=== PATIENT | female | born 1940 | race Caucasian/White ===

== ENCOUNTER → 2016-03-24 | Outpatient (CLI) | payer MEDICARE, OTHER ==
[~2016-03-24] MED LIST: CLOB-49 EX; CYCL0.8T PO; ESTR1TAB PO; FLUT1LOT EX; INSUHUMDS SC; INSULANT SC; LOSA50TA20 PO; MAGN400T5 PO; PRIM250T5 PO; PROP20EL PO; REST0.05 OP; SIMV40TA2 PO
--- NOTE | 2016-03-24 15:42 | REPMRS ---
Patient History The patient states she had a clinical breast exam in Patient has history of other cancer at age 71. No known family history of cancer. Took hormonal contraceptives for 4 years. Digital Woman Screen Mammo: March 24, 2016 - Exam #: [id number] Bilateral CC and MLO view(s) were taken. Technologist: Maude Marr, Technologist Prior study comparison: February 20, 2015, digital woman screen mammo performed at [facility]. February 08, 2014, bilateral bilat screen digital mammo, performed at [facility] ([facility]). February 06, 2013, bilateral bilat screen digital mammo, performed at [facility] ([facility]). FINDINGS: There are scattered fibroglandular densities. There has been no change in the appearance of the mammogram from the prior studies. There is a mild amount of scattered fibroglandular density which is fairly symmetric. There is no interval development of dominant mass, architectural distortion, or clustered microcalcification suggestive of malignancy. ASSESSMENT: BI-RADS/ACR category 1 mammogram. Negative. Recommendation Routine screening mammogram in 1 year (for women over age 40). This mammogram was interpreted with the aid of an FDA-approved computer-aided dectection system. Electronically Signed By: Ab Chapman MD 03/24/16 [id number]
== END ==
LOC: M WHC 14:03
PROVIDERS: ATTEND Nurse Practitioner Women's Health
DX: Z12.31 Encounter for screening mammogram for malignant neoplasm of breast (principal)
CPT/HCPCS: G0202; G0463

== ENCOUNTER → 2016-05-21 | Outpatient (REF) | payer MEDICARE, OTHER ==
[2016-05-21 13:41] LABS: ALBUMIN 3.5 GM/DL (3.2-5.2); ALBUMIN/GLOBULIN RATIO 1.09 (1.00-1.93); ALKALINE PHOSPHATASE 81 U/L (45-117); ALT/SGPT 68 U/L (12-78); ANION GAP 9 MEQ/L (8-16); AST/SGOT 39 U/L (15-37); BILIRUBIN,TOTAL 0.5 MG/DL (0.2-1.0); BLOOD UREA NITROGEN 22 MG/DL (7-18); CARBON DIOXIDE LEVEL 28 MEQ/L (21-32); CHLORIDE LEVEL 106 MEQ/L (98-107); CHOLESTEROL LEVEL 145 MG/DL (<200); CREATININE FOR GFR 0.87 MG/DL (0.55-1.02); GLOMERULAR FILTRATION RATE > 60.0 (>39); GLUCOSE, FASTING 132 MG/DL (83-110); POTASSIUM SERUM 4.5 MEQ/L (3.5-5.1); SODIUM LEVEL 143 MEQ/L (136-145); TOTAL PROTEIN 6.7 GM/DL (6.4-8.2); TRIGLYCERIDES LEVEL 201 MG/DL (<150)
== END ==
LOC: M SFHCPLAZ 11:12
PROVIDERS: ATTEND Nurse Practitioner Adult Health
DX: R74.8 Abnormal levels of other serum enzymes (principal); I10 Essential (primary) hypertension; E11.9 Type 2 diabetes mellitus without complications; E78.00 Pure hypercholesterolemia, unspecified

== ENCOUNTER → 2016-08-11 | Outpatient (CLI) | payer MEDICARE, OTHER ==
--- NOTE | 2016-08-11 15:01 | REP ---
PA and lateral chest: Comparison is 02/07/2016. The lung [place] are clear. The cardiac size is normal The hernán, mediastinum, and bony thorax are unremarkable. Impression: Negative PA and lateral chest. There is no interval change. Signed by Rodrigo Marcelo MD 08/11/2016 02:52 P
[2016-08-11 15:40] LABS: CALCIUM LEVEL 8.8 MG/DL (8.8-10.2); CREATININE FOR GFR 1.13 MG/DL (0.55-1.02); GLOMERULAR FILTRATION RATE 49.7 (>39)
[2016-08-11 15:54] LABS: POTASSIUM SERUM 5.5 MEQ/L (3.5-5.1)
--- NOTE | 2016-08-11 16:28 | ECGEPIP ---
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
== END ==
LOC: M LAB 13:51
PROVIDERS: ATTEND Ophthalmology
DX: Z01.818 Encounter for other preprocedural examination (principal); H25.11 Age-related nuclear cataract, right eye

== ENCOUNTER → 2016-08-27 | Day surgery (SDC) | payer MEDICARE, OTHER ==
[~2016-08-27] VITALS: Ht 149.9 cm; Wt 72.2 kg
[~2016-08-27] MED LIST changes: +ACETYLCHOLINE OPHTH SOLN 1% 2ML (MIOCHOL-E) As Ordered ONE; +AMLO2.5T PO; +BALANCED SALT IRRIGATION SOL 500ML GLASS BOTTLE (FOR OR EYE COMPOUND) As Ordered ONE; +BALANCED SALT IRRIGATION SOLUTION 500ML BAG (FOR OR EYE MACHINE) As Ordered ONE; +CEFUROXIME 1MG/0.1ML INTRACAMERAL INJ As Ordered ONE; +D5W/0.2% SODIUM CHLORIDE 250 ML IV ONE; +DUOVISC (0.50ML VISCOAT/0.55ML PROVISC) OPHTH KIT As Ordered ONE; +ESTR1CRE PV; +FLON1SPR; +INSULADS SC; +LIDOCAINE 0.75%/EPINEPHRINE 0.025% IN BSS 1ML SYR INTRACAMERAL (OR ONLY) As Ordered ONE; +LIDOCAINE 4% INJ 5 ML AMP As Ordered ONE; +LR 1,000 ML IV SCH; +MAGN64TASA PO; +MIDAZOLAM INJ 2 MG/2 ML VIAL (J2250) As Ordered ONE; +ONDANSETRON 4MG/2ML VIAL (J2405) IV PRN; +PEPC1TAB2 PO; +PEPC1TAB4 PO; +PHENYLEPHRINE 2.5% OPHTH SOL 2ML OD ONE; +POTA10TA16 PO; +POVIDONE-IODINE 5% OPHTH PREP SOL 30ML As Ordered ONE; +PRIM50TA6 PO; +PROA1AER INH; +PROP1TAB29 PO; +PROPARACAINE 0.5% OPHTH SOL 15ML OD ONE; +REST0.05 OU; +TROPICAMIDE 1% OPHTH SOLN 2ML OD ONE; +fentaNYL 100 MCG/2 ML INJECTION (J3010) As Ordered ONE; +fentaNYL 100 MCG/2 ML INJECTION (J3010) IV PRN
[2016-08-27 11:25] VITALS: BP 135/63
--- NOTE | 2016-08-28 09:15 | RO ---
DATE OF PROCEDURE: 08/27/2016 PREOPERATIVE DIAGNOSIS: Visually significant nuclear sclerotic cataract left eye. POSTOPERATIVE DIAGNOSIS: Visually significant nuclear sclerotic cataract left eye. PROCEDURE: Cataract extraction with use of phacoemulsification, and placement of intraocular lens, AU00T0, 22.0 diopter left eye. SURGEON: Guru Chow DO [address] PRODUCTION MANAGER: ANESTHESIA: Local with monitored anesthesia care (MAC). COMPLICATIONS: None. POSTOPERATIVE CONDITION: Stable. INDICATION FOR SURGERY: Blurred vision left eye affecting patient's activities of daily living. DESCRIPTION OF PROCEDURE: The patient was seen in the preoperative area and properly identified. The correct operative eye was identified and marked. Attention was turned to that eye. The patient received topical antibiotics in the preoperative area. The patient then received topical dilating drops consisting of Tropicamide and Phenylephrine. The patient was then transferred to the operating room. The correct side was re-identified. The patient received topical anesthetics and antibiotics on the surface of the eye. The eye was prepped and draped in a sterile fashion. The upper and lower eyelids were isolated with Tegaderm tape, and the lids were held open with an adjustable speculum. Using a sideport blade, a paracentesis incision was made. Intraocular preservative-free lidocaine was then injected into the anterior chamber. Viscoelastic was then injected into the anterior chamber through the paracentesis. Using a 2.6 mm sharp-tipped keratome, the anterior chamber was entered via a temporal clear corneal incision. A continuous curvilinear capsulorrhexis was created with the aid of a 26g cystotome and utrata forceps. Hydrodissection was performed with balanced salt solution (BSS) on a blunt cannula until the nucleus was freely mobile. The crystalline lens was phacoemulsified and aspirated. Additional cohesive viscoelastic was placed into the capsular bag to deepen it. AU00T0, 22.0 Diopter was placed into the capsular bag and confirmed by visualizing the continuous curvilinear capsulorrhexis. Additional irrigation and aspiration was used to remove cortical material and remaining viscoelastic. The clear corneal incision was hydrated with BSS on a blunt cannula. The lens was well positioned. The incisions were then tested for leaks and found to be negative. The eye was then palpated for appropriate pressure and adjusted accordingly with BSS. The eyelid speculum was carefully removed. A shield was then secured over the eye. The patient tolerated the procedure well and was discharged to the recovery unit in a stable condition. LEANDRO
== END | disposition home or self-care (01) ==
LOC: M SDC 07:07
PROVIDERS: ATTEND Ophthalmology
DX: H25.12 Age-related nuclear cataract, left eye (principal); I12.9 Hypertensive chronic kidney disease with stage 1 through stage 4 chronic kidney disease, or unspecified chronic kidney disease; N18.3 Chronic kidney disease, stage 3 (moderate); E11.9 Type 2 diabetes mellitus without complications; M15.0 Primary generalized (osteo)arthritis; K21.9 Gastro-esophageal reflux disease without esophagitis; E78.00 Pure hypercholesterolemia, unspecified; E83.42 Hypomagnesemia; M85.80 Other specified disorders of bone density and structure, unspecified site; N39.0 Urinary tract infection, site not specified; R31.9 Hematuria, unspecified; R74.8 Abnormal levels of other serum enzymes; Q45.3 Other congenital malformations of pancreas and pancreatic duct; K57.30 Diverticulosis of large intestine without perforation or abscess without bleeding; I71.4 Abdominal aortic aneurysm, without rupture; L90.0 Lichen sclerosus et atrophicus; Z88.1 Allergy status to other antibiotic agents; Z88.8 Allergy status to other drugs, medicaments and biological substances; Z85.828 Personal history of other malignant neoplasm of skin; Z90.710 Acquired absence of both cervix and uterus
CPT/HCPCS: 66984; J2250; J3010; V2632

== ENCOUNTER → 2016-09-11 | Outpatient (CLI) | payer MEDICARE, OTHER ==
[~2016-09-11] MED LIST changes: -ACETYLCHOLINE OPHTH SOLN 1% 2ML (MIOCHOL-E) As Ordered ONE; -BALANCED SALT IRRIGATION SOL 500ML GLASS BOTTLE (FOR OR EYE COMPOUND) As Ordered ONE; -BALANCED SALT IRRIGATION SOLUTION 500ML BAG (FOR OR EYE MACHINE) As Ordered ONE; -CEFUROXIME 1MG/0.1ML INTRACAMERAL INJ As Ordered ONE; -D5W/0.2% SODIUM CHLORIDE 250 ML IV ONE; -DUOVISC (0.50ML VISCOAT/0.55ML PROVISC) OPHTH KIT As Ordered ONE; -LIDOCAINE 0.75%/EPINEPHRINE 0.025% IN BSS 1ML SYR INTRACAMERAL (OR ONLY) As Ordered ONE; -LIDOCAINE 4% INJ 5 ML AMP As Ordered ONE; -LR 1,000 ML IV SCH; -MIDAZOLAM INJ 2 MG/2 ML VIAL (J2250) As Ordered ONE; -ONDANSETRON 4MG/2ML VIAL (J2405) IV PRN; -PHENYLEPHRINE 2.5% OPHTH SOL 2ML OD ONE; -POVIDONE-IODINE 5% OPHTH PREP SOL 30ML As Ordered ONE; -PRIM250T5 PO; +PRIM250T8 PO; -PROA1AER INH; +PROAAER10 INH; -PROPARACAINE 0.5% OPHTH SOL 15ML OD ONE; -TROPICAMIDE 1% OPHTH SOLN 2ML OD ONE; -fentaNYL 100 MCG/2 ML INJECTION (J3010) As Ordered ONE; -fentaNYL 100 MCG/2 ML INJECTION (J3010) IV PRN
[2016-09-11 14:06] LABS: CALCIUM LEVEL 9.3 MG/DL (8.8-10.2); CREATININE FOR GFR 1.05 MG/DL (0.55-1.02); GLOMERULAR FILTRATION RATE 54.1 (>39); POTASSIUM SERUM 4.2 MEQ/L (3.5-5.1)
== END ==
LOC: M WUC 11:50
PROVIDERS: ATTEND Internal Medicine
DX: Q45.3 Other congenital malformations of pancreas and pancreatic duct (principal)

== ENCOUNTER → 2016-09-14 | Outpatient (CLI) | payer MEDICARE, OTHER ==
--- NOTE | 2016-09-17 13:38 | REP ---
MRI ABDOMEN WITHOUT CONTRAST: Multiple sequences obtained in the axial and coronal planes. No IV contrast was administered. Correlation made with CT abdomen and pelvis with IV contrast performed at [facility] 08/14/2016. Pancreatic duct is normal in caliber. The pancreatic tail demonstrates no abnormality. In the pancreatic head, there is an oval cystic structure, which is slow in signal on T1 and high in signal on T2. This measures 10 x 6 mm. No other definite pancreatic lesion is seen. Visualized portions of the liver, spleen, adrenals, are unremarkable. There are multiple bilateral renal cysts. No adenopathy or free fluid is seen in the visualized abdomen. The patient has had a prior cholecystectomy. The common bile duct has a maximum diameter of 10 mm and tapers gradually as it courses distally to the ampulla of Vater. IMPRESSION: Oval cystic structure pancreatic head. This is nonspecific. Recommend further evaluation of the pancreas with post gadolinium imaging. At the very least, a 1-year followup MRI should be performed to ensure stability of the cyst in the head of the pancreas. Signed by Rodrigo Mcintosh MD 09/17/2016 03:58 P
== END ==
LOC: M RAD 07:44
PROVIDERS: ATTEND Internal Medicine
DX: Q45.3 Other congenital malformations of pancreas and pancreatic duct (principal)

== ENCOUNTER → 2016-09-22 | Outpatient (CLI) | payer MEDICARE, OTHER ==
--- NOTE | 2016-09-22 16:52 | REP ---
MRI abdomen without and with IV contrast: History: Pancreatic abnormality. Attention liver and pancreas. Comparison CT study [facility] 08/14/2016. Comparison MRI study of the abdomen from [facility] 09/14/2016. Technique: Axial and coronal imaging planes are acquired with T2 true FISP and T1-weighted 2-D gradient echo sequences before and after contrast. Contrast enhancement dose is 7 mL of intravenous ProHance, half-dose protocol. MRI findings: A small oval shaped cyst noted previously in the head of the pancreas shows no discernible gadolinium enhancement. No other abnormal enhancement pattern is seen in the pancreas. No abnormal liver lesion is appreciated. No splenic abnormality is observed. There are several small cortical renal cysts bilaterally. No upper abdominal adenopathy is seen. Normal caliber aorta is observed. Impression: Small 1 cm cyst in the pancreatic head. This shows no visible gadolinium enhancement. Consider repeat MRI study and 1 year. Transgastric endoscopic ultrasound may also be used to characterize this small pancreatic head cyst. Signed by Deshawn Chapman MD 09/22/2016 06:44 P
== END ==
LOC: M RAD 13:28
PROVIDERS: ATTEND Internal Medicine
DX: Q45.3 Other congenital malformations of pancreas and pancreatic duct (principal)
CPT/HCPCS: 74182; A9576

== ENCOUNTER → 2017-03-26 | Outpatient (CLI) | payer MEDICARE, OTHER | LOC: M RAD 09:59 | DX: Z12.31 Encounter for screening mammogram for malignant neoplasm of breast (principal); Z92.0 Personal history of contraception; Z85.9 Personal history of malignant neoplasm, unspecified | CPT/HCPCS: 77067 ==

== ENCOUNTER → 2017-08-31 | Outpatient (REF) | payer MEDICARE, OTHER ==
[2017-09-01 13:26] LABS: ALBUMIN % 57.1 % (55.8-66.1); ALPHA-1-GLOBULIN % 4.4 % (2.9-4.9); ALPHA-1-GLOBULINS 0.31 GM/DL (0.17-0.41); ALPHA-2-GLOBULINS 0.98 GM/DL (0.42-0.99); BETA-1-GLOBULINS 0.46 GM/DL (0.28-0.60); BETA-1-GLOBULINS % 6.6 % (4.7-7.2); BETA-2-GLOBULINS 0.38 GM/DL (0.19-0.55); BETA-2-GLOBULINS % 5.4 % (3.2-6.5); GAMMA GLOBULIN % 12.5 % (11.1-18.8); GAMMA GLOBULINS 0.88 GM/DL (0.65-1.58)
[2017-09-02 13:00] LABS: UPEP INTERPRETATION NO M-SPIKE NOTED; URINE VOLUME RANDOM ML
[2017-09-04 00:08] LABS: FREE KAPPA LIGHT CHAINS URINE 9.48 mg/L (1.35-24.19); FREE LAMBDA LIGHT CHAINS URINE 0.46 mg/L (0.24-6.66); KAPPA/LAMBDA RATIO URINE 20.61 (2.04-10.37)
== END ==
LOC: M LAB REF 12:59
DX: E83.52 Hypercalcemia (principal)
CPT/HCPCS: 84165

== ENCOUNTER → 2017-09-23 | Outpatient (CLI) | payer MEDICARE, OTHER ==
[2017-09-23 15:16] LABS: ANION GAP 5 MEQ/L (8-16); BLOOD UREA NITROGEN 26 MG/DL (7-18); CALCIUM LEVEL 8.6 MG/DL (8.8-10.2); CARBON DIOXIDE LEVEL 32 MEQ/L (21-32); CHLORIDE LEVEL 108 MEQ/L (98-107); CREATININE FOR GFR 1.24 MG/DL (0.55-1.30); GLOMERULAR FILTRATION RATE 44.5 (>39); GLUCOSE, FASTING 72 MG/DL (70-100); POTASSIUM SERUM 4.2 MEQ/L (3.5-5.1); SODIUM LEVEL 145 MEQ/L (136-145)
== END ==
LOC: M LAB 14:23
DX: Q45.3 Other congenital malformations of pancreas and pancreatic duct (principal)
CPT/HCPCS: 80048

== ENCOUNTER → 2017-09-28 | Outpatient (CLI) | payer MEDICARE, OTHER ==
[~2017-09-28] MED LIST changes: -AMLO2.5T PO; -CLOB-49 EX; -CYCL0.8T PO; -ESTR1CRE PV; -ESTR1TAB PO; -FLON1SPR; -FLUT1LOT EX; -INSUHUMDS SC; -INSULADS SC; -INSULANT SC; -LOSA50TA20 PO; -MAGN400T5 PO; -MAGN64TASA PO; -PEPC1TAB2 PO; -PEPC1TAB4 PO; -POTA10TA16 PO; -PRIM250T8 PO; -PRIM50TA6 PO; -PROAAER10 INH; +PROHANCE 279.3MG/ML 15ML VIAL (A9576) As Ordered; -PROP1TAB29 PO; -PROP20EL PO; -REST0.05 OP; -REST0.05 OU; -SIMV40TA2 PO
== END ==
LOC: M RAD 12:57
DX: K86.2 Cyst of pancreas (principal); N28.1 Cyst of kidney, acquired; D73.5 Infarction of spleen
CPT/HCPCS: A9576

== ENCOUNTER → 2018-01-10 | Outpatient (CLI) | payer MEDICARE, OTHER | LOC: M RAD 07:54 | DX: I74.8 Embolism and thrombosis of other arteries (principal) | CPT/HCPCS: 76705 ==

== ENCOUNTER → 2018-01-20 | Outpatient (CLI) | payer MEDICARE, OTHER | LOC: M RAD 09:50 | DX: M54.41 Lumbago with sciatica, right side (principal) | CPT/HCPCS: 72148 ==

== ENCOUNTER 2018-03-11 19:54 | Inpatient (IN) | payer MEDICARE, OTHER ==
[~2018-03-11] VITALS: Ht 147.3 cm; Wt 76.9 kg
[~2018-03-11 19:54] MED LIST changes: +AMLO2.5T3 PO; +BACT800T5 PO; +CLOB-49 EX; +CYCL0.8T PO; +ESTR1CRE PV; +ESTR1TAB PO; +FLON1SPR; +FLUT1LOT EX; +INSUHUMDS SC; +INSULADS SC; +INSULANT SC; +LOSA50TA88 PO; +MAGN400T5 PO; +MAGN64TASA PO; +PEPC1TAB2 PO; +PEPC1TAB5 PO; +POTA10TA16 PO; +PRIM250T8 PO; +PRIM50TA6 PO; +PROAAER10 INH; -PROHANCE 279.3MG/ML 15ML VIAL (A9576) As Ordered; +PROP20EL PO; +PROP20TA72 PO; +PYRI1TAB5 PO; +REST0.05 OP; +REST0.05 OU; +SIMV40TA2 PO; +XARE20TA PO
[2018-03-11 20:24] LABS: VENOUS BASE EXCESS 0.6 (-2.0-2.0); VENOUS HCO3 26.1 MEQ/L (23.0-27.0); VENOUS O2 SATURATION 79.1 % (60.0-80.0); VENOUS PARTIAL PRESSURE CO2 44.7 mmHg (38.0-50.0); VENOUS PARTIAL PRESSURE O2 43.8 mmHg (30.0-50.0); VENOUS PH 7.384 UNITS (7.330-7.430); VENOUS STANDARD HCO3 24.6 MEQ/L; VENOUS TOTAL CO2 27.5 MEQ/L (24.0-28.0)
[2018-03-11 20:27] LABS: BASO % 0.3 % (0.0-1.0); EOS # 0.2 10^3/uL (0.0-0.50); EOS % 2.9 % (0.0-3.0); HEMATOCRIT 42.3 % (36.0-47.0); HEMOGLOBIN 13.9 g/dl (12.0-15.5); LYMPH # 0.3 10^3/uL (1.5-4.5); LYMPH % 3.7 % (24.0-44.0); MEAN CORPUSCULAR HEMOGLOBIN 30.8 pg (27.0-33.0); MEAN CORPUSCULAR HGB CONC 32.9 g/dl (32.0-36.5); MEAN CORPUSCULAR VOLUME 93.6 fl (80.0-96.0); MONO # 0.5 10^3/uL (0.0-0.8); MONO % 7.7 % (0.0-5.0); NEUTROPHILS # 5.8 10^3/uL (1.8-7.7); NEUTROPHILS % 85.1 % (36.0-66.0); PLATELET COUNT, AUTOMATED 127 10^3/uL (150-450); RED BLOOD COUNT 4.52 10^6/uL (4.00-5.40); WHITE BLOOD COUNT 6.8 10^3/uL (4.0-10.0)
[2018-03-11 20:38] LABS: OSMOLALITY SERUM 299 MOSM/KG (280-301)
[2018-03-11 20:57] LABS: ALBUMIN 3.1 GM/DL (3.2-5.2); ALT/SGPT 67 U/L (12-78); BILIRUBIN,DIRECT 0.3 MG/DL (0.0-0.2); BILIRUBIN,TOTAL 0.6 MG/DL (0.2-1.0); BLOOD UREA NITROGEN 27 MG/DL (7-18); CALCIUM LEVEL 8.3 MG/DL (8.8-10.2); CARBON DIOXIDE LEVEL 26 MEQ/L (21-32); CHLORIDE LEVEL 106 MEQ/L (98-107); CK-MB VALUE MASS < 1.0 NG/ML (<3.6); CPK CREATINE PHOSPHOKINASE 28 U/L (26-192); CREATININE FOR GFR 1.41 MG/DL (0.55-1.30); ETHYL ALCOHOL (ETHANOL) < 0.003 % (0.000-0.010); GLOMERULAR FILTRATION RATE 38.3 (>39); GLUCOSE, FASTING 165 MG/DL (70-100); MB/CK RELATIVE INDEX 3.57 (< OR =4); POTASSIUM SERUM 3.9 MEQ/L (3.5-5.1); SODIUM LEVEL 143 MEQ/L (136-145); THYROID STIMULATING HORMONE 0.774 uIU/ML (0.358-3.740); TOTAL PROTEIN 6.1 GM/DL (6.4-8.2); TROPONIN I < 0.02 NG/ML (< 0.10)
--- NOTE | 2018-03-11 21:07 | REPVR ---
EXAM: CT Head Without Contrast EXAM DATE/TIME: 03/11/2018 8:26 PM CLINICAL HISTORY: 78 years old, female; Signs and symptoms; Altered mental status/memory loss; Confusion or disorientation TECHNIQUE: Axial computed tomography images of the head/brain without contrast. All CT scans at this facility use at least one of these dose optimization techniques: automated exposure control; mA and/or kV adjustment per patient size (includes targeted exams where dose is matched to clinical indication); or iterative reconstruction. COMPARISON: No relevant prior studies available. FINDINGS: Brain: There is age related volume loss. There is white matter lucency indicating chronic microvascular disease. There is no acute infarct. There is no hemorrhage or extra-axial collection. There is no mass. Ventricles: Normal. No ventriculomegaly. Bones/joints: Normal. No acute fracture. Sinuses: Normal as visualized. No acute sinusitis. Mastoid air cells: Normal as visualized. No mastoid effusion. Soft tissues: Normal. Vasculature: There are carotid artery calcifications. IMPRESSION: There is chronic microvascular disease. No acute lesion or injury. Electronically signed by: Dwight Camacho On 03/11/2018 21:07:17 PM
--- NOTE | 2018-03-11 21:51 | REP ---
Chest one-view HISTORY: Altered mental status Comparison: 08/22 The lungs are clear. The heart is normal in size. The pulmonary vasculature is normal in appearance. Impression: No acute disease. Electronically Signed by Alex Hermosillo MD 03/11/2018 09:42 P
[2018-03-11] MEDS ORDERED: NS 1,000 ML IV ONE (22:15)
[2018-03-12] MEDS ORDERED: PATIENT COMMENTS (00:04)
[2018-03-12] MEDS ORDERED: LOSA100T50 PO (00:04)
[2018-03-12] MEDS ORDERED: BISACODYL 5 MG TAB PO PRN (00:30)
[2018-03-12] MEDS ORDERED: ACETAMINOPHEN TAB 650MG DOSE (2X325MG) PO PRN (00:30)
[2018-03-12] MEDS ORDERED: DEXTROSE 50% 50 ML SYRINGE IV PRN ×2 (00:45→17:15)
[2018-03-12] MEDS ORDERED: GLUCAGON FOR INJ 1 MG VIAL (J1610) SC PRN (00:45)
[2018-03-12] MEDS ORDERED: GLUCOSE 4 GM CHEW TABLET PO PRN (00:45)
[2018-03-12 00:52] LABS: AMPHETAMINES LEVEL URINE NEGATIVE (NEGATIVE); BARBITURATES URINE NEGATIVE (NEGATIVE); BENZODIAZEPINES URINE NEGATIVE (NEGATIVE); CANNABINOIDS URINE NEGATIVE (NEGATIVE); COCAINE METABOLITE URINE NEGATIVE (NEGATIVE); METHADONE URINE NEGATIVE (NEGATIVE); OPIATES URINE NEGATIVE (NEGATIVE); PHENCYCLIDINE URINE NEGATIVE (NEGATIVE)
[2018-03-12] MEDS: D5W/0.9% SODIUM CHLORIDE 1,000 ML IV SCH (01:45)
[2018-03-12] MEDS ORDERED: LOSARTAN 50 MG TAB PO STA (06:30)
[2018-03-12 06:51] LABS: BASO % 0.4 % (0.0-1.0); EOS # 0.1 10^3/uL (0.0-0.50); HEMATOCRIT 40.2 % (36.0-47.0); HEMOGLOBIN 13.2 g/dl (12.0-15.5); LYMPH # 0.5 10^3/uL (1.5-4.5); LYMPH % 9.2 % (24.0-44.0); MEAN CORPUSCULAR HEMOGLOBIN 30.7 pg (27.0-33.0); MEAN CORPUSCULAR HGB CONC 32.8 g/dl (32.0-36.5); MEAN CORPUSCULAR VOLUME 93.5 fl (80.0-96.0); MONO # 0.5 10^3/uL (0.0-0.8); MONO % 10.4 % (0.0-5.0); NEUTROPHILS # 3.9 10^3/uL (1.8-7.7); NEUTROPHILS % 77.6 % (36.0-66.0); PLATELET COUNT, AUTOMATED 128 10^3/uL (150-450)
[2018-03-12 07:22] LABS: CREATININE FOR GFR 1.17 MG/DL (0.55-1.30); FREE THYROXINE INDEX 4.3 % (1.3-4.8); GLOMERULAR FILTRATION RATE 47.5 (>39); POTASSIUM SERUM 3.8 MEQ/L (3.5-5.1); THYROID STIMULATING HORMONE 1.13 uIU/ML (0.358-3.740); THYROXINE (T4) 10.9 UG/DL (4.5-12.0)
--- NOTE | 2018-03-12 08:04 | ECGEPIP ---
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
--- NOTE | 2018-03-12 08:24 | HPEPDOC ---
[facility] Medical History & Physical History and Physical CHIEF COMPLAINT: HISTORY OF PRESENT ILLNESS: This is a 78 yo female with pmhx of DM2 on lantus 42 units qhs, sliding scale and cycloset 4mg daily who was brought to the ED for presyncopal episode at home. Patient said she felt like she was going to pass out but her held her and checked her f/s which was 30. She stated that has been having frequent hypoglycemic episodes at home with near syncope as well. She also stated that sometime when her blood sugar is low causes "freezes up" and cannot move. She said she has been eating well, and has no complaint of infection, nausea., vomiting, or diarrhea. She c/o of feeling very dry as well. ROS - all 14 point review of system is negative except for whats listed in HPI Physical exam Gen: NAD, healthy appearing , dry mucosa HEENT: normocephalic , atraumatic, no discharge from ears or nose, no oropharyngeal erythema or exudate, neck is supple, no lymphadenopathy, trachea midline CVS: RRR, normal S1n S2, no murmurs, rubs, or gallops, no edema, no jvd Resp: LCTAB, no rhochi, wheezes or crackles Abd : soft nontender, normal bowel sounds, no rebound tenderness or guarding MSK: generalized weakness , no swelling, neuro: pill rolling tremor in right hand, no focal deficit psych: good mood and affect , good judgment Vitals stable - except for elevated BP ekg - NSR at 65bpm, first degree heart block , T wave inversions in v3and v4 , RBBB Labs - relatively wnl except for mild thrombocytopenia at 128 and mild wojciech - cr 1.41 - resolved on repeat bmp cxr - no active disease ct brain - There is chronic microvascular disease. No acute lesion or injury. Assessment hypoglycemia feeling dry// signs of hypovolemia HTn mild wojciech Plan hypoglycemic protocol hold all DM2 meds - likely needs lower dosing f/s has been >100 here f/s q1h f/u hba1c f/u orthostatic vitals NS at 50cc/hr resume home meds for htn f/u echo and carotid doppler dvt ppx full code , from home Vital Signs Vital Signs Date Time Temp Pulse Resp B/P (MAP) Pulse Ox O2 Delivery O2 Flow Rate FiO2 03/12/18 07:45 176/75 (108) 03/12/18 07:36 66 95 Room Air 03/12/18 07:00 16 03/12/18 04:38 98.2 Laboratory Data Labs 24H Laboratory Tests 2 03/11/18 20:02: Bedside Glucose (Misc Panel) 163H 03/11/18 20:14: Immature Granulocyte % (Auto) 0.3, White Blood Count 6.8, Red Blood Count 4.52, Hemoglobin 13.9, Hematocrit 42.3, Mean Corpuscular Volume 93.6, Mean Corpuscular Hemoglobin 30.8, Mean Corpuscular Hemoglobin Concent 32.9, Red Cell Distribution Width 13.0, Platelet Count 127L, Neutrophils (%) (Auto) 85.1H, Lymphocytes (%) (Auto) 3.7L, Monocytes (%) (Auto) 7.7H, Eosinophils (%) (Auto) 2.9, Basophils (%) (Auto) 0.3, Neutrophils # (Auto) 5.8, Lymphocytes # (Auto) 0.3L, Monocytes # (Auto) 0.5, Eosinophils # (Auto) 0.2, Basophils # (Auto) 0.0, Nucleated Red Blood Cells % (auto) 0.0, Blood Gas Bicarbonate Standard 24.6, Venous Blood pH 7.384, Venous Blood Partial Pressure CO2 44.7, Venous Blood Partial Pressure O2 43.8, Venous Blood Total Carbon Dioxide 27.5, Venous Blood HCO3 26.1, Venous Blood Oxygen Saturation 79.1, Venous Blood Base Excess 0.6, Anion Gap 11, Glomerular Filtration Rate 38.3L, Osmolality 299, Lactic Acid Level 1.2, Calcium Level 8.3L, Aspartate Amino Transf (AST/SGOT) 60H, Alanine Aminotransferase (ALT/SGPT) 67, Alkaline Phosphatase 102, Total Bilirubin 0.6, Direct Bilirubin 0.3H, Ammonia 27, Total Creatine Kinase 28, Creatine Kinase MB < 1.0, Creatine Kinase MB Relative Index 3.57, Troponin I < 0.02, Total Protein 6.1L, Albumin 3.1L, Albumin/Globulin Ratio 1.03, Thyroid Stimulating Hormone (TSH) 0.774, Ethyl Alcohol Level < 0.003 03/11/18 21:49: Bedside Glucose (Misc Panel) 180H 03/11/18 23:57: Urine Color YELLOW, Urine Appearance HAZY, Urine pH 5.0, Urine Specific Robinson 1.018, Urine Protein 1+H, Urine Glucose (UA) NEGATIVE, Urine Ketones NEGATIVE, Urine Blood 3+H, Urine Nitrite NEGATIVE, Urine Bilirubin NEGATIVE, Urine Urobilinogen 0.2, Urine Leukocyte Esterase 1+H, Urine WBC (Auto) 12H, Urine RBC (Auto) 2, Urine Hyaline Casts (Auto) 0, Urine Bacteria (Auto) NEGATIVE, Urine Squamous Epithelial Cells 5, Urine Sperm (Auto) , Urine Amphetamines Screen NEGATIVE, Urine Benzodiazepines Screen NEGATIVE, Urine Opiates Screen NEGATIVE, Urine Methadone Screen NEGATIVE, Urine Barbiturates Screen NEGATIVE, Urine Phencyclidine Screen NEGATIVE, Urine Cocaine Metabolite Screen NEGATIVE, Urine Cannabinoids Screen NEGATIVE 03/12/18 01:37: Bedside Glucose (Misc Panel) 143H 03/12/18 02:34: Bedside Glucose (Misc Panel) 193H 03/12/18 04:35: Bedside Glucose (Misc Panel) 214H 03/12/18 05:55: Bedside Glucose (Misc Panel) 194H 03/12/18 06:24: Immature Granulocyte % (Auto) 0.4, White Blood Count 5.0, Red Blood Count 4.30, Hemoglobin 13.2, Hematocrit 40.2, Mean Corpuscular Volume 93.5, Mean Corpuscular Hemoglobin 30.7, Mean Corpuscular Hemoglobin Concent 32.8, Red Cell Distribution Width 13.0, Platelet Count 128L, Neutrophils (%) (Auto) 77.6H, Lymphocytes (%) (Auto) 9.2L, Monocytes (%) (Auto) 10.4H, Eosinophils (%) (Auto) 2.0, Basophils (%) (Auto) 0.4, Neutrophils # (Auto) 3.9, Lymphocytes # (Auto) 0.5L, Monocytes # (Auto) 0.5, Eosinophils # (Auto) 0.1, Basophils # (Auto) 0.0, Nucleated Red Blood Cells % (auto) 0.0, Anion Gap 10, Glomerular Filtration Rate 47.5, Blood Urea Nitrogen 22H, Creatinine 1.17, Sodium Level 144, Potassium Level 3.8, Chloride Level 110H, Carbon Dioxide Level 24, Calcium Level 8.0L, Thyroid Stimulating Hormone (TSH) 1.130, Free Thyroxine Index 4.3, Thyroxine (T4) 10.9, Triiodothyronine (T3) Uptake 39 CBC/BMP Laboratory Tests 03/11/18 20:14 Red Blood Count 4.52, Mean Corpuscular Volume 93.6, Mean Corpuscular Hemoglobin 30.8, Mean Corpuscular Hemoglobin Concent 32.9, Red Cell Distribution Width 13.0, Neutrophils (%) (Auto) 85.1 H, Lymphocytes (%) (Auto) 3.7 L, Monocytes (%) (Auto) 7.7 H, Eosinophils (%) (Auto) 2.9, Basophils (%) (Auto) 0.3, Neutrophils # (Auto) 5.8, Lymphocytes # (Auto) 0.3 L, Monocytes # (Auto) 0.5, Eosinophils # (Auto) 0.2, Basophils # (Auto) 0.0 03/12/18 06:24 Red Blood Count 4.30, Mean Corpuscular Volume 93.5, Mean Corpuscular Hemoglobin 30.7, Mean Corpuscular Hemoglobin Concent 32.8, Red Cell Distribution Width 13.0, Neutrophils (%) (Auto) 77.6 H, Lymphocytes (%) (Auto) 9.2 L, Monocytes (%) (Auto) 10.4 H, Eosinophils (%) (Auto) 2.0, Basophils (%) (Auto) 0.4, Neutrophils # (Auto) 3.9, Lymphocytes # (Auto) 0.5 L, Monocytes # (Auto) 0.5, Eosinophils # (Auto) 0.1, Basophils # (Auto) 0.0, Calcium Level 8.0 L Microbiology Microbiology 03/11/18 Urine Culture, Received Pending Home Medications Scheduled Bromocriptine Mesylate (Cycloset) 0.8 Mg Tab, 3.2 MG PO DAILY Famotidine (Pepcid) 20 Mg Tab, 20 MG PO BID Fluticasone Propionate (Flonase Allergy Relief) 50 Mcg/Act Spr, 50 MCG NA DAILY Insulin Glargine (Lantus) 100 Unit/Ml Inj, 42 UNIT SC QHS Insulin Human Lispro (Humalog) 1 Units/0.01 Ml Inj, 1 UNITS SC AC SLIDING SCALE Losartan Potassium (Losartan Potassium) 100 Mg Tab, 100 MG PO DAILY Magnesium Chloride (Mag64) 64 Mg Tabcr, 128 MG PO BID Potassium Chloride (Potassium Chloride ER) 10 Meq Tab, 10 MEQ PO DAILY Primidone (Primidone) 50 Mg Tab, 100 MG PO QHS Propranolol HCl (Propranolol HCl) 20 Mg Tab, 20 MG PO BID Rivaroxaban (Xarelto) 20 Mg Tab, 20 MG PO DAILY Simvastatin - High Dose (Simvastatin) 40 Mg Tab, 40 MG PO QHS Miscellaneous Medications [Patient Comments] PATIENT ONLY SURE OF TAKING XARELTO TODAY AND LANTUS LAST EVENING (03/10/2018). SPOUSE TAKES CARE OF MEDICATIONS Allergies Coded Allergies: Metoclopramide (Unverified Allergy, Intermediate, TREMORS, 08/19/17) Amoxicillin (Unverified Allergy, Mild, RASH, 08/19/17) Cephalexin (Unverified Allergy, Mild, RASH, 08/19/17) Clavulanic Acid (Unverified Allergy, Mild, RASH, 08/19/17) Erythromycin (Unverified Allergy, Mild, RASH, 08/19/17) Gatifloxacin (Unverified Allergy, Mild, 08/19/17) Latex (Verified Allergy, Mild, RASH, 08/19/17) Tramadol (Unverified Allergy, Mild, RASH; confusion, 08/19/17) Exenatide (Verified Allergy, Unknown, abdominal pain, 08/19/17) Glyburide (Verified Allergy, Unknown, too low blood sugars, 08/19/17) Phenol (Verified Allergy, Unknown, abdominal pain, 08/19/17) Rofecoxib (Verified Allergy, Unknown, tongue throat swelled, 08/19/17) MAGGIE LOVE MD Mar 12, 2018 08:24
[2018-03-12] MEDS ORDERED: ENOXAPARIN 40 MG/0.4 ML SYRINGE (J1650) SC SCH (09:00)
[2018-03-12] MEDS ORDERED: FAMOTIDINE 20 MG TAB PO SCH (09:00)
[2018-03-12] MEDS: LOSARTAN 50 MG TAB PO SCH ×2 (09:03→09:08)
[2018-03-12] MEDS: FAMOTIDINE 20 MG TAB PO SCH (09:03)
[2018-03-12] MEDS: POTASSIUM CHLORIDE 10 MEQ SR TABLET PO SCH (09:03)
[2018-03-12 09:20] LABS: CHOLESTEROL RISK RATIO 2.722 (<5)
[2018-03-12 09:42] LABS: HEMOGLOBIN A1c 7.7 %
[2018-03-12] MEDS: MAGNESIUM CHLORIDE 64 MG TABCR (SLO MAG) PO SCH ×2 (11:05→21:40)
[2018-03-12 16:00] VITALS: BP 178/86
[2018-03-12] MEDS ORDERED: amLODIPine 5 MG TAB PO ONE (18:00)
[2018-03-12] MEDS: HumaLOG INSULIN (NovoLOG) PER UNIT SC SCH ×2 (18:05→21:00)
[2018-03-12] MEDS: RIVAROXABAN 20 MG TAB (XARELTO) PO SCH (18:06)
[2018-03-12] MEDS ORDERED: LEVEMIR (INSULIN DETEMIR) 1 UNITS/0.01ML SC SCH (21:00)
[2018-03-12] MEDS: PRIMIDONE 50 MG TAB PO SCH (21:39)
[2018-03-12] MEDS: SIMVASTATIN 40 MG TAB PO SCH (21:40)
[2018-03-12 22:00] VITALS: BP 172/78
[2018-03-13 02:00] VITALS: BP 160/68
[2018-03-13] MEDS: D5W/0.9% SODIUM CHLORIDE 1,000 ML IV SCH ×2 (02:33→12:39)
[2018-03-13 06:00] VITALS: BP 162/64
[2018-03-13] MEDS: HumaLOG INSULIN (NovoLOG) PER UNIT SC SCH ×4 (08:25→21:00)
[2018-03-13] MEDS: FAMOTIDINE 20 MG TAB PO SCH (08:25)
[2018-03-13] MEDS: POTASSIUM CHLORIDE 10 MEQ SR TABLET PO SCH (08:25)
[2018-03-13] MEDS: MAGNESIUM CHLORIDE 64 MG TABCR (SLO MAG) PO SCH ×2 (08:25→21:17)
[2018-03-13 10:00] VITALS: BP 172/83
[2018-03-13] MEDS: LOSARTAN 50 MG TAB PO SCH (10:50)
[2018-03-13 14:00] VITALS: BP 177/79
--- NOTE | 2018-03-13 14:13 | ECHO ---
DATE OF SERVICE: 03/12/2018 REFERRING PROVIDER: Dr. Denice García REASON FOR THE ECHOCARDIOGRAM: Syncope. 2D MEASUREMENTS: IVS: 1.2 cm LV: 4.3 cm LVPW: 1.3 cm LA: 3.4 cm Aorta: 3.4 cm DOPPLER MEASUREMENTS: Peak velocity across the aortic valve: 1.0 m/s Peak velocity across the LVOT: 0.83 m/s Mitral E: 0.82 Mitral A: 1.3, with a ratio of 0.6 2D COMMENTS: 1. Normal left ventricular size with mildly increased left ventricular wall thickness. Left ventricular systolic function is normal with an estimated left ventricular ejection fraction (LVEF) of 60-65%. 2. Normal left atrium. Normal right atrium and right ventricle. 3. The atrial septum appeared to be normal without evidence of defect or shunt. 4. Normal aortic root. 5. No pericardial effusion seen. 6. Minimally calcified aortic valve with normal leaflet excursion. Mildly calcified mitral annulus with normal anterior mitral valve leaflet motion. Normal tricuspid valve and pulmonic valve. The proximal pulmonary artery branches also appeared to be normal. 6. The inferior vena cava was not well visualized. DOPPLER: It detects trace aortic regurgitation, trace mitral regurgitation. Abnormal relaxation pattern was noted across the mitral valve leaflets as well as the mitral valve annulus, consistent with delayed relaxation. IMPRESSION: 1. Normal global left ventricular systolic function. There are features of left ventricular diastolic dysfunction manifested by abnormal relaxation. There was underlying concentric left ventricular hypertrophy. 2. Aortic valve sclerosis with trace aortic regurgitation but no aortic stenosis. 3. Mitral annulus calcification with trace mitral regurgitation.
[2018-03-13] MEDS ORDERED: amLODIPine 10 MG TAB PO ONE (14:30)
[2018-03-13] MEDS: RIVAROXABAN 20 MG TAB (XARELTO) PO SCH (17:37)
[2018-03-13 18:00] VITALS: BP 142/80
--- NOTE | 2018-03-13 18:20 | IPN ---
DATE: 03/13/2018 SUBJECTIVE: Patient is seen and examined in the room with her and daughter. Patient denies any acute complaints. According to patient, patient stopped taking gabapentin since 02/01/2018, and that is about the time that she started having poor oral intake. No report of hypoglycemia noted since admission. OBJECTIVE: VITAL SIGNS: Temperature 98.6, pulse 82, respiratory rate 17, blood pressure 172/83, pulse oximetry 97% in room air. GENERAL: No sign of acute distress, alert and oriented times three. HEENT: Normocephalic, atraumatic. Extraocular motors grossly intact. CARDIOVASCULAR: Positive S1, S2, regular rate. LUNGS: Clear to auscultation bilaterally. ABDOMEN: Soft, nontender, nondistended, bowel sounds present. EXTREMITIES: No edema. LABORATORY DATA: WBC 5, hemoglobin 13.2, hematocrit 40.2, platelet count 128, sodium 144, potassium 3.8, chloride 110, carbon dioxide 24, BUN 22, creatinine 1.17, GFR 47.5, fasting glucose 185, A1c 7.7, calcium 8, triglycerides 120, total cholesterol 98, LDL 38, TSH 1.13, free T4 index is 4.3. Urine culture final result showed no growth. 1. Near syncope episode suspected due to hypoglycemic episode. According to patient, prior to arrival to the emergency room, patient had a fasting glucose of 30. According to the history, patient has been having poor oral intake suspected due to adverse effect from the gabapentin. Patient also noted to have recent sliding scale adjustment. Continue to measure patient's glucose level. Patient on consistent carbohydrate diet. No events noted in cardiac telemetry. Patient had echocardiogram performed. Report reviewed. 2. Diabetes. Patient presented with severe hypoglycemic episode. Patient's regimen is being adjusted, medication reviewed and adjusted. 3. Hypertension. At baseline, patient is taking losartan. We added amlodipine. 4. Acute kidney disease, suspected due to dehydration from poor oral intake. Renal function improving. 5. Deep venous thrombosis (DVT) prophylaxis. On Xarelto.
[2018-03-13] MEDS: PRIMIDONE 50 MG TAB PO SCH (21:16)
[2018-03-13] MEDS: SIMVASTATIN 40 MG TAB PO SCH (21:16)
[2018-03-13 22:00] VITALS: BP 176/82
[2018-03-13] MEDS ORDERED: hydroCHLOROthiazide 12.5 MG CAPSULE PO ONE (23:00)
[2018-03-14 02:00] VITALS: BP 162/74
[2018-03-14 06:00] VITALS: BP 154/76
[2018-03-14 06:31] LABS: BASO # 0.1 10^3/uL (0.0-0.2); BASO % 0.9 % (0.0-1.0); EOS # 0.4 10^3/uL (0.0-0.50); EOS % 6.7 % (0.0-3.0); HEMATOCRIT 39.4 % (36.0-47.0); HEMOGLOBIN 13.3 g/dl (12.0-15.5); LYMPH # 1.2 10^3/uL (1.5-4.5); LYMPH % 22.1 % (24.0-44.0); MEAN CORPUSCULAR HEMOGLOBIN 30.8 pg (27.0-33.0); MEAN CORPUSCULAR HGB CONC 33.8 g/dl (32.0-36.5); MEAN CORPUSCULAR VOLUME 91.2 fl (80.0-96.0); MONO # 0.5 10^3/uL (0.0-0.8); MONO % 9.6 % (0.0-5.0); NEUTROPHILS # 3.3 10^3/uL (1.8-7.7); NEUTROPHILS % 60.5 % (36.0-66.0); PLATELET COUNT, AUTOMATED 166 10^3/uL (150-450); RED BLOOD COUNT 4.32 10^6/uL (4.00-5.40); WHITE BLOOD COUNT 5.5 10^3/uL (4.0-10.0)
[2018-03-14 06:51] LABS: BLOOD UREA NITROGEN 17 MG/DL (7-18); CALCIUM LEVEL 8.4 MG/DL (8.8-10.2); CARBON DIOXIDE LEVEL 21 MEQ/L (21-32); CHLORIDE LEVEL 106 MEQ/L (98-107); CREATININE FOR GFR 0.88 MG/DL (0.55-1.30); GLOMERULAR FILTRATION RATE > 60.0 (>39); GLUCOSE, FASTING 198 MG/DL (70-100); POTASSIUM SERUM 4.1 MEQ/L (3.5-5.1); SODIUM LEVEL 135 MEQ/L (136-145)
[2018-03-14] MEDS: HumaLOG INSULIN (NovoLOG) PER UNIT SC SCH ×2 (07:54→13:00)
[2018-03-14 07:55] VITALS: BP 154/76
[2018-03-14] MEDS: FAMOTIDINE 20 MG TAB PO SCH (07:55)
[2018-03-14] MEDS: LOSARTAN 50 MG TAB PO SCH (07:55)
[2018-03-14] MEDS: POTASSIUM CHLORIDE 10 MEQ SR TABLET PO SCH (07:55)
[2018-03-14] MEDS: MAGNESIUM CHLORIDE 64 MG TABCR (SLO MAG) PO SCH (07:56)
--- NOTE | 2018-03-14 07:56 | REP ---
Duplex carotid sonography: History: Syncope. Findings: Antegrade flow was observed in both vertebral arteries. Right carotid: The right common carotid artery is unremarkable. There is minimal mixed plaquing in the bulb and proximal ICA on the right side. Color flow and spectral Doppler interrogation are unremarkable on the right. Velocity chart right carotid: PSV EDV Right CCA 160.0 cm/s Right ICA 61.0 16.0 Right ECA 51.0 Right ICA/CCA ratio .57. Impression: 0-15% category narrowing the right ICA by Doppler velocity criteria. Left carotid: The left common carotid artery is unremarkable on two-dimensional scanning. There is minimal mixed plaquing in the proximal ICA on the left. Color flow and spectral Doppler interrogation are unremarkable on the left. Velocity chart left carotid: PSV EDV Left CCA 72.0 cm/s Left ICA 49.0 10.0 Left ECA 54.0 Left ICA/CCA ratio normal 0.67. Impression: 0-15% narrowing in the left ICA by Doppler velocity criteria. Electronically Signed by Deshawn Chapman MD 03/14/2018 10:53 A
[2018-03-14] MEDS ORDERED: MIRALAX *UNIT DOSE* 17GM PACKET PO SCH (09:00)
[2018-03-14 10:00] VITALS: BP 137/83
[2018-03-14] MEDS ORDERED: INSULADS SC (11:50)
--- NOTE | 2018-03-14 21:24 | DSES ---
DATE OF ADMISSION: 03/12/2018 DATE OF DISCHARGE: 03/14/2018 DISCHARGE DIAGNOSIS: 1. Near syncope episode secondary to severe hypoglycemia. 2. Diabetes. 3. Hypertension. 4. Acute kidney injury. 5. Diastolic dysfunction. HOSPITALIZATION COURSE: Patient is 78-year-old female who presented to [facility] on 03/12/2018 after a near syncope episode. Patient was found to have a glucose around 30. Patient was sent to [facility] for further evaluation. Patient's admitted under hospitalist service. Home medication was reviewed. According to the history gabapentin may have caused patient to have poor oral intake which has been discontinued since admission. Since admission no recurrence of the hypoglycemic episode and the near syncope workup came back negative. On 03/14/2018, patient was determined stable for discharge with insulin adjustment. Patient was admitted a fall. She should followup with her primary care provider in one week. Patient should also followup with her director of nurses registry Dr. Marcia Ware in one week. VITAL SIGNS ON DAY OF DISCHARGE: Temperature 98, pulse 81, respirations 15, blood pressure 137/83, pulse ox 98% on room air. LABORATORY DATA: WBC 5.2, hemoglobin 13.3, hematocrit 39.4, platelet count is 166, sodium 135, potassium 4.1, chloride 106, carbon dioxide 21, BUN 17, creatinine 0.8, GFR greater than 60, fasting glucose 198, A1c 7.7, calcium 8.4. Urine toxicology from 03/11/2018 is negative. Urine culture from 03/11/2018 showed no growth. IMAGING STUDIES: CT of the head without contrast on 03/11/2018 demonstrated chronic microvascular disease. No acute additional injury. Chest x-ray on 03/11/2018 demonstrated no acute disease. 0-15 narrowing of the left ICA. Echocardiogram demonstrated a normal systolic function. Feature of left ventricular diastolic dysfunction. DISCHARGE MEDICATION: Pepcid 20 mg by mouth twice a day, Flonase 15 mcg nasal daily, Humalog sliding scale every morning, Losartan 100 mg by mouth daily, magnesium [id number] mg by mouth twice a day, potassium chloride 10 mEq by mouth daily, Primidone 100 mg by mouth at bedtime, Xarelto 20 mg by mouth daily, simvastatin 40 mg at bedtime, Lantus 30 units subcu at bedtime (patient was taking 42 units subcu at bedtime. This is discontinued), gabapentin. DISCHARGE INSTRUCTIONS: Discontinue line, discharge home. Activity as tolerated. Consistent carbohydrate diet. Patient should followup with her primary care provider in one week. Patient should followup with her director of nurses registry in one week. DISCHARGE CONDITION: Fair. DISCHARGE TIME: Greater than 20 minutes.
== END 2018-03-14 14:27 | disposition home or self-care (01) | DRG 639 ==
LOC: M ED 19:54 → M ED INP 03-12 00:34 → M MSPAV 03-12 16:15
PROVIDERS: ADMIT Internal Medicine; ATTEND Internal Medicine
DX: E11.649 Type 2 diabetes mellitus with hypoglycemia without coma (principal); I10 Essential (primary) hypertension; N17.9 Acute kidney failure, unspecified; Z79.4 Long term (current) use of insulin; Z79.899 Other long term (current) drug therapy; Z79.01 Long term (current) use of anticoagulants; Z88.0 Allergy status to penicillin; Z88.1 Allergy status to other antibiotic agents; Z88.5 Allergy status to narcotic agent; Z88.8 Allergy status to other drugs, medicaments and biological substances; Z91.040 Latex allergy status

== ENCOUNTER → 2018-03-28 | Outpatient (CLI) | payer MEDICARE, OTHER ==
[~2018-03-28] MED LIST changes: +LOSA100T50 PO; +PATIENT COMMENTS
--- NOTE | 2018-03-28 09:53 | REPMRS ---
Patient History The patient states she has not had a clinical breast exam in over a year. No known family history of cancer. Took hormonal contraceptives for 4 years. Digital Mammo Screening Bilat: March 28, 2018 - Exam #: [id number] Bilateral CC and MLO view(s) were taken. Technologist: Leidy Francis, Technologist Prior study comparison: March 26, 2017, bilateral digital mammo screening bilat performed at [facility]. March 24, 2016, digital woman screen mammo, performed at [facility]. February 20, 2015, digital woman screen mammo, performed at [facility]. FINDINGS: There are scattered fibroglandular densities. There has been no change in the appearance of the mammogram from the prior studies. There is a mild amount of scattered fibroglandular density which is fairly symmetric. There is no interval development of dominant mass, architectural distortion, or clustered microcalcification suggestive of malignancy. 3-D tomosynthesis shows no additional findings. Assessment: BI-RADS/ACR category 1 mammogram. Negative Mammogram. Recommendation Routine screening mammogram of both breasts in 1 year (for women over age 40). This patient's Lifetime Breast Cancer RIsk is estimated at 1.9 %. This mammogram was interpreted with the aid of an FDA-approved computer-aided dectection system. Electronically Signed By: Ab Chapman MD 03/28/18 [id number]
== END ==
LOC: M RAD 09:16
PROVIDERS: ATTEND Nurse Practitioner Adult Health
DX: Z12.31 Encounter for screening mammogram for malignant neoplasm of breast (principal)

== ENCOUNTER → 2018-04-27 | Outpatient (CLI) | payer MEDICARE, OTHER ==
[2018-04-27 14:40] LABS: ALBUMIN 3.5 GM/DL (3.2-5.2); BILIRUBIN,TOTAL 0.7 MG/DL (0.2-1.0); CHOLESTEROL RISK RATIO 2.804 (<5); CREATININE FOR GFR 1.05 MG/DL (0.55-1.30); GLOMERULAR FILTRATION RATE 53.8 (>39); POTASSIUM SERUM 4.4 MEQ/L (3.5-5.1); THYROID STIMULATING HORMONE 1.18 uIU/ML (0.358-3.740); TOTAL PROTEIN 6.7 GM/DL (6.4-8.2)
[2018-04-27 15:01] LABS: HEMOGLOBIN A1c 7.8 %
[2018-04-27 15:04] LABS: MAU/CREAT RATIO 115.6 MCG/MG (0.0-30.0)
== END ==
LOC: M SMT 08:51
PROVIDERS: ATTEND Nurse Practitioner Adult Health
DX: I12.9 Hypertensive chronic kidney disease with stage 1 through stage 4 chronic kidney disease, or unspecified chronic kidney disease (principal); E11.9 Type 2 diabetes mellitus without complications; E78.2 Mixed hyperlipidemia; R74.8 Abnormal levels of other serum enzymes; Z79.4 Long term (current) use of insulin

== ENCOUNTER → 2018-04-29 | Outpatient (CLI) | payer MEDICARE, OTHER ==
[2018-04-29 18:29] LABS: GLOMERULAR FILTRATION RATE 56.9 (>39)
== END ==
LOC: M SMT 14:52
PROVIDERS: ATTEND Physician Assistant
DX: M16.11 Unilateral primary osteoarthritis, right hip (principal)

== ENCOUNTER → 2018-07-11 | Outpatient (CLI) | payer MEDICARE, OTHER ==
[~2018-07-11] MED LIST changes: -PEPC1TAB2 PO; +PEPC40TA12 PO
--- NOTE | 2018-07-11 09:35 | REP ---
LEFT UPPER QUADRANT ULTRASOUND: Real-time sonographic evaluation of the left upper quadrant was performed. Spleen is normal in size measuring 10 cm in length. Wedge shaped infarct is again seen in the spleen, as on prior studies. Left kidney is normal in size and echotexture, measuring 10.2 x 5.7 x 4.6 cm. There is no hydronephrosis. There are multiple left renal cysts. The largest is in the mid aspect medially measuring 2.7 x 2.4 x 1.9 cm. No free fluid is seen. 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 Left renal cyst. Electronically Signed by Rodrigo Mcintosh MD 07/11/2018 05:26 P
== END ==
LOC: M RAD 07:20
PROVIDERS: ATTEND Surgery Vascular Surgery
DX: D73.5 Infarction of spleen (principal); N28.1 Cyst of kidney, acquired

== ENCOUNTER → 2018-07-27 | Outpatient (CLI) | payer MEDICARE, OTHER ==
--- NOTE | 2018-07-28 07:47 | REP ---
DUPLEX DOPPLER ULTRASOUND SPLENIC ARTERY WITH LEFT UPPER QUADRANT ULTRASOUND: Real-time ultrasound and duplex Doppler interrogation of the splenic artery is performed. Splenic artery is visualized proximally, but the mid aspect is not visualized due to overlying bowel gas. The splenic artery is visualized at the splenic hilum. Celiac artery peak systolic velocity is 104 cm/s. Proximally the peak systolic velocity in the splenic artery is 124 cm/s and distally in the region of the splenic hilum 85 cm/s. There is no evidence of hemodynamically significant stenosis of the visualized portions of the splenic artery. Spleen is mildly prominent in size measuring 10.8 x 6.4 x 10.8 cm with a splenic index of 746. Once again there is a wedge shaped deformity consistent with prior splenic infarct. There are small calcified granulomas. Left kidney is normal in size measuring 10.8 x 4.8 x 4.3 cm. There are multiple left renal cysts present. Largest is in the mid aspect 2.4 x 2.2 x 2.4 cm. No free fluid is seen. IMPRESSION: The proximal and distal portions of the splenic artery demonstrate no significant stenosis. Mid aspect is not seen due to overlying bowel gas. Mildly prominent size of the spleen. There is again evidence of prior splenic infarct. Left renal cysts. Electronically Signed by Rodrigo Mcintosh MD 07/28/2018 12:40 P
== END ==
LOC: M RAD 08:49
PROVIDERS: ATTEND Physician Assistant
DX: D73.5 Infarction of spleen (principal); N28.1 Cyst of kidney, acquired

== ENCOUNTER 2018-12-21 09:36 | Inpatient (IN) | payer MEDICARE, OTHER ==
[~2018-12-21] VITALS: Ht 147.3 cm; Wt 73.0 kg
[2018-12-21] MEDS ORDERED: RANI150T14 PO (10:00)
[2018-12-21] MEDS ORDERED: TORS20TA2 PO (10:00)
[2018-12-21] MEDS ORDERED: NITR4TASL PO (10:00)
[2018-12-21] MEDS ORDERED: TIZA2TA PO (10:00)
[2018-12-21] MEDS ORDERED: LYRI75CA PO (10:00)
[2018-12-21 10:29] LABS: BASO % 0.3 % (0.0-1.0); EOS # 0.1 10^3/uL (0.0-0.5); EOS % 0.6 % (0.0-3.0); HEMATOCRIT 43.5 % (36.0-47.0); HEMOGLOBIN 14.1 g/dl (12.0-15.5); LYMPH % 10.2 % (24.0-44.0); MEAN CORPUSCULAR HGB CONC 32.4 g/dl (32.0-36.5); MEAN CORPUSCULAR VOLUME 92.6 fl (80.0-96.0); MONO # 0.9 10^3/uL (0.0-0.8); MONO % 9.2 % (0.0-5.0); NEUTROPHILS # 7.4 10^3/uL (1.5-8.5); NEUTROPHILS % 79.2 % (36.0-66.0); PLATELET COUNT, AUTOMATED 188 10^3/uL (150-450); WHITE BLOOD COUNT 9.3 10^3/uL (4.0-10.0)
--- NOTE | 2018-12-21 10:34 | REP ---
CT brain: 12/21/2018. Indication: Acute mental status. Comparison: 03/11/2018. Findings: There is no acute intracranial hemorrhage, acute cortical infarction, mass effect or hydrocephalous. Diffuse volume loss is present. Chronic-appearing basal ganglia lacunar infarctions and patchy areas of white matter hypoattenuation most consistent with chronic small vessel disease are present. Impression: There is no evidence of acute intracranial process. Tube. Volume loss and sequelae of chronic microangiopathic ischemic disease. Chronic appearing basal ganglia lacunar infarctions. Electronically Signed by Henry Savage DO 12/21/2018 10:26 A
--- NOTE | 2018-12-21 10:38 | REP ---
Portable chest x-ray: Single view. History: Altered mental status. Comparison study: March 11, 2018. Findings: Monitoring electrodes are seen. The lungs are well inflated and clear. Pleural angles are sharp. Cardiomediastinal silhouette is unremarkable. Aortic tortuosity and vascular calcification are noted. No significant bony abnormality. There are clips in right upper quadrant of the abdomen. Impression: No acute disease. Electronically Signed by Deshawn Chapman MD 12/21/2018 10:29 A
[2018-12-21 10:46] LABS: INR 1.58; PARTIAL THROMBOPLASTIN TIME 34.9 SECONDS (25.0-38.4); PROTHROMBIN TIME 18.6 SECONDS (11.8-14.0)
[2018-12-21 11:03] LABS: CALCIUM LEVEL 9.3 MG/DL (8.8-10.2); CK-MB VALUE MASS 6.6 NG/ML (<3.6); CREATININE FOR GFR 1.14 MG/DL (0.55-1.30); GLOMERULAR FILTRATION RATE 48.9 (>39); MAGNESIUM LEVEL 1.6 MG/DL (1.8-2.4); MB/CK RELATIVE INDEX 2.3 (< OR =4); THYROID STIMULATING HORMONE 0.601 uIU/ML (0.358-3.740); TROPONIN I 0.45 NG/ML (< 0.10)
[2018-12-21] MEDS: NS 1,000 ML IV SCH ×2 (12:40→20:55)
[2018-12-21 13:18] LABS: MB/CK RELATIVE INDEX 2.15 (< OR =4); TROPONIN I 0.59 NG/ML (< 0.10)
--- NOTE | 2018-12-21 15:12 | ECGEPIP ---
[facility] - ED Test Date: 2018-12-21 Pat Name: MARIKA LINN Department: Room: - Gender: Female Silver Brazer: : 1940 Requested By: Pilo Varela Order Number: [id number] Reading MD: So Lynch Measurements Intervals [place] Rate: 79 P: 48 MD: 238 QRS: -63 QRSD: 144 T: 54 QT: 408 QTc: 470 Interpretive Statements SINUS RHYTHM WITH FIRST DEGREE AV BLOCK RIGHT VENTRICULAR CONDUCTION DELAY LAD INCREASED RATE 03/11/18 Electronically Signed on 12-21-2018 15:12:25 EDT by So Lynch
[2018-12-21 15:24] LABS: CK-MB VALUE MASS 5.3 NG/ML (<3.6); MB/CK RELATIVE INDEX 2.3 (< OR =4); TROPONIN I 0.51 NG/ML (< 0.10)
[2018-12-21] MEDS ORDERED: DEXTROSE 50% 50 ML SYRINGE IV PRN (17:00)
[2018-12-21] MEDS ORDERED: GLUCOSE 4 GM CHEW TABLET PO PRN (17:00)
[2018-12-21] MEDS ORDERED: GLUCAGON FOR INJ 1 MG VIAL (J1610) SC PRN (17:00)
[2018-12-21] MEDS ORDERED: ADVA115A INH (17:20)
[2018-12-21] MEDS ORDERED: REST0.05 OU (17:20)
[2018-12-21] MEDS ORDERED: INSULANT SC (17:20)
[2018-12-21] MEDS ORDERED: ASPI81TA85 PO (17:23)
[2018-12-21 17:36] LABS: HEMOGLOBIN A1c 7.6 %
--- NOTE | 2018-12-21 18:05 | HPE ---
DATE OF ADMISSION: 12/21/2018 PRIMARY CARE PROVIDER: Alayna Meléndez NP ATTENDING PHYSICIAN: Hospitalist group. NEUROLOGIST: Dr. Bonilla WELDER TOOL AND DIE: Dr. Phoenix CLINICAL AUDITOR: Dr. Marcia Ware ENERGY PROFESSIONAL: Dr. Zurita CHIEF COMPLAINT: Elevated troponin, question of syncope. HISTORY: Silvia Ramirez is a 78-year-old who was admitted to the hospitalist group from the emergency room for mildly elevated troponin. She has a history of coronary artery disease, which will be summarized below, recent PCI earlier this year. She came to the emergency room because she was on the floor all night. She says that she has trouble walking and she found herself on the floor. She says that she stayed there all night and this morning her called the ambulance prior to his going to work and his was brought to the emergency room for evaluation (she has family members present, they lack significant details of her medical history, all of which was obtained from evaluation of Ms. Meléndez's extensive office records. 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 PAST MEDICAL HISTORY: 1. Hypertensive heart disease. 2. Stage III chronic kidney disease. 3. Type 2 diabetes. 4. Hyperlipidemia. 5. Osteopenia. 6. Abdominal aortic aneurysm. 7. Coronary artery disease, status post catheterization with bare metal stent to mid left circumflex stenosis, received bare metal stent due to chronic Xarelto therapy at [facility] 08/2018. 8. 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 9. History of fatty liver with elevated liver function tests. 10. History of pancreatic cysts with a stable 13 mm pancreatic head cyst on MRI scan 09/2017, no change from 09/2016. 11. History of adenomatous colon polyps. 12. History of gastroesophageal reflux disease (GERD) with Schatzki's ring, status post dilatation. Biopsy is negative for Erickson's esophagus. The patient has established drug induced parkinsonism. She is followed by neurology, most recently just 1 month ago. Parkinson's was induced by Reglan therapy. She also has some essential tremor, but most of her tremor is parkinsonism with primarily right arm and leg tremor. I have reviewed her most recent neurology note, which was from 11/02/2018. Of note, family members present are unaware of the patient's diagnosis of parkinsonism. HOME MEDICATIONS: - Xarelto 20 mg daily - simvastatin 40 mg daily - Lantus insulin 30 units before bedtime - sliding scale insulin per Dr. Ware, ski patrol director - losartan 100 mg daily - propranolol 20 mg twice a day - Flonase one spray in each nostril daily - Zantac 150 mg twice a day - aspirin 81 mg daily - Plavix 75 mg daily - Nitrostat as needed - magnesium oxide 400 mg twice a day - Zofran as needed - Lyrica 50 mg twice a day - albuterol two puffs every 4 hours - Senokot as needed - nystatin as needed to skin folds - Advair 150/21 one inhalation daily ALLERGIES: AMOXICILLIN, AZITHROMYCIN, BYETTA, GLYBURIDE, REGLAN, NONSTEROIDAL ANTIINFLAMMATORY DRUGS, TRAMADOL, SINEMET caused hallucinations. REQUIP caused foot pain. CIPRO caused a rash. DOXYCYCLINE, unknown reaction. SYVGMELBRGU-NYNAWPNOZB-[id number] (HEIDI) INHIBITORS, unknown reaction. ERYTHROMYCIN, unknown reaction. METFORMIN, unknown reaction. SOCIAL HISTORY: . Nonsmoker. No alcohol. FAMILY HISTORY: Father of lung cancer at age 81. Mother had abdominal cancer at age 43. SURGICAL HISTORY: 1. Tonsillectomy in 1941. 2. Hysterectomy in 1970. 3. Cholecystectomy in 2002. 4. Right hand trigger finger repair in 2007. 5. Right wrist tendon release in 2004. 6. Appendectomy in 2009. 7. Right knee arthroscopy in 2010. 8. Colonoscopy in June 2013. 9. Left ulnar nerve transposition in 11/2013. 10. Right ulnar nerve transposition in 11/2014. 11. Upper endoscopy with dilatation of Schatzki's ring in 11/2015. 12. Bilateral cataract extractions in 02/2016 and 08/2016. REVIEW OF SYSTEMS: No chest pain, palpitations, fever, chills, headache, focal neurologic deficits. PHYSICAL EXAMINATION: VITAL SIGNS: Per flow sheet. She is alert and conversant. No distress. Pupils are equal and reactive to light. Tympanic membranes and oropharynx benign. Oral hygiene is poor. Neck is supple. Thyroid nonpalpable. Lungs with decreased breath sounds but clear. Heart has regular rate and rhythm. No murmur. Abdomen is soft, nontender. No masses. Extremities: No clubbing or cyanosis. She has prominent resting tremor, pill rolling tremor bilaterally. Right arm and leg are more affected with tremor than the left side. She has a masked facial expression with parkinsonian appearance. Decreased pulses in her feet. LABORATORIES: Chest x-ray showed no active disease. CT of the brain shows small vessel disease. Electrocardiogram (EKG) shows bifascicular block. Troponin was 0.045 on admission, 0.59 two hours later and 0.51 subsequently. Sodium 142, potassium 4.0, BUN 20, creatinine 1.1, GFR 48. Urinalysis shows 2+ leukocytes, 1+ bacteria. IMPRESSION: 1. Elevated troponin. The patient will be admitted to a progressive care unit (PCU) bed. Serial troponins have been ordered. Morning EKG has been ordered. 2. Parkinsonism. She is severely affected by this. She cannot walk and this led to her spending the night on the floor. Family members state that she tries to walk and she cannot get her legs to move and she just "stays there." As noted above, they are unaware of the diagnosis of Parkinson's, which has already been established. I spoke to Dr. Prescott, who will see the patient in consultation, would also suggest consideration of acute rehabilitation unit evaluation. 3. Diabetes. Sliding scale of insulin, fingerstick blood sugars. I will put her on a reduced dose of her Lantus insulin while she is on an enforced consistent carbohydrate diet to avoid hypoglycemia. It should be noted, she was hospitalized in March 2018 for hypoglycemia. Her last hemoglobin A1/c is from 8 months ago and it was 7.8, I will order another one. 4. History of splenic infarct. She is on Xarelto for this. At one point, she was referred to vascular surgery for further evaluation but those notes apparently did not get returned to the referring provider. 5. Coronary artery disease, status post bare metal stent to the left to the circumflex artery 08/2018. She is on 6 months of dual antiplatelet therapy. Continue her aspirin and Plavix. 6. Hypertensive heart disease. Continue her antihypertensive regimen. 7. Hyperlipidemia. Continue her simvastatin 40 mg daily. 8. Chronic kidney disease stage III. Dose medicines based on renal function and avoid nephrotoxic agents. She is followed by nephrology on a regular basis.
[2018-12-21 18:20] VITALS: BP 172/70
[2018-12-21] MEDS: HumaLOG INSULIN (NovoLOG) PER UNIT SC SCH ×2 (18:53→19:58)
[2018-12-21] MEDS: LOSARTAN 50 MG TAB PO SCH (18:58)
[2018-12-21] MEDS: POTASSIUM CHLORIDE 10 MEQ SR TABLET PO SCH (18:59)
[2018-12-21] MEDS: RIVAROXABAN 20 MG TAB (XARELTO) PO SCH (19:53)
[2018-12-21 20:00] VITALS: BP 182/88
[2018-12-21] MEDS: LEVEMIR (INSULIN DETEMIR) 1 UNITS/0.01ML SC SCH (20:52)
[2018-12-21] MEDS: PROPRANOLOL 20 MG TAB PO SCH (20:52)
[2018-12-21] MEDS ORDERED: SIMVASTATIN 40 MG TAB PO SCH (21:00)
[2018-12-21 23:26] LABS: CK-MB VALUE MASS 3.4 NG/ML (<3.6); MB/CK RELATIVE INDEX 1.79 (< OR =4); TROPONIN I 0.28 NG/ML (< 0.10)
[2018-12-22] VITALS: BP 126/72
[2018-12-22 04:00] VITALS: BP 118/62
[2018-12-22 05:59] LABS: HEMATOCRIT 41.3 % (36.0-47.0); HEMOGLOBIN 13.3 g/dl (12.0-15.5); MEAN CORPUSCULAR HEMOGLOBIN 29.4 pg (27.0-33.0); MEAN CORPUSCULAR HGB CONC 32.2 g/dl (32.0-36.5); MEAN CORPUSCULAR VOLUME 91.2 fl (80.0-96.0); PLATELET COUNT, AUTOMATED 178 10^3/uL (150-450); RED BLOOD COUNT 4.53 10^6/uL (4.00-5.40); WHITE BLOOD COUNT 7.1 10^3/uL (4.0-10.0)
[2018-12-22 06:42] LABS: CALCIUM LEVEL 8.3 MG/DL (8.8-10.2); CK-MB VALUE MASS 3.9 NG/ML (<3.6); CREATININE FOR GFR 0.97 MG/DL (0.55-1.30); MAGNESIUM LEVEL 1.4 MG/DL (1.8-2.4); MB/CK RELATIVE INDEX 2.57 (< OR =4); POTASSIUM SERUM 3.9 MEQ/L (3.5-5.1); TROPONIN I 0.77 NG/ML (< 0.10)
[2018-12-22] MEDS: NS 1,000 ML IV SCH (07:14)
[2018-12-22 07:54] VITALS: BP 128/78
[2018-12-22] MEDS: MAG SULF 1GM/100ML (MAG RUN) 2 GM in IV 1 EA IV SCH ×2 (08:15→09:19)
[2018-12-22] MEDS: HumaLOG INSULIN (NovoLOG) PER UNIT SC SCH ×4 (08:58→19:58)
[2018-12-22] MEDS: TORSEMIDE 20 MG TAB PO SCH (08:59)
[2018-12-22] MEDS: LOSARTAN 50 MG TAB PO SCH (08:59)
[2018-12-22] MEDS: POTASSIUM CHLORIDE 10 MEQ SR TABLET PO SCH (08:59)
[2018-12-22] MEDS ORDERED: FLUBLOK(EGG FREE)(QUAD)INFLUENZA VACC 0.5ML SYRINGE (90682)18YRS&OLDER IM ONE (09:00)
[2018-12-22] MEDS: PROPRANOLOL 20 MG TAB PO SCH ×2 (09:00→20:14)
--- NOTE | 2018-12-22 09:26 | ECGEPIP ---
[facility] Test Date: 2018-12-22 Pat Name: MARIKA LINN Department: Room: [place] [address] Gender: Female Target Aircraft Controller: CARLOS : 1940 Requested By: Joey Mcclain Order Number: [id number] Reading MD: Molly Rodriguez Measurements Intervals [place] Rate: 64 P: IA: 0 QRS: -48 QRSD: 145 T: 37 QT: 410 QTc: 426 Interpretive Statements NSR 1ST DEGREE BLOCK LEFT AXIS DEVIATION RIGHT BUNDLE BRANCH BLOCK LEFT VENTRICULAR HYPERTROPHY NEW LATERAL ST-T CHANGE C/W 12/21/18 Q V1 WOULD NOT EXPECT WITH RBBB Electronically Signed on 12-22-2018 9:26:07 EDT by Molly Rodriguez
[2018-12-22] MEDS: MAGNESIUM CHLORIDE 64 MG TABCR (SLO MAG) PO SCH (09:53)
[2018-12-22 11:32] VITALS: BP 161/70
[2018-12-22 15:16] LABS: MB/CK RELATIVE INDEX 2.68 (< OR =4); TROPONIN I 0.85 NG/ML (< 0.10)
[2018-12-22 15:24] VITALS: BP 133/60
--- NOTE | 2018-12-22 15:28 | ECGEPIP ---
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
[2018-12-22] MEDS: RIVAROXABAN 20 MG TAB (XARELTO) PO SCH (18:43)
[2018-12-22] MEDS: SINEMET 25-100 MG TAB PO SCH (18:43)
--- NOTE | 2018-12-22 19:02 | IPNPDOC ---
Text Note Date of Service The patient was seen on 12/22/18. NOTE SUBJECTIVE: Ms. Ramirez does not have any remarkable complaints. She does not have chest pain or shortness of breath. Her greatest concern is her mobility. She's had worsening ability to ambulate and was found down at home. The patient has underlying drug-induced Parkinson's that appears to be worsening. OBJECTIVE: Physical exam: General: She is not in any acute distress. However, she is fairly rigid with pill-rolling movements. HENT: Neck is only moderately supple to passive motion, she appears to have stiff facies, oral mucosa is otherwise moist, sclera shows mild injection Cardiovascular: Regular rate and rhythm, no appreciable murmur. Respiratory: Clear to auscultation. Abdomen: Moderate central obesity, relative to her overall body habitus, otherwise soft, nontender, nondistended. Extremities: No peripheral edema, pedal pulses are palpable, the patient has so me abrasions to her knees from where she was trying to crawl on the floor Neuro: Patient is fully conversant but she is very stiff with pill-rolling ASSESSMENT/PLAN: 1. Parkinsonism. The patient developed Parkinson's this year secondary to Reglan. She has a great deal of difficulty with mobility. She was found down at home. The patient will be seen by the neurology service. We have contacted physical and occupational therapy services for initial evaluations; the patient would be well served to be placed in acute rehabilitation. 2. Elevated troponin. The patient does have a history of coronary artery disease with recent bare metal stent placement. The patient is on chronic anticoagulation with Xarelto due to splenic infarct. Troponin was elevated to 0.77 and on recheck is 0.85. We will contact her cardiology service to discuss whether she needs further intervention. She is asymptomatic; she does not have chest pain or shortness of breath. EKG does show flipped T waves in the lateral leads, but this may not be specific. 3. Dze-rkgitgp-uocniqnbp diabetes mellitus. Patient continues with her usual glucose control regimen inclusive of basal bolus insulin in the form of detemir. 4. Hypomagnesemia. Patient is receiving IV infusion of magnesium sulfate to replenish. VS,Fishbone, I+O VS, Fishbone, I+O Laboratory Tests 12/22/18 05:50 Vital Signs Date Time Temp Pulse Resp B/P (MAP) Pulse Ox O2 Delivery O2 Flow Rate FiO2 12/22/18 15:24 98.1 63 18 133/60 (84) 92 Room Air I&O- Last 24 Hours up to 6 AM 12/22/18 06:00 Intake Total 1700 ml Output Total 1000 ml Balance 700 ml TENA ALFONSO MD Dec 22, 2018 19:02
[2018-12-22 20:00] VITALS: BP 152/88
[2018-12-22] MEDS: ATORVASTATIN 20 MG TAB PO SCH (20:14)
[2018-12-22] MEDS: LEVEMIR (INSULIN DETEMIR) 1 UNITS/0.01ML SC SCH (20:14)
[2018-12-22] MEDS: PREGABALIN 75 MG CAP(LYRICA) PO SCH (20:14)
[2018-12-23] VITALS (7 sets, daily range): BP systolic 113–146; BP diastolic 56–72
[2018-12-23 05:43] LABS: HEMATOCRIT 43.8 % (36.0-47.0); HEMOGLOBIN 13.8 g/dl (12.0-15.5); MEAN CORPUSCULAR HEMOGLOBIN 28.9 pg (27.0-33.0); MEAN CORPUSCULAR HGB CONC 31.5 g/dl (32.0-36.5); MEAN CORPUSCULAR VOLUME 91.6 fl (80.0-96.0); PLATELET COUNT, AUTOMATED 188 10^3/uL (150-450); RED BLOOD COUNT 4.78 10^6/uL (4.00-5.40); WHITE BLOOD COUNT 8.8 10^3/uL (4.0-10.0)
[2018-12-23 06:06] LABS: CALCIUM LEVEL 8.4 MG/DL (8.8-10.2); CREATININE FOR GFR 1.18 MG/DL (0.55-1.30); MAGNESIUM LEVEL 1.6 MG/DL (1.8-2.4); POTASSIUM SERUM 3.7 MEQ/L (3.5-5.1); TROPONIN I 0.62 NG/ML (< 0.10)
[2018-12-23] MEDS: NYSTATIN 100,000 UNITS/GM TOPICAL PWD 15 GM TOP PRN (06:37)
--- NOTE | 2018-12-23 07:55 | CR ---
DATE OF CONSULTATION: 12/22/2018 REFERRING PHYSICIAN: Dr. Joey Mcclain REASON FOR CONSULTATION: Difficulty walking. HISTORY OF PRESENT ILLNESS: Silvia Ramirez is a 78-year-old woman who was admitted at [facility] after she had trouble walking and found herself on the floor. She stated that she stayed all night on the floor and in the morning her found her and called and brought her to the emergency department. 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 She states that she had been focused on her 's health, who had prostate cancer, and did not take any medications for parkinsonism even though Meredith Pretty in our office had tried to convince her to start the medication. She states that her 's health issues are better now and wants to start taking medications. She complaints of mild neck pain today. She denies any headaches, back pain, seizures, dysphagia, dysarthria, diplopia, urinary incontinence or loss of consciousness. She states that she has tremor of her right hand. Her walking is shuffling. Her handwriting has changed. In the daytime, nurses had a concern that the patient had visual hallucination as she described a dog to them. When I asked the patient, the patient states that she was trying to tell them that she saw a picture of her dog on her phone, which she showed to me to confirm. PAST MEDICAL HISTORY: Hypertensive heart disease. Chronic kidney disease, stage III. Type 2 diabetes. Dyslipidemia. Osteopenia. Abdominal aortic aneurysm. Coronary artery disease. History of splenic infarct in 2018 and the patient has been on Xarelto. Fatty liver disease. Pancreatic cyst. Acid reflux. Colonic polyps. HOME MEDICATIONS: - Xarelto 20 mg by mouth daily - simvastatin 40 mg by mouth daily - insulin Lantus 30 units subcu daily - losartan 100 mg by mouth daily - propranolol 20 mg by mouth twice a day - Zantac 150 mg by mouth twice a day - aspirin 81 mg by mouth daily - Plavix 75 mg by mouth daily - Lyrica 50 mg by mouth twice a day - Advair 150/21 micrograms inhalation once a day - Senokot S as needed - albuterol two puffs inhalation every 4 hours as needed ALLERGIES: 1. PENICILLIN. 2. ZITHROMAX. 3. BYETTA. 4. GLYBURIDE. 5. REGLAN. 6. NSAIDS. 7. TRAMADOL. 8. CIPROFLOXACIN. 9. ERYTHROMYCIN. 10. METFORMIN. 11. SINEMET which causes hallucinations. 12. REQUIP caused foot pain. SOCIAL HISTORY: The patient is and lives with her . FAMILY HISTORY: Father had lung cancer. REVIEW OF SYSTEMS: All systems were reviewed and found to be noncontributory except as mentioned in history of present illness. PHYSICAL EXAMINATION: Temperature 98.1, pulse 63, respiratory 18, blood pressure . HEART: Regular rate and rhythm. LUNGS: Clear to auscultation. ABDOMEN: Soft, nontender, nondistended. NEURO: The patient is awake, alert, oriented to day, date, month, year, name of president, city, state, country and hospital. Extraocular muscles are intact. No facial weakness. Tongue and uvula are midline. Recent and distant memory intact. Speech is normal. No nystagmus. Visual [place] are full to confrontation. 5/5 strength in all of her extremities. Deep tendon flexes are 1+ throughout. She has bilateral cogwheel rigidity. Gait is shuffling. Plantars are downgoing. No rash, signs of meningeal irritation. No dysmetria. She has a resting tremor of her right hand and left leg. ASSESSMENT: 1. Parkinsonism which may have been unmasked by Reglan in past, but likely is currently idiopathic. 2. Lewy body dementia and multiple system atrophy are a possibility if she develops hallucinations with low-dose Sinemet. The patient states that she did not take medications for parkinsonism in past, although Sinemet and Requip are listed under her allergies as causing hallucinations and foot pain, respectively. If she does develop hallucinations with low-dose Sinemet, Lewy body dementia and multiple system atrophy would be much more likely than Parkinson's disease, which usually responds very well to Sinemet. PLAN: 1. Trial of Sinemet 25/100 mg, one tablet by mouth three times a day. 2. Physical and occupational therapy. May use walker. 3. Follow with our office in 2 weeks after hospital discharge. DIAGNOSTIC STUDIES: CT scan of head showed mild volume loss, small-vessel ischemic disease of brain and old bilateral basal ganglia lacunar strokes. Her troponin was 0.45 at the time of admission and has increased to 0.85. This is being followed by internal medicine.
[2018-12-23] MEDS: ASPIRIN 81 MG ENTERIC TAB PO SCH (08:27)
[2018-12-23] MEDS: MAGNESIUM CHLORIDE 64 MG TABCR (SLO MAG) PO SCH (08:27)
[2018-12-23] MEDS: POTASSIUM CHLORIDE 10 MEQ SR TABLET PO SCH (08:28)
[2018-12-23] MEDS: PREGABALIN 75 MG CAP(LYRICA) PO SCH ×2 (08:28→21:13)
[2018-12-23] MEDS: PROPRANOLOL 20 MG TAB PO SCH ×2 (08:28→21:13)
[2018-12-23] MEDS: TORSEMIDE 20 MG TAB PO SCH (08:29)
[2018-12-23] MEDS: SINEMET 25-100 MG TAB PO SCH ×3 (08:29→17:30)
[2018-12-23] MEDS: LOSARTAN 50 MG TAB PO SCH (08:29)
[2018-12-23] MEDS: HumaLOG INSULIN (NovoLOG) PER UNIT SC SCH ×4 (08:29→21:00)
[2018-12-23] MEDS ORDERED: SLF 3 ML SYR IV PRN (13:00)
[2018-12-23] MEDS: SLF 3 ML SYR IV SCH ×2 (14:01→21:14)
[2018-12-23] MEDS: RIVAROXABAN 20 MG TAB (XARELTO) PO SCH (17:30)
--- NOTE | 2018-12-23 18:37 | IPNPDOC ---
Text Note Date of Service The patient was seen on 12/23/18. NOTE SUBJECTIVE: Ms. Ramirez is sitting up in a chair at bedside. She required considerable assistance to get there. The patient has underlying drug-induced Parkinson's for which she's been initiated on treatment therapy. She is hoping to become ambulatory. OBJECTIVE: Physical exam: HENT: Neck is only moderately supple to passive motion, she appears to have stiff facies, oral mucosa is otherwise moist, sclera shows mild injection Cardiovascular: Regular rate and rhythm, no appreciable murmur. Respiratory: Clear to auscultation. Abdomen: Moderate central obesity, relative to her overall body habitus, otherwise soft, nontender, nondistended. Extremities: No peripheral edema, pedal pulses are palpable, the patient has some abrasions to her knees from where she was trying to crawl on the floor Neuro: Patient is fully conversant but she is very stiff with pill-rolling tremo r ASSESSMENT/PLAN: 1. Parkinsonism. The patient developed Parkinson's this year secondary to Reglan. She has a great deal of difficulty with mobility. She was found down at home. The patient has been seen by the neurology service and started on Parkinson's medications carbidopa levodopa. We appreciate the input and assistance from the neurology service. We had contacted physical and occupational therapy services for initial evaluations; placement for ongoing therapies in a subacute facility is recommended. 2. Elevated troponin. The patient does have a history of coronary artery disease with recent bare metal stent placement. The patient is on chronic anticoagulation with Xarelto due to splenic infarct. Troponin was elevated to 0.77 and on recheck is 0.0.62. She is asymptomatic; she does not have chest pain or shortness of breath. EKG does show flipped T waves in the lateral leads, but this may not be specific. Cardiology service has been updated. 3. Hwr-kovogmf-wfjmnvdga diabetes mellitus. Patient continues with her usual glucose control regimen inclusive of basal bolus insulin in the form of detemir. 4. Hypomagnesemia. Patient has been receiving IV infusion of magnesium sulfate to replenish; serum magnesium is now 1.6. VS,Fishbone, I+O VS, Fishbone, I+O Laboratory Tests 12/23/18 05:18 Vital Signs Date Time Temp Pulse Resp B/P (MAP) Pulse Ox O2 Delivery O2 Flow Rate FiO2 12/23/18 16:00 98.8 69 16 144/67 (92) 98 Room Air I&O- Last 24 Hours up to 6 AM 12/23/18 05:59 Intake Total 1340 ml Output Total 2700 ml Balance -1360 ml TENA ALFONSO MD Dec 23, 2018 18:37
[2018-12-23] MEDS: LEVEMIR (INSULIN DETEMIR) 1 UNITS/0.01ML SC SCH (21:12)
[2018-12-23] MEDS: ATORVASTATIN 20 MG TAB PO SCH (21:13)
[2018-12-24 04:00] VITALS: BP 152/69
[2018-12-24 05:03] LABS: HEMOGLOBIN 13.5 g/dl (12.0-15.5); MEAN CORPUSCULAR HEMOGLOBIN 29.7 pg (27.0-33.0); MEAN CORPUSCULAR HGB CONC 32.1 g/dl (32.0-36.5); MEAN CORPUSCULAR VOLUME 92.5 fl (80.0-96.0); PLATELET COUNT, AUTOMATED 184 10^3/uL (150-450); RED BLOOD COUNT 4.54 10^6/uL (4.00-5.40)
[2018-12-24 05:39] LABS: CALCIUM LEVEL 8.2 MG/DL (8.8-10.2); CREATININE FOR GFR 1.44 MG/DL (0.55-1.30); GLOMERULAR FILTRATION RATE 37.4 (>39); MAGNESIUM LEVEL 1.7 MG/DL (1.8-2.4); POTASSIUM SERUM 3.6 MEQ/L (3.5-5.1); TROPONIN I 0.52 NG/ML (< 0.10)
[2018-12-24] MEDS: SLF 3 ML SYR IV SCH ×3 (05:55→21:17)
[2018-12-24 08:00] VITALS: BP 146/68
[2018-12-24] MEDS: POTASSIUM CHLORIDE 10 MEQ SR TABLET PO SCH (09:50)
[2018-12-24] MEDS: PROPRANOLOL 20 MG TAB PO SCH ×2 (09:50→21:16)
[2018-12-24] MEDS: MAGNESIUM CHLORIDE 64 MG TABCR (SLO MAG) PO SCH (09:50)
[2018-12-24] MEDS: HumaLOG INSULIN (NovoLOG) PER UNIT SC SCH ×4 (09:50→21:00)
[2018-12-24] MEDS: PREGABALIN 75 MG CAP(LYRICA) PO SCH ×2 (09:50→21:17)
[2018-12-24] MEDS: SINEMET 25-100 MG TAB PO SCH ×3 (09:51→16:16)
[2018-12-24] MEDS: LOSARTAN 50 MG TAB PO SCH (09:51)
[2018-12-24] MEDS: TORSEMIDE 20 MG TAB PO SCH (09:51)
[2018-12-24] MEDS: ASPIRIN 81 MG ENTERIC TAB PO SCH (09:51)
[2018-12-24 12:00] VITALS: BP 125/59
--- NOTE | 2018-12-24 12:19 | IPN ---
DATE: 12/24/2018 I am seeing Mrs. Ramirez in followup. She was seen yesterday by Dr. Quintanilla. His consultation has not been dictated yet or transcribed yet. But briefly, she is an elderly woman with history of coronary artery disease (CAD) and peripheral vascular disease (PVD) who came to the hospital after she was found on floor by her son. It looks like she had been there all night because she just was unable to get up. She does not recall how it came to her being on the floor. She does not think that she had a syncopal event, but the description is rather vague. She denies any chest pain or shortness of breath. Paradoxically, her dominant complaint is inability to walk. She had some trouble with ambulation for quite some time, but apparently in the last few weeks there has been a sudden deterioration. Vital Signs: Blood pressure 146/68. Heart rate has been in the 60s. She is afebrile. Saturation 95% on room air. Weight is 73.5 kg. She is alert and oriented and for the most part is appropriate, even though the story that she provides seems to have significant gaps in it. Her jugular venous pulse (JVP) is not high. I do not appreciate a bruit. Lungs are clear. Good air movement. Heart exam reveals somewhat muffled heart sounds corresponding to her obesity. I do not appreciate any obvious gallop or murmur. Abdomen is soft, without tenderness. Extremities are free of edema. Peripheral pulses are palpable. She can move both legs and I could not appreciate any asymmetry, but indeed the strength is weak. Laboratory-[facility], as of this morning, a basic metabolic panel reveals a potassium of 3.6, BUN 37, creatinine 1.4, glucose 173, and magnesium 1.7. Troponin I is 0.52. Since admission, the troponin has been consistently elevated for 3 days with some minimal fluctuation. Several ECGs all reveal sinus rhythm with right bundle branch block and probably left anterior fascicular block. There is some minimal evolution with nonspecific T-wave abnormalities. ASSESSMENT/PLAN: Mrs. Ramirez is a 78-year-old female who has a history of percutaneous coronary intervention (PCI) to left circumflex artery about 5 months ago with bare metal stent. She has been chronically anticoagulated due to history of splenic infarct and also is on dual antiplatelet therapy. Somewhat surprisingly to me we have not started one of her antiplatelet agents yet, but in this setting when she has troponin elevation I would probably continue current management. She developed acute renal failure and consequently we should reduce the dose of Xarelto to just 15 mg daily until the renal function recovers. I have to say that I am somewhat perplexed by the whole presentation and I am unable to provide any obvious explaining diagnosis that would account for her weakness as well as her abnormality of cardiac enzymes. I do not foresee that we will be doing any aggressive cardiac interventions unless there is some evolution in her status. But I am going to an order an echocardiogram to see whether there is some new wall motion abnormality. Otherwise, the medications can be left as they are.
[2018-12-24 16:00] VITALS: BP 147/64
[2018-12-24] MEDS ORDERED: NITROGLYCERIN 0.4 MG SUBL TABLET SL PRN (16:15)
--- NOTE | 2018-12-24 16:25 | IPNPDOC ---
Text Note Date of Service The patient was seen on 12/24/18. NOTE SUBJECTIVE: Ms. Ramirez continues medically stable. She does not have any chest pain or shortness of breath. The patient was found down at home. With elevated troponins there was concern for acute cardiac event. Crit is probable appears her severe immobility due to drug-induced Parkinson's disease. OBJECTIVE: Please see vital signs below Physical exam: HENT: Neck is only moderately supple to passive motion, she has stiff facies, oral mucosa is otherwise moist, sclera shows mild injection Cardiovascular: Regular rate and rhythm, no appreciable murmur. Respiratory: Clear to auscultation. Abdomen: Moderate central obesity, relative to her overall body habitus, otherwise soft, nontender, nondistended. Extremities: No peripheral edema, pedal pulses are palpable, the patient has some abrasions to her knees from where she was trying to crawl on the floor Neuro: Patient is fully conversant but she is very stiff with pill-rolling tremor, she requires assistance with all transitions and movement ASSESSMENT/PLAN: 1. Parkinsonism. The patient developed Parkinson's this year secondary to Reglan. She has a great deal of difficulty with mobility. She was found down at home. The patient has been seen by the neurology service and started on Parkinson's medications carbidopa levodopa. We appreciate the input and assistance from the neurology service. We had contacted physical and occupational therapy services for initial evaluations; placement for ongoing therapies in a subacute facility is recommended. 2. Elevated troponin. The patient does have a history of coronary artery disease with recent bare metal stent placement. The patient is on chronic anticoagulation with Xarelto due to splenic infarct. Troponin was elevated to 0.77 and on recheck is 0.0.62. She is asymptomatic; she does not have chest pain or shortness of breath. EKG does show flipped T waves in the lateral leads, but this may not be specific. Cardiology service has been updated. Aspirin has been returning to her regimen. Her antilipid agent has been changed from Zocor to Lipitor. Echocardiogram is pending for further evaluation; it is unlikely she will undergo invasive intervention. Troponin continues to show downward trend. It is now 0.52. 3. Ybm-nodmahr-izjqpkcdw diabetes mellitus. Patient continues with her usual glucose control regimen inclusive of basal bolus insulin in the form of detemir. We're adjusting the dosage back to her home judgment. 4. Hypomagnesemia. Patient has been receiving IV infusion of magnesium sulfate to replenish; serum magnesium is now 1.7. We have also restored her home regimen. VS,Fishbone, I+O VS, Fishbone, I+O Laboratory Tests 12/24/18 04:57 Vital Signs Date Time Temp Pulse Resp B/P (MAP) Pulse Ox O2 Delivery O2 Flow Rate FiO2 12/24/18 12:00 97.9 77 18 125/59 (81) 97 Room Air I&O- Last 24 Hours up to 6 AM 12/24/18 06:00 Intake Total 800 ml Output Total 250 ml Balance 550 ml TENA ALFONSO MD Dec 24, 2018 16:25
[2018-12-24] MEDS: RIVAROXABAN 15 MG TAB (XARELTO) PO SCH (17:22)
[2018-12-24 20:00] VITALS: BP 164/88
[2018-12-24] MEDS: ADVAIR HFA 115/21MCG INHALER INH SCH (20:44)
[2018-12-24] MEDS ORDERED: LEVEMIR (INSULIN DETEMIR) 1 UNITS/0.01ML SC SCH (21:00)
[2018-12-24] MEDS: FAMOTIDINE 20 MG TAB PO SCH (21:17)
[2018-12-24] MEDS: ATORVASTATIN 20 MG TAB PO SCH (21:17)
[2018-12-24 23:59] VITALS: BP 166/74
[2018-12-25 04:00] VITALS: BP 148/70
[2018-12-25 05:21] LABS: HEMATOCRIT 39.9 % (36.0-47.0); HEMOGLOBIN 12.8 g/dl (12.0-15.5); MEAN CORPUSCULAR HEMOGLOBIN 29.2 pg (27.0-33.0); MEAN CORPUSCULAR HGB CONC 32.1 g/dl (32.0-36.5); MEAN CORPUSCULAR VOLUME 90.9 fl (80.0-96.0); PLATELET COUNT, AUTOMATED 181 10^3/uL (150-450); RED BLOOD COUNT 4.39 10^6/uL (4.00-5.40); WHITE BLOOD COUNT 7.5 10^3/uL (4.0-10.0)
[2018-12-25 05:42] LABS: CALCIUM LEVEL 8.1 MG/DL (8.8-10.2); CREATININE FOR GFR 1.26 MG/DL (0.55-1.30); GLOMERULAR FILTRATION RATE 43.6 (>39); MAGNESIUM LEVEL 1.6 MG/DL (1.8-2.4); POTASSIUM SERUM 3.5 MEQ/L (3.5-5.1)
[2018-12-25] MEDS: SLF 3 ML SYR IV SCH ×3 (05:48→22:00)
[2018-12-25] MEDS: ADVAIR HFA 115/21MCG INHALER INH SCH ×2 (07:40→20:07)
[2018-12-25 08:00] VITALS: BP 138/75
[2018-12-25] MEDS: FLUTICASONE PROP 0.05% NASAL SPRAY 16 GM (FLONASE) SCH (08:21)
[2018-12-25] MEDS: MAGNESIUM CHLORIDE 64 MG TABCR (SLO MAG) PO SCH (08:21)
[2018-12-25] MEDS: HumaLOG INSULIN (NovoLOG) PER UNIT SC SCH ×4 (08:21→21:00)
[2018-12-25] MEDS: SINEMET 25-100 MG TAB PO SCH ×3 (08:22→15:55)
[2018-12-25] MEDS: PREGABALIN 75 MG CAP(LYRICA) PO SCH ×2 (08:22→20:39)
[2018-12-25] MEDS: ASPIRIN 81 MG ENTERIC TAB PO SCH (08:23)
[2018-12-25] MEDS: LOSARTAN 50 MG TAB PO SCH (08:23)
[2018-12-25] MEDS: TORSEMIDE 20 MG TAB PO SCH (08:23)
[2018-12-25] MEDS: PROPRANOLOL 20 MG TAB PO SCH ×2 (08:24→20:39)
[2018-12-25] MEDS: POTASSIUM CHLORIDE 10 MEQ SR TABLET PO SCH (08:24)
[2018-12-25 12:00] VITALS: BP 142/66
--- NOTE | 2018-12-25 12:17 | IPNPDOC ---
Text Note Date of Service The patient was seen on 12/25/18. NOTE SUBJECTIVE: Ms. Ramirez is feeling encouraged. She's been able to march in place with the assistance of physical therapy. Patient was admitted after being found down for an extended period at home. Patient has underlying drug-induced Parkinson's, it had not been treated until now. OBJECTIVE: Physical exam: HENT: Neck is only moderately supple to passive motion, she has stiff facies, oral mucosa is otherwise moist, sclera shows mild injection Cardiovascular: Regular rate and rhythm, no appreciable murmur. Respiratory: Clear to auscultation. Abdomen: Moderate central obesity, relative to her overall body habitus, otherwise soft, nontender, nondistended. Extremities: No peripheral edema, pedal pulses are palpable, the patient has some abrasions to her knees from where she was trying to crawl on the floor Neuro: Patient is fully conversant but she is very stiff with pill-rolling tremor, she requires assistance with all transitions and movement ASSESSMENT/PLAN: 1. Parkinsonism. The patient developed Parkinson's this year secondary to Reglan. She has a great deal of difficulty with mobility. She was found down at home. The patient has been seen by the neurology service and started on Parkinson's medications carbidopa/levodopa. The patient appears to be responding. We appreciate the input and assistance from the neurology service. We had contacted physical and occupational therapy services for initial evaluations; placement for ongoing therapies in a subacute facility is recommended. 2. Elevated troponin. The patient does have a history of coronary artery disease with recent bare metal stent placement. The patient is on chronic anticoagulation with Xarelto due to splenic infarct. Troponin was elevated to 0.77 and on recheck is 0.0.62. She is asymptomatic; she does not have chest pain or shortness of breath. EKG does show flipped T waves in the lateral leads, but this may not be specific. Cardiology service has been updated. Aspirin has been returned to her regimen. Her antilipid agent has been changed from Zocor to Lipitor. Echocardiogram is pending for further evaluation; it is unlikely she will undergo invasive intervention. Troponin continues to show downward trend. It is now 0.52. 3. Zoo-mvxbcyf-twxgvetzo diabetes mellitus. Patient continues with her usual glucose control regimen inclusive of basal bolus insulin in the form of detemir. We're adjusting the dosage back to her home regimen of 30 units subcutaneous daily at bedtime. 4. Hypomagnesemia. Patient has been receiving IV infusion of magnesium sulfate to replenish; serum magnesium is now 1.7. We have also restored her home dosage of magnesium chloride. VS,Chazbone, I+O VS, Fishbone, I+O Laboratory Tests 12/25/18 04:51 Vital Signs Date Time Temp Pulse Resp B/P (MAP) Pulse Ox O2 Delivery O2 Flow Rate FiO2 12/25/18 08:24 65 138/75 12/25/18 08:00 98.8 16 97 Room Air I&O- Last 24 Hours up to 6 AM 12/25/18 06:00 Intake Total 1320 ml Output Total 1200 ml Balance 120 ml TENA ALFONSO MD Dec 25, 2018 12:16
[2018-12-25 16:00] VITALS: BP 136/74
[2018-12-25] MEDS: RIVAROXABAN 15 MG TAB (XARELTO) PO SCH (17:50)
[2018-12-25 20:00] VITALS: BP 139/69
[2018-12-25] MEDS: FAMOTIDINE 20 MG TAB PO SCH (20:38)
[2018-12-25] MEDS: ATORVASTATIN 20 MG TAB PO SCH (20:39)
[2018-12-25] MEDS ORDERED: LEVEMIR (INSULIN DETEMIR) 1 UNITS/0.01ML SC SCH (21:00)
[2018-12-25 23:59] VITALS: BP 125/62
[2018-12-26 04:00] VITALS: BP 139/63
[2018-12-26] MEDS: SLF 3 ML SYR IV SCH ×2 (04:57→16:44)
[2018-12-26 05:31] LABS: HEMATOCRIT 44.5 % (36.0-47.0); HEMOGLOBIN 14.3 g/dl (12.0-15.5); MEAN CORPUSCULAR HEMOGLOBIN 29.3 pg (27.0-33.0); MEAN CORPUSCULAR HGB CONC 32.1 g/dl (32.0-36.5); MEAN CORPUSCULAR VOLUME 91.2 fl (80.0-96.0); PLATELET COUNT, AUTOMATED 204 10^3/uL (150-450); RED BLOOD COUNT 4.88 10^6/uL (4.00-5.40); WHITE BLOOD COUNT 7.3 10^3/uL (4.0-10.0)
[2018-12-26 05:55] LABS: CALCIUM LEVEL 9.1 MG/DL (8.8-10.2); CREATININE FOR GFR 1.3 MG/DL (0.55-1.30); GLOMERULAR FILTRATION RATE 42.1 (>39); POTASSIUM SERUM 3.9 MEQ/L (3.5-5.1)
[2018-12-26 08:03] VITALS: BP 138/68
[2018-12-26] MEDS: FLUTICASONE PROP 0.05% NASAL SPRAY 16 GM (FLONASE) SCH (08:25)
[2018-12-26] MEDS: PROPRANOLOL 20 MG TAB PO SCH (08:25)
[2018-12-26] MEDS: HumaLOG INSULIN (NovoLOG) PER UNIT SC SCH ×3 (08:25→17:13)
[2018-12-26] MEDS: SINEMET 25-100 MG TAB PO SCH ×3 (08:25→16:44)
[2018-12-26] MEDS: POTASSIUM CHLORIDE 10 MEQ SR TABLET PO SCH (08:25)
[2018-12-26] MEDS: PREGABALIN 75 MG CAP(LYRICA) PO SCH (08:25)
[2018-12-26 08:26] VITALS: BP 138/68
[2018-12-26] MEDS: TORSEMIDE 20 MG TAB PO SCH (08:26)
[2018-12-26] MEDS: MAGNESIUM CHLORIDE 64 MG TABCR (SLO MAG) PO SCH (08:26)
[2018-12-26] MEDS: LOSARTAN 50 MG TAB PO SCH (08:26)
[2018-12-26] MEDS: ASPIRIN 81 MG ENTERIC TAB PO SCH (08:26)
[2018-12-26] MEDS: NYSTATIN 100,000 UNITS/GM TOPICAL PWD 15 GM TOP PRN (08:27)
[2018-12-26] MEDS: ADVAIR HFA 115/21MCG INHALER INH SCH (08:54)
--- NOTE | 2018-12-26 11:36 | IPNPDOC ---
Text Note Date of Service The patient was seen on 12/26/18. NOTE Subjective: Patient was seen and examined at the bedside. Currently, she reports that she has had no events overnight. She denies chest pain, shortness of breath or palpitations. Denies nausea, vomiting, abdominal pain or diarrhea. Patient continues to work with physical therapy and has been progressing. Objective: Vitals (See below) General: Lying in bed, no acute distress, comfortable, Awake / Alert HEENT: NC, AT CVS: RRR, +S1S2 Lungs: Fair air entry b/l, -w/r/r Abdomen: Soft, ND, NT Extremities: - Edema, - Calf tenderness Assessment and plan: Parkinsonism - possibly 2/2 drug induced etiology - 2/2 Reglan; possibly 2/2 idiopathic etiology - s/p Reglan - CT Head 12/21: There is no evidence of acute intracranial process. Volume loss and sequelae of chronic microangiopathic ischemic disease. Chronic appearing basal ganglia lacunar infarctions. 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 - Neurology on consultation Elevated troponin - Patient has no complaints of chest pain, palpitations or SOB - c/w Xarelto, ASA 81, Atorvastatin, Losartan and Propranolol - Echocardiogram pending - Cardiology on consultation Hx of splenic infarction - c/w full anticoagulation with Xarelto COPD - No evidence of exacerbation - c/w inhaled therapy as ordered HTN - BP appears well controlled - c/w Losartan and Propranolol IDDM2 - c/w Levemir and ISS DLP - c/w ASA and Atorvastatin Neuropathy - c/w Pregabalin s/p Hyomagnesemia GERD - c/w Famotidine DVT prophylaxis - c/w full anticoagulation with Xarelto Disposition: - VS,Fishbone, I+O VS, Fishbone, I+O Laboratory Tests 12/26/18 05:15 Vital Signs Date Time Temp Pulse Resp B/P (MAP) Pulse Ox O2 Delivery O2 Flow Rate FiO2 12/26/18 08:26 138/68 12/26/18 08:25 64 12/26/18 08:03 97.3 18 97 Room Air I&O- Last 24 Hours up to 6 AM 12/26/18 05:59 Intake Total 1060 ml Output Total 1350 ml Balance -290 ml SELMA HUFF MD Dec 26, 2018 11:36
[2018-12-26 15:42] VITALS: BP 100/59
[2018-12-26 15:53] LABS: MAGNESIUM LEVEL 1.8 MG/DL (1.8-2.4)
[2018-12-26] MEDS ORDERED: ATOR1TAB21 PO (16:00)
[2018-12-26] MEDS ORDERED: CARB25TA9 PO (16:00)
--- NOTE | 2018-12-26 16:35 | DS.PDOC ---
Discharge Summary General Date of Admission Dec 21, 2018 at 16:31 Date of Discharge 12/26/2018 Discharge Summary PROCEDURES PERFORMED DURING STAY: [None]. 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 Patient was admitted to the hospitalist service for further evaluation and treatment. She was found to have parkinsonian symptoms secondary to Reglan. Neurology was called in consultation. HOSPITAL COURSE: Parkinsonism - possibly 2/2 drug induced etiology - 2/2 Reglan; possibly 2/2 i diopathic etiology - s/p Reglan - CT Head 12/21: There is no evidence of acute intracranial process. Volume loss and sequelae of chronic microangiopathic ischemic disease. Chronic appearing basal ganglia lacunar infarctions. 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 - Neurology on consultation Elevated troponin - Patient has no complaints of chest pain, palpitations or SOB - c/w Xarelto, ASA 81, Atorvastatin, Losartan and Propranolol - Echocardiogram pending - Cardiology on consultation Hx of splenic infarction - c/w full anticoagulation with Xarelto COPD - No evidence of exacerbation - c/w inhaled therapy as ordered HTN - BP appears well controlled - c/w Losartan and Propranolol IDDM2 - c/w Levemir and ISS DLP - c/w ASA and Atorvastatin Neuropathy - c/w Pregabalin s/p Hyomagnesemia GERD - c/w Famotidine DVT prophylaxis - c/w full anticoagulation with Xarelto DISCHARGE MEDICATIONS: Please see below. ALLERGIES: Please see below. PHYSICAL EXAMINATION ON DISCHARGE: Vitals (See below) General: Lying in bed, no acute distress, comfortable, AAOx3 HEENT: NC, AT CVS: RRR, +S1S2 Lungs: Fair air entry b/l, -w/r/r Abdomen: Soft, ND, NT Extremities: - Edema, - Calf tenderness LABORATORY DATA: Please see below. ACTIVITY: [As tolerated]. DISCHARGE PLAN: Follow up with Dr. Javed in ARU upon transfer DISPOSITION: ARU DISCHARGE CONDITION: [Stable]. TIME SPENT ON DISCHARGE: 35 minutes Vital Signs/I&Os Vital Signs Date Time Temp Pulse Resp B/P (MAP) Pulse Ox O2 Delivery O2 Flow Rate FiO2 12/26/18 15:42 98.9 85 18 100/59 (73) 97 Room Air I&O- Last 24 Hours up to 6 AM 12/26/18 06:00 Intake Total 1060 ml Output Total 1350 ml Balance -290 ml Laboratory Data Labs 24H Laboratory Tests 2 12/25/18 16:44: Bedside Glucose (Misc Panel) 202H 12/25/18 20:15: Bedside Glucose (Misc Panel) 162H 12/26/18 05:15: Nucleated Red Blood Cells % (auto) 0.0, Anion Gap 4L, Glomerular Filtration Rate 42.1, Calcium Level 9.1, Magnesium Level 1.8 12/26/18 11:53: Bedside Glucose (Misc Panel) 225H CBC/BMP Laboratory Tests 12/26/18 05:15 FSBS Laboratory Tests Test 12/25/18 16:44 12/25/18 20:15 12/26/18 11:53 Range/Units Bedside Glucose (Misc Panel) 202 162 225 83-110 MG/DL Microbiology Microbiology 12/21/18 Blood Culture - Final, Complete NO GROWTH AFTER 5 DAYS 12/21/18 Urine Culture - Final, Complete Corynebacterium Species 12/21/18 Blood Culture - Final, Complete NO GROWTH AFTER 5 DAYS Discharge Medications Scheduled Aspirin (Aspir 81) 81 Mg Tablet., 81 MG PO DAILY, (Reported) Atorvastatin Calcium (Atorvastatin Calcium) 20 Mg Tablet, 40 MG PO QHS Carbidopa/Levodopa (Carbidopa-Levodopa 25-100 Tab) 1 Each Tablet, 2 TAB PO TID@0800,1200,1600 Cyclosporine (Restasis) 0.05% Droperette, 1 DROP OU QHS, (Reported) Fluticasone Propion/Salmeterol (Advair Hfa 115-21 Mcg Inhaler) 12 Gm Hfa.aer.ad, 2 PUFF INH BID, (Reported) Fluticasone Propionate (Flonase Allergy Relief) 50 Mcg/Act Spr, 50 MCG NA DAILY, (Reported) Insulin Glargine (Lantus) 100 Unit/1 Ml Vial, 30 UNITS SC QHS, (Reported) Insulin Human Lispro (Humalog) 1 Units/0.01 Ml Inj, 1 UNITS SC AC, (Reported) SLIDING SCALE Losartan Potassium (Losartan Potassium) 100 Mg Tab, 100 MG PO DAILY, (Reported) Magnesium Chloride (Mag64) 64 Mg Tabcr, 128 MG PO BID, (Reported) Nitroglycerin (Nitrostat) 0.4 Mg Tab.subl, 0.4 MG PO NITRO, (Reported) Potassium Chloride (Potassium Chloride) 10 Meq Tab, 10 MEQ PO DAILY, (Reported) Pregabalin (Lyrica) 75 Mg Capsule, 75 MG PO BID, (Reported) Propranolol HCl (Propranolol HCl) 20 Mg Tab, 20 MG PO BID, (Reported) Ranitidine HCl (Ranitidine HCl) 150 Mg Tablet, 1 TAB PO QHS, (Reported) Rivaroxaban (Xarelto) 20 Mg Tab, 20 MG PO DAILY, (Reported) Torsemide (Torsemide) 20 Mg Tablet, 10 MG PO Q2D, (Reported) Scheduled PRN Tizanidine HCl (Tizanidine HCl) 2 Mg Tablet, 4 MG PO Q8H PRN for MUSCLE SPASMS, (Reported) Allergies Coded Allergies: rofecoxib (Verified Allergy, Severe, Tongue Swelling , 12/21/18) glyburide (Verified Allergy, Mild, Too low blood sugar, 12/21/18) metoclopramide (Verified Allergy, Mild, Tremors , 12/21/18) amoxicillin (Verified Adverse Reaction, Mild, Rash, 12/21/18) azithromycin (Verified Adverse Reaction, Mild, Rash, 12/21/18) clavulanic acid (Verified Adverse Reaction, Mild, Rash, 12/21/18) exenatide (Verified Adverse Reaction, Mild, Abdominal pain , 12/21/18) tramadol (Verified Adverse Reaction, Mild, Rash , 12/21/18) SELMA HUFF MD Dec 26, 2018 16:35
[2018-12-26] MEDS: RIVAROXABAN 15 MG TAB (XARELTO) PO SCH (17:13)
--- NOTE | 2018-12-26 19:10 | ECHO ---
DATE OF PROCEDURE: 12/26/2018 REFERRING PHYSICIAN: Dr. Bassem Lopez INDICATION: Abnormal ECG Height 147 cm, weight 74 kg. DIMENSIONS: IVS: 1.3 LV: 4.3 LVPW: 1.2 LA: 3.4 Aorta: 3.0 IVC: 0.9 Mitral E wave velocity: 49 A wave: 114 FINDINGS: The study is of fair technical quality. The patient is in sinus rhythm with wide QRS complex. Left ventricle is normal size and has hyperdynamic contractility, estimated left ventricular ejection fraction (LVEF) around 70%. Mild left ventricular hypertrophy (LVH) is noted. Right ventricle was poorly seen but grossly appears normal. Left atrium is at least mildly enlarged. Right atrium was poorly visualized. Aortic valve appears normal. It has three cusps and preserved mobility. There are mild degenerative abnormalities of mitral valve with prominent mitral annular calcifications at the base of posterior mitral leaflet, mobility is preserved. Tricuspid valve appears normal. Pulmonic valve also appears normal. No pericardial effusion is present. Inferior vena cava is of normal size and appropriately collapses with inspiration indicative of normal central venous pressure. Aortic root is normal. Aortic arch and visualized segment of abdominal aorta were really poorly seen. Doppler interrogation reveals no aortic stenosis or insufficiency. There is trace mitral insufficiency. Tricuspid valve is functionally competent. Same applies for pulmonic valve. Evaluation of diastolic function was limited. Mitral E and A wave velocity were well documented but tissue Doppler imaging of mitral annulus was not performed, but most likely the patient has grade 1 diastolic dysfunction. CONCLUSIONS: 1. Study is of fair technical quality. 2. Normal left ventricular (LV) size with mild LVH and hyperdynamic LV systolic function. Grade 1 diastolic dysfunction. 3. No hemodynamically significant valvular disease. 4. Normal central venous pressure. 5. Unable to estimate pulmonary artery pressure but no signs to suggest pulmonary hypertension. COMMENT: Subacute bacterial endocarditis (SBE) prophylaxis is not recommended. Study is overall most consistent with hypertensive heart disease.
[2018-12-28 14:07] LABS: VITAMIN B1 LEVEL WHOLE BLOOD 130.6 nmol/L (66.5-200.0)
== END 2018-12-26 18:34 | DRG 57 ==
LOC: M ED 09:36 → M ED INP 16:31 → M PCU 18:17
PROVIDERS: ADMIT Family Medicine; ATTEND Internal Medicine
DX: G21.19 Other drug induced secondary parkinsonism (principal); K86.2 Cyst of pancreas; G31.83 Neurocognitive disorder with Lewy bodies; R55 Syncope and collapse; I13.10 Hypertensive heart and chronic kidney disease without heart failure, with stage 1 through stage 4 chronic kidney disease, or unspecified chronic kidney disease; N18.3 Chronic kidney disease, stage 3 (moderate); E11.22 Type 2 diabetes mellitus with diabetic chronic kidney disease; E78.5 Hyperlipidemia, unspecified; M85.80 Other specified disorders of bone density and structure, unspecified site; I25.10 Atherosclerotic heart disease of native coronary artery without angina pectoris; E83.42 Hypomagnesemia; I71.4 Abdominal aortic aneurysm, without rupture; K76.0 Fatty (change of) liver, not elsewhere classified; K21.9 Gastro-esophageal reflux disease without esophagitis; K22.2 Esophageal obstruction; Z79.4 Long term (current) use of insulin; Z79.01 Long term (current) use of anticoagulants; Z79.82 Long term (current) use of aspirin; Z79.899 Other long term (current) drug therapy; Z88.0 Allergy status to penicillin; Z88.1 Allergy status to other antibiotic agents; Z88.5 Allergy status to narcotic agent; Z88.8 Allergy status to other drugs, medicaments and biological substances; Z90.49 Acquired absence of other specified parts of digestive tract; Z98.41 Cataract extraction status, right eye; Z98.42 Cataract extraction status, left eye; Z95.5 Presence of coronary angioplasty implant and graft; Z79.02 Long term (current) use of antithrombotics/antiplatelets; R26.2 Difficulty in walking, not elsewhere classified; F02.80 Dementia in other diseases classified elsewhere, unspecified severity, without behavioral disturbance, psychotic disturbance, mood disturbance, and anxiety; E11.40 Type 2 diabetes mellitus with diabetic neuropathy, unspecified; E11.51 Type 2 diabetes mellitus with diabetic peripheral angiopathy without gangrene

== ENCOUNTER 2018-12-26 15:04 | Inpatient (IN) | payer MEDICARE, OTHER ==
[~2018-12-26] VITALS: Ht 147.3 cm; Wt 71.8 kg
[~2018-12-26 15:04] MED LIST changes: +ADVA115A INH; +ASPI81TA85 PO; +LYRI75CA PO; +NITR4TASL PO; +RANI150T14 PO; +TIZA2TA PO; +TORS20TA2 PO
[2018-12-26] MEDS ORDERED: ATOR1TAB21 PO (16:00)
[2018-12-26] MEDS ORDERED: CARB25TA9 PO (16:00)
[2018-12-26 18:41] VITALS: BP 125/69
[2018-12-26 19:37] VITALS: BP 105/56
[2018-12-26] MEDS: ADVAIR HFA 230/21MCG INHALER INH SCH (20:00)
[2018-12-26] MEDS ORDERED: DEXTROSE 50% 50 ML SYRINGE IV PRN (20:15)
[2018-12-26] MEDS ORDERED: GLUCOSE 4 GM CHEW TABLET PO PRN (20:15)
[2018-12-26] MEDS ORDERED: NITROGLYCERIN 0.4 MG SUBL TABLET SL PRN (20:15)
[2018-12-26] MEDS ORDERED: GLUCAGON FOR INJ 1 MG VIAL (J1610) SC PRN (20:15)
[2018-12-26] MEDS: PROPRANOLOL 20 MG TAB PO SCH (21:00)
[2018-12-26] MEDS: SENNA 8.6 MG TAB (SENOKOT) PO SCH (21:31)
[2018-12-26] MEDS: SINEMET 25-100 MG TAB PO SCH (21:31)
[2018-12-26] MEDS: ATORVASTATIN 20 MG TAB PO SCH (21:31)
[2018-12-26] MEDS: DOCUSATE SODIUM 100 MG CAP PO SCH (21:31)
[2018-12-26] MEDS: FAMOTIDINE 20 MG TAB PO SCH (21:32)
[2018-12-26] MEDS: traZODone 25MG PER 1/2 TABLET PO SCH (21:33)
[2018-12-26] MEDS: PREGABALIN 75 MG CAP(LYRICA) PO SCH (21:33)
[2018-12-26] MEDS: FLUTICASONE PROP 0.05% NASAL SPRAY 16 GM (FLONASE) NARES SCH (21:33)
[2018-12-26] MEDS: NYSTATIN 100,000 UNITS/GM TOPICAL PWD 15 GM TOP SCH (21:34)
[2018-12-26] MEDS: HumaLOG INSULIN (NovoLOG) PER UNIT SC SCH (21:35)
[2018-12-26] MEDS: LEVEMIR (INSULIN DETEMIR) 1 UNITS/0.01ML SC SCH (21:35)
[2018-12-27 05:40] VITALS: BP 127/66
[2018-12-27 06:47] LABS: BASO % 0.7 % (0.0-1.0); EOS # 0.2 10^3/uL (0.0-0.5); EOS % 3.1 % (0.0-3.0); HEMATOCRIT 40.9 % (36.0-47.0); HEMOGLOBIN 13.2 g/dl (12.0-15.5); LYMPH % 16.9 % (24.0-44.0); MEAN CORPUSCULAR HEMOGLOBIN 29.4 pg (27.0-33.0); MEAN CORPUSCULAR HGB CONC 32.3 g/dl (32.0-36.5); MEAN CORPUSCULAR VOLUME 91.1 fl (80.0-96.0); MONO # 0.8 10^3/uL (0.0-0.8); MONO % 12.9 % (0.0-5.0); NEUTROPHILS % 65.9 % (36.0-66.0); PLATELET COUNT, AUTOMATED 214 10^3/uL (150-450); RED BLOOD COUNT 4.49 10^6/uL (4.00-5.40)
[2018-12-27 07:14] LABS: ALBUMIN 2.5 GM/DL (3.2-5.2); BILIRUBIN,TOTAL 0.5 MG/DL (0.2-1.0); CREATININE FOR GFR 1.38 MG/DL (0.55-1.30); GLOMERULAR FILTRATION RATE 39.3 (>39); POTASSIUM SERUM 3.9 MEQ/L (3.5-5.1); TOTAL PROTEIN 6.4 GM/DL (6.4-8.2)
[2018-12-27] MEDS: ADVAIR HFA 230/21MCG INHALER INH SCH ×2 (08:07→20:29)
[2018-12-27] MEDS: PREGABALIN 75 MG CAP(LYRICA) PO SCH ×2 (08:17→20:55)
[2018-12-27] MEDS: ASPIRIN 81 MG CHEW TABLET PO SCH (08:17)
[2018-12-27] MEDS: POTASSIUM CHLORIDE 10 MEQ SR TABLET PO SCH (08:17)
[2018-12-27] MEDS: DOCUSATE SODIUM 100 MG CAP PO SCH ×2 (08:17→20:55)
[2018-12-27] MEDS: SINEMET 25-100 MG TAB PO SCH ×3 (08:17→20:55)
[2018-12-27] MEDS: TORSEMIDE 20 MG TAB PO SCH (08:18)
[2018-12-27] MEDS: PROPRANOLOL 20 MG TAB PO SCH ×2 (08:18→20:56)
[2018-12-27] MEDS: HumaLOG INSULIN (NovoLOG) PER UNIT SC SCH ×4 (08:18→20:04)
[2018-12-27] MEDS: FLUTICASONE PROP 0.05% NASAL SPRAY 16 GM (FLONASE) NARES SCH ×2 (08:19→21:02)
[2018-12-27] MEDS: MAGNESIUM CHLORIDE 64 MG TABCR (SLO MAG) PO SCH (08:19)
[2018-12-27] MEDS: NYSTATIN 100,000 UNITS/GM TOPICAL PWD 15 GM TOP SCH ×2 (08:20→21:03)
[2018-12-27] MEDS ORDERED: LOSARTAN 50 MG TAB PO SCH (09:00)
[2018-12-27] MEDS: ACETAMINOPHEN TAB 650MG DOSE (2X325MG) PO PRN (11:47)
[2018-12-27 14:00] VITALS: BP 103/74
--- NOTE | 2018-12-27 16:19 | HPEPDOC ---
General Date of Admission Dec 26, 2018 at 18:30 Date of Service: Dec 27, 2018 Attending Physician: GÉNESIS PAT DO Chief Complaint The patient is a 78-year-old female admitted with a reason for visit of Parkinsons. Source: Patient, RN/MD Exam Limitations: Physical impairment Timing/Duration: Changing over time Severity: Mild Associated Symptoms: Malaise, Mechanical fall History of Present Illness Consultation Medical as Patient referred by Acute Rehabilitation Unit: Physical Examination 78 yearold elderly female is seen today in her room for her physical examination by Medicine Hospitalist Nurse Practitioner for medical clearance who has bilateral lower extremity weakness due to Parkinson's disease and oriented 2, admitted for rehabilitation. She has significant medical history of acute hypoglycemia, urinary tract infection found on admission, near syncope event, Bifascicular block with 1st degree hearth block, Essential hypertension, Diabetes Mellitus type 1 and II, Gout, Degenerative disc disease, Osteoarthritis, Irregular heart beat, Cataracts, GERD, Skin cancer with removal, Pneumonia, COPD with Asthma and Bronchitis, hemorrhoids, hiatal hernia, Abdominal Aortic Aneurysm and Parkinson's Disease. Home Medications Scheduled Aspirin (Aspir 81) 81 Mg Tablet.dr, 81 MG PO DAILY, (Reported) Atorvastatin Calcium (Atorvastatin Calcium) 20 Mg Tablet, 40 MG PO QHS Carbidopa/Levodopa (Carbidopa-Levodopa 25-100 Tab) 1 Each Tablet, 2 TAB PO TID@0800,1200,1600 Cyclosporine (Restasis) 0.05% Droperette, 1 DROP OU QHS, (Reported) Fluticasone Propion/Salmeterol (Advair Hfa 115-21 Mcg Inhaler) 12 Gm Hfa.aer.ad, 2 PUFF INH BID, (Reported) Fluticasone Propionate (Flonase Allergy Relief) 50 Mcg/Act Spr, 50 MCG NA DAILY, (Reported) Insulin Glargine (Lantus) 100 Unit/1 Ml Vial, 30 UNITS SC QHS, (Reported) Insulin Human Lispro (Humalog) 1 Units/0.01 Ml Inj, 1 UNITS SC AC, (Reported) SLIDING SCALE Losartan Potassium (Losartan Potassium) 100 Mg Tab, 100 MG PO DAILY, (Reported) Magnesium Chloride (Mag64) 64 Mg Tabcr, 128 MG PO BID, (Reported) Nitroglycerin (Nitrostat) 0.4 Mg Tab.subl, 0.4 MG PO NITRO, (Reported) Potassium Chloride (Potassium Chloride) 10 Meq Tab, 10 MEQ PO DAILY, (Reported) Pregabalin (Lyrica) 75 Mg Capsule, 75 MG PO BID, (Reported) Propranolol HCl (Propranolol HCl) 20 Mg Tab, 20 MG PO BID, (Reported) Ranitidine HCl (Ranitidine HCl) 150 Mg Tablet, 1 TAB PO QHS, (Reported) Rivaroxaban (Xarelto) 20 Mg Tab, 20 MG PO DAILY, (Reported) Torsemide (Torsemide) 20 Mg Tablet, 10 MG PO Q2D, (Reported) Scheduled PRN Tizanidine HCl (Tizanidine HCl) 2 Mg Tablet, 4 MG PO Q8H PRN for MUSCLE SPASMS, (Reported) Allergies Coded Allergies: rofecoxib (Verified Allergy, Severe, Tongue Swelling , 12/21/18) glyburide (Verified Allergy, Mild, Too low blood sugar, 12/21/18) metoclopramide (Verified Allergy, Mild, Tremors , 12/21/18) amoxicillin (Verified Adverse Reaction, Mild, Rash, 12/21/18) azithromycin (Verified Adverse Reaction, Mild, Rash, 12/21/18) clavulanic acid (Verified Adverse Reaction, Mild, Rash, 12/21/18) exenatide (Verified Adverse Reaction, Mild, Abdominal pain , 12/21/18) tramadol (Verified Adverse Reaction, Mild, Rash , 12/21/18) Past Medical History Medical History See HPI Surgical History Cataract surgery, tonsillectomy, hernia repair, gallbladder, hysterectomy, right knee replacement, bilateral wrist and hand fracture, skin cancer growth with removal Family History Significant Family History: No pertinent family hx (reviewed, not pertinent) Social History * Smoker: non-smoker Alcohol: Denies Drugs: prescription drugs Recent Travel/Sick Contacts: Denies: Recent travel, Recent sick contacts Psychosocial History: [place] and [place] A-FIB/CHADSVASC A-FIB History Current/History of A-Fib/PAF?: No Review of Systems Constitutional: Reports: Malaise, Fatigue Eyes: Reports: Pain ENT: Reports: Head Aches Pulmonary: Reports: Cough, Pleuritic Chest Pain Cardiovascular: Reports: Palpitations Gastrointestinal: Reports: Constipation Genitourinary: Reports: Incontinence Hematologic: Reports: Bruising, Bleeding Excessively Endocrine: Reports: Polydipsia, Polyphagia, Polyuria, Heat Intolerance, Cold Intolerance Musculoskeletal: Reports: Back Pain, Hand Pain, Joint Pain, Spasms Neurological: Reports: Weakness, Incoordination, Change in speech, Confusion Psych: Reports: Memory Issues Physical Examination General Exam: Positive: Alert, Cooperative Eye Exam: Positive: PERRLA, Conjunctiva & lids normal ENT Exam: Positive: Atraumatic, Mucous membr. moist/pink, Pharynx Normal, Nares Patent Neck Exam: Positive: Supple, +2 carotid pulse wo bruit Chest Exam: Positive: Clear to auscultation, Normal air movement Heart Exam: Positive: Irregular Rhythm, Normal S1, Normal S2 Abdomen Exam: Positive: Normal bowel sounds, Tenderness (LLQ and Hypogastric region to palpation) Extremity Exam: Positive: Edema (+2 bilateral lower legs), Swelling (pitting lower legs/ankles) Skin Exam: Positive: Other skin issue (bruising bilateral arms) Neuro Exam: Positive: Cranial Nerves 3-12 NL, Other (weakness bilateral lower legs, needs assistance x 1 with transferring to ) Psych Exam: Positive: Mood NL, Other (awake & oriented x 2) Other physical findings incontinent Vital Signs Vital Signs Date Time Temp Pulse Resp B/P (MAP) Pulse Ox O2 Delivery O2 Flow Rate FiO2 12/27/18 14:00 97.1 63 20 103/74 (84) 100 Room Air Laboratory Data Labs 24H Laboratory Tests 2 12/27/18 05:49: Bedside Glucose (Misc Panel) 163H 12/27/18 06:23: Immature Granulocyte % (Auto) 0.5, Neutrophils (%) (Auto) 65.9, Lymphocytes (%) (Auto) 16.9L, Monocytes (%) (Auto) 12.9H, Eosinophils (%) (Auto) 3.1H, Basophils (%) (Auto) 0.7, Neutrophils # (Auto) 4.0, Lymphocytes # (Auto) 1.0L, Monocytes # (Auto) 0.8, Eosinophils # (Auto) 0.2, Basophils # (Auto) 0.0, Nucleated Red Blood Cells % (auto) 0.0, Anion Gap 8, Glomerular Filtration Rate 39.3, Calcium Level 9.0, Total Bilirubin 0.5, Aspartate Amino Transf (AST/SGOT) 19, Alanine Aminotransferase (ALT/SGPT) 7L, Alkaline Phosphatase 83, Total Protein 6.4, Albumin 2.5L, Albumin/Globulin Ratio 0.64L 12/27/18 10:40: Bedside Glucose (Misc Panel) 207H 12/27/18 11:38: Bedside Glucose (Misc Panel) 205H CBC/BMP Laboratory Tests 12/27/18 06:23 Problems (1) Parkinson disease Status: Chronic Discussed With: Patient Problem Specific Plan: Monitor Clinically Problem Text: 78 yearold elderly female is seen today in her room for her physical examination by Medicine Hospitalist Nurse Practitioner for medical clearance who has bilateral lower extremity weakness due to Parkinson's disease and oriented 2, admitted for rehabilitation. Plan 1 Minimum to Two-person assist with transfers as patient is weak in her lower legs Elevated Troponin-Acute need to recheck trops to see if trending down. Rule out ACS, check CK, if elevated, will check lactic acid , magnesium, LDH, phosphorus Repeat EKG as needed, especially if patient becomes symptomatic Acute UTI-Acute UA-Recheck in 48-72 hours post start of antibiotics to see improvement IV fluids at 75 mL per hour slow or if she becomes short of breath Essential Hypertension-Chronic Telemetry monitoring continuous Dash diet/ low sodium check CBC, CMP, Diabetes Mellitus type I& II-Chronic Hemoglobin A1c Continue glucose checks poc AC & HS Sliding scale glucose AC & HS Parkinson Disease-Chronic Continue to follow Acute Rehab Unit Management program Prognosis: Fair DVT prophylaxis: Heparin SQ 5000 3 times a day Discharge: Pending acute rehabilitation unit Plan / VTE VTE Prophylaxis Ordered?: Yes Plan Diet: Continue Current Activity: Continue Current Therapy: PT, OT, Home Safety Eval Diagnostics: Check Labs, Repeat Labs in AM JUANY MCGRATHP Dec 27, 2018 16:19
[2018-12-27] MEDS ORDERED: NS 1,000 ML IV ONE (16:30)
--- NOTE | 2018-12-27 16:54 | HPEPDOC ---
Cryptologist Note DATE OF ADMISSION: 12-26-18 SOURCE OF ADMISSION INFORMATION: [facility] records and patient CHIEF COMPLAINT: Parkinsons HISTORY OF PRESENT ILLNESS: 78F pmh HTN, CKD, DM2, HLD, drug-induced Parkinsons diagnoses 1-2 years ago and untreated, CAD s/p stent on Xarelto, Abdominal aortic Aneurysm, hx of splenic infarct, fatty liver disease , pancreatic acid refl. Colonic polpys who presented to [facility] ED on with difficulty walking with a fall. CTH showed, CT scan of head showed mild volume loss, small-vessel ischemic disease of brain and old bilateral basal ganglia lacunar strokes. She was evaluated by neurology who recommended a trial of Sinemet o determine if her condition was due to Lewy Body dementia which does not respond well to Sinemet vs Parkinsons which does. She was also noted to have elevated troponins, EKG showed ST changes, however p atient denies having chest pain and cardiac enzymes trended down. She had low levels of magnesium which was repleted and ECHO showed grade 1 diastolic CHF. She had significant difficulty walking thought to be due to untreated Parkinsons disease, evaluated by therapy and deemed to be medically appropriate for discharge to ARU on 12-26-18. REVIEW OF SYSTEMS: The following is a completed review of systems and has been reviewed. Review of systems otherwise unremarkable. PAIN: Patient self reports no pain EYES: No recent vision changes EARS, NOSE, & THROAT: No throat pain, or dysphagia, or rhinorrhea CARDIOVASCULAR: Denies chest pain or palpitations PULMONARY: Denies shortness of breath GASTROINTESTINAL: Denies constipation/diarrhea GENITOURINARY: denies dysuria MUSCULOSKELETAL:generalized weakness NEUROLOGICAL:+parkinsons HEMATOLOGICAL: no easy bruising SKIN: +rash PSYCHIATRIC: Unremarkable All other review of systems found to be negative. PAST MEDICAL HISTORY: as per HPI ALLERGIES: Please see below. MEDICATIONS: Please see below. FAMILY HISTORY: Lung cancer SOCIAL HISTORY: no ETOH/smoking/illicit drugs DIET: low sodium PHYSICAL EXAMINATION: VITAL SIGNS: Please see below. GENERAL: Pleasant and cooperative. No acute distress. HEENT: PERRL. Extraocular movements intact. Clear conjunctiva CARDIOVASCULAR: Regular rate and rhythm. No murmurs, rubs, or gallops LUNGS: Clear to auscultation bilaterally. No wheezes. No rhonchi ABDOMEN: Soft, nontender, nondistended. Positive bowel sounds. Normal active bowel sounds NEUROLOGICAL: Alert and oriented times to self and place. Cranial nerves II through XII grossly intact. Sensation grossly intact +bradykinetic movements EXTREMITIES: 5\5 strength bilateral upper extremities. 5\5 strength right lower extremity. 5/5 strength in left lower extremity. SKIN: intact LABORATORY DATA: Please see below. IMAGING:Imaging documentation personally reviewed by record FUNCTIONAL STATUS: Premorbid: Modified independent with all activities of daily life as well as mobility On Admission: Min-Mod assistance for bathing, upper body dressing, bed chair and wheelchair transfers, toilet transfers, ambulation. GOALS: Mod-I household distances with RW, stairs negotiation, functional transfers, bathing, toileting, dressing, medical optimization ASSESSMENT:78 year-old F with past medical history of CAD, drug-induced parkinsons untreated, who presents status post fal PLAN: 1. Rehab: PT- strengthen/stretch/maintain ROM bilat LE and improve gait sequencing OT- strengthen/stretch/maintain ROM bilat UE and advance ADLs with adaptive equipment prn REAL ESTATE OFFICER- eval and treat 2. 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 Cardiac: diastolic CHF and CAD s/p stent- c/u Xarelto and ASA, c/u torsemide and Losartan- medicine consulted to assist in management -c/u propranolol -Nitroglycerin prn 4. Resp: COPD c/u breathing treatments 5. Endo: pmh DM c/u insulin coverage 6. : monitor PVRs 7. DVT ppx: on Xarelto, TEDs 8. GI ppx: pepcid 9. Pain : tylenol prn and Lyrica 10. Dispo: TBD POST ADMISSION PHYSICIAN EVALUATION: Medical and functional status: Description of medical status, medical assessment: As above. Rehabilitation diagnosis and current and prior cold morbid medical conditions as above. Risk of complications and plans to mitigate them as above. Description of functional status current status is as above. Prior status as above. Status compared to preadmission: There are no clinically significant differences between the patient's current status and the information described on the preadmission screening document. Treatment plan anticipated: Treatment plan is as described above. Required disci plines including physical therapy, occupational therapy, others as noted above. Intensity of services: 3 hours a day, 6 days a week. Special considerations: There are no specific special or safety considerations that would likely preclude immediate implementation of an intensive rehabilitation program or subsequently influence the plan of care ATTESTATION: Considering all the information above, it is my best judgment that this patient requires intensive rehabilitation therapy as described above and an inpatient hospital environment due to the complexity of nursing, medical, and rehabilitation needs required by the patient. Furthermore, this patient can reasonably be expected to participate in an benefit from an inpatient rehabilitation stay with an interdisciplinary team approach to the delivery of rehabilitation care under the direction and supervision of rehabilitation physician. PROGNOSIS: Excellent ESTIMATED LENGTH OF STAY:14-18 days. PROJECTED DISCHARGE DESTINATION: Home with family support and any durable medical equipment required to increase functional safety and mobility. TIME SPENT COUNSELING AND COORDINATING INITIAL CARE: Greater than 70 minutes. Vital Signs Vital Sign - Last 24 Hours 12/26/18 12/26/18 12/26/18 12/27/18 18:41 19:37 21:00 05:40 Temp 97.6 99.9 97.4 Pulse 86 87 87 63 Resp 18 18 17 B/P (MAP) 125/69 (87) 105/56 (72) 105/56 127/66 (86) Pulse Ox 98 93 96 O2 Delivery Room Air Room Air Room Air 12/27/18 12/27/18 12/27/18 08:18 08:18 14:00 Temp 97.1 Pulse 63 63 Resp 20 B/P (MAP) 127/66 127/66 103/74 (84) Pulse Ox 100 O2 Delivery Room Air Laboratory Data CBC/BMP Laboratory Tests 12/27/18 06:23 Labs 24H Laboratory Tests 2 12/27/18 05:49: Bedside Glucose (Misc Panel) 163H 12/27/18 06:23: Immature Granulocyte % (Auto) 0.5, Neutrophils (%) (Auto) 65.9, Lymphocytes (%) (Auto) 16.9L, Monocytes (%) (Auto) 12.9H, Eosinophils (%) (Auto) 3.1H, Basophils (%) (Auto) 0.7, Neutrophils # (Auto) 4.0, Lymphocytes # (Auto) 1.0L, Monocytes # (Auto) 0.8, Eosinophils # (Auto) 0.2, Basophils # (Auto) 0.0, Nucleated Red Blood Cells % (auto) 0.0, Anion Gap 8, Glomerular Filtration Rate 39.3, Calcium Level 9.0, Total Bilirubin 0.5, Aspartate Amino Transf (AST/SGOT) 19, Alanine Aminotransferase (ALT/SGPT) 7L, Alkaline Phosphatase 83, Total Protein 6.4, Albumin 2.5L, Albumin/Globulin Ratio 0.64L 12/27/18 10:40: Bedside Glucose (Misc Panel) 207H 12/27/18 11:38: Bedside Glucose (Misc Panel) 205H 12/27/18 16:26: Bedside Glucose (Misc Panel) 147H FSBS Laboratory Tests Test 12/27/18 05:49 12/27/18 10:40 12/27/18 11:38 12/27/18 16:26 Range/Units Bedside Glucose (Misc Panel) 163 207 205 147 83-110 MG/DL Home Medications Scheduled Aspirin (Aspir 81) 81 Mg Tablet.dr, 81 MG PO DAILY, (Reported) Atorvastatin Calcium (Atorvastatin Calcium) 20 Mg Tablet, 40 MG PO QHS Carbidopa/Levodopa (Carbidopa-Levodopa 25-100 Tab) 1 Each Tablet, 2 TAB PO TID@0800,1200,1600 Cyclosporine (Restasis) 0.05% Droperette, 1 DROP OU QHS, (Reported) Fluticasone Propion/Salmeterol (Advair Hfa 115-21 Mcg Inhaler) 12 Gm Hfa.aer.ad, 2 PUFF INH BID, (Reported) Fluticasone Propionate (Flonase Allergy Relief) 50 Mcg/Act Spr, 50 MCG NA DAILY, (Reported) Insulin Glargine (Lantus) 100 Unit/1 Ml Vial, 30 UNITS SC QHS, (Reported) Insulin Human Lispro (Humalog) 1 Units/0.01 Ml Inj, 1 UNITS SC AC, (Reported) SLIDING SCALE Losartan Potassium (Losartan Potassium) 100 Mg Tab, 100 MG PO DAILY, (Reported) Magnesium Chloride (Mag64) 64 Mg Tabcr, 128 MG PO BID, (Reported) Nitroglycerin (Nitrostat) 0.4 Mg Tab.subl, 0.4 MG PO NITRO, (Reported) Potassium Chloride (Potassium Chloride) 10 Meq Tab, 10 MEQ PO DAILY, (Reported) Pregabalin (Lyrica) 75 Mg Capsule, 75 MG PO BID, (Reported) Propranolol HCl (Propranolol HCl) 20 Mg Tab, 20 MG PO BID, (Reported) Ranitidine HCl (Ranitidine HCl) 150 Mg Tablet, 1 TAB PO QHS, (Reported) Rivaroxaban (Xarelto) 20 Mg Tab, 20 MG PO DAILY, (Reported) Torsemide (Torsemide) 20 Mg Tablet, 10 MG PO Q2D, (Reported) Scheduled PRN Tizanidine HCl (Tizanidine HCl) 2 Mg Tablet, 4 MG PO Q8H PRN for MUSCLE SPASMS, (Reported) Allergies Coded Allergies: rofecoxib (Verified Allergy, Severe, Tongue Swelling , 12/21/18) glyburide (Verified Allergy, Mild, Too low blood sugar, 12/21/18) metoclopramide (Verified Allergy, Mild, Tremors , 12/21/18) amoxicillin (Verified Adverse Reaction, Mild, Rash, 12/21/18) azithromycin (Verified Adverse Reaction, Mild, Rash, 12/21/18) clavulanic acid (Verified Adverse Reaction, Mild, Rash, 12/21/18) exenatide (Verified Adverse Reaction, Mild, Abdominal pain , 12/21/18) tramadol (Verified Adverse Reaction, Mild, Rash , 12/21/18) A-FIB/CHADSVASC A-FIB History Current/History of A-Fib/PAF?: No KERON PÉREZ MD Dec 27, 2018 16:53
--- NOTE | 2018-12-27 16:55 | IPNPDOC ---
PM&R Progress Note DATE OF SERVICE: Dec 27, 2018 [employer] Developer Progress Note Subjective: Patient reports she is upset because her is sick and she is worried he has . She was reassured that he was still alive and that she will be able to visit with him tomorrow. REVIEW OF SYSTEMS: The following is a completed review of systems and has been reviewed. Review of systems otherwise unremarkable. PAIN: Patient self reports no pain EYES: No recent vision changes EARS, NOSE, & THROAT: No throat pain, or dysphagia, or rhinorrhea CARDIOVASCULAR: Denies chest pain or palpitations PULMONARY: Denies shortness of breath GASTROINTESTINAL: Denies constipation/diarrhea GENITOURINARY: denies dysuria MUSCULOSKELETAL:generalized weakness NEUROLOGICAL:+parkinsons HEMATOLOGICAL: no easy bruising SKIN: +rash PSYCHIATRIC: Unremarkable All other review of systems found to be negative. PHYSICAL EXAMINATION: VITAL SIGNS: Please see below. GENERAL: Pleasant and cooperative. No acute distress. HEENT: PERRL. Extraocular movements intact. Clear conjunctiva CARDIOVASCULAR: Regular rate and rhythm. No murmurs, rubs, or gallops LUNGS: Clear to auscultation bilaterally. No wheezes. No rhonchi ABDOMEN: Soft, nontender, nondistended. Positive bowel sounds. Normal active bowel sounds NEUROLOGICAL: Alert and oriented times to self and place. Cranial nerves II through XII grossly intact. Sensation grossly intact +bradykinetic movements EXTREMITIES: 5\5 strength bilateral upper extremities. 5\5 strength right lower extremity. 5/5 strength in left lower extremity. SKIN: intact ASSESSMENT:78 year-old F with past medical history of CAD, drug-induced parkinsons untreated, who presents status post fal PLAN: 1. Rehab: PT- strengthen/stretch/maintain ROM bilat LE and improve gait sequencing OT- strengthen/stretch/maintain ROM bilat UE and advance ADLs with adaptive equipment prn RECRUITER- eval and treat 2. 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 Resp: COPD c/u breathing treatments 5. Endo: pmh DM c/u insulin coverage 6. : monitor PVRs 7. 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 DVT ppx: on Xarelto, TEDs 8. GI ppx: pepcid 9. Pain : tylenol prn and Lyrica 10. Dispo: TBD Allergies Coded Allergies: rofecoxib (Verified Allergy, Severe, Tongue Swelling , 12/21/18) glyburide (Verified Allergy, Mild, Too low blood sugar, 12/21/18) metoclopramide (Verified Allergy, Mild, Tremors , 12/21/18) amoxicillin (Verified Adverse Reaction, Mild, Rash, 12/21/18) azithromycin (Verified Adverse Reaction, Mild, Rash, 12/21/18) clavulanic acid (Verified Adverse Reaction, Mild, Rash, 12/21/18) exenatide (Verified Adverse Reaction, Mild, Abdominal pain , 12/21/18) tramadol (Verified Adverse Reaction, Mild, Rash , 12/21/18) Vital Signs Vital Signs Date Time Temp Pulse Resp B/P (MAP) Pulse Ox O2 Delivery O2 Flow Rate FiO2 12/27/18 14:00 97.1 63 20 103/74 (84) 100 Room Air Laboratory Data CBC/BMP Laboratory Tests 12/27/18 06:23 Labs 24H Laboratory Tests 2 12/27/18 05:49: Bedside Glucose (Misc Panel) 163H 12/27/18 06:23: Immature Granulocyte % (Auto) 0.5, Neutrophils (%) (Auto) 65.9, Lymphocytes (%) (Auto) 16.9L, Monocytes (%) (Auto) 12.9H, Eosinophils (%) (Auto) 3.1H, Basophils (%) (Auto) 0.7, Neutrophils # (Auto) 4.0, Lymphocytes # (Auto) 1.0L, Monocytes # (Auto) 0.8, Eosinophils # (Auto) 0.2, Basophils # (Auto) 0.0, Nucleated Red Blood Cells % (auto) 0.0, Anion Gap 8, Glomerular Filtration Rate 39.3, Calcium Level 9.0, Total Bilirubin 0.5, Aspartate Amino Transf (AST/SGOT) 19, Alanine Aminotransferase (ALT/SGPT) 7L, Alkaline Phosphatase 83, Total Protein 6.4, Albumin 2.5L, Albumin/Globulin Ratio 0.64L 12/27/18 10:40: Bedside Glucose (Misc Panel) 207H 12/27/18 11:38: Bedside Glucose (Misc Panel) 205H 12/27/18 16:26: Bedside Glucose (Misc Panel) 147H Current Medications Current Medications Current Medications Medications (Trade) Dose Ordered Sig/Rosalie Route PRN Reason Start Time Stop Time Status Last Admin Dose Admin Acetaminophen (Tylenol Tab) 650 mg Q4HP PRN PO MILD PAIN (PS 1-4) 12/26/18 20:15 12/27/18 11:47 Aspirin (Aspirin Chewable) 81 mg DAILY PO 12/27/18 09:00 12/27/18 08:17 Atorvastatin Calcium (Lipitor) 40 mg QHS PO 12/26/18 21:00 12/26/18 21:31 Carbidopa/Levodopa (Sinemet 25/100) 2 tab TID PO 12/26/18 21:00 12/27/18 08:17 Dextrose (Dextrose 50%) 25 ml ASDIRECTED PRN IV SEE LABEL COMMENTS 12/26/18 20:15 Docusate Sodium (Colace) 100 mg BID PO 12/26/18 21:00 12/27/18 08:17 Famotidine (Pepcid) 10 mg QHS PO 12/26/18 21:00 12/26/18 21:32 Fluticasone Propionate (Flonase 0.05% Nasal [place]) 1 spray BID NARES 12/26/18 21:00 12/27/18 08:19 Glucagon (Glucagon) 1 mg ASDIRECTED PRN SC SEE LABEL COMMENTS 12/26/18 20:15 Glucose (Glucose) 16 GM ASDIRECTED PRN PO SEE LABEL COMMENTS 12/26/18 20:15 Insulin Detemir (Levemir Insulin) 30 units QHS SC 12/26/18 21:00 12/26/18 21:35 Insulin Human Lispro (HumaLOG INSULIN) SEE PROTOCOL TABLE AC SC 12/27/18 07:30 12/27/18 11:48 Insulin Human Lispro (HumaLOG INSULIN) SEE PROTOCOL TABLE QHS SC 12/26/18 21:00 12/26/18 21:35 Losartan Potassium (Cozaar) 100 mg DAILY PO 12/27/18 09:00 12/27/18 09:53 DC 12/27/18 08:18 Magnesium Chloride (Slow-Mag) 64 mg DAILY PO 12/27/18 09:00 12/27/18 08:19 Nitroglycerin (Nitrostat (1/ 150)) 0.4 mg Q5MP PRN SL CHEST PAIN 12/26/18 20:15 Nystatin (Mycostatin Powder, Nystop) APPLY TO GROIN BID TOP 12/26/18 21:00 12/27/18 08:20 Potassium Chloride (Micro-K Extencaps) 10 meq DAILY PO 12/27/18 09:00 12/27/18 08:17 Pregabalin (Lyrica) 75 mg BID PO 12/26/18 21:00 12/27/18 08:17 Propranolol HCl (Inderal) 20 mg BID PO 12/26/18 21:00 12/27/18 08:18 Rivaroxaban (Xarelto) 15 mg DAILY@18 PO 12/27/18 18:00 Salmeterol Xinafoate/ Fluticasone (Advair Hfa 230/ 21) 2 puff RBID INH 12/26/18 20:00 12/27/18 08:07 Senna (Senokot) 1 tab QHS PO 12/26/18 21:00 12/26/18 21:31 Torsemide (Demadex) 20 mg DAILY PO 12/27/18 09:00 12/27/18 08:18 Trazodone HCl (Desyrel) 25 mg QHS PO 12/26/18 21:00 12/26/18 21:33 KERON PÉREZ MD Dec 27, 2018 16:55
[2018-12-27] MEDS: RIVAROXABAN 15 MG TAB (XARELTO) PO SCH (16:56)
[2018-12-27 19:35] VITALS: BP 122/63
[2018-12-27] MEDS: traZODone 25MG PER 1/2 TABLET PO SCH (20:55)
[2018-12-27] MEDS: FAMOTIDINE 20 MG TAB PO SCH (20:55)
[2018-12-27] MEDS: SENNA 8.6 MG TAB (SENOKOT) PO SCH (20:55)
[2018-12-27] MEDS: ATORVASTATIN 20 MG TAB PO SCH (20:55)
[2018-12-27] MEDS: LEVEMIR (INSULIN DETEMIR) 1 UNITS/0.01ML SC SCH (20:56)
[2018-12-28 05:25] VITALS: BP 138/65
[2018-12-28 07:17] LABS: CALCIUM LEVEL 9.2 MG/DL (8.8-10.2); CREATININE FOR GFR 1.53 MG/DL (0.55-1.30); GLOMERULAR FILTRATION RATE 34.9 (>39); POTASSIUM SERUM 4.1 MEQ/L (3.5-5.1)
[2018-12-28] MEDS: ADVAIR HFA 230/21MCG INHALER INH SCH ×2 (08:05→18:05)
[2018-12-28] MEDS: SINEMET 25-100 MG TAB PO SCH ×3 (08:27→20:49)
[2018-12-28] MEDS: POTASSIUM CHLORIDE 10 MEQ SR TABLET PO SCH (08:27)
[2018-12-28] MEDS: PREGABALIN 75 MG CAP(LYRICA) PO SCH ×2 (08:27→20:50)
[2018-12-28] MEDS: DOCUSATE SODIUM 100 MG CAP PO SCH ×2 (08:27→20:49)
[2018-12-28] MEDS: HumaLOG INSULIN (NovoLOG) PER UNIT SC SCH ×4 (08:28→20:51)
[2018-12-28] MEDS: TORSEMIDE 20 MG TAB PO SCH (08:28)
[2018-12-28] MEDS: ASPIRIN 81 MG CHEW TABLET PO SCH (08:28)
[2018-12-28] MEDS: MAGNESIUM CHLORIDE 64 MG TABCR (SLO MAG) PO SCH (08:28)
[2018-12-28] MEDS: FLUTICASONE PROP 0.05% NASAL SPRAY 16 GM (FLONASE) NARES SCH ×2 (08:32→20:51)
[2018-12-28] MEDS: NYSTATIN 100,000 UNITS/GM TOPICAL PWD 15 GM TOP SCH ×2 (08:32→20:52)
[2018-12-28] MEDS: PROPRANOLOL 20 MG TAB PO SCH ×2 (08:32→20:50)
--- NOTE | 2018-12-28 10:14 | IPNPDOC ---
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 She says she feels ok and denies shortness of breath. REVIEW OF SYSTEMS: The following is a completed review of systems and has been reviewed. Review of systems otherwise unremarkable. PAIN: Patient self reports no pain EYES: No recent vision changes EARS, NOSE, & THROAT: No throat pain, or dysphagia, or rhinorrhea CARDIOVASCULAR: Denies chest pain or palpitations PULMONARY: Denies shortness of breath GASTROINTESTINAL: Denies constipation/diarrhea GENITOURINARY: denies dysuria MUSCULOSKELETAL:generalized weakness NEUROLOGICAL:+parkinsons HEMATOLOGICAL: no easy bruising SKIN: +rash PSYCHIATRIC: Unremarkable All other review of systems found to be negative. PHYSICAL EXAMINATION: VITAL SIGNS: Please see below. GENERAL: Pleasant and cooperative. No acute distress. HEENT: PERRL. Extraocular movements intact. Clear conjunctiva CARDIOVASCULAR: Regular rate and rhythm. No murmurs, rubs, or gallops LUNGS: Clear to auscultation bilaterally. No wheezes. No rhonchi ABDOMEN: Soft, nontender, nondistended. Positive bowel sounds. Normal active bowel sounds NEUROLOGICAL: Alert and oriented times to self and place. Cranial nerves II through XII grossly intact. Sensation grossly intact +bradykinetic movements EXTREMITIES: 5\5 strength bilateral upper extremities. 5\5 strength right lower extremity. 5/5 strength in left lower extremity. SKIN: intact ASSESSMENT:78 year-old F with past medical history of CAD, drug-induced parkinsons untreated, who presents status post fal PLAN: 1. 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 Cardiac: diastolic CHF and CAD s/p stent- c/u Xarelto and ASA, holding Losartan for increased in [employer] Director, will monitor BPs medicine consulted to assist in management, IVF ordered -Torsemide on hold until BUN/M[employer] Director improves, monitor for fluid overload -c/u propranolol -Nitroglycerin prn 4. Resp: COPD c/u breathing treatments 5. Endo: pmh DM c/u insulin coverage 6. : monitor PVRs 7. 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 DVT ppx: on Xarelto, TEDs 8. GI ppx: pepcid 9. Pain : tylenol prn and Lyrica 10. Dispo: TBD Allergies Coded Allergies: rofecoxib (Verified Allergy, Severe, Tongue Swelling , 12/21/18) glyburide (Verified Allergy, Mild, Too low blood sugar, 12/21/18) metoclopramide (Verified Allergy, Mild, Tremors , 12/21/18) amoxicillin (Verified Adverse Reaction, Mild, Rash, 12/21/18) azithromycin (Verified Adverse Reaction, Mild, Rash, 12/21/18) clavulanic acid (Verified Adverse Reaction, Mild, Rash, 12/21/18) exenatide (Verified Adverse Reaction, Mild, Abdominal pain , 12/21/18) tramadol (Verified Adverse Reaction, Mild, Rash , 12/21/18) Vital Signs Vital Signs Date Time Temp Pulse Resp B/P (MAP) Pulse Ox O2 Delivery O2 Flow Rate FiO2 12/28/18 08:32 61 130/73 12/28/18 05:25 97.4 17 100 Room Air Laboratory Data CBC/BMP Laboratory Tests 12/28/18 06:36 Labs 24H Laboratory Tests 2 12/27/18 10:40: Bedside Glucose (Misc Panel) 207H 12/27/18 11:38: Bedside Glucose (Misc Panel) 205H 12/27/18 16:26: Bedside Glucose (Misc Panel) 147H 12/27/18 19:34: Bedside Glucose (Misc Panel) 164H 12/28/18 05:27: Bedside Glucose (Misc Panel) 114H 12/28/18 06:36: Anion Gap 7L, Glomerular Filtration Rate 34.9L, Calcium Level 9.2 Current Medications Current Medications Current Medications Medications (Trade) Dose Ordered Sig/Rosalie Route PRN Reason Start Time Stop Time Status Last Admin Dose Admin Acetaminophen (Tylenol Tab) 650 mg Q4HP PRN PO MILD PAIN (PS 1-4) 12/26/18 20:15 12/27/18 11:47 Aspirin (Aspirin Chewable) 81 mg DAILY PO 12/27/18 09:00 12/28/18 08:28 Atorvastatin Calcium (Lipitor) 40 mg QHS PO 12/26/18 21:00 12/27/18 20:55 Carbidopa/Levodopa (Sinemet 25/100) 2 tab TID PO 12/26/18 21:00 12/28/18 08:27 Dextrose (Dextrose 50%) 25 ml ASDIRECTED PRN IV SEE LABEL COMMENTS 12/26/18 20:15 Docusate Sodium (Colace) 100 mg BID PO 12/26/18 21:00 12/28/18 08:27 Famotidine (Pepcid) 10 mg QHS PO 12/26/18 21:00 12/27/18 20:55 Fluticasone Propionate (Flonase 0.05% Nasal [place]) 1 spray BID NARES 12/26/18 21:00 12/28/18 08:32 Glucagon (Glucagon) 1 mg ASDIRECTED PRN SC SEE LABEL COMMENTS 12/26/18 20:15 Glucose (Glucose) 16 GM ASDIRECTED PRN PO SEE LABEL COMMENTS 12/26/18 20:15 Insulin Detemir (Levemir Insulin) 30 units QHS SC 12/26/18 21:00 12/27/18 20:56 Insulin Human Lispro (HumaLOG INSULIN) SEE PROTOCOL TABLE AC SC 12/27/18 07:30 12/28/18 08:28 Insulin Human Lispro (HumaLOG INSULIN) SEE PROTOCOL TABLE QHS SC 12/26/18 21:00 12/26/18 21:35 Losartan Potassium (Cozaar) 100 mg DAILY PO 12/27/18 09:00 12/27/18 09:53 DC 12/27/18 08:18 Magnesium Chloride (Slow-Mag) 64 mg DAILY PO 12/27/18 09:00 12/28/18 08:28 Nitroglycerin (Nitrostat (1/ 150)) 0.4 mg Q5MP PRN SL CHEST PAIN 12/26/18 20:15 Nystatin (Mycostatin Powder, Nystop) APPLY TO GROIN BID TOP 12/26/18 21:00 12/28/18 08:32 Potassium Chloride (Micro-K Extencaps) 10 meq DAILY PO 12/27/18 09:00 12/28/18 08:27 Pregabalin (Lyrica) 75 mg BID PO 12/26/18 21:00 12/28/18 08:27 Propranolol HCl (Inderal) 20 mg BID PO 12/26/18 21:00 12/28/18 08:32 Rivaroxaban (Xarelto) 15 mg DAILY@18 PO 12/27/18 18:00 12/27/18 16:56 Salmeterol Xinafoate/ Fluticasone (Advair Hfa 230/ 21) 2 puff RBID INH 12/26/18 20:00 12/28/18 08:05 Senna (Senokot) 1 tab QHS PO 12/26/18 21:00 12/27/18 20:55 Torsemide (Demadex) 20 mg DAILY PO 12/27/18 09:00 12/28/18 08:28 Trazodone HCl (Desyrel) 25 mg QHS PO 12/26/18 21:00 12/27/18 20:55 KERON PÉREZ MD Dec 28, 2018 10:14
[2018-12-28 14:00] VITALS: BP 118/61
[2018-12-28] MEDS: RIVAROXABAN 15 MG TAB (XARELTO) PO SCH (17:31)
[2018-12-28 17:56] LABS: ALBUMIN 3.4 GM/DL (3.2-5.2); BILIRUBIN,TOTAL 0.5 MG/DL (0.2-1.0); CALCIUM LEVEL 9.7 MG/DL (8.8-10.2); CREATININE FOR GFR 1.46 MG/DL (0.55-1.30); GLOMERULAR FILTRATION RATE 36.8 (>39); MAGNESIUM LEVEL 1.6 MG/DL (1.8-2.4); PHOSPHORUS LEVEL 4.4 MG/DL (2.5-4.9); POTASSIUM SERUM 4.2 MEQ/L (3.5-5.1); TOTAL PROTEIN 7.3 GM/DL (6.4-8.2)
[2018-12-28 20:05] VITALS: BP 155/69
[2018-12-28] MEDS: ATORVASTATIN 20 MG TAB PO SCH (20:48)
[2018-12-28] MEDS: SENNA 8.6 MG TAB (SENOKOT) PO SCH (20:49)
[2018-12-28] MEDS: FAMOTIDINE 20 MG TAB PO SCH (20:49)
[2018-12-28] MEDS: traZODone 25MG PER 1/2 TABLET PO SCH (20:50)
[2018-12-28] MEDS: LEVEMIR (INSULIN DETEMIR) 1 UNITS/0.01ML SC SCH (20:51)
[2018-12-29 06:20] VITALS: BP 104/58
[2018-12-29] MEDS: ADVAIR HFA 230/21MCG INHALER INH SCH ×2 (07:20→17:25)
[2018-12-29 07:22] LABS: BASO # 0.1 10^3/uL (0.0-0.2); BASO % 0.6 % (0.0-1.0); EOS # 0.1 10^3/uL (0.0-0.5); EOS % 1.3 % (0.0-3.0); HEMATOCRIT 46.5 % (36.0-47.0); LYMPH # 0.9 10^3/uL (1.5-5.0); LYMPH % 10.3 % (24.0-44.0); MEAN CORPUSCULAR HEMOGLOBIN 29.1 pg (27.0-33.0); MEAN CORPUSCULAR HGB CONC 32.3 g/dl (32.0-36.5); MEAN CORPUSCULAR VOLUME 90.3 fl (80.0-96.0); MONO # 1.1 10^3/uL (0.0-0.8); MONO % 12.8 % (0.0-5.0); NEUTROPHILS # 6.2 10^3/uL (1.5-8.5); NEUTROPHILS % 74.6 % (36.0-66.0); PLATELET COUNT, AUTOMATED 176 10^3/uL (150-450); RED BLOOD COUNT 5.15 10^6/uL (4.00-5.40); WHITE BLOOD COUNT 8.3 10^3/uL (4.0-10.0)
[2018-12-29 07:58] LABS: CALCIUM LEVEL 9.9 MG/DL (8.8-10.2); CREATININE FOR GFR 1.31 MG/DL (0.55-1.30); GLOMERULAR FILTRATION RATE 41.7 (>39); POTASSIUM SERUM 4.1 MEQ/L (3.5-5.1)
[2018-12-29] MEDS: HumaLOG INSULIN (NovoLOG) PER UNIT SC SCH ×4 (08:59→20:26)
[2018-12-29] MEDS: MAGNESIUM CHLORIDE 64 MG TABCR (SLO MAG) PO SCH (08:59)
[2018-12-29] MEDS: PREGABALIN 75 MG CAP(LYRICA) PO SCH ×2 (08:59→20:25)
[2018-12-29] MEDS: PROPRANOLOL 20 MG TAB PO SCH ×2 (09:00→20:26)
[2018-12-29] MEDS: SINEMET 25-100 MG TAB PO SCH ×3 (09:00→20:26)
[2018-12-29] MEDS: DOCUSATE SODIUM 100 MG CAP PO SCH ×2 (09:00→20:25)
[2018-12-29] MEDS: POTASSIUM CHLORIDE 10 MEQ SR TABLET PO SCH (09:00)
[2018-12-29] MEDS: ASPIRIN 81 MG CHEW TABLET PO SCH (09:00)
[2018-12-29] MEDS: FLUTICASONE PROP 0.05% NASAL SPRAY 16 GM (FLONASE) NARES SCH ×2 (09:00→20:27)
[2018-12-29] MEDS: NYSTATIN 100,000 UNITS/GM TOPICAL PWD 15 GM TOP SCH ×2 (09:01→20:27)
[2018-12-29 14:00] VITALS: BP 114/58
[2018-12-29] MEDS: RIVAROXABAN 15 MG TAB (XARELTO) PO SCH (17:18)
[2018-12-29 20:24] VITALS: BP 152/80
[2018-12-29] MEDS: FAMOTIDINE 20 MG TAB PO SCH (20:25)
[2018-12-29] MEDS: SENNA 8.6 MG TAB (SENOKOT) PO SCH (20:26)
[2018-12-29] MEDS: ATORVASTATIN 20 MG TAB PO SCH (20:26)
[2018-12-29] MEDS: LEVEMIR (INSULIN DETEMIR) 1 UNITS/0.01ML SC SCH (20:27)
[2018-12-29] MEDS: traZODone 25MG PER 1/2 TABLET PO SCH (20:28)
[2018-12-29 23:19] LABS: APPEARANCE, URINE CLEAR (CLEAR); BACTERIA, URINE AUTO NEGATIVE (NEGATIVE); BILIRUBIN, URINE AUTO NEGATIVE (NEGATIVE); BLOOD, URINE BLOOD NEGATIVE (NEGATIVE); COLOR, URINE YELLOW (YELLOW); GLUCOSE, URINE (UA) AUTO 1+ mg/dL (NEGATIVE); KETONE, URINE AUTO TRACE mg/dL (NEGATIVE); LEUKOCYTE ESTERASE, URINE AUTO TRACE (NEGATIVE); NITRITE, URINE AUTO NEGATIVE (NEGATIVE); PROTEIN, URINE AUTO 1+ mg/dL (NEGATIVE); RBC, URINE AUTO 4 /HPF (0-3); SPECIFIC GRAVITY URINE AUTO 1.016 (1.002-1.035); SQUAMOUS EPITHELIAL CELL UR AU 1 /HPF (0-6); UROBILINOGEN, URINE AUTO 0.2 mg/dL (0.0-2.0); WBC, URINE AUTO 8 /HPF (0-3)
[2018-12-30 06:30] VITALS: BP 166/77
[2018-12-30 07:34] LABS: CALCIUM LEVEL 9.4 MG/DL (8.8-10.2); CREATININE FOR GFR 1.27 MG/DL (0.55-1.30); GLOMERULAR FILTRATION RATE 43.2 (>39)
[2018-12-30] MEDS: ADVAIR HFA 230/21MCG INHALER INH SCH ×2 (07:47→20:54)
[2018-12-30] MEDS: PREGABALIN 75 MG CAP(LYRICA) PO SCH ×2 (08:56→21:28)
[2018-12-30] MEDS: HumaLOG INSULIN (NovoLOG) PER UNIT SC SCH ×4 (08:56→20:48)
[2018-12-30] MEDS: MAGNESIUM CHLORIDE 64 MG TABCR (SLO MAG) PO SCH (08:56)
[2018-12-30] MEDS: ASPIRIN 81 MG CHEW TABLET PO SCH (08:56)
[2018-12-30] MEDS: POTASSIUM CHLORIDE 10 MEQ SR TABLET PO SCH (08:57)
[2018-12-30] MEDS: DOCUSATE SODIUM 100 MG CAP PO SCH ×2 (08:57→21:29)
[2018-12-30] MEDS: SINEMET 25-100 MG TAB PO SCH ×2 (08:57→17:43)
[2018-12-30] MEDS: PROPRANOLOL 20 MG TAB PO SCH ×2 (08:57→21:29)
[2018-12-30] MEDS: FLUTICASONE PROP 0.05% NASAL SPRAY 16 GM (FLONASE) NARES SCH ×2 (08:58→21:30)
[2018-12-30] MEDS: NYSTATIN 100,000 UNITS/GM TOPICAL PWD 15 GM TOP SCH ×2 (08:58→21:30)
[2018-12-30 14:00] VITALS: BP 129/61
[2018-12-30] MEDS: RIVAROXABAN 15 MG TAB (XARELTO) PO SCH (17:43)
--- NOTE | 2018-12-30 18:17 | IPNPDOC ---
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 REVIEW OF SYSTEMS: The following is a completed review of systems and has been reviewed. Review of systems otherwise unremarkable. PAIN: Patient self reports no pain EYES: No recent vision changes EARS, NOSE, & THROAT: No throat pain, or dysphagia, or rhinorrhea CARDIOVASCULAR: Denies chest pain or palpitations PULMONARY: Denies shortness of breath GASTROINTESTINAL: Denies constipation/diarrhea GENITOURINARY: denies dysuria MUSCULOSKELETAL:generalized weakness NEUROLOGICAL:+parkinsons HEMATOLOGICAL: no easy bruising SKIN: +rash PSYCHIATRIC: Unremarkable All other review of systems found to be negative. PHYSICAL EXAMINATION: VITAL SIGNS: Please see below. GENERAL: Pleasant and cooperative. No acute distress. HEENT: PERRL. Extraocular movements intact. Clear conjunctiva CARDIOVASCULAR: Regular rate and rhythm. No murmurs, rubs, or gallops LUNGS: Clear to auscultation bilaterally. No wheezes. No rhonchi ABDOMEN: Soft, nontender, nondistended. Positive bowel sounds. Normal active bowel sounds NEUROLOGICAL: Alert and oriented times to self and place. Cranial nerves II through XII grossly intact. Sensation grossly intact +bradykinetic movements EXTREMITIES: 5\5 strength bilateral upper extremities. 5\5 strength right lower extremity. 5/5 strength in left lower extremity. SKIN: intact ASSESSMENT:78 year-old F with past medical history of CAD, drug-induced parkinsons untreated, who presents status post fal PLAN: 1. Rehab: PT- strengthen/stretch/maintain ROM bilat LE and improve gait sequencing OT- strengthen/stretch/maintain ROM bilat UE and advance ADLs with adaptive equipment prn [employer]PL[employer]- eval and treat 2. 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 Resp: COPD c/u breathing treatments 5. Endo: pmh DM c/u insulin coverage 6. : monitor PVRs 7. 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 DVT ppx: on Xarelto, TEDs 8. GI ppx: pepcid 9. Pain : tylenol prn and Lyrica -insomnia- trazodone 10. Dispo: TBD Allergies Coded Allergies: rofecoxib (Verified Allergy, Severe, Tongue Swelling , 12/21/18) glyburide (Verified Allergy, Mild, Too low blood sugar, 12/21/18) metoclopramide (Verified Allergy, Mild, Tremors , 12/21/18) amoxicillin (Verified Adverse Reaction, Mild, Rash, 12/21/18) azithromycin (Verified Adverse Reaction, Mild, Rash, 12/21/18) clavulanic acid (Verified Adverse Reaction, Mild, Rash, 12/21/18) exenatide (Verified Adverse Reaction, Mild, Abdominal pain , 12/21/18) tramadol (Verified Adverse Reaction, Mild, Rash , 12/21/18) Vital Signs Vital Signs Date Time Temp Pulse Resp B/P (MAP) Pulse Ox O2 Delivery O2 Flow Rate FiO2 12/30/18 14:00 97.3 68 17 129/61 (83) 98 Room Air Laboratory Data CBC/BMP Laboratory Tests 12/30/18 06:52 Labs 24H Laboratory Tests 2 12/29/18 19:51: Bedside Glucose (Misc Panel) 243H 12/29/18 23:04: Urine Color YELLOW, Urine Appearance CLEAR, Urine pH 5.0, Urine Specific [place] 1.016, Urine Protein 1+H, Urine Glucose (Auto)(UA) 1+H, Urine Ketones (Auto) TRACEH, Urine Blood NEGATIVE, Urine Nitrite NEGATIVE, Urine Bilirubin NEGATIVE, Urine Urobilinogen 0.2, Urine Leukocyte Esterase (Auto) TRACEH, Urine WBC (Auto) 8H, Urine RBC (Auto) 4H, Urine Hyaline Casts (Auto) 0, Urine Bacteria (Auto) NEGATIVE, Urine Squamous Epithelial Cells 1, Urine Sperm (Auto) 12/30/18 06:45: Bedside Glucose (Misc Panel) 131H 12/30/18 06:52: Anion Gap 4L, Glomerular Filtration Rate 43.2, Calcium Level 9.4 12/30/18 11:48: Bedside Glucose (Misc Panel) 185H 12/30/18 16:42: Bedside Glucose (Misc Panel) 131H Current Medications Current Medications Current Medications Medications (Trade) Dose Ordered Sig/Rosalie Route PRN Reason Start Time Stop Time Status Last Admin Dose Admin Acetaminophen (Tylenol Tab) 650 mg Q4HP PRN PO MILD PAIN (PS 1-4) 12/26/18 20:15 12/27/18 11:47 Aspirin (Aspirin Chewable) 81 mg DAILY PO 12/27/18 09:00 12/30/18 08:56 Atorvastatin Calcium (Lipitor) 40 mg QHS PO 12/26/18 21:00 12/29/18 20:26 Carbidopa/Levodopa (Sinemet 25/100) 2 tab TID PO 12/26/18 21:00 12/30/18 17:43 Dextrose (Dextrose 50%) 25 ml ASDIRECTED PRN IV SEE LABEL COMMENTS 12/26/18 20:15 Docusate Sodium (Colace) 100 mg BID PO 12/26/18 21:00 12/30/18 08:57 Famotidine (Pepcid) 10 mg QHS PO 12/26/18 21:00 12/29/18 20:25 Fluticasone Propionate (Flonase 0.05% Nasal [place]) 1 spray BID NARES 12/26/18 21:00 12/30/18 08:58 Glucagon (Glucagon) 1 mg ASDIRECTED PRN SC SEE LABEL COMMENTS 12/26/18 20:15 Glucose (Glucose) 16 GM ASDIRECTED PRN PO SEE LABEL COMMENTS 12/26/18 20:15 Insulin Detemir (Levemir Insulin) 30 units QHS SC 12/26/18 21:00 12/29/18 20:27 Insulin Human Lispro (HumaLOG INSULIN) SEE PROTOCOL TABLE AC SC 12/27/18 07:30 12/30/18 17:43 Insulin Human Lispro (HumaLOG INSULIN) SEE PROTOCOL TABLE QHS SC 12/26/18 21:00 12/26/18 21:35 Losartan Potassium (Cozaar) 100 mg DAILY PO 12/27/18 09:00 12/27/18 09:53 DC 12/27/18 08:18 Magnesium Chloride (Slow-Mag) 64 mg DAILY PO 12/27/18 09:00 12/30/18 08:56 Nitroglycerin (Nitrostat (1/ 150)) 0.4 mg Q5MP PRN SL CHEST PAIN 12/26/18 20:15 Nystatin (Mycostatin Powder, Nystop) APPLY TO GROIN BID TOP 12/26/18 21:00 12/30/18 08:58 Potassium Chloride (Micro-K Extencaps) 10 meq DAILY PO 12/27/18 09:00 12/30/18 08:57 Pregabalin (Lyrica) 75 mg BID PO 12/26/18 21:00 12/30/18 08:56 Propranolol HCl (Inderal) 20 mg BID PO 12/26/18 21:00 12/29/18 20:26 Rivaroxaban (Xarelto) 15 mg DAILY@18 PO 12/27/18 18:00 12/30/18 17:43 Salmeterol Xinafoate/ Fluticasone (Advair Hfa 230/ 21) 2 puff RBID INH 12/26/18 20:00 12/30/18 07:47 Senna (Senokot) 1 tab QHS PO 12/26/18 21:00 12/29/18 20:26 Torsemide (Demadex) 20 mg DAILY PO 12/27/18 09:00 12/28/18 10:12 DC 12/28/18 08:28 Trazodone HCl (Desyrel) 25 mg QHS PO 12/26/18 21:00 12/28/18 20:50 KERON PÉREZ MD Dec 30, 2018 18:17
--- NOTE | 2018-12-30 18:17 | IPNPDOC ---
PM&R Progress Note DATE OF SERVICE: Dec 30, 2018 Program Professional Progress Note Subjective: Patient seen in room stating she is feeling well and has no complaints. REVIEW OF SYSTEMS: The following is a completed review of systems and has been reviewed. Review of systems otherwise unremarkable. PAIN: Patient self reports no pain EYES: No recent vision changes EARS, NOSE, & THROAT: No throat pain, or dysphagia, or rhinorrhea CARDIOVASCULAR: Denies chest pain or palpitations PULMONARY: Denies shortness of breath GASTROINTESTINAL: Denies constipation/diarrhea GENITOURINARY: denies dysuria MUSCULOSKELETAL:generalized weakness NEUROLOGICAL:+parkinsons HEMATOLOGICAL: no easy bruising SKIN: +rash PSYCHIATRIC: Unremarkable All other review of systems found to be negative. PHYSICAL EXAMINATION: VITAL SIGNS: Please see below. GENERAL: Pleasant and cooperative. No acute distress. HEENT: PERRL. Extraocular movements intact. Clear conjunctiva CARDIOVASCULAR: Regular rate and rhythm. No murmurs, rubs, or gallops LUNGS: Clear to auscultation bilaterally. No wheezes. No rhonchi ABDOMEN: Soft, nontender, nondistended. Positive bowel sounds. Normal active bowel sounds NEUROLOGICAL: Alert and oriented times to self and place. Cranial nerves II through XII grossly intact. Sensation grossly intact +bradykinetic movements EXTREMITIES: 5\5 strength bilateral upper extremities. 5\5 strength right lower extremity. 5/5 strength in left lower extremity. SKIN: intact ASSESSMENT:78 year-old F with past medical history of CAD, drug-induced parkinsons untreated, who presents status post fal PLAN: 1. 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 Cardiac: diastolic CHF and CAD s/p stent- c/u Xarelto and ASA, holding Losartan for increased in [employer] Libr[employer] Branch, will monitor BPs medicine consulted to assist in management -Torsemide on hold until BUN/[employer]ibrarian Branch improves, monitor for fluid overload- continues to appear stable today -c/u propranolol -Nitroglycerin prn 4. Resp: COPD c/u breathing treatments 5. Endo: pmh DM c/u insulin coverage 6. : monitor PVRs, UA ordered 12-29-18 for increased frequency 7. Renal: CKD3 improving since holding Cozaar, Torsemide on hold as well 7. DVT ppx: on Xarelto, TEDs 8. GI ppx: pepcid 9. Pain : tylenol prn and Lyrica -insomnia- trazodone 10. Dispo: TBD Allergies Coded Allergies: rofecoxib (Verified Allergy, Severe, Tongue Swelling , 12/21/18) amoxicillin (Verified Allergy, Mild, Rash, 12/30/18) azithromycin (Verified Allergy, Mild, Rash, 12/30/18) clavulanic acid (Verified Allergy, Mild, Rash, 12/30/18) exenatide (Verified Adverse Reaction, Mild, Abdominal pain , 12/21/18) glyburide (Verified Adverse Reaction, Mild, Too low blood sugar, 12/30/18) metoclopramide (Verified Adverse Reaction, Mild, Tremors , 12/30/18) tramadol (Verified Adverse Reaction, Mild, Rash , 12/21/18) Vital Signs Vital Signs Date Time Temp Pulse Resp B/P (MAP) Pulse Ox O2 Delivery O2 Flow Rate FiO2 12/30/18 14:00 97.3 68 17 129/61 (83) 98 Room Air Laboratory Data CBC/BMP Laboratory Tests 12/30/18 06:52 Labs 24H Laboratory Tests 2 12/29/18 19:51: Bedside Glucose (Misc Panel) 243H 12/29/18 23:04: Urine Color YELLOW, Urine Appearance CLEAR, Urine pH 5.0, Urine Specific [place] 1.016, Urine Protein 1+H, Urine Glucose (Auto)(UA) 1+H, Urine Ketones (Auto) TRACEH, Urine Blood NEGATIVE, Urine Nitrite NEGATIVE, Urine Bilirubin NEGATIVE, Urine Urobilinogen 0.2, Urine Leukocyte Esterase (Auto) TRACEH, Urine WBC (Auto) 8H, Urine RBC (Auto) 4H, Urine Hyaline Casts (Auto) 0, Urine Bacteria (Auto) NEGATIVE, Urine Squamous Epithelial Cells 1, Urine Sperm (Auto) 12/30/18 06:45: Bedside Glucose (Misc Panel) 131H 12/30/18 06:52: Anion Gap 4L, Glomerular Filtration Rate 43.2, Calcium Level 9.4 12/30/18 11:48: Bedside Glucose (Misc Panel) 185H 12/30/18 16:42: Bedside Glucose (Misc Panel) 131H Current Medications Current Medications Current Medications Medications (Trade) Dose Ordered Sig/Rosalie Route PRN Reason Start Time Stop Time Status Last Admin Dose Admin Acetaminophen (Tylenol Tab) 650 mg Q4HP PRN PO MILD PAIN (PS 1-4) 12/26/18 20:15 12/27/18 11:47 Aspirin (Aspirin Chewable) 81 mg DAILY PO 12/27/18 09:00 12/30/18 08:56 Atorvastatin Calcium (Lipitor) 40 mg QHS PO 12/26/18 21:00 12/29/18 20:26 Carbidopa/Levodopa (Sinemet 25/100) 2 tab TID PO 12/26/18 21:00 12/30/18 18:15 DC 12/30/18 17:43 Carbidopa/Levodopa (Sinemet 25/100) 2 tab TID@0800,1200,1600 PO 12/31/18 08:00 Dextrose (Dextrose 50%) 25 ml ASDIRECTED PRN IV SEE LABEL COMMENTS 12/26/18 20:15 Docusate Sodium (Colace) 100 mg BID PO 12/26/18 21:00 12/30/18 08:57 Famotidine (Pepcid) 10 mg QHS PO 12/26/18 21:00 12/29/18 20:25 Fluticasone Propionate (Flonase 0.05% Nasal [place]) 1 spray BID NARES 12/26/18 21:00 12/30/18 08:58 Glucagon (Glucagon) 1 mg ASDIRECTED PRN SC SEE LABEL COMMENTS 12/26/18 20:15 Glucose (Glucose) 16 GM ASDIRECTED PRN PO SEE LABEL COMMENTS 12/26/18 20:15 Insulin Detemir (Levemir Insulin) 30 units QHS SC 12/26/18 21:00 12/29/18 20:27 Insulin Human Lispro (HumaLOG INSULIN) SEE PROTOCOL TABLE AC SC 12/27/18 07:30 12/30/18 17:43 Insulin Human Lispro (HumaLOG INSULIN) SEE PROTOCOL TABLE QHS SC 12/26/18 21:00 12/26/18 21:35 Losartan Potassium (Cozaar) 100 mg DAILY PO 12/27/18 09:00 12/27/18 09:53 DC 12/27/18 08:18 Magnesium Chloride (Slow-Mag) 64 mg DAILY PO 12/27/18 09:00 12/30/18 08:56 Nitroglycerin (Nitrostat (1/ 150)) 0.4 mg Q5MP PRN SL CHEST PAIN 12/26/18 20:15 Nystatin (Mycostatin Powder, Nystop) APPLY TO GROIN BID TOP 12/26/18 21:00 12/30/18 08:58 Potassium Chloride (Micro-K Extencaps) 10 meq DAILY PO 12/27/18 09:00 12/30/18 08:57 Pregabalin (Lyrica) 75 mg BID PO 12/26/18 21:00 12/30/18 08:56 Propranolol HCl (Inderal) 20 mg BID PO 12/26/18 21:00 12/29/18 20:26 Rivaroxaban (Xarelto) 15 mg DAILY@18 PO 12/27/18 18:00 12/30/18 17:43 Salmeterol Xinafoate/ Fluticasone (Advair Hfa 230/ 21) 2 puff RBID INH 12/26/18 20:00 12/30/18 07:47 Senna (Senokot) 1 tab QHS PO 12/26/18 21:00 12/29/18 20:26 Torsemide (Demadex) 20 mg DAILY PO 12/27/18 09:00 12/28/18 10:12 DC 12/28/18 08:28 Trazodone HCl (Desyrel) 25 mg QHS PO 12/26/18 21:00 12/30/18 18:13 DC 12/28/18 20:50 Trazodone HCl (Desyrel) 25 mg QHS PRN PO INSOMNIA 12/30/18 21:00 KERON PÉREZ MD Dec 30, 2018 18:17
[2018-12-30 20:00] VITALS: BP 138/80
[2018-12-30] MEDS: CEPHALEXIN 500 MG CAP PO SCH (21:28)
[2018-12-30] MEDS: FAMOTIDINE 20 MG TAB PO SCH ×2 (21:28→21:35)
[2018-12-30] MEDS: ATORVASTATIN 20 MG TAB PO SCH (21:29)
[2018-12-30] MEDS: SENNA 8.6 MG TAB (SENOKOT) PO SCH (21:29)
[2018-12-30] MEDS: LEVEMIR (INSULIN DETEMIR) 1 UNITS/0.01ML SC SCH (21:30)
[2018-12-30] MEDS ORDERED: PILL CUTTER 1 EACH XX PRN (21:45)
[2018-12-31 06:00] VITALS: BP 142/76
[2018-12-31] MEDS: ADVAIR HFA 230/21MCG INHALER INH SCH ×3 (08:00→19:04)
[2018-12-31] MEDS: PROPRANOLOL 20 MG TAB PO SCH ×2 (08:33→20:42)
[2018-12-31] MEDS: SINEMET 25-100 MG TAB PO SCH ×3 (08:34→16:14)
[2018-12-31] MEDS: PREGABALIN 75 MG CAP(LYRICA) PO SCH ×2 (08:34→20:42)
[2018-12-31] MEDS: HumaLOG INSULIN (NovoLOG) PER UNIT SC SCH ×4 (08:34→21:00)
[2018-12-31] MEDS: CEPHALEXIN 500 MG CAP PO SCH ×2 (08:34→20:42)
[2018-12-31] MEDS: POTASSIUM CHLORIDE 10 MEQ SR TABLET PO SCH (08:34)
[2018-12-31] MEDS: MAGNESIUM CHLORIDE 64 MG TABCR (SLO MAG) PO SCH (08:34)
[2018-12-31] MEDS: ASPIRIN 81 MG CHEW TABLET PO SCH (08:34)
[2018-12-31] MEDS: DOCUSATE SODIUM 100 MG CAP PO SCH ×2 (08:34→20:42)
[2018-12-31] MEDS: NYSTATIN 100,000 UNITS/GM TOPICAL PWD 15 GM TOP SCH ×2 (08:35→20:43)
[2018-12-31] MEDS: FLUTICASONE PROP 0.05% NASAL SPRAY 16 GM (FLONASE) NARES SCH ×2 (08:35→20:43)
--- NOTE | 2018-12-31 12:11 | IPNPDOC ---
Text Note Date of Service The patient was seen on 12/31/18. NOTE Subjective: Patient is a 78 year old female with a PMHx of Acute hypoglycemia, urinary tract infection found on admission, near syncope event, Bifascicular block with 1st degree hearth block, Essential hypertension, Diabetes Mellitus, G out, Degenerative disc disease, Osteoarthritis, Irregular heart beat, Cataracts, GERD, Skin cancer with removal, Pneumonia, COPD with Asthma and Bronchitis, hemorrhoids, hiatal hernia, Abdominal Aortic Aneurysm and Parkinson's Disease who was transferred to ARU on 12/26/2018 for continued physical and occupational therapy. Patient was seen and examined at the bedside. Currently patient denies any CP, SOB or palpitations. Denies any problems overnight. Has been progressing with physical therapy. Patient does note some LE edema. Objective: Vitals (See below) General: Lying in bed, no acute distress, comfortable, Awake / Alert HEENT: NC, AT CVS: RRR, +S1S2 Lungs: Fair air entry b/l, no evidence of wheezing / rhonchi / rales Abdomen: Soft, non-distended, no appreciable tenderness Extremities: 1+ pitting edema bilaterally, - Calf tenderness Assessment and plan: Parkinsonism - possibly 2/2 drug induced etiology - 2/2 Reglan; possibly 2/2 idiopathic etiology - s/p Reglan - CT Head 12/21: There is no evidence of acute intracranial process. Volume loss and sequelae of chronic microangiopathic ischemic disease. Chronic appearing basal ganglia lacunar infarctions. 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 - Neurology on consultation s/p Elevated troponin - Patient has no complaints of chest pain, palpitations or SOB - c/w Xarelto, ASA 81, Atorvastatin, Losartan and Propranolol - Echocardiogram pending - Cardiology on consultation Hx of splenic infarction - c/w full anticoagulation with Xarelto COPD - No evidence of exacerbation - c/w inhaled therapy as ordered HTN - BP appears well controlled - c/w Losartan and Propranolol IDDM2 - c/w Levemir and ISS DLP - c/w ASA and Atorvastatin Neuropathy - c/w Pregabalin GERD - c/w Famotidine DVT prophylaxis - c/w full anticoagulation with Xarelto Disposition: - Continue with physical therapy at the direction of ARU VS,Samra, I+O VS, Samra, I+O Vital Signs Date Time Temp Pulse Resp B/P (MAP) Pulse Ox O2 Delivery O2 Flow Rate FiO2 12/31/18 08:33 88 142/76 12/31/18 06:00 96.9 16 96 Room Air I&O- Last 24 Hours up to 6 AM 12/31/18 06:00 Intake Total 740 ml Output Total 0 ml Balance 740 ml SELMA HUFF MD Dec 31, 2018 12:11
[2018-12-31] MEDS: TORSEMIDE 10 MG TABLET PO SCH (12:15)
[2018-12-31 14:00] VITALS: BP 125/65
[2018-12-31] MEDS: RIVAROXABAN 15 MG TAB (XARELTO) PO SCH (17:46)
[2018-12-31] MEDS: SENNA 8.6 MG TAB (SENOKOT) PO SCH (20:42)
[2018-12-31] MEDS: FAMOTIDINE 20 MG TAB PO SCH (20:42)
[2018-12-31] MEDS: ATORVASTATIN 20 MG TAB PO SCH (20:42)
[2018-12-31] MEDS: LEVEMIR (INSULIN DETEMIR) 1 UNITS/0.01ML SC SCH (20:43)
[2018-12-31 22:00] VITALS: BP 154/82
[2019-01-01 06:00] VITALS: BP 157/77
[2019-01-01] MEDS: ADVAIR HFA 230/21MCG INHALER INH SCH ×2 (07:58→20:14)
[2019-01-01] MEDS: HumaLOG INSULIN (NovoLOG) PER UNIT SC SCH ×4 (09:09→21:00)
[2019-01-01] MEDS: PREGABALIN 75 MG CAP(LYRICA) PO SCH ×2 (09:10→21:48)
[2019-01-01] MEDS: DOCUSATE SODIUM 100 MG CAP PO SCH ×2 (09:10→21:48)
[2019-01-01] MEDS: PROPRANOLOL 20 MG TAB PO SCH ×2 (09:10→21:49)
[2019-01-01] MEDS: SINEMET 25-100 MG TAB PO SCH ×3 (09:10→17:26)
[2019-01-01] MEDS: MAGNESIUM CHLORIDE 64 MG TABCR (SLO MAG) PO SCH (09:10)
[2019-01-01] MEDS: ASPIRIN 81 MG CHEW TABLET PO SCH (09:11)
[2019-01-01] MEDS: POTASSIUM CHLORIDE 10 MEQ SR TABLET PO SCH (09:11)
[2019-01-01] MEDS: CEPHALEXIN 500 MG CAP PO SCH ×2 (09:11→21:48)
[2019-01-01] MEDS: FLUTICASONE PROP 0.05% NASAL SPRAY 16 GM (FLONASE) NARES SCH ×2 (09:11→21:50)
[2019-01-01] MEDS: NYSTATIN 100,000 UNITS/GM TOPICAL PWD 15 GM TOP SCH ×2 (09:12→21:50)
[2019-01-01 14:00] VITALS: BP 120/57
[2019-01-01] MEDS: RIVAROXABAN 15 MG TAB (XARELTO) PO SCH (17:26)
[2019-01-01] MEDS: ATORVASTATIN 20 MG TAB PO SCH (21:48)
[2019-01-01] MEDS: SENNA 8.6 MG TAB (SENOKOT) PO SCH (21:48)
[2019-01-01] MEDS: FAMOTIDINE 20 MG TAB PO SCH (21:48)
[2019-01-01] MEDS: LEVEMIR (INSULIN DETEMIR) 1 UNITS/0.01ML SC SCH (21:50)
[2019-01-01 22:00] VITALS: BP 152/81
[2019-01-02 05:44] VITALS: BP 145/82
[2019-01-02 06:51] LABS: BASO % 0.9 % (0.0-1.0); EOS # 0.1 10^3/uL (0.0-0.5); HEMATOCRIT 42.9 % (36.0-47.0); HEMOGLOBIN 13.6 g/dl (12.0-15.5); LYMPH # 0.8 10^3/uL (1.5-5.0); LYMPH % 17.4 % (24.0-44.0); MEAN CORPUSCULAR HEMOGLOBIN 28.8 pg (27.0-33.0); MEAN CORPUSCULAR HGB CONC 31.7 g/dl (32.0-36.5); MEAN CORPUSCULAR VOLUME 90.9 fl (80.0-96.0); MONO # 0.6 10^3/uL (0.0-0.8); MONO % 13.8 % (0.0-5.0); NEUTROPHILS # 2.9 10^3/uL (1.5-8.5); NEUTROPHILS % 65.4 % (36.0-66.0); PLATELET COUNT, AUTOMATED 211 10^3/uL (150-450); RED BLOOD COUNT 4.72 10^6/uL (4.00-5.40); WHITE BLOOD COUNT 4.4 10^3/uL (4.0-10.0)
[2019-01-02 07:17] LABS: CALCIUM LEVEL 9.1 MG/DL (8.8-10.2); CREATININE FOR GFR 1.04 MG/DL (0.55-1.30); GLOMERULAR FILTRATION RATE 54.4 (>39); POTASSIUM SERUM 4.2 MEQ/L (3.5-5.1)
[2019-01-02] MEDS: ADVAIR HFA 230/21MCG INHALER INH SCH ×2 (07:45→19:54)
[2019-01-02] MEDS: MAGNESIUM CHLORIDE 64 MG TABCR (SLO MAG) PO SCH (07:54)
[2019-01-02] MEDS: ASPIRIN 81 MG CHEW TABLET PO SCH (07:54)
[2019-01-02] MEDS: CEPHALEXIN 500 MG CAP PO SCH ×2 (07:55→20:07)
[2019-01-02] MEDS: POTASSIUM CHLORIDE 10 MEQ SR TABLET PO SCH (07:55)
[2019-01-02] MEDS: PREGABALIN 75 MG CAP(LYRICA) PO SCH ×2 (07:55→20:05)
[2019-01-02] MEDS: SINEMET 25-100 MG TAB PO SCH ×3 (07:55→17:12)
[2019-01-02] MEDS: PROPRANOLOL 20 MG TAB PO SCH ×2 (07:55→20:06)
[2019-01-02] MEDS: TORSEMIDE 10 MG TABLET PO SCH (07:55)
[2019-01-02] MEDS: DOCUSATE SODIUM 100 MG CAP PO SCH ×2 (07:55→20:06)
[2019-01-02] MEDS: FLUTICASONE PROP 0.05% NASAL SPRAY 16 GM (FLONASE) NARES SCH ×2 (07:56→20:08)
[2019-01-02] MEDS: NYSTATIN 100,000 UNITS/GM TOPICAL PWD 15 GM TOP SCH ×2 (07:56→20:08)
[2019-01-02] MEDS: HumaLOG INSULIN (NovoLOG) PER UNIT SC SCH ×4 (07:56→21:00)
[2019-01-02] MEDS ORDERED: **UNRESOLVED NON-FORMULARY MED ORDER XX SCH (09:00)
[2019-01-02 14:00] VITALS: BP 135/68
[2019-01-02] MEDS: RIVAROXABAN 15 MG TAB (XARELTO) PO SCH (17:12)
[2019-01-02 20:00] VITALS: BP 124/73
[2019-01-02] MEDS: SENNA 8.6 MG TAB (SENOKOT) PO SCH (20:06)
[2019-01-02] MEDS: FAMOTIDINE 20 MG TAB PO SCH (20:07)
[2019-01-02] MEDS: ATORVASTATIN 20 MG TAB PO SCH (20:07)
[2019-01-02] MEDS: LEVEMIR (INSULIN DETEMIR) 1 UNITS/0.01ML SC SCH (20:08)
[2019-01-03 05:00] VITALS: BP 164/78
[2019-01-03] MEDS: ADVAIR HFA 230/21MCG INHALER INH SCH ×2 (07:41→20:11)
[2019-01-03] MEDS: HumaLOG INSULIN (NovoLOG) PER UNIT SC SCH ×4 (08:09→20:55)
[2019-01-03] MEDS: ASPIRIN 81 MG CHEW TABLET PO SCH (08:09)
[2019-01-03] MEDS: CEPHALEXIN 500 MG CAP PO SCH ×2 (08:09→20:53)
[2019-01-03] MEDS: SINEMET 25-100 MG TAB PO SCH ×3 (08:09→17:10)
[2019-01-03] MEDS: MAGNESIUM CHLORIDE 64 MG TABCR (SLO MAG) PO SCH (08:09)
[2019-01-03] MEDS: POTASSIUM CHLORIDE 10 MEQ SR TABLET PO SCH (08:09)
[2019-01-03] MEDS: DOCUSATE SODIUM 100 MG CAP PO SCH ×2 (08:09→20:54)
[2019-01-03] MEDS: PREGABALIN 75 MG CAP(LYRICA) PO SCH ×2 (08:10→20:53)
[2019-01-03] MEDS: NYSTATIN 100,000 UNITS/GM TOPICAL PWD 15 GM TOP SCH ×2 (08:10→20:55)
[2019-01-03] MEDS: PROPRANOLOL 20 MG TAB PO SCH (08:10)
[2019-01-03] MEDS: FLUTICASONE PROP 0.05% NASAL SPRAY 16 GM (FLONASE) NARES SCH ×2 (08:11→20:55)
[2019-01-03] MEDS: METOPROLOL TART 50 MG TAB PO SCH ×3 (12:38→23:14)
[2019-01-03 14:00] VITALS: BP 124/61
[2019-01-03] MEDS: ACETAMINOPHEN TAB 650MG DOSE (2X325MG) PO PRN ×2 (14:39→20:52)
[2019-01-03] MEDS: RIVAROXABAN 15 MG TAB (XARELTO) PO SCH (17:10)
[2019-01-03] MEDS: ATORVASTATIN 20 MG TAB PO SCH (20:53)
[2019-01-03] MEDS: LEVEMIR (INSULIN DETEMIR) 1 UNITS/0.01ML SC SCH (20:54)
[2019-01-03] MEDS: FAMOTIDINE 20 MG TAB PO SCH (20:54)
[2019-01-03] MEDS: SENNA 8.6 MG TAB (SENOKOT) PO SCH (20:54)
[2019-01-03 22:00] VITALS: BP 128/72
[2019-01-04] MEDS: METOPROLOL TART 50 MG TAB PO SCH ×3 (05:38→21:00)
[2019-01-04] MEDS: ADVAIR HFA 230/21MCG INHALER INH SCH ×2 (07:26→19:30)
[2019-01-04] MEDS: ASPIRIN 81 MG CHEW TABLET PO SCH (08:40)
[2019-01-04] MEDS: SINEMET 25-100 MG TAB PO SCH ×3 (08:40→15:25)
[2019-01-04] MEDS: TORSEMIDE 10 MG TABLET PO SCH (08:40)
[2019-01-04] MEDS: PREGABALIN 75 MG CAP(LYRICA) PO SCH ×2 (08:40→20:57)
[2019-01-04] MEDS: POTASSIUM CHLORIDE 10 MEQ SR TABLET PO SCH (08:40)
[2019-01-04] MEDS: NYSTATIN 100,000 UNITS/GM TOPICAL PWD 15 GM TOP SCH ×2 (08:40→20:58)
[2019-01-04] MEDS: MAGNESIUM CHLORIDE 64 MG TABCR (SLO MAG) PO SCH (08:40)
[2019-01-04] MEDS: DOCUSATE SODIUM 100 MG CAP PO SCH ×2 (08:40→20:58)
[2019-01-04] MEDS: FLUTICASONE PROP 0.05% NASAL SPRAY 16 GM (FLONASE) NARES SCH ×2 (08:40→20:58)
[2019-01-04] MEDS: CEPHALEXIN 500 MG CAP PO SCH (08:40)
[2019-01-04] MEDS: HumaLOG INSULIN (NovoLOG) PER UNIT SC SCH ×4 (08:41→20:58)
--- NOTE | 2019-01-04 10:55 | IPNPDOC ---
PM&R Progress Note DATE OF SERVICE: Jan 02, 2019 Environmental Monitoring Specialist Progress Note Subjective: Patient seen in room stating she had the opportunity to see her over the weekend who is in hospice. She reports she does not feel increased urinary frequency today since having started antibiotics. REVIEW OF SYSTEMS: The following is a completed review of systems and has been reviewed. Review of systems otherwise unremarkable. PAIN: Patient self reports no pain EYES: No recent vision changes EARS, NOSE, & THROAT: No throat pain, or dysphagia, or rhinorrhea CARDIOVASCULAR: Denies chest pain or palpitations PULMONARY: Denies shortness of breath GASTROINTESTINAL: Denies constipation/diarrhea GENITOURINARY: denies dysuria MUSCULOSKELETAL:generalized weakness NEUROLOGICAL:+parkinsons HEMATOLOGICAL: no easy bruising SKIN: +rash PSYCHIATRIC: Unremarkable All other review of systems found to be negative. PHYSICAL EXAMINATION: VITAL SIGNS: Please see below. GENERAL: Pleasant and cooperative. No acute distress. HEENT: PERRL. Extraocular movements intact. Clear conjunctiva CARDIOVASCULAR: Regular rate and rhythm. No murmurs, rubs, or gallops LUNGS: Clear to auscultation bilaterally. No wheezes. No rhonchi ABDOMEN: Soft, nontender, nondistended. Positive bowel sounds. Normal active bowel sounds NEUROLOGICAL: Alert and oriented times to self and place. Cranial nerves II through XII grossly intact. Sensation grossly intact +bradykinetic movements EXTREMITIES: 5\5 strength bilateral upper extremities. 5\5 strength right lower extremity. 5/5 strength in left lower extremity. SKIN: intact ASSESSMENT:78 year-old F with past medical history of CAD, drug-induced parkinsons untreated, who presents status post fal PLAN: 1. Rehab: PT- strengthen/stretch/maintain ROM bilat LE and improve gait sequencing OT- strengthen/stretch/maintain ROM bilat UE and advance ADLs with adaptive equipment prn DIRECTOR SOFTWARE- eval and treat 2. 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 Cardiac: diastolic CHF and CAD s/p stent- c/u Xarelto and ASA, holding Losartan for increased in [employer], will monitor BPs medicine consulted to assist in management -BUN/[employer] better- restarted on Torsemide, medicine recs appreciated -c/u propranolol -Nitroglycerin prn 4. Resp: COPD c/u breathing treatments 5. Endo: pmh DM c/u insulin coverage 6. : monitor PVRs, patient started on Kefflex, patient no longer reporting increased frequency and Ucx negative 7. Renal: CKD3 improving since holding Cozaar, Torsemide restarted 7. DVT ppx: on Xarelto, TEDs 8. GI ppx: pepcid 9. Pain : tylenol prn and Lyrica -insomnia- trazodone 10. Dispo: TBD Allergies Coded Allergies: rofecoxib (Verified Allergy, Severe, Tongue Swelling , 12/21/18) amoxicillin (Verified Allergy, Mild, Rash, 12/30/18) azithromycin (Verified Allergy, Mild, Rash, 12/30/18) clavulanic acid (Verified Allergy, Mild, Rash, 12/30/18) exenatide (Verified Adverse Reaction, Mild, Abdominal pain , 12/21/18) glyburide (Verified Adverse Reaction, Mild, Too low blood sugar, 12/30/18) metoclopramide (Verified Adverse Reaction, Mild, Tremors , 12/30/18) tramadol (Verified Adverse Reaction, Mild, Rash , 12/21/18) Vital Signs Vital Signs Date Time Temp Pulse Resp B/P (MAP) Pulse Ox O2 Delivery O2 Flow Rate FiO2 01/04/19 05:38 65 135/63 01/03/19 22:00 98.2 16 94 Room Air Laboratory Data Labs 24H Laboratory Tests 2 01/03/19 12:02: Bedside Glucose (Misc Panel) 133H 01/03/19 16:35: Bedside Glucose (Misc Panel) 150H 01/03/19 19:45: Bedside Glucose (Misc Panel) 177H 01/04/19 05:54: Bedside Glucose (Misc Panel) 153H Current Medications Current Medications Current Medications Medications (Trade) Dose Ordered Sig/Rosalie Route PRN Reason Start Time Stop Time Status Last Admin Dose Admin Acetaminophen (Tylenol Tab) 650 mg Q4HP PRN PO MILD PAIN (PS 1-4) 12/26/18 20:15 01/04/19 10:06 DC 01/03/19 20:52 Acetaminophen (Tylenol Tab) 1,000 mg TID PO 01/04/19 10:15 UNV Amantadine HCl (Symmetrel) 50 mg ASDIRECTED PO 01/04/19 10:15 UNV Aspirin (Aspirin Chewable) 81 mg DAILY PO 12/27/18 09:00 01/04/19 08:40 Atorvastatin Calcium (Lipitor) 40 mg QHS PO 12/26/18 21:00 01/03/19 20:53 Carbidopa/Levodopa (Sinemet 25/100) 2 tab TID PO 12/26/18 21:00 12/30/18 18:15 DC 12/30/18 17:43 Carbidopa/Levodopa (Sinemet 25/100) 2 tab TID@0800,1200,1600 PO 12/31/18 08:00 01/04/19 08:40 Cephalexin Monohydrate (Keflex) 500 mg BID PO 12/30/18 21:00 01/04/19 08:40 Dextrose (Dextrose 50%) 25 ml ASDIRECTED PRN IV SEE LABEL COMMENTS 12/26/18 20:15 Docusate Sodium (Colace) 100 mg BID PO 12/26/18 21:00 01/04/19 08:40 Famotidine (Pepcid) 10 mg QHS PO 12/26/18 21:00 01/03/19 20:54 Fluticasone Propionate (Flonase 0.05% Nasal [place]) 1 spray BID NARES 12/26/18 21:00 01/04/19 08:40 Glucagon (Glucagon) 1 mg ASDIRECTED PRN SC SEE LABEL COMMENTS 12/26/18 20:15 Glucose (Glucose) 16 GM ASDIRECTED PRN PO SEE LABEL COMMENTS 12/26/18 20:15 Insulin Detemir (Levemir Insulin) 30 units QHS SC 12/26/18 21:00 01/03/19 20:54 Insulin Human Lispro (HumaLOG INSULIN) SEE PROTOCOL TABLE AC SC 12/27/18 07:30 01/04/19 08:41 Insulin Human Lispro (HumaLOG INSULIN) SEE PROTOCOL TABLE QHS SC 12/26/18 21:00 12/26/18 21:35 Lidocaine (Lidoderm Patch) 1 patch DAILY TD 01/04/19 09:00 Losartan Potassium (Cozaar) 100 mg DAILY PO 12/27/18 09:00 12/27/18 09:53 DC 12/27/18 08:18 Magnesium Chloride (Slow-Mag) 64 mg DAILY PO 12/27/18 09:00 01/04/19 08:40 Metoprolol Tartrate (Lopressor) 50 mg Q6H PO 01/03/19 12:00 01/04/19 05:38 Miscellaneous (Unresolved Clarification Entry) SEE LABEL COMMENTS DAILY XX 01/02/19 09:00 01/02/19 15:55 DC Miscellaneous (Unresolved Non-Formulary Med Order) SEE LABEL COMMENTS DAILY XX 01/02/19 09:00 Cancel Nitroglycerin (Nitrostat (1/ 150)) 0.4 mg Q5MP PRN SL CHEST PAIN 12/26/18 20:15 01/01/19 14:01 Non-Formulary Medication ( See Comment Field Below ) REMOVE LIDODERM PATCH DAILY@21 XX 01/04/19 21:00 Nystatin (Mycostatin Powder, Nystop) APPLY TO GROIN BID TOP 12/26/18 21:00 01/04/19 08:40 Potassium Chloride (Micro-K Extencaps) 10 meq DAILY PO 12/27/18 09:00 01/04/19 08:40 Pregabalin (Lyrica) 75 mg BID PO 12/26/18 21:00 01/04/19 08:40 Propranolol HCl (Inderal) 20 mg BID PO 12/26/18 21:00 01/03/19 10:44 DC 01/03/19 08:10 Rivaroxaban (Xarelto) 15 mg DAILY@18 PO 12/27/18 18:00 01/03/19 17:10 Salmeterol Xinafoate/ Fluticasone (Advair Hfa 230/ 21) 2 puff RBID INH 12/26/18 20:00 01/04/19 07:26 Senna (Senokot) 1 tab QHS PO 12/26/18 21:00 01/03/19 20:54 Torsemide (Demadex) 10 mg Q2D PO 12/31/18 09:00 01/04/19 08:40 Torsemide (Demadex) 20 mg DAILY PO 12/27/18 09:00 12/28/18 10:12 DC 12/28/18 08:28 Trazodone HCl (Desyrel) 25 mg QHS PO 12/26/18 21:00 12/30/18 18:13 DC 12/28/18 20:50 Trazodone HCl (Desyrel) 25 mg QHS PRN PO INSOMNIA 12/30/18 21:00 KERON PÉREZ MD Jan 04, 2019 10:55
--- NOTE | 2019-01-04 10:57 | IPNPDOC ---
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 REVIEW OF SYSTEMS: The following is a completed review of systems and has been reviewed. Review of systems otherwise unremarkable. PAIN: Patient self reports no pain EYES: No recent vision changes EARS, NOSE, & THROAT: No throat pain, or dysphagia, or rhinorrhea CARDIOVASCULAR: Denies chest pain or palpitations PULMONARY: Denies shortness of breath GASTROINTESTINAL: Denies constipation/diarrhea GENITOURINARY: denies dysuria MUSCULOSKELETAL:generalized weakness NEUROLOGICAL:+parkinsons HEMATOLOGICAL: no easy bruising SKIN: +rash PSYCHIATRIC: Unremarkable All other review of systems found to be negative. PHYSICAL EXAMINATION: VITAL SIGNS: Please see below. GENERAL: Pleasant and cooperative. No acute distress. HEENT: PERRL. Extraocular movements intact. Clear conjunctiva CARDIOVASCULAR: Regular rate and rhythm. No murmurs, rubs, or gallops LUNGS: Clear to auscultation bilaterally. No wheezes. No rhonchi ABDOMEN: Soft, nontender, nondistended. Positive bowel sounds. Normal active bowel sounds NEUROLOGICAL: Alert and oriented times to self and place. Cranial nerves II through XII grossly intact. Sensation grossly intact +bradykinetic movements EXTREMITIES: 5\5 strength bilateral upper extremities. 5\5 strength right lower extremity. 5/5 strength in left lower extremity. SKIN: intact ASSESSMENT:78 year-old F with past medical history of CAD, drug-induced parkinsons untreated, who presents status post fal PLAN: 1. 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 Cardiac: diastolic CHF and CAD s/p stent- c/u Xarelto and ASA, holding Losartan for increased in [employer], will monitor BPs medicine consulted to assist in management -BUN/[employer] better- restarted on Torsemide, medicine recs appreciated -will change propranolol to metoprolol -Nitroglycerin prn 4. Resp: COPD c/u breathing treatments 5. Endo: pmh DM c/u insulin coverage 6. : monitor PVRs, patient started on Kefflex, patient no longer reporting increased frequency and Ucx negative 7. Renal: CKD3 improving since holding Cozaar, Torsemide restarted 7. DVT ppx: on Xarelto, TEDs 8. GI ppx: pepcid 9. Pain : tylenol prn and Lyrica -insomnia- trazodone 10. Dispo: 01-10-19 to home Allergies Coded Allergies: rofecoxib (Verified Allergy, Severe, Tongue Swelling , 12/21/18) amoxicillin (Verified Allergy, Mild, Rash, 12/30/18) azithromycin (Verified Allergy, Mild, Rash, 12/30/18) clavulanic acid (Verified Allergy, Mild, Rash, 12/30/18) exenatide (Verified Adverse Reaction, Mild, Abdominal pain , 12/21/18) glyburide (Verified Adverse Reaction, Mild, Too low blood sugar, 12/30/18) metoclopramide (Verified Adverse Reaction, Mild, Tremors , 12/30/18) tramadol (Verified Adverse Reaction, Mild, Rash , 12/21/18) Vital Signs Vital Signs Date Time Temp Pulse Resp B/P (MAP) Pulse Ox O2 Delivery O2 Flow Rate FiO2 01/04/19 05:38 65 135/63 01/03/19 22:00 98.2 16 94 Room Air Laboratory Data Labs 24H Laboratory Tests 2 01/03/19 12:02: Bedside Glucose (Misc Panel) 133H 01/03/19 16:35: Bedside Glucose (Misc Panel) 150H 01/03/19 19:45: Bedside Glucose (Misc Panel) 177H 01/04/19 05:54: Bedside Glucose (Misc Panel) 153H Current Medications Current Medications Current Medications Medications (Trade) Dose Ordered Sig/Rosalie Route PRN Reason Start Time Stop Time Status Last Admin Dose Admin Acetaminophen (Tylenol Tab) 650 mg Q4HP PRN PO MILD PAIN (PS 1-4) 12/26/18 20:15 01/04/19 10:06 DC 01/03/19 20:52 Acetaminophen (Tylenol Tab) 1,000 mg TID PO 01/04/19 10:15 UNV Amantadine HCl (Symmetrel) 50 mg ASDIRECTED PO 01/04/19 10:15 UNV Aspirin (Aspirin Chewable) 81 mg DAILY PO 12/27/18 09:00 01/04/19 08:40 Atorvastatin Calcium (Lipitor) 40 mg QHS PO 12/26/18 21:00 01/03/19 20:53 Carbidopa/Levodopa (Sinemet 25/100) 2 tab TID PO 12/26/18 21:00 12/30/18 18:15 DC 12/30/18 17:43 Carbidopa/Levodopa (Sinemet 25/100) 2 tab TID@0800,1200,1600 PO 12/31/18 08:00 01/04/19 08:40 Cephalexin Monohydrate (Keflex) 500 mg BID PO 12/30/18 21:00 01/04/19 08:40 Dextrose (Dextrose 50%) 25 ml ASDIRECTED PRN IV SEE LABEL COMMENTS 12/26/18 20:15 Docusate Sodium (Colace) 100 mg BID PO 12/26/18 21:00 01/04/19 08:40 Famotidine (Pepcid) 10 mg QHS PO 12/26/18 21:00 01/03/19 20:54 Fluticasone Propionate (Flonase 0.05% Nasal [place]) 1 spray BID NARES 12/26/18 21:00 01/04/19 08:40 Glucagon (Glucagon) 1 mg ASDIRECTED PRN SC SEE LABEL COMMENTS 12/26/18 20:15 Glucose (Glucose) 16 GM ASDIRECTED PRN PO SEE LABEL COMMENTS 12/26/18 20:15 Insulin Detemir (Levemir Insulin) 30 units QHS SC 12/26/18 21:00 01/03/19 20:54 Insulin Human Lispro (HumaLOG INSULIN) SEE PROTOCOL TABLE AC SC 12/27/18 07:30 01/04/19 08:41 Insulin Human Lispro (HumaLOG INSULIN) SEE PROTOCOL TABLE QHS SC 12/26/18 21:00 12/26/18 21:35 Lidocaine (Lidoderm Patch) 1 patch DAILY TD 01/04/19 09:00 Losartan Potassium (Cozaar) 100 mg DAILY PO 12/27/18 09:00 12/27/18 09:53 DC 12/27/18 08:18 Magnesium Chloride (Slow-Mag) 64 mg DAILY PO 12/27/18 09:00 01/04/19 08:40 Metoprolol Tartrate (Lopressor) 50 mg Q6H PO 01/03/19 12:00 01/04/19 05:38 Miscellaneous (Unresolved Clarification Entry) SEE LABEL COMMENTS DAILY XX 01/02/19 09:00 01/02/19 15:55 DC Miscellaneous (Unresolved Non-Formulary Med Order) SEE LABEL COMMENTS DAILY XX 01/02/19 09:00 Cancel Nitroglycerin (Nitrostat (1/ 150)) 0.4 mg Q5MP PRN SL CHEST PAIN 12/26/18 20:15 01/01/19 14:01 Non-Formulary Medication ( See Comment Field Below ) REMOVE LIDODERM PATCH DAILY@21 XX 01/04/19 21:00 Nystatin (Mycostatin Powder, Nystop) APPLY TO GROIN BID TOP 12/26/18 21:00 01/04/19 08:40 Potassium Chloride (Micro-K Extencaps) 10 meq DAILY PO 12/27/18 09:00 01/04/19 08:40 Pregabalin (Lyrica) 75 mg BID PO 12/26/18 21:00 01/04/19 08:40 Propranolol HCl (Inderal) 20 mg BID PO 12/26/18 21:00 01/03/19 10:44 DC 01/03/19 08:10 Rivaroxaban (Xarelto) 15 mg DAILY@18 PO 12/27/18 18:00 01/03/19 17:10 Salmeterol Xinafoate/ Fluticasone (Advair Hfa 230/ 21) 2 puff RBID INH 12/26/18 20:00 01/04/19 07:26 Senna (Senokot) 1 tab QHS PO 12/26/18 21:00 01/03/19 20:54 Torsemide (Demadex) 10 mg Q2D PO 12/31/18 09:00 01/04/19 08:40 Torsemide (Demadex) 20 mg DAILY PO 12/27/18 09:00 12/28/18 10:12 DC 12/28/18 08:28 Trazodone HCl (Desyrel) 25 mg QHS PO 12/26/18 21:00 12/30/18 18:13 DC 12/28/18 20:50 Trazodone HCl (Desyrel) 25 mg QHS PRN PO INSOMNIA 12/30/18 21:00 KERON PÉREZ MD Jan 04, 2019 10:57
[2019-01-04] MEDS ORDERED: ACETAMINOPHEN 500 MG TAB PO ONE (12:00)
[2019-01-04] MEDS: AMANTADINE 100MG TABLET PO SCH (13:02)
[2019-01-04] MEDS: LIDOCAINE 5% (LIDODERM) PATCH TD SCH (13:03)
[2019-01-04 13:49] VITALS: BP 138/61
[2019-01-04] MEDS: RIVAROXABAN 15 MG TAB (XARELTO) PO SCH (17:20)
[2019-01-04 20:00] VITALS: BP 125/63
[2019-01-04] MEDS: SENNA 8.6 MG TAB (SENOKOT) PO SCH (20:57)
[2019-01-04] MEDS: FAMOTIDINE 20 MG TAB PO SCH (20:57)
[2019-01-04] MEDS: ATORVASTATIN 20 MG TAB PO SCH (20:57)
[2019-01-04] MEDS: **NOTE PATIENT COMMENT** MISC XX SCH (20:58)
[2019-01-04] MEDS: ACETAMINOPHEN 500 MG TAB PO SCH (21:01)
[2019-01-04] MEDS: LEVEMIR (INSULIN DETEMIR) 1 UNITS/0.01ML SC SCH (22:48)
[2019-01-05] MEDS: METOPROLOL TART 50 MG TAB PO SCH ×3 (05:52→22:19)
[2019-01-05] MEDS: ACETAMINOPHEN 500 MG TAB PO SCH ×3 (05:52→22:19)
[2019-01-05 06:00] VITALS: BP 144/70
[2019-01-05] MEDS: ADVAIR HFA 230/21MCG INHALER INH SCH ×2 (07:16→20:18)
[2019-01-05] MEDS: PREGABALIN 75 MG CAP(LYRICA) PO SCH ×2 (08:10→20:40)
[2019-01-05] MEDS: SINEMET 25-100 MG TAB PO SCH ×3 (08:11→17:35)
[2019-01-05] MEDS: AMANTADINE 100MG TABLET PO SCH ×2 (08:11→12:09)
[2019-01-05] MEDS: ASPIRIN 81 MG CHEW TABLET PO SCH (08:11)
[2019-01-05] MEDS: DOCUSATE SODIUM 100 MG CAP PO SCH ×2 (08:11→20:40)
[2019-01-05] MEDS: MAGNESIUM CHLORIDE 64 MG TABCR (SLO MAG) PO SCH (08:12)
[2019-01-05] MEDS: HumaLOG INSULIN (NovoLOG) PER UNIT SC SCH ×4 (08:12→21:00)
[2019-01-05] MEDS: POTASSIUM CHLORIDE 10 MEQ SR TABLET PO SCH (08:12)
[2019-01-05] MEDS: LIDOCAINE 5% (LIDODERM) PATCH TD SCH (08:13)
[2019-01-05] MEDS: FLUTICASONE PROP 0.05% NASAL SPRAY 16 GM (FLONASE) NARES SCH ×2 (08:13→20:40)
[2019-01-05] MEDS: NYSTATIN 100,000 UNITS/GM TOPICAL PWD 15 GM TOP SCH ×2 (08:14→20:41)
[2019-01-05 14:00] VITALS: BP 128/58
[2019-01-05] MEDS: RIVAROXABAN 15 MG TAB (XARELTO) PO SCH (17:35)
[2019-01-05] MEDS: SENNA 8.6 MG TAB (SENOKOT) PO SCH (20:40)
[2019-01-05] MEDS: ATORVASTATIN 20 MG TAB PO SCH (20:40)
[2019-01-05] MEDS: FAMOTIDINE 20 MG TAB PO SCH (20:40)
[2019-01-05] MEDS: LEVEMIR (INSULIN DETEMIR) 1 UNITS/0.01ML SC SCH (20:40)
[2019-01-05] MEDS: **NOTE PATIENT COMMENT** MISC XX SCH (20:41)
[2019-01-05 21:00] VITALS: BP 144/78
[2019-01-05] MEDS: traZODone 25MG PER 1/2 TABLET PO PRN (22:18)
[2019-01-06] MEDS: ACETAMINOPHEN 500 MG TAB PO SCH ×3 (05:52→21:57)
[2019-01-06] MEDS: METOPROLOL TART 50 MG TAB PO SCH ×3 (05:52→21:57)
[2019-01-06 06:00] VITALS: BP 152/82
[2019-01-06] MEDS: ADVAIR HFA 230/21MCG INHALER INH SCH ×2 (07:16→20:45)
[2019-01-06] MEDS: DOCUSATE SODIUM 100 MG CAP PO SCH ×2 (09:00→20:53)
[2019-01-06] MEDS: LIDOCAINE 5% (LIDODERM) PATCH TD SCH (09:10)
[2019-01-06] MEDS: TORSEMIDE 10 MG TABLET PO SCH (09:11)
[2019-01-06] MEDS: MAGNESIUM CHLORIDE 64 MG TABCR (SLO MAG) PO SCH (09:11)
[2019-01-06] MEDS: ASPIRIN 81 MG CHEW TABLET PO SCH (09:11)
[2019-01-06] MEDS: AMANTADINE 100MG TABLET PO SCH ×2 (09:11→12:24)
[2019-01-06] MEDS: SINEMET 25-100 MG TAB PO SCH ×3 (09:11→15:07)
[2019-01-06] MEDS: PREGABALIN 75 MG CAP(LYRICA) PO SCH ×2 (09:11→20:53)
[2019-01-06] MEDS: POTASSIUM CHLORIDE 10 MEQ SR TABLET PO SCH (09:11)
[2019-01-06] MEDS: NYSTATIN 100,000 UNITS/GM TOPICAL PWD 15 GM TOP SCH ×2 (09:12→20:53)
[2019-01-06] MEDS: FLUTICASONE PROP 0.05% NASAL SPRAY 16 GM (FLONASE) NARES SCH ×2 (09:12→20:53)
[2019-01-06] MEDS: HumaLOG INSULIN (NovoLOG) PER UNIT SC SCH ×4 (09:14→20:05)
[2019-01-06 14:00] VITALS: BP 130/70
[2019-01-06] MEDS: RIVAROXABAN 15 MG TAB (XARELTO) PO SCH (17:23)
[2019-01-06 19:35] VITALS: BP 166/70
[2019-01-06] MEDS: SENNA 8.6 MG TAB (SENOKOT) PO SCH (20:52)
[2019-01-06] MEDS: LEVEMIR (INSULIN DETEMIR) 1 UNITS/0.01ML SC SCH (20:52)
[2019-01-06] MEDS: ATORVASTATIN 20 MG TAB PO SCH (20:53)
[2019-01-06] MEDS: FAMOTIDINE 20 MG TAB PO SCH (20:53)
[2019-01-06] MEDS: **NOTE PATIENT COMMENT** MISC XX SCH (20:53)
[2019-01-07 05:10] VITALS: BP 146/67
[2019-01-07] MEDS: METOPROLOL TART 50 MG TAB PO SCH ×3 (05:25→20:50)
[2019-01-07] MEDS: ACETAMINOPHEN 500 MG TAB PO SCH ×3 (05:25→20:51)
[2019-01-07] MEDS: ADVAIR HFA 230/21MCG INHALER INH SCH ×2 (07:11→20:09)
[2019-01-07] MEDS: ASPIRIN 81 MG CHEW TABLET PO SCH (07:37)
[2019-01-07] MEDS: HumaLOG INSULIN (NovoLOG) PER UNIT SC SCH ×4 (07:37→21:00)
[2019-01-07] MEDS: MAGNESIUM CHLORIDE 64 MG TABCR (SLO MAG) PO SCH (07:38)
[2019-01-07] MEDS: PREGABALIN 75 MG CAP(LYRICA) PO SCH ×2 (07:38→20:13)
[2019-01-07] MEDS: AMANTADINE 100MG TABLET PO SCH ×2 (07:38→11:58)
[2019-01-07] MEDS: DOCUSATE SODIUM 100 MG CAP PO SCH ×2 (07:38→20:13)
[2019-01-07] MEDS: POTASSIUM CHLORIDE 10 MEQ SR TABLET PO SCH (07:38)
[2019-01-07] MEDS: SINEMET 25-100 MG TAB PO SCH ×3 (07:38→17:21)
[2019-01-07] MEDS: FLUTICASONE PROP 0.05% NASAL SPRAY 16 GM (FLONASE) NARES SCH ×2 (07:39→20:17)
[2019-01-07] MEDS: NYSTATIN 100,000 UNITS/GM TOPICAL PWD 15 GM TOP SCH ×2 (07:39→20:18)
[2019-01-07] MEDS: LIDOCAINE 5% (LIDODERM) PATCH TD SCH (07:39)
--- NOTE | 2019-01-07 10:08 | IPNPDOC ---
Date Seen The patient was seen on 01/07/19. Progress Note Subjective: Patient reports feeling quite well today. She denies any specific complaints she denies chest pressure shortness of breath fevers chills nausea vomiting or diarrhea Objective: Vitals (See below) General: Sitting in a chair no acute distress, comfortable, Awake / Alert HEENT: NC, AT cranial nerves grossly intact CVS: RRR, +S1S2 Lungs: Fair air entry b/l, no evidence of wheezing / rhonchi / rales Abdomen: Soft, non-distended, no appreciable tenderness Extremities: 2+ pitting edema bilaterally, - Calf tenderness, obese Assessment and plan: Parkinsonism - possibly secondary to drug induced related to Reglan. At this time she exhibits no resting tremor and appears to be doing quite well - CT Head 12/21: Chronic appearing basal ganglia lacunar infarctions. - c/w PT and OT at the direction of ARU - Neurology previously followed the patient - c/w Carbidopa / Levodopa as well as amantadine s/p Elevated Cr -At last check her serum creatinine was quite normal. However today she does appear to be mildly fluid overloaded I will increase her torsemide to daily rather than every other day I'll check blood work today. 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 - Neurology consult previously appreciated s/p Elevated troponin - Patient has no complaints of chest pain, palpitations or SOB - c/w Xarelto, ASA 81, Atorvastatin, Losartan and metoprolol - Cardiology consultation completed previously Hx of splenic infarction - c/w full anticoagulation with Xarelto COPD - No evidence of exacerbation - c/w inhaled therapy as ordered HTN - BP appears well controlled - c/w Losartan and metoprolol and torsemide IDDM2 - c/w Levemir and ISS DLP - c/w ASA and Atorvastatin Neuropathy - c/w Pregabalin GERD - c/w Famotidine DVT prophylaxis - c/w full anticoagulation with Xarelto Disposition: Continue with physical therapy at the direction of ARU VS, I&O, 24H, Fishbone Vital Signs/I&O Vital Signs Date Time Temp Pulse Resp B/P (MAP) Pulse Ox O2 Delivery O2 Flow Rate FiO2 01/07/19 05:25 60 146/67 01/07/19 05:10 98.2 18 97 Room Air I&O- Last 24 Hours up to 6 AM 01/07/19 05:59 Intake Total 880 ml Balance 880 ml Laboratory Data 24H LABS Laboratory Tests 2 01/06/19 11:59: Bedside Glucose (Misc Panel) 141H 01/06/19 16:16: Bedside Glucose (Misc Panel) 157H 01/06/19 19:37: Bedside Glucose (Misc Panel) 232H 01/07/19 05:49: Bedside Glucose (Misc Panel) 122H RHETT MARTIN MD Jan 07, 2019 10:08
[2019-01-07] MEDS: TORSEMIDE 10 MG TABLET PO SCH (10:33)
[2019-01-07 10:48] LABS: HEMATOCRIT 42.9 % (36.0-47.0); HEMOGLOBIN 13.3 g/dl (12.0-15.5); MEAN CORPUSCULAR HEMOGLOBIN 28.4 pg (27.0-33.0); MEAN CORPUSCULAR VOLUME 91.7 fl (80.0-96.0); PLATELET COUNT, AUTOMATED 178 10^3/uL (150-450); RED BLOOD COUNT 4.68 10^6/uL (4.00-5.40); WHITE BLOOD COUNT 6.3 10^3/uL (4.0-10.0)
[2019-01-07 11:09] LABS: CALCIUM LEVEL 8.7 MG/DL (8.8-10.2); CREATININE FOR GFR 1.14 MG/DL (0.55-1.30); GLOMERULAR FILTRATION RATE 48.9 (>39); POTASSIUM SERUM 4.5 MEQ/L (3.5-5.1)
[2019-01-07 14:00] VITALS: BP 125/62
[2019-01-07] MEDS: RIVAROXABAN 15 MG TAB (XARELTO) PO SCH (17:21)
[2019-01-07 20:00] VITALS: BP 136/72
[2019-01-07] MEDS: ATORVASTATIN 20 MG TAB PO SCH (20:13)
[2019-01-07] MEDS: SENNA 8.6 MG TAB (SENOKOT) PO SCH (20:13)
[2019-01-07] MEDS: FAMOTIDINE 20 MG TAB PO SCH (20:14)
[2019-01-07] MEDS: LEVEMIR (INSULIN DETEMIR) 1 UNITS/0.01ML SC SCH (20:15)
[2019-01-07] MEDS: **NOTE PATIENT COMMENT** MISC XX SCH (20:18)
[2019-01-08 05:14] VITALS: BP 146/78
[2019-01-08] MEDS: ACETAMINOPHEN 500 MG TAB PO SCH ×3 (05:15→20:51)
[2019-01-08] MEDS: METOPROLOL TART 50 MG TAB PO SCH ×3 (05:16→21:22)
[2019-01-08] MEDS: ADVAIR HFA 230/21MCG INHALER INH SCH ×2 (07:02→19:48)
[2019-01-08] MEDS: POTASSIUM CHLORIDE 10 MEQ SR TABLET PO SCH (08:40)
[2019-01-08] MEDS: HumaLOG INSULIN (NovoLOG) PER UNIT SC SCH ×4 (08:40→21:00)
[2019-01-08] MEDS: LIDOCAINE 5% (LIDODERM) PATCH TD SCH (08:40)
[2019-01-08] MEDS: DOCUSATE SODIUM 100 MG CAP PO SCH ×2 (08:40→20:50)
[2019-01-08] MEDS: TORSEMIDE 10 MG TABLET PO SCH (08:41)
[2019-01-08] MEDS: PREGABALIN 75 MG CAP(LYRICA) PO SCH ×2 (08:41→20:50)
[2019-01-08] MEDS: ASPIRIN 81 MG CHEW TABLET PO SCH (08:41)
[2019-01-08] MEDS: FLUTICASONE PROP 0.05% NASAL SPRAY 16 GM (FLONASE) NARES SCH ×2 (08:41→20:52)
[2019-01-08] MEDS: SINEMET 25-100 MG TAB PO SCH ×3 (08:41→17:13)
[2019-01-08] MEDS: AMANTADINE 100MG TABLET PO SCH ×2 (08:41→12:32)
[2019-01-08] MEDS: MAGNESIUM CHLORIDE 64 MG TABCR (SLO MAG) PO SCH (08:41)
[2019-01-08] MEDS: NYSTATIN 100,000 UNITS/GM TOPICAL PWD 15 GM TOP SCH ×2 (08:42→20:52)
[2019-01-08] MEDS: DEXTROMETHORPHAN 60MG/10ML SUSP 90ML BTL(DELSYM) PO PRN (12:32)
[2019-01-08 14:00] VITALS: BP 123/68
[2019-01-08] MEDS: RIVAROXABAN 15 MG TAB (XARELTO) PO SCH (17:13)
[2019-01-08] MEDS: SENNA 8.6 MG TAB (SENOKOT) PO SCH (20:50)
[2019-01-08] MEDS: FAMOTIDINE 20 MG TAB PO SCH (20:50)
[2019-01-08] MEDS: LEVEMIR (INSULIN DETEMIR) 1 UNITS/0.01ML SC SCH (20:51)
[2019-01-08] MEDS: ATORVASTATIN 20 MG TAB PO SCH (20:51)
[2019-01-08] MEDS: **NOTE PATIENT COMMENT** MISC XX SCH (20:58)
[2019-01-08 21:22] VITALS: BP 150/76
[2019-01-09] MEDS: DEXTROMETHORPHAN 60MG/10ML SUSP 90ML BTL(DELSYM) PO PRN ×2 (00:53→23:41)
[2019-01-09] MEDS: traZODone 25MG PER 1/2 TABLET PO PRN ×2 (00:53→20:12)
[2019-01-09] MEDS: ACETAMINOPHEN 500 MG TAB PO SCH ×3 (05:56→23:40)
[2019-01-09] MEDS: METOPROLOL TART 50 MG TAB PO SCH ×3 (05:59→22:00)
[2019-01-09 06:17] VITALS: BP_SYST 148; BP_DIAS 65; BP_DIAS 76
[2019-01-09] MEDS: ADVAIR HFA 230/21MCG INHALER INH SCH ×2 (07:33→20:02)
[2019-01-09] MEDS: MAGNESIUM CHLORIDE 64 MG TABCR (SLO MAG) PO SCH (08:01)
[2019-01-09] MEDS: TORSEMIDE 10 MG TABLET PO SCH (08:01)
[2019-01-09] MEDS: LIDOCAINE 5% (LIDODERM) PATCH TD SCH (08:01)
[2019-01-09] MEDS: PREGABALIN 75 MG CAP(LYRICA) PO SCH ×2 (08:01→20:12)
[2019-01-09] MEDS: SINEMET 25-100 MG TAB PO SCH ×3 (08:01→15:22)
[2019-01-09] MEDS: ASPIRIN 81 MG CHEW TABLET PO SCH (08:01)
[2019-01-09] MEDS: POTASSIUM CHLORIDE 10 MEQ SR TABLET PO SCH (08:02)
[2019-01-09] MEDS: AMANTADINE 100MG TABLET PO SCH ×2 (08:02→12:41)
[2019-01-09] MEDS: HumaLOG INSULIN (NovoLOG) PER UNIT SC SCH ×4 (08:02→21:00)
[2019-01-09] MEDS: DOCUSATE SODIUM 100 MG CAP PO SCH ×2 (08:05→20:12)
[2019-01-09] MEDS: FLUTICASONE PROP 0.05% NASAL SPRAY 16 GM (FLONASE) NARES SCH ×2 (08:05→20:13)
[2019-01-09] MEDS: NYSTATIN 100,000 UNITS/GM TOPICAL PWD 15 GM TOP SCH ×2 (08:05→20:13)
[2019-01-09] MEDS ORDERED: CEPACOL LOZENGE PO PRN (12:30)
[2019-01-09 14:00] VITALS: BP 126/86
--- NOTE | 2019-01-09 14:53 | IPNPDOC ---
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 Side effects reviewed. REVIEW OF SYSTEMS: The following is a completed review of systems and has been reviewed. Review of systems otherwise unremarkable. PAIN: Patient self reports no pain EYES: No recent vision changes EARS, NOSE, & THROAT: No throat pain, or dysphagia, or rhinorrhea CARDIOVASCULAR: Denies chest pain or palpitations PULMONARY: Denies shortness of breath GASTROINTESTINAL: Denies constipation/diarrhea GENITOURINARY: denies dysuria MUSCULOSKELETAL:generalized weakness NEUROLOGICAL:+parkinsons HEMATOLOGICAL: no easy bruising SKIN: +rash PSYCHIATRIC: Unremarkable All other review of systems found to be negative. PHYSICAL EXAMINATION: VITAL SIGNS: Please see below. GENERAL: Pleasant and cooperative. No acute distress. HEENT: PERRL. Extraocular movements intact. Clear conjunctiva CARDIOVASCULAR: Regular rate and rhythm. No murmurs, rubs, or gallops LUNGS: Clear to auscultation bilaterally. No wheezes. No rhonchi ABDOMEN: Soft, nontender, nondistended. Positive bowel sounds. Normal active bowel sounds NEUROLOGICAL: Alert and oriented times to self and place. Cranial nerves II th rough XII grossly intact. Sensation grossly intact +bradykinetic movements EXTREMITIES: 5\5 strength bilateral upper extremities. 5\5 strength right lower extremity. 5/5 strength in left lower extremity. SKIN: intact ASSESSMENT:78 year-old F with past medical history of CAD, drug-induced parkinsons untreated, who presents status post fal PLAN: 1. Rehab: PT- strengthen/stretch/maintain ROM bilat LE and improve gait sequencing- gait length improving OT- strengthen/stretch/maintain ROM bilat UE and advance ADLs with adaptive equipment prn DIRECTOR MEDICAL WRITING- eval and treat 2. 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 Resp: COPD c/u breathing treatments 5. Endo: pmh DM c/u insulin coverage 6. : monitor PVRs, patient started on Kefflex, patient no longer reporting increased frequency and Ucx negative 7. Renal: CKD3 improving since holding Cozaar, Torsemide restarted 7. DVT ppx: on Xarelto, TEDs 8. GI ppx: pepcid 9. Pain : tylenol prn and Lyrica -insomnia- trazodone 10. Dispo: 01-10-19 to home Allergies Coded Allergies: rofecoxib (Verified Allergy, Severe, Tongue Swelling , 12/21/18) amoxicillin (Verified Allergy, Mild, Rash, 12/30/18) azithromycin (Verified Allergy, Mild, Rash, 12/30/18) clavulanic acid (Verified Allergy, Mild, Rash, 12/30/18) exenatide (Verified Adverse Reaction, Mild, Abdominal pain , 12/21/18) glyburide (Verified Adverse Reaction, Mild, Too low blood sugar, 12/30/18) metoclopramide (Verified Adverse Reaction, Mild, Tremors , 12/30/18) tramadol (Verified Adverse Reaction, Mild, Rash , 12/21/18) Vital Signs Vital Signs Date Time Temp Pulse Resp B/P (MAP) Pulse Ox O2 Delivery O2 Flow Rate FiO2 01/09/19 06:17 97.0 65 18 148/76 (100) 99 Room Air Laboratory Data Labs 24H Laboratory Tests 2 01/08/19 16:41: Bedside Glucose (Misc Panel) 182H 01/08/19 20:40: Bedside Glucose (Misc Panel) 158H 01/09/19 05:48: Bedside Glucose (Misc Panel) 139H 01/09/19 11:59: Bedside Glucose (Misc Panel) 115H Current Medications Current Medications Current Medications Medications (Trade) Dose Ordered Sig/Rosalie Route PRN Reason Start Time Stop Time Status Last Admin Dose Admin Acetaminophen (Tylenol Tab) 650 mg Q4HP PRN PO MILD PAIN (PS 1-4) 12/26/18 20:15 01/04/19 10:06 DC 01/03/19 20:52 Acetaminophen (Tylenol Tab) 1,000 mg Q8H PO 01/04/19 22:00 01/09/19 05:56 Amantadine HCl (Symmetrel) 50 mg BID@0800,1200 PO 01/04/19 12:00 01/09/19 12:41 Aspirin (Aspirin Chewable) 81 mg DAILY PO 12/27/18 09:00 01/09/19 08:01 Atorvastatin Calcium (Lipitor) 40 mg QHS PO 12/26/18 21:00 01/08/19 20:51 Carbidopa/Levodopa (Sinemet 25/100) 2 tab TID PO 12/26/18 21:00 12/30/18 18:15 DC 12/30/18 17:43 Carbidopa/Levodopa (Sinemet 25/100) 2 tab TID@0800,1200,1600 PO 12/31/18 08:00 01/09/19 12:42 Cephalexin Monohydrate (Keflex) 500 mg BID PO 12/30/18 21:00 01/04/19 10:53 DC 01/04/19 08:40 Cetylpyridinium Chloride (Cepacol) 1 meredith Q2HP PRN PO COUGH 01/09/19 12:30 Dextromethorphan (Delsym Af 12hr Susp) 15 mg Q12HP PRN PO COUGH 01/08/19 12:00 01/09/19 00:53 Dextrose (Dextrose 50%) 25 ml ASDIRECTED PRN IV SEE LABEL COMMENTS 12/26/18 20:15 Docusate Sodium (Colace) 100 mg BID PO 12/26/18 21:00 01/08/19 20:50 Famotidine (Pepcid) 10 mg QHS PO 12/26/18 21:00 01/08/19 20:50 Fluticasone Propionate (Flonase 0.05% Nasal [place]) 1 spray BID NARES 12/26/18 21:00 01/09/19 08:05 Glucagon (Glucagon) 1 mg ASDIRECTED PRN SC SEE LABEL COMMENTS 12/26/18 20:15 Glucose (Glucose) 16 GM ASDIRECTED PRN PO SEE LABEL COMMENTS 12/26/18 20:15 Insulin Detemir (Levemir Insulin) 30 units QHS SC 12/26/18 21:00 01/08/19 20:51 Insulin Human Lispro (HumaLOG INSULIN) SEE PROTOCOL TABLE AC SC 12/27/18 07:30 01/09/19 12:42 Insulin Human Lispro (HumaLOG INSULIN) SEE PROTOCOL TABLE QHS SC 12/26/18 21:00 12/26/18 21:35 Lidocaine (Lidoderm Patch) 1 patch DAILY TD 01/04/19 09:00 01/09/19 08:01 Losartan Potassium (Cozaar) 100 mg DAILY PO 12/27/18 09:00 12/27/18 09:53 DC 12/27/18 08:18 Magnesium Chloride (Slow-Mag) 64 mg DAILY PO 12/27/18 09:00 01/09/19 08:01 Metoprolol Tartrate (Lopressor) 50 mg Q6H PO 01/03/19 12:00 01/04/19 10:57 DC 01/04/19 05:38 Metoprolol Tartrate (Lopressor) 50 mg Q8H PO 01/04/19 14:00 01/09/19 05:59 Miscellaneous (Unresolved Clarification Entry) SEE LABEL COMMENTS DAILY XX 01/02/19 09:00 01/02/19 15:55 DC Miscellaneous (Unresolved Clarification Entry) SEE LABEL COMMENTS DAILY XX 01/08/19 09:00 01/09/19 06:18 DC Miscellaneous (Unresolved Clarification Entry) SEE LABEL COMMENTS DAILY XX 01/09/19 09:00 01/09/19 09:52 DC Miscellaneous (Unresolved Non-Formulary Med Order) SEE LABEL COMMENTS DAILY XX 01/02/19 09:00 Cancel Nitroglycerin (Nitrostat (1/ 150)) 0.4 mg Q5MP PRN SL CHEST PAIN 12/26/18 20:15 01/01/19 14:01 Non-Formulary Medication ( See Comment Field Below ) REMOVE LIDODERM PATCH DAILY@21 XX 01/04/19 21:00 01/08/19 20:58 Nystatin (Mycostatin Powder, Nystop) APPLY TO GROIN BID TOP 12/26/18 21:00 01/09/19 08:05 Phenol (Chloraseptic [place]) 1 spray Q2HP PRN MT SORE THROAT 01/09/19 12:30 Potassium Chloride (Micro-K Extencaps) 10 meq DAILY PO 12/27/18 09:00 01/09/19 08:02 Pregabalin (Lyrica) 75 mg BID PO 12/26/18 21:00 01/09/19 08:01 Propranolol HCl (Inderal) 20 mg BID PO 12/26/18 21:00 01/03/19 10:44 DC 01/03/19 08:10 Rivaroxaban (Xarelto) 15 mg DAILY@18 PO 12/27/18 18:00 01/08/19 17:13 Salmeterol Xinafoate/ Fluticasone (Advair Hfa 230/ 21) 2 puff RBID INH 12/26/18 20:00 01/09/19 07:33 Senna (Senokot) 1 tab QHS PO 12/26/18 21:00 01/08/19 20:50 Torsemide (Demadex) 10 mg DAILY PO 01/07/19 09:00 01/09/19 08:01 Torsemide (Demadex) 10 mg Q2D PO 12/31/18 09:00 01/07/19 10:06 DC 01/06/19 09:11 Torsemide (Demadex) 20 mg DAILY PO 12/27/18 09:00 12/28/18 10:12 DC 12/28/18 08:28 Trazodone HCl (Desyrel) 25 mg QHS PO 12/26/18 21:00 12/30/18 18:13 DC 12/28/18 20:50 Trazodone HCl (Desyrel) 25 mg QHS PRN PO INSOMNIA 12/30/18 21:00 01/09/19 00:53 KERON PÉREZ MD Jan 09, 2019 14:53
--- NOTE | 2019-01-09 14:54 | IPNPDOC ---
PM&R Progress Note DATE OF SERVICE: Jan 09, 2019 Enamel Machine Operator Progress Note Subjective: Patient seen in therapy stating she feels ready to go home tomorrow. REVIEW OF SYSTEMS: The following is a completed review of systems and has been reviewed. Review of systems otherwise unremarkable. PAIN: Patient self reports no pain EYES: No recent vision changes EARS, NOSE, & THROAT: No throat pain, or dysphagia, or rhinorrhea CARDIOVASCULAR: Denies chest pain or palpitations PULMONARY: Denies shortness of breath GASTROINTESTINAL: Denies constipation/diarrhea GENITOURINARY: denies dysuria MUSCULOSKELETAL:generalized weakness NEUROLOGICAL:+parkinsons HEMATOLOGICAL: no easy bruising SKIN: +rash PSYCHIATRIC: Unremarkable All other review of systems found to be negative. PHYSICAL EXAMINATION: VITAL SIGNS: Please see below. GENERAL: Pleasant and cooperative. No acute distress. HEENT: PERRL. Extraocular movements intact. Clear conjunctiva CARDIOVASCULAR: Regular rate and rhythm. No murmurs, rubs, or gallops LUNGS: Clear to auscultation bilaterally. No wheezes. No rhonchi ABDOMEN: Soft, nontender, nondistended. Positive bowel sounds. Normal active bowel sounds NEUROLOGICAL: Alert and oriented times to self and place. Cranial nerves II through XII grossly intact. Sensation grossly intact +bradykinetic movements EXTREMITIES: 5\5 strength bilateral upper extremities. 5\5 strength right lower extremity. 5/5 strength in left lower extremity. SKIN: intact ASSESSMENT:78 year-old F with past medical history of CAD, drug-induced parkinsons untreated, who presents status post fal PLAN: 1. Rehab: PT- strengthen/stretch/maintain ROM bilat LE and improve gait sequencing- gait length improving OT- strengthen/stretch/maintain ROM bilat UE and advance ADLs with adaptive equipment prn CAB STATION ATTENDANT- eval and treat 2. 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 Cardiac: diastolic CHF and CAD s/p stent- c/u Xarelto and ASA, holding Losartan for increased in Property Claims Adjuster, will monitor BPs medicine consulted to assist in management -BUN/Property Claims Adjuster better- restarted on Torsemide, medicine recs appreciated -c/u metoprolol -Nitroglycerin prn 4. Resp: COPD c/u breathing treatments 5. Endo: pmh DM c/u insulin coverage 6. : monitor PVRs, s/p course of Kefflex, patient no longer reporting increased frequency and Ucx negative 7. Renal: CKD3 improving since holding Cozaar, Torsemide restarted 7. DVT ppx: on Xarelto, TEDs 8. GI ppx: pepcid 9. Pain : tylenol prn and Lyrica -insomnia- trazodone 10. Dispo: 01-10-19 to home Allergies Coded Allergies: rofecoxib (Verified Allergy, Severe, Tongue Swelling , 12/21/18) amoxicillin (Verified Allergy, Mild, Rash, 12/30/18) azithromycin (Verified Allergy, Mild, Rash, 12/30/18) clavulanic acid (Verified Allergy, Mild, Rash, 12/30/18) exenatide (Verified Adverse Reaction, Mild, Abdominal pain , 12/21/18) glyburide (Verified Adverse Reaction, Mild, Too low blood sugar, 12/30/18) metoclopramide (Verified Adverse Reaction, Mild, Tremors , 12/30/18) tramadol (Verified Adverse Reaction, Mild, Rash , 12/21/18) Vital Signs Vital Signs Date Time Temp Pulse Resp B/P (MAP) Pulse Ox O2 Delivery O2 Flow Rate FiO2 01/09/19 06:17 97.0 65 18 148/76 (100) 99 Room Air Laboratory Data Labs 24H Laboratory Tests 2 01/08/19 16:41: Bedside Glucose (Misc Panel) 182H 01/08/19 20:40: Bedside Glucose (Misc Panel) 158H 01/09/19 05:48: Bedside Glucose (Misc Panel) 139H 01/09/19 11:59: Bedside Glucose (Misc Panel) 115H Current Medications Current Medications Current Medications Medications (Trade) Dose Ordered Sig/Rosalie Route PRN Reason Start Time Stop Time Status Last Admin Dose Admin Acetaminophen (Tylenol Tab) 650 mg Q4HP PRN PO MILD PAIN (PS 1-4) 12/26/18 20:15 01/04/19 10:06 DC 10/29/19 20:52 Acetaminophen (Tylenol Tab) 1,000 mg Q8H PO 01/04/19 22:00 01/09/19 05:56 Amantadine HCl (Symmetrel) 50 mg BID@0800,1200 PO 01/04/19 12:00 01/09/19 12:41 Aspirin (Aspirin Chewable) 81 mg DAILY PO 12/27/18 09:00 01/09/19 08:01 Atorvastatin Calcium (Lipitor) 40 mg QHS PO 12/26/18 21:00 01/08/19 20:51 Carbidopa/Levodopa (Sinemet 25/100) 2 tab TID PO 12/26/18 21:00 12/30/18 18:15 DC 12/30/18 17:43 Carbidopa/Levodopa (Sinemet 25/100) 2 tab TID@0800,1200,1600 PO 12/31/18 08:00 01/09/19 12:42 Cephalexin Monohydrate (Keflex) 500 mg BID PO 12/30/18 21:00 01/04/19 10:53 DC 01/04/19 08:40 Cetylpyridinium Chloride (Cepacol) 1 meredith Q2HP PRN PO COUGH 01/09/19 12:30 Dextromethorphan (Delsym Af 12hr Susp) 15 mg Q12HP PRN PO COUGH 01/08/19 12:00 01/09/19 00:53 Dextrose (Dextrose 50%) 25 ml ASDIRECTED PRN IV SEE LABEL COMMENTS 12/26/18 20:15 Docusate Sodium (Colace) 100 mg BID PO 12/26/18 21:00 01/08/19 20:50 Famotidine (Pepcid) 10 mg QHS PO 12/26/18 21:00 01/08/19 20:50 Fluticasone Propionate (Flonase 0.05% Nasal [place]) 1 spray BID NARES 12/26/18 21:00 01/09/19 08:05 Glucagon (Glucagon) 1 mg ASDIRECTED PRN SC SEE LABEL COMMENTS 12/26/18 20:15 Glucose (Glucose) 16 GM ASDIRECTED PRN PO SEE LABEL COMMENTS 12/26/18 20:15 Insulin Detemir (Levemir Insulin) 30 units QHS SC 12/26/18 21:00 01/08/19 20:51 Insulin Human Lispro (HumaLOG INSULIN) SEE PROTOCOL TABLE AC SC 12/27/18 07:30 01/09/19 12:42 Insulin Human Lispro (HumaLOG INSULIN) SEE PROTOCOL TABLE QHS SC 12/26/18 21:00 12/26/18 21:35 Lidocaine (Lidoderm Patch) 1 patch DAILY TD 01/04/19 09:00 01/09/19 08:01 Losartan Potassium (Cozaar) 100 mg DAILY PO 12/27/18 09:00 12/27/18 09:53 DC 12/27/18 08:18 Magnesium Chloride (Slow-Mag) 64 mg DAILY PO 12/27/18 09:00 01/09/19 08:01 Metoprolol Tartrate (Lopressor) 50 mg Q6H PO 01/03/19 12:00 01/04/19 10:57 DC 01/04/19 05:38 Metoprolol Tartrate (Lopressor) 50 mg Q8H PO 01/04/19 14:00 01/09/19 05:59 Miscellaneous (Unresolved Clarification Entry) SEE LABEL COMMENTS DAILY XX 01/02/19 09:00 01/02/19 15:55 DC Miscellaneous (Unresolved Clarification Entry) SEE LABEL COMMENTS DAILY XX 01/08/19 09:00 01/09/19 06:18 DC Miscellaneous (Unresolved Clarification Entry) SEE LABEL COMMENTS DAILY XX 01/09/19 09:00 01/09/19 09:52 DC Miscellaneous (Unresolved Non-Formulary Med Order) SEE LABEL COMMENTS DAILY XX 01/02/19 09:00 Cancel Nitroglycerin (Nitrostat (1/ 150)) 0.4 mg Q5MP PRN SL CHEST PAIN 12/26/18 20:15 01/01/19 14:01 Non-Formulary Medication ( See Comment Field Below ) REMOVE LIDODERM PATCH DAILY@21 XX 01/04/19 21:00 01/08/19 20:58 Nystatin (Mycostatin Powder, Nystop) APPLY TO GROIN BID TOP 12/26/18 21:00 01/09/19 08:05 Phenol (Chloraseptic [place]) 1 spray Q2HP PRN MT SORE THROAT 01/09/19 12:30 Potassium Chloride (Micro-K Extencaps) 10 meq DAILY PO 12/27/18 09:00 01/09/19 08:02 Pregabalin (Lyrica) 75 mg BID PO 12/26/18 21:00 01/09/19 08:01 Propranolol HCl (Inderal) 20 mg BID PO 12/26/18 21:00 01/03/19 10:44 DC 01/03/19 08:10 Rivaroxaban (Xarelto) 15 mg DAILY@18 PO 12/27/18 18:00 01/08/19 17:13 Salmeterol Xinafoate/ Fluticasone (Advair Hfa 230/ 21) 2 puff RBID INH 12/26/18 20:00 01/09/19 07:33 Senna (Senokot) 1 tab QHS PO 12/26/18 21:00 01/08/19 20:50 Torsemide (Demadex) 10 mg DAILY PO 01/07/19 09:00 01/09/19 08:01 Torsemide (Demadex) 10 mg Q2D PO 12/31/18 09:00 01/07/19 10:06 DC 01/06/19 09:11 Torsemide (Demadex) 20 mg DAILY PO 12/27/18 09:00 12/28/18 10:12 DC 12/28/18 08:28 Trazodone HCl (Desyrel) 25 mg QHS PO 12/26/18 21:00 12/30/18 18:13 DC 12/28/18 20:50 Trazodone HCl (Desyrel) 25 mg QHS PRN PO INSOMNIA 12/30/18 21:00 01/09/19 00:53 KERON PÉREZ MD Jan 09, 2019 14:54
[2019-01-09] MEDS ORDERED: MAGN64TASA PO (15:00)
[2019-01-09] MEDS ORDERED: INSUDET SC (15:00)
[2019-01-09] MEDS ORDERED: KLOR10TA76 PO (15:00)
[2019-01-09] MEDS ORDERED: TORS10TA3 PO (15:00)
[2019-01-09] MEDS ORDERED: FAMO20TA PO (15:00)
[2019-01-09] MEDS ORDERED: ASPI81CH8 PO (15:00)
[2019-01-09] MEDS ORDERED: CARB25TA9 PO (15:00)
[2019-01-09] MEDS ORDERED: ATOR1TAB21 PO (15:00)
[2019-01-09] MEDS ORDERED: AMAN100T PO (15:00)
[2019-01-09] MEDS ORDERED: ADVA230A INH (15:00)
[2019-01-09] MEDS ORDERED: LOPR1TAB6 PO (15:00)
[2019-01-09] MEDS ORDERED: XARE15TA PO (15:00)
[2019-01-09] MEDS ORDERED: LYRI75CA PO (15:00)
[2019-01-09] MEDS: CHLORASEPTIC SPRAY MT PRN ×2 (15:24→20:13)
[2019-01-09] MEDS: RIVAROXABAN 15 MG TAB (XARELTO) PO SCH (17:26)
[2019-01-09] MEDS: SENNA 8.6 MG TAB (SENOKOT) PO SCH (20:12)
[2019-01-09] MEDS: ATORVASTATIN 20 MG TAB PO SCH (20:12)
[2019-01-09] MEDS: FAMOTIDINE 20 MG TAB PO SCH (20:12)
[2019-01-09] MEDS: **NOTE PATIENT COMMENT** MISC XX SCH (20:13)
[2019-01-09] MEDS: LEVEMIR (INSULIN DETEMIR) 1 UNITS/0.01ML SC SCH (20:14)
[2019-01-09 21:00] VITALS: BP 140/98
[2019-01-10] MEDS ORDERED: MOM 30ML SUSPENSION UDC PO ONE (00:45)
[2019-01-10] MEDS: CHLORASEPTIC SPRAY MT PRN (03:23)
[2019-01-10] MEDS: METOPROLOL TART 50 MG TAB PO SCH ×2 (06:09→13:43)
[2019-01-10] MEDS: ACETAMINOPHEN 500 MG TAB PO SCH ×2 (06:09→13:43)
[2019-01-10 06:24] VITALS: BP 152/70
[2019-01-10] MEDS: HumaLOG INSULIN (NovoLOG) PER UNIT SC SCH ×2 (07:30→12:50)
[2019-01-10] MEDS: ADVAIR HFA 230/21MCG INHALER INH SCH (08:03)
[2019-01-10] MEDS: AMANTADINE 100MG TABLET PO SCH ×2 (08:45→12:50)
[2019-01-10] MEDS: POTASSIUM CHLORIDE 10 MEQ SR TABLET PO SCH (08:45)
[2019-01-10] MEDS: PREGABALIN 75 MG CAP(LYRICA) PO SCH (08:45)
[2019-01-10] MEDS: TORSEMIDE 10 MG TABLET PO SCH (08:45)
[2019-01-10] MEDS: ASPIRIN 81 MG CHEW TABLET PO SCH (08:45)
[2019-01-10] MEDS: MAGNESIUM CHLORIDE 64 MG TABCR (SLO MAG) PO SCH (08:45)
[2019-01-10] MEDS: SINEMET 25-100 MG TAB PO SCH ×2 (08:45→12:50)
[2019-01-10] MEDS: DOCUSATE SODIUM 100 MG CAP PO SCH (08:45)
[2019-01-10] MEDS: LIDOCAINE 5% (LIDODERM) PATCH TD SCH (08:46)
[2019-01-10] MEDS: FLUTICASONE PROP 0.05% NASAL SPRAY 16 GM (FLONASE) NARES SCH (08:46)
[2019-01-10] MEDS: NYSTATIN 100,000 UNITS/GM TOPICAL PWD 15 GM TOP SCH (08:47)
[2019-01-10 13:43] VITALS: BP 125/61
--- NOTE | 2019-01-10 14:13 | IPNPDOC ---
Text Note Date of Service The patient was seen on 01/10/19. NOTE Subjective: Patient is a 78 year old female with a PMHx of Acute hypoglycemia, urinary tract infection found on admission, near syncope event, Bifascicular block with 1st degree hearth block, Essential hypertension, Diabetes Mellitus, Gout, Degenerative disc disease, Osteoarthritis, Irregular heart beat, Cataracts, GERD, Skin cancer with removal, Pneumonia, COPD with Asthma and Bronchitis, hemorrhoids, hiatal hernia, Abdominal Aortic Aneurysm and Parkinson's Disease who was transferred to ARU on 12/26/2018 for continued physical and occupational therapy. Patient was seen and examined at the bedside. Patient reports that she is working well with physical therapy. She denies any chest pain, shortness of breath, palpitations overnight. Does not experience any nausea, vomiting or abdominal pain. Objective: Vitals (See below) General: Lying in bed, no acute distress, comfortable, Awake / Alert HEENT: NC, AT CVS: RRR, +S1S2 Lungs: Fair air entry b/l, auscultation cerebral rales or wheezing Abdomen: Soft, there does not appear to be any distention or tenderness Extremities: There is trace pitting edema appreciated bilaterally at lower extremities, - Calf tenderness Assessment and plan: Parkinsonism - possibly 2/2 drug induced etiology - 2/2 Reglan; possibly 2/2 idiopathic etiology - s/p Reglan - CT Head 12/21: There is no evidence of acute intracranial process. Volume loss and sequelae of chronic microangiopathic ischemic disease. Chronic appearing basal ganglia lacunar infarctions. 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 - Neurology on consultation s/p Elevated troponin - Patient has no complaints of chest pain, palpitations or SOB - c/w Xarelto, ASA 81, Atorvastatin, Losartan and Propranolol - Cardiology on consultation Hx of splenic infarction - c/w full anticoagulation with Xarelto COPD - No evidence of exacerbation - c/w inhaled therapy as ordered HTN - BP appears well controlled - c/w Losartan and Propranolol IDDM2 - c/w Levemir and ISS DLP - c/w ASA and Atorvastatin Neuropathy - c/w Pregabalin GERD - c/w Famotidine DVT prophylaxis - c/w full anticoagulation with Xarelto Disposition: - Continue with physical therapy at the direction of ARU - Potential discharge within this week VS,Fishbone, I+O VS, Fishbone, I+O Vital Signs Date Time Temp Pulse Resp B/P (MAP) Pulse Ox O2 Delivery O2 Flow Rate FiO2 01/10/19 13:43 65 125/61 01/10/19 06:24 98.1 18 93 Room Air I&O- Last 24 Hours up to 6 AM 01/10/19 06:00 Intake Total 480 ml Balance 480 ml SELMA HUFF MD Jan 10, 2019 14:13
== END 2019-01-10 14:15 | disposition home health service (06) | DRG 56 ==
LOC: M PM&R 18:30
PROVIDERS: ADMIT Physical Medicine & Rehabilitation; ATTEND Physical Medicine & Rehabilitation
DX: G21.19 Other drug induced secondary parkinsonism (principal); I50.33 Acute on chronic diastolic (congestive) heart failure; I13.0 Hypertensive heart and chronic kidney disease with heart failure and stage 1 through stage 4 chronic kidney disease, or unspecified chronic kidney disease; I45.2 Bifascicular block; N18.3 Chronic kidney disease, stage 3 (moderate); E11.22 Type 2 diabetes mellitus with diabetic chronic kidney disease; E78.5 Hyperlipidemia, unspecified; G31.83 Neurocognitive disorder with Lewy bodies; F02.80 Dementia in other diseases classified elsewhere, unspecified severity, without behavioral disturbance, psychotic disturbance, mood disturbance, and anxiety; J44.9 Chronic obstructive pulmonary disease, unspecified; E11.40 Type 2 diabetes mellitus with diabetic neuropathy, unspecified; I25.10 Atherosclerotic heart disease of native coronary artery without angina pectoris; I71.4 Abdominal aortic aneurysm, without rupture; J45.909 Unspecified asthma, uncomplicated; K76.0 Fatty (change of) liver, not elsewhere classified; K21.9 Gastro-esophageal reflux disease without esophagitis; G47.00 Insomnia, unspecified; Z86.010 Personal history of colon polyps; Z86.73 Personal history of transient ischemic attack (TIA), and cerebral infarction without residual deficits; Z95.5 Presence of coronary angioplasty implant and graft; Z79.01 Long term (current) use of anticoagulants; Z79.82 Long term (current) use of aspirin; Z79.4 Long term (current) use of insulin; Z79.899 Other long term (current) drug therapy; Z88.0 Allergy status to penicillin; Z88.1 Allergy status to other antibiotic agents; Z88.5 Allergy status to narcotic agent; Z88.8 Allergy status to other drugs, medicaments and biological substances; Z98.49 Cataract extraction status, unspecified eye; Z85.828 Personal history of other malignant neoplasm of skin; Z96.651 Presence of right artificial knee joint; R21 Rash and other nonspecific skin eruption

== ENCOUNTER → 2019-04-10 | Outpatient (CLI) | payer MEDICARE, OTHER ==
[~2019-04-10] MED LIST changes: +ADVA230A INH; +AMAN100T PO; +ASPI81CH8 PO; +ATOR1TAB21 PO; +CARB25TA9 PO; +FAMO20TA PO; +INSUDET SC; +KLOR10TA76 PO; +LOPR1TAB6 PO; -SIMV40TA2 PO; +SIMV40TA20 PO; +TORS10TA3 PO; +XARE15TA PO
--- NOTE | 2019-04-10 16:18 | REP ---
BILATERAL SCREENING DIGITAL MAMMOGRAM WITH 3D TOMOSYNTHESIS: There are no palpable abnormalities or other breast complaints. The the patient states she has not had a clinical breast examination over a year. The the patient states she performs self-breast examinations 12 times per year. The Tyrer-Cuzi Lifetime Breast Cancer Risk Score is: 1.6% . Comparison is 02/08/2014. There are scattered areas of fibroglandular density. There is no dominant mass, micro calcific cluster or architectural distortion that would indicate malignancy. There are benign calcifications. There are no additional findings on 3D tomosynthesiss. There is no change from the prior study. Impression: BIRADS/ACR category II mammogram. Benign findings. Recommendation: Routine annual screening mammography. This mammogram was interpreted with the aid of a FDA approved computer-aided detection system. A. Negative mammogram reports should not delay biopsy if a dominant or clinically suspicious mass is present. B. Not all breast cancers are identified by mammography or tomosynthesis. C. Adenosis and dense breasts may obscure an underlying neoplasm. Patient letter M1. Electronically Signed by Rodrigo Marcelo MD 04/10/2019 04:09 P
== END ==
LOC: M WHC 14:53
PROVIDERS: ATTEND Nurse Practitioner Adult Health
DX: Z12.31 Encounter for screening mammogram for malignant neoplasm of breast (principal)

== ENCOUNTER → 2019-05-16 | Outpatient (CLI) | payer MEDICARE, OTHER ==
--- NOTE | 2019-05-16 10:22 | REP ---
Splenic ultrasound for follow-up of splenic infarct: Patient had findings compatible with a splenic infarct on the an MRI dated 09/28/2017 and on prior splenic ultrasound studies dated 01/10/2018, 07/11/2018 and 07/27/2018. On the study today there is a persistent wedge-shaped infarct at the periphery of the spleen with its base along the splenic capsule, unchanged from the prior studies, compatible with a chronic splenic infarct/scar. The remainder of the splenic parenchyma is homogeneous. With color Doppler assessment., splenic arterial and venous vascular flow is identified. The left kidney measures 10.3 x 4.4 x 4.1 cm and is normal size. Multiple left renal cysts are again identified as previously. The largest three cysts measure: Medial 2.9 x 2.3 x 2.9 cm. Lateral 120 x 1.41 point 2 cm. There are 1.8 x 1.3 x 1.1 cm. No left renal solid masses are identified. No left renal hydronephrosis or calculus is identified. Impression: Stable splenic infarct. The spleen is normal size and otherwise unremarkable. Multiple left renal cysts, not significantly changed. Electronically Signed by Rodrigo Marcelo MD 05/16/2019 10:14 A
== END ==
LOC: M RAD 08:21
PROVIDERS: ATTEND Physician Assistant
DX: D73.5 Infarction of spleen (principal); N28.1 Cyst of kidney, acquired

== ENCOUNTER 2019-05-28 09:43 | Inpatient (IN) | payer MEDICARE, OTHER ==
[~2019-05-28] VITALS: Ht 147.3 cm; Wt 87.6 kg
[2019-05-28] VITALS (7 sets, daily range): BP systolic 139–179; BP diastolic 64–90
[2019-05-28] MEDS ORDERED: AMIL25TA PO (09:58)
[2019-05-28] MEDS ORDERED: ADACEL/BOOSTRIX VACCINE (DIPHTH/PERTUSS/ACELL/TETANUS)0.5ML SYR (90715) IM ONE (10:30)
[2019-05-28 10:31] LABS: BASO # 0.1 10^3/uL (0.0-0.2); BASO % 0.6 % (0.0-1.0); EOS # 0.1 10^3/uL (0.0-0.5); EOS % 0.9 % (0.0-3.0); HEMATOCRIT 47.5 % (36.0-47.0); HEMOGLOBIN 14.8 g/dl (12.0-15.5); LYMPH # 0.7 10^3/uL (1.5-5.0); LYMPH % 6.9 % (24.0-44.0); MEAN CORPUSCULAR HEMOGLOBIN 28.1 pg (27.0-33.0); MEAN CORPUSCULAR HGB CONC 31.2 g/dl (32.0-36.5); MEAN CORPUSCULAR VOLUME 90.3 fl (80.0-96.0); MONO # 0.8 10^3/uL (0.0-0.8); MONO % 7.9 % (0.0-5.0); NEUTROPHILS # 8.4 10^3/uL (1.5-8.5); NEUTROPHILS % 83.1 % (36.0-66.0); PLATELET COUNT, AUTOMATED 165 10^3/uL (150-450); RED BLOOD COUNT 5.26 10^6/uL (4.00-5.40); WHITE BLOOD COUNT 10.1 10^3/uL (4.0-10.0)
[2019-05-28 10:40] LABS: INR 1.43; PROTHROMBIN TIME 17.2 SECONDS (11.8-14.0)
[2019-05-28 10:41] LABS: PARTIAL THROMBOPLASTIN TIME 34.9 SECONDS (25.0-38.4)
--- NOTE | 2019-05-28 10:41 | REP ---
Clinical: Trauma. Fall. Comparison: 12/21/2018 Findings: Age-related atrophy with periventricular leukomalacia and microvascular ischemic changes are appreciated. The ventricles and sulci are symmetric. Mcintosh-white differentiation is maintained. There is no evidence for acute intracranial hemorrhage, mass/mass effect, pathology or infarction. No extra-axial fluid collection. Calvarium is intact. Paranasal sinuses and mastoid air cells are clear. Impression: Age related atrophy and microvascular ischemic changes. No acute intracranial hemorrhage, infarction, or mass/mass effect. Electronically Signed by Carlos Serna MD 05/28/2019 10:33 A
--- NOTE | 2019-05-28 10:43 | REP ---
Clinical: Trauma. Fall. Technique: Axial noncontrast images from the skull base to the thoracic inlet with coronal and sagittal re-formations. Findings: Advanced multilevel degenerative disc osteophyte complexes are appreciated primarily involving C5-6, C6-7, and C4-5. Findings include osteophytosis, endplate sclerosis/heterogeneity, posterior osteophytes and disc space narrowing along with facet arthropathy. No acute fracture / compression injury or subluxation. Spinous processes are intact. Spinal canal appears grossly patent. Surrounding soft tissues are unremarkable. Impression: Advanced multilevel degenerative spondylosis. No acute cervical trauma/injury appreciated. Electronically Signed by Carlos Serna MD 05/28/2019 10:35 A
[2019-05-28 10:57] LABS: CK-MB VALUE MASS 2.6 NG/ML (<3.6); CPK CREATINE PHOSPHOKINASE 194 U/L (26-192); MB/CK RELATIVE INDEX 1.34 (< OR =4); TROPONIN I < 0.02 NG/ML (< 0.10)
[2019-05-28] MEDS ORDERED: METO50TA7 PO (11:02)
[2019-05-28] MEDS ORDERED: ATOR40TA75 PO (11:02)
[2019-05-28] MEDS ORDERED: CARB25TA9 PO (11:02)
[2019-05-28] MEDS ORDERED: AMANTADINE 50MG/5ML PO (11:02)
[2019-05-28] MEDS ORDERED: XARE20TA PO (11:02)
[2019-05-28] MEDS ORDERED: AMIL5TAB4 PO (11:02)
[2019-05-28] MEDS ORDERED: MAGN64TASA PO (11:02)
[2019-05-28] MEDS ORDERED: ASPI81CH33 PO (11:02)
[2019-05-28] MEDS ORDERED: NYST10CR TOP (11:05)
[2019-05-28] MEDS ORDERED: ADVA230A INH (11:05)
[2019-05-28] MEDS ORDERED: AMMO12LO TOP (11:05)
--- NOTE | 2019-05-28 11:14 | REP ---
Clinical: Fall. Technique: Internal rotation, external rotation, and Y view of the right shoulder. Findings: There is a minimally displaced fracture involving the humeral head/neck. Underlying age-related osteopenia and degenerative changes noted. The acromioclavicular joint is intact. The glenoid appears intact. Impression: Minimally displaced fracture involving the humeral head/neck. Electronically Signed by Carlos Serna MD 05/28/2019 11:06 A
[2019-05-28] MEDS ORDERED: SOD POLYSTYRENE SULFONATE SUSP 15 GM/60 ML UD PO ONE (11:15)
[2019-05-28] MEDS ORDERED: DEXTROSE 50% 50 ML SYRINGE IV PRN (11:15)
[2019-05-28] MEDS ORDERED: GLUCAGON FOR INJ 1 MG VIAL (J1610) SC PRN (11:15)
[2019-05-28] MEDS ORDERED: CALCIUM GLUCONATE 1,000 MG in D5W MINI-BAG PLUS 100 ML IV ONE ×2 (11:15→18:00)
[2019-05-28] MEDS ORDERED: GLUCOSE 4 GM CHEW TABLET PO PRN (11:15)
--- NOTE | 2019-05-28 11:29 | REP ---
Clinical: Fall . Comparison: 12/21/2018 . Findings: The mediastinum and cardiac silhouette are stable and within normal limits for portable technique. The lung [place] are clear without acute consolidation, effusion, or pneumothorax. The right humeral head fracture is not identifiable on current x-ray. Impression: No acute cardiopulmonary process appreciated. Electronically Signed by Carlos Serna MD 05/28/2019 11:21 A
--- NOTE | 2019-05-28 11:31 | REP ---
Clinical: Trauma. Fall. Technique: Single AP view of the left forearm. Findings: Age-related changes are appreciated. No acute fracture dislocation identified. Impression: No acute fracture or dislocation. Electronically Signed by Carlos Serna MD 05/28/2019 11:23 A
--- NOTE | 2019-05-28 11:40 | REP ---
Clinical: Trauma. Fall. Technique: AP, lateral, bilateral oblique views of the right wrist. Findings: Age-related osteopenia and degenerative changes are appreciated. Oblique view demonstrates fracture involving the lateral aspect of the distal radial metaphysis extending to the articular surface. Impression: Osteopenia and degenerative changes. Fracture involving the lateral distal radial metaphysis and radial styloid is suspected based on single oblique view. Electronically Signed by Carlos Serna MD 05/28/2019 11:32 A
--- NOTE | 2019-05-28 11:42 | REP ---
Clinical: Trauma. Fall. Technique: AP and lateral views of the right humerus. Findings: There is a fracture involving the proximal humeral head with minimally displaced fracture fragments. The glenohumeral joint is grossly intact. The acromioclavicular joint appears intact. Impression: Humeral head fracture. Electronically Signed by Carlos Serna MD 05/28/2019 11:33 A
[2019-05-28] MEDS ORDERED: MORPHINE 2 MG/ML 1ML VIAL (J2270) IV PRN (12:45)
--- NOTE | 2019-05-28 13:31 | CR ---
DATE OF CONSULTATION: 05/28/2019 INDICATION: Right radial styloid and right proximal humerus fractures. HISTORY OF PRESENT ILLNESS: Silvia is a pleasant [id number] female who sustained a fall onto her right arm and sustained injuries to her wrist and shoulder. She also has some skin tears at the elbow. She was initially seen at [facility] where the fractures were first diagnosed, her wrist was splinted, she was given a sling for the shoulder, but she was unable to take care of herself, so she was transferred to [facility] for admission and placement. The patient is denying any new numbness and tingling in her right hand. Pain is basically at the right shoulder and wrist. For the patient's full past medical history, past surgical history, medications, allergies, social history and review of systems, please see the admitting hospitalist's history and physical. PHYSICAL EXAM: Reveals an elderly female in no distress. She is alert and oriented times three. Neurologic: Appropriate mood and affect. Cardiovascular: The right hand is warm and well perfused. Skin: The patient denies any skin tearing at the wrist. The splint was left in place. At the shoulder, there is some bruising with mild to moderate swelling. Skin there is intact. There are skin tears at the lateral aspect of the distal humerus, as well as over the olecranon. With gentle forearm rotation, she has shoulder pain. She denies any deep elbow pain. The right proximal humerus is tender to palpation. The right radial styloid is tender to palpation. X-rays of the right shoulder, humerus, hand, wrist, and forearm were obtained and available for my review. There were no fractures seen at the elbow. She has a mildly displaced fracture primarily of the greater tuberosity, but there does appear to be surgical neck extension on the scapular Y view. The glenohumeral joint is reduced. The wrist films reveal essentially a nondisplaced radial styloid fracture. ASSESSMENT/PLAN: Silvia has a mildly displaced right proximal humerus fracture and a nondisplaced right radial styloid fracture. We discussed operative and nonoperative treatment. I recommend nonoperative treatment for both. For the time being, she is comfortable in a splint and sling. However, when we see her in the office, we will decide if we want to go with a short-arm cast or a removable lace-up brace for the radial styloid fracture. I suspect the brace will be more comfortable for her as a heavier cast will put more strain on the shoulder. For the proximal humerus fracture, she is going to be better off with a shoulder immobilizer that has a swathe component, but for now, she is okay in her sling. My recommendations are for the patient to take vitamin D anywhere from 2-5000 units daily for the next 3 months. She will be nonweightbearing in the right upper extremity. Finger range of motion is encouraged, elbow range of motion is allowed with active and passive. I do not want any active range of motion of the shoulder. She does not even need to work on passive motion at the shoulder yet. No pendulums. For the wrist, will keep the splint on until she sees me in office. She could come to [facility]. She can see me afternoon or the following week. She will have to use a cane for the left arm; she can not use her right arm with a walker. All the patient's questions were answered. She agrees with the plan.
[2019-05-28] MEDS: PERCOCET 5MG/325MG TAB PO PRN ×2 (14:38→23:39)
[2019-05-28] MEDS: PREGABALIN 75 MG CAP(LYRICA) PO SCH ×2 (14:46→22:28)
[2019-05-28] MEDS: MAGNESIUM CHLORIDE 64 MG TABCR (SLO MAG) PO SCH ×2 (14:47→22:27)
[2019-05-28] MEDS: LACTIC ACID 12% LOTION 225 GM BTL TOP SCH ×2 (14:47→22:29)
[2019-05-28] MEDS: SINEMET 25-100 MG TAB PO SCH ×2 (14:55→17:13)
[2019-05-28] MEDS: ASPIRIN 81 MG CHEW TABLET PO SCH (14:55)
[2019-05-28] MEDS: amLODIPine 5 MG TAB PO SCH ×2 (14:56→22:28)
[2019-05-28] MEDS: METOPROLOL TART 50 MG TAB PO SCH ×2 (14:56→22:28)
[2019-05-28] MEDS: HumaLOG INSULIN (NovoLOG) PER UNIT SC SCH ×3 (15:02→21:00)
[2019-05-28] MEDS: ACETAMINOPHEN 500 MG TAB PO SCH ×3 (15:02→22:27)
[2019-05-28] MEDS: ADVAIR HFA 230/21MCG INHALER INH SCH ×2 (15:07→21:03)
--- NOTE | 2019-05-28 17:38 | ECGEPIP ---
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
--- NOTE | 2019-05-28 18:00 | HPE ---
DATE OF ADMISSION: 05/28/2019 CHIEF COMPLAINT: Fall. HISTORY OF PRESENTING ILLNESS: This is an 79-year-old female, DO NOT RESUSCITATE/DO NOT INTUBATE, who is living at home with her two sons and another "lan," who has a history of Parkinsonism, but does not use her walker or her cane at home, as she has been walking around grabbing on to things until two days ago, when she fell in the bathroom. Patient changed her clothes in the bathroom and dressed in pajamas. She fell over on her right side with some head trauma, no loss of consciousness. She was heard by her sons, Royal and Haroon, who then helped her after she pressed the buzzer in the home. Patient otherwise denied any chest pain, pressure or tightness, palpitations. No fever or chills. No diarrhea, shortness of breath, nausea or vomiting, abdominal pain, dysuria, urgency, frequency, weight gain, weight changes, changes in appetite, changes in vision, but did complain of lightheadedness and dizziness during this episode. Patient otherwise has had no prior episodes. No fall. She went to [facility] emergency room two days ago and was thought to have had a right humeral fracture as well as a right radial fracture. She was then sent home and came home at 4:00 a.m. Since being home, patient sat on a chair between the kitchen and the bathroom. She has had no recurrent falls. Her sons, Royal and Haroon, did not think that she would be able to manage at home and therefore called 911 to bring her to the emergency room here at [facility]. In the emergency room (ER), a CT of the head was negative. Patient is on chronic anticoagulation for history of a splenic infarction,on chronic Xarelto, but with no hemorrhage. Cervical spine CT has no acute fracture. Radial ulnar x-ray on the right hand shows no acute fracture or dislocation. Patient had a shoulder x-ray, which shows a minimally displaced fracture involving the humeral head and neck on the right. Wrist x-ray showed fracture involving the lateral distal radial metaphysis and radial styloid suspected on single oblique view. Orthopedic surgeon, Dr. Saenz, has been consulted to see the patient. This is nonsurgical. Family is requesting placement. Complete blood count (CBC) and metabolic panel appeared stable. PAST MEDICAL HISTORY: 1. Chronic kidney disease stage III. 2. Diabetes. 3. Hypertension.. 4. Hyperlipidemia. 5. Abdominal aortic aneurysm. 6. Coronary artery disease (CAD), bare metal stent, on chronic Xarelto, [place]man's, 08/2018. 7. Splenic infarction 2018, on chronic anticoagulant therapy with Xarelto. 8. Fatty liver. 9. Pancreatic cyst, no change from 2017. 10. Schatzki ring with dilation, Erickson's esophagus is negative. 11. Adenomatous colonic polyps. 12. Drug-induced parkinsonism, followed by neurology, with essential tremors, primary in the right arm and leg. HOME MEDICATIONS: - Xarelto 20 mg at bedtime for splenic infarction - amiloride 5 mg daily - Humalog sliding scale - Nystatin topically twice a day as needed - amantadine 50 mg twice a day - ammonium lactate topically twice a day - aspirin 81 mg daily - atorvastatin 40 mg at bedtime - carbidopa/levodopa 2 tablets three times a day - Advair HFA 2 puffs inhaled twice a day - Lantus insulin 30 units subcutaneous at bedtime - magnesium chloride 64 mg three times a day - metoprolol 50 mg every 8 hours - Lyrica 75 mg twice a day SOCIAL HISTORY: Denies any alcohol, drug use or smoking history. 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 Patient lives at home, which she owns, with two sons, Royal and Haroon. She is DO NOT RESUSCITATE/DO NOT INTUBATE. Medical orders for life-sustaining treatment (MOLST) form has been signed. ALLERGIES: Multiple allergies. AMOXICILLIN, AZITHROMYCIN, BYETTA, GLYBURIDE, REGLAN, NONSTEROIDAL ANTI-INFLAMMATORY DRUGS (NSAIDS), TRAMADOL, SINEMET, CIPRO, REQUIP, DOXYCYCLINE, ANGIOTENSIN-CONVERTING ENZYME (HEIDI) INHIBITORS, ERYTHROMYCIN, METFORMIN. PAST SURGICAL HISTORY: 1. Bilateral cataracts, 2016, 2016. 2. Tonsillectomy 194. 3. Esophagogastroduodenoscopy (EGD) with dilation for Schatzki ring 2015. 4. Right ulnar nerve transposition 2014. 5. Hysterectomy 1970. 6. Cholecystectomy 2002. 7. Colonoscopy 2013. 8. Right knee arthroscopy 2010. 9. Right trigger finger repair 2007. 10. Right wrist tendon release 2004. 11. Appendectomy 2009. REVIEW OF SYSTEMS: Per history of present illness (HPI). A 12 point system otherwise negate. PHYSICAL EXAMINATION: Blood pressure 175/90, 96% on room air, 73 sinus rhythm, temperature 98.1, respiratory rate of 18. GENERAL: She is awake, alert, oriented to person and place, answering questions appropriately. Anicteric sclerae. No jaundice. No jugular venous distention (JVD). No thyromegaly. Patient is appropriate. No conversational dyspnea. Face is symmetric. LUNGS: Clear to auscultation. No wheezing or rales. HEART: S1, S2. Sinus rhythm. Normocephalic, atraumatic.. Patient has no obvious bruising. No raccoon eyes. Patient has her right arm in a sling. There is some ecchymosis in the right shoulder. Unable to obtain range of motion due to severe pain on the wrist with a splint. LABORATORY DATA: White count 10, hemoglobin 14, hematocrit 47, platelet count 165. A1c 7. Total CK 194. MB fraction 2.6. Troponin less than 0.02. Sodium 137, potassium 5.2, chloride 101, bicarbonate 29, BUN 31, creatinine 1.3, ionized calcium of 4.4. ASSESSMENT AND PLAN: An 79-year-old who lives at home with her two sons who are unable to care for her, had a fall due to history of essential tremors and drug-induced parkinsonism, follows at [facility], now with a right humeral and distal radial fracture, admitted for orthopedic surgery evaluation and placement. IMPRESSION: 1. Right humeral and distal radial fracture. Per orthopedic surgeon, Dr. Saenz. Recommendations are to take vitamin D 2000 to 5000 units daily for the next three months, outpatient followup in the office for a short arm cast or removable lace-up brace for radial styloid fracture. Brace would be more comfortable, as the cast would put more strain on her shoulder. Shoulder immobilizer with a sways component for now with a cane. Patient is not to be weightbearing on the right upper extremity. Can use a cane for the left arm, however. Patient is to have Tylenol three times a day as well as Percocet 1 tablet as needed every 8 hours, intravenous (IV) morphine. Monitor for altered mental status, lethargy or respiratory distress, since she is new to these medications. Acute rehabilitation unit (ARU) has been consulted. [facility] Family [facility] (PFS) consulted for placement. 2. History of CAD. Continue on home medications, atorvastatin, metoprolol. 3. Parkinsonism. Continue with carbidopa/levodopa CR qhs, IR tid. Per neurologist, Dr. Prescott, monitor for visual hallucinations to rule out Lewy body dementia. 4. History of splenic infarction. On chronic Xarelto. DISPOSITION: ARU consulted. PFS consulted-may need SNF Placement, as the sons cannot care for her at home. CODE STATUS: DO NOT RESUSCITATE/DO NOT INTUBATE. MOLST signed and witnessed. MTDD
--- NOTE | 2019-05-28 18:44 | CR ---
DATE OF CONSULTATION: 05/28/2019 REFERRING PHYSICIAN: Dr. Mary Anne Galindo REASON FOR CONSULTATION: Fall, parkinsonism and fracture of right arm. HISTORY OF PRESENT ILLNESS: Silvia Ramirez is a 78-year-old woman who was admitted at [facility] in December 2018 due to difficulty walking and parkinsonism. The patient had Reglan-induced parkinsonism in 2013. Her parkinsonism persisted despite stopping Reglan. The patient had tried ropinirole only for a few days and stop taking it in past. She was taking propranolol for her tremor. We commensurate to start taking Sinemet which helped her shuffling gait and tremor. Her handwriting had changed. She denies any hallucinations. She denies any dream enactment at night although she sleeps alone in her bedroom. She states that her . Her sons live with her. She fell last night around 10:00 or 11:00 p.m. She was taken to [facility]. She was diagnosed with fracture of right humerus and right wrist. Her son called me this morning that her walking was worse and she had more tremor. He stated that they were being referred to orthopedics on outpatient basis. They were concerned about her mother's health. She takes Xarelto. I advised them to bring her to [facility]. The patient states that she becomes dizzy when she stands up. She denies any headaches, neck pain, back pain, dysphagia, dysarthria, diplopia or urinary incontinence. She states that she has difficulty with short-term memory sometimes. She forgets her words and sentences. She denies any loss of consciousness or head injuries. PAST MEDICAL HISTORY: 1. Parkinsonism. 2. Hypertensive heart disease. 3. Chronic kidney disease stage III. 4. Type 2 diabetes. 5. Dyslipidemia. 6. Osteopenia. 7. Abdominal aortic aneurysm. 8. Coronary artery disease. 9. Splenic infarction in 2018 and the patient has been on Xarelto since then. 10. Pancreatic cyst. 11. Acid reflux. 12. Colonic polyp. 13. Fatty liver disease. HOME MEDICATIONS: - Xarelto 20 mg by mouth daily - Zocor 40 mg by mouth daily - insulin Lantus 30 units subcutaneous daily - losartan 100 mg by mouth daily - Zantac 150 mg by mouth twice a day - aspirin 81 mg by mouth daily - Lyrica 50 mg by mouth daily - Sinemet 25/100 mg 2 tablets by mouth three times a day - albuterol inhaler - Senokot-S as needed ALLERGIES: PENICILLIN, ZITHROMAX, BYETTA, GLYBURIDE, REGLAN, NONSTEROIDAL ANTI-INFLAMMATORY DRUGS (NSAIDS), TRAMADOL, CIPROFLOXACIN, ERYTHROMYCIN, METFORMIN. SOCIAL HISTORY: The patient lives with her sons. FAMILY HISTORY: Father had lung cancer. REVIEW OF SYSTEMS: All systems were reviewed and found to be noncontributory except as mentioned in history of present illness. PHYSICAL EXAMINATION Temperature 97.3, pulse 54, respiratory rate 17, blood pressure 160/78, 98% saturation on room air. HEART: Regular rate and rhythm. LUNGS: Clear to auscultation. ABDOMEN: Soft, nontender, nondistended. No pedal edema. No musculoskeletal abnormalities. No rash. No signs of meningeal irritation. The patient is awake, alert, oriented to hospital, city, state, month, year day of week, name of president. She was unable to tell me exact date today. Extraocular muscles are intact. No facial weakness. Tongue and uvula are at midline. She has mask-like face. 5/5 strength in all upper extremities. She has mild bilateral cogwheel rigidity. Her gait is minimally shuffling. She uses a walker for ambulation. [id number] testing is normal. No dysmetria. DIAGNOSTIC STUDIES: CT scan of head showed age-appropriate atrophy and small-vessel ischemic disease of brain. CT scan of cervical spine showed advanced cervical spondylosis. ASSESSMENT: 1. Parkinsonism. 2. There is concern for Parkinson's disease and Lewy body dementia, although the patient denied any visual hallucinations and is tolerating Sinemet well. 3. Fall and fracture of right humerus and right wrist. PLAN: 1. Add Sinemet CR 25/100, 2 tablets by mouth at bedtime and continue Sinemet IR 25/100 mg, 2 tablets by mouth three times a day in daytime. 2. Physical and occupational therapy. 3. Consult orthopaedics for her right humerus and wrist fractures. The patient is on Xarelto as well. 4. Watch for visual hallucinations and if she develops those, she will be more likely to have Lewy body dementia. 5. Use a walker. Follow with our office in 2-3 weeks after hospital discharge.
[2019-05-28] MEDS ORDERED: SINEMET**CR** 25/100 TABCR PO SCH (21:00)
[2019-05-28 21:31] LABS: IONIZED CALCIUM 4.7 MG/DL (4.5-5.3)
[2019-05-28 21:58] LABS: CALCIUM LEVEL 8.5 MG/DL (8.8-10.2); CREATININE FOR GFR 1.26 MG/DL (0.55-1.30); GLOMERULAR FILTRATION RATE 43.5 (>32); POTASSIUM SERUM 4.3 MEQ/L (3.5-5.1)
[2019-05-28] MEDS: ATORVASTATIN 20 MG TAB PO SCH (22:27)
[2019-05-28] MEDS: RIVAROXABAN 20 MG TAB (XARELTO) PO SCH (22:29)
[2019-05-28] MEDS: LEVEMIR (INSULIN DETEMIR) 1 UNITS/0.01ML SC SCH (22:29)
[2019-05-29] MEDS: METOPROLOL TART 50 MG TAB PO SCH ×3 (05:28→21:19)
[2019-05-29 05:47] LABS: HEMATOCRIT 44.1 % (36.0-47.0); HEMOGLOBIN 14.2 g/dl (12.0-15.5); MEAN CORPUSCULAR HEMOGLOBIN 28.8 pg (27.0-33.0); MEAN CORPUSCULAR HGB CONC 32.2 g/dl (32.0-36.5); MEAN CORPUSCULAR VOLUME 89.5 fl (80.0-96.0); PLATELET COUNT, AUTOMATED 152 10^3/uL (150-450); RED BLOOD COUNT 4.93 10^6/uL (4.00-5.40); WHITE BLOOD COUNT 8.8 10^3/uL (4.0-10.0)
[2019-05-29 06:00] VITALS: BP 146/71
[2019-05-29 06:04] LABS: CALCIUM LEVEL 8.7 MG/DL (8.8-10.2); CREATININE FOR GFR 1.01 MG/DL (0.55-1.30); GLOMERULAR FILTRATION RATE 56.1 (>32)
[2019-05-29] MEDS: ADVAIR HFA 230/21MCG INHALER INH SCH ×2 (08:06→21:03)
[2019-05-29] MEDS: ACETAMINOPHEN 500 MG TAB PO SCH ×3 (08:46→21:14)
[2019-05-29] MEDS: HumaLOG INSULIN (NovoLOG) PER UNIT SC SCH ×4 (08:46→20:58)
[2019-05-29] MEDS: MAGNESIUM CHLORIDE 64 MG TABCR (SLO MAG) PO SCH ×3 (08:46→21:14)
[2019-05-29] MEDS: SINEMET 25-100 MG TAB PO SCH ×4 (08:47→21:14)
[2019-05-29] MEDS: PREGABALIN 75 MG CAP(LYRICA) PO SCH ×2 (08:47→21:15)
[2019-05-29] MEDS: ASPIRIN 81 MG CHEW TABLET PO SCH (08:47)
[2019-05-29] MEDS: LACTIC ACID 12% LOTION 225 GM BTL TOP SCH ×2 (08:49→21:16)
[2019-05-29] MEDS: amLODIPine 5 MG TAB PO SCH ×2 (08:49→20:57)
--- NOTE | 2019-05-29 13:21 | IPN ---
DATE OF SERVICE: 05/29/2019 SUBJECTIVE: The patient says her pain is 8/10. Recently received Tylenol and has Percocet one every 8 hours as needed and IV morphine. The patient is not having any visual hallucinations. She continued on her Sinemet for Parkinson's. No fever, chills or shortness or breath, chest pain, pressure or tightness. OBJECTIVE: Temperature 97.5, pulse 79, respiratory rate 17, blood pressure 146/71, and 96% on room air. Generally, awake, alert and oriented person answering questions appropriately. No jugular venous distention (JVD). No thyromegaly. Unable to do full range of motion in her right upper extremity due to acute humeral and radial fractures. Able to move her fingers. No sensory disturbance. Lungs are clear to auscultation. No wheezing or rales. Heart: S1, S2. Sinus. Abdomen: Soft. Nontender. Nondistended. Extremities: No cyanosis, clubbing or pitting edema. LABORATORY DATA, IMAGING STUDIES AND MICROBIOLOGY: Have been reviewed. ASSESSMENT AND PLAN: This is an 79-year-old with Parkinsonism who lives at home and usually walks unassisted and refusing to use her walker and cane who [facility] and returned due to difficulty ambulating. CURRENT ISSUES: 1. Humeral fracture and radial fracture evaluated by orthopedic surgery with recommendations for no weight bearing activity and maybe a cast for stabilization and acute rehabilitation. Pain is being controlled with Tylenol three times a day along with Percocet every 8 hours as needed and intravenous (IV) morphine if worsening or breakthrough pain. 2. Parkinsonism with questions of Lewy body dementia. Dr. Prescott has been consulted and recommended monitoring the patient for visual hallucinations. She has been continued on Sinemet three times a day immediately release as well as two tablets at bedtime controlled release. 3. History of splenic infarct, on chronic oral anticoagulant with Xarelto. CT of the head due to the fall and head trauma without loss of consciousness was negative for any intracranial hemorrhage. Cervical spine CT showed no neck fracture. There is multi level degenerative spondylosis, but no acute cervical trauma or injury. 4. Mechanical fall. The patient said that she was in the bathroom to change her clothes to pajamas and had a fall. Unable to ambulate since. May be related to ongoing Parkinsonism with history of essential tremors. She currently denied any syncopal episode, but is unable to take care of herself at home despite having two sons in the home. 5. Fatty liver, chronic. 6. Schatzki's ring with dilation. Negative for Erickson's esophagus. The patient has no complaints of dysphagia or odynophagia. 7. Colonic adenomatous polyps. No complaints of bright red blood per rectum, melena or black tarry stools. 8. Abdominal aortic aneurysm. No acute issues. 9. Hypertension. Stable. 10. Type 2 diabetes. On consistent carbohydrate diet, sliding scale and hypoglycemic protocol. DISPOSITION: Await acute rehabilitation unit (ARU) evaluation and recommendations. Will ask orthopedic surgery if cast can be placed while she is an inpatient in order to improve her mobility and comfort and to prevent further extension of the fracture. LEANDRO
[2019-05-29 14:00] VITALS: BP 125/93
--- NOTE | 2019-05-29 16:16 | IPNPDOC ---
Date Seen The patient was seen on 05/29/19. Progress Note Late entry addendum: per RN, at 2pm pt said there was a baby in a crib in her room facing her, not crying, and that her daughters from [place] and [place] flew in and came to visit her with her so cayla Patiño from [place] today. They spent 1hr chatting, and when her children left, the baby was gone. A/P: Per neurology, Dr. Prescott decrease sinemet to 1 tab tid, 1tab qhs check ua with reflex culture and sensitivity VS, I&O, 24H, Fishbone Vital Signs/I&O Vital Signs Date Time Temp Pulse Resp B/P (MAP) Pulse Ox O2 Delivery O2 Flow Rate FiO2 05/29/19 14:03 65 127/95 05/29/19 14:00 97.8 19 93 05/29/19 06:00 Room Air I&O- Last 24 Hours up to 6 AM 05/29/19 06:00 Intake Total 580 ml Output Total 600 ml Balance -20 ml Laboratory Data 24H LABS Laboratory Tests 2 05/28/19 16:56: Bedside Glucose (Misc Panel) 175H 05/28/19 21:16: Anion Gap 7L, Glomerular Filtration Rate 43.5, Calcium Level 8.5L, Whole Blood Ionized Calcium 4.7 05/28/19 22:11: Bedside Glucose (Misc Panel) 164H 05/29/19 05:31: Anion Gap 4L, Glomerular Filtration Rate 56.1, Calcium Level 8.7L, Nucleated Red Blood Cells % (auto) 0.0 05/29/19 11:42: Bedside Glucose (Misc Panel) 171H CBC/BMP Laboratory Tests 05/28/19 21:16 05/29/19 05:31 KATEY ROD MD May 29, 2019 16:16
[2019-05-29 20:53] VITALS: BP 129/86
[2019-05-29] MEDS ORDERED: SINEMET 25-100 MG TAB PO SCH (21:00)
[2019-05-29] MEDS: RIVAROXABAN 20 MG TAB (XARELTO) PO SCH (21:15)
[2019-05-29] MEDS: ATORVASTATIN 20 MG TAB PO SCH (21:15)
[2019-05-29] MEDS: LEVEMIR (INSULIN DETEMIR) 1 UNITS/0.01ML SC SCH (21:16)
[2019-05-30 05:23] LABS: HEMATOCRIT 45.2 % (36.0-47.0); MEAN CORPUSCULAR VOLUME 90.4 fl (80.0-96.0); PLATELET COUNT, AUTOMATED 129 10^3/uL (150-450); WHITE BLOOD COUNT 8.5 10^3/uL (4.0-10.0)
[2019-05-30 05:36] VITALS: BP 154/78
[2019-05-30] MEDS: METOPROLOL TART 50 MG TAB PO SCH ×2 (05:48→14:29)
[2019-05-30 05:49] LABS: CALCIUM LEVEL 9.2 MG/DL (8.8-10.2); CREATININE FOR GFR 1.01 MG/DL (0.55-1.30); GLOMERULAR FILTRATION RATE 56.1 (>32); POTASSIUM SERUM 4.3 MEQ/L (3.5-5.1)
[2019-05-30] MEDS: HumaLOG INSULIN (NovoLOG) PER UNIT SC SCH ×2 (07:30→12:08)
[2019-05-30] MEDS: ADVAIR HFA 230/21MCG INHALER INH SCH (07:43)
[2019-05-30] MEDS: MAGNESIUM CHLORIDE 64 MG TABCR (SLO MAG) PO SCH (08:07)
[2019-05-30] MEDS: ACETAMINOPHEN 500 MG TAB PO SCH (08:08)
[2019-05-30] MEDS: ASPIRIN 81 MG CHEW TABLET PO SCH (08:08)
[2019-05-30] MEDS: SINEMET 25-100 MG TAB PO SCH (08:09)
[2019-05-30] MEDS: PREGABALIN 75 MG CAP(LYRICA) PO SCH (08:09)
[2019-05-30] MEDS: amLODIPine 5 MG TAB PO SCH (08:09)
[2019-05-30] MEDS: LACTIC ACID 12% LOTION 225 GM BTL TOP SCH (08:10)
[2019-05-30] MEDS ORDERED: NYSTATIN 100,000 UNITS/GM TOPICAL PWD 15 GM TOP SCH (09:00)
[2019-05-30 14:00] VITALS: BP 143/83
[2019-05-30 14:29] VITALS: BP 154/78
--- NOTE | 2019-05-30 20:19 | DS.PDOC ---
Discharge Summary General Date of Admission May 28, 2019 at 11:04 Date of Discharge CHIEF COMPLAINT: [] HISTORY OF PRESENT ILLNESS: [] HOSPITAL COURSE: [] REVIEW OF SYSTEMS: CONSTITUTIONAL: Denies lack of energy, unexplained weight gain or weight loss, loss of appetite, fever, night sweats EYES: Denies eye drainage, eye pain, visual changes, dry/irritated eye EARS, NOSE, MOUTH, THROAT: Denies difficulty hearing, ringing in ears, mouth sores, loose teeth, sore throat, facial numbness or pain NECK: Denies swollen glands CARDIOVASCULAR: Denies irregular heartbeat, racing heart, chest pains, swelling of feet or legs, pain in legs with walking RESPIRATORY: Denies shortness of breath, night sweats, wheezing, sputum product ion, oxygen at home, coughing up blood, cough lasting > 1 month GASTROINTESTINAL: Denies abdominal pain, constipation, bloody stool, diarrhea, heartburn, nausea, vomiting GENITOURINARY: Denies painful urination, bloody urine, frequent urination, urgency, leaking urine, impotence MUSCULOSKELETAL: Denies joint pain, muscle pain, leg swelling INTEGUMENTARY: Denies rash, itching, new skin lesion, change in existing skin lesion, hair loss or increase, breast changes. NEUROLOGICAL: Denies headaches, dizziness, difficulty walking, numbness or tingling PSYCHIATRIC: Denies depression, anxiety, recurrent bad thoughts, mood swings, hallucinations PAST MEDICAL HISTORY: 1. [] 2. [] 3. [] 4. [] 5. [] 6. [] 7. [] 8. [] 9. [] 10. [] PAST SURGICAL HISTORY: 1. [] 2. [] 3. [] 4. [] FAMILY HISTORY: Father: [] Mother: [] Siblings: [] Children: [] Hereditary Diseases: [] Unexpected deaths due to medical reasons: [] SOCIAL HISTORY: Marital status: []. Resides in: [] Children: [] Employment: [] Tobacco use:[] ETOH: [] Illicit drug use: [] Tattoos done unprofessionally: []. IV drug use: [] Other relevant social factors: [] ALLERGIES: Please see below. DISCHARGE MEDICATIONS: Please see below. PHYSICAL EXAMINATION: CONSTITUTIONAL: No acute distress, resting comfortably, AAO x 3 EYES: PERRLA, EOM intact HENT, MOUTH: Normocephalic, atraumatic, moist mucous membranes, NECK: SUPPLE, no JVD, no lymphadenopathy, no carotid bruit CV: Regular rate and rhythm, S1S2 normal, no murmurs/rubs/gallops RESPIRATORY: Clear to auscultation bilaterally, no rales/rhonchi/wheezes GI: BS positive in 4 quadrants, soft, nontender, nondistended, no rebound or guarding, no organomegaly : Deferred MUSCULOSKELETAL: Normal ROM. No cyanosis, clubbing, swelling, joint deformity, extremity edema INTEGUMENTARY: Intact, no rashes, no lesions, no erythema NEUROLOGIC: Cranial Nerves II-XII are intact, no focal deficits PSYCHIATRIC: Mood and affect are normal LABORATORY DATA: Please see below IMAGING: [] ASSESSMENT: [] PLAN: 1. [] 2. [] 3. [] 4. [] 5. [] 6. [] 7. [] 8. [] 9. [] 10. [] DISPOSITION: [] TIME SPENT ON DISCHARGE: Greater than [] minutes. Discharge Summary PROCEDURES PERFORMED DURING STAY: [None]. ADMITTING DIAGNOSES: 1. . DISCHARGE DIAGNOSES: 1. . COMPLICATIONS/CHIEF COMPLAINT: Humeral Fracture,Radial Fracture. HISTORY OF PRESENT ILLNESS: . HOSPITAL COURSE: . DISCHARGE MEDICATIONS: Please see below. ALLERGIES: Please see below. PHYSICAL EXAMINATION ON DISCHARGE: VITAL SIGNS: Please see below. GENERAL: HEENT: NECK: CARDIOVASCULAR EXAMINATION: RESPIRATORY EXAMINATION: ABDOMINAL EXAMINATION: EXTREMITIES: SKIN: NEUROLOGICAL EXAMINATION: PSYCHIATRIC EXAMINATION: LABORATORY DATA: Please see below. IMAGING: PROGNOSIS: ACTIVITY: [As tolerated]. DIET: DISCHARGE PLAN: DISPOSITION: 62 D/T Rehab Facility. DISCHARGE INSTRUCTIONS: 1. . ITEMS TO FOLLOWUP ON ON OUTPATIENT: 1. . DISCHARGE CONDITION: [Stable]. TIME SPENT ON DISCHARGE: Greater than minutes. Vital Signs/I&Os Vital Signs Date Time Temp Pulse Resp B/P (MAP) Pulse Ox O2 Delivery O2 Flow Rate FiO2 05/30/19 14:29 67 154/78 05/30/19 14:00 98.4 16 89 05/30/19 05:36 Room Air I&O- Last 24 Hours up to 6 AM 05/30/19 06:00 Intake Total 510 ml Output Total 1050 ml Balance -540 ml Laboratory Data Labs 24H Laboratory Tests 2 05/29/19 20:54: Bedside Glucose (Misc Panel) 164H 05/29/19 22:35: Urine Color YELLOW, Urine Appearance CLEAR, Urine pH 6.0, Urine Specific [place]ascade 1.016, Urine Protein 1+H, Urine Glucose (UA) 1+H, Urine Ketones TRACEH, Urine Blood NEGATIVE, Urine Nitrite NEGATIVE, Urine Bilirubin NEGATIVE, Urine Urobilinogen 0.2, Urine Leukocyte Esterase NEGATIVE, Urine WBC (Auto) 1, Urine RBC (Auto) 1, Urine Hyaline Casts (Auto) 3, Urine Bacteria (Auto) NEGATIVE, Urine Squamous Epithelial Cells 0, Urine Sperm (Auto) 05/30/19 04:43: Nucleated Red Blood Cells % (auto) 0.0, Anion Gap 6L, Glomerular Filtration Rate 56.1, Calcium Level 9.2 05/30/19 11:27: Bedside Glucose (Misc Panel) 119H CBC/BMP Laboratory Tests 05/30/19 04:43 FSBS Laboratory Tests Test 05/29/19 20:54 05/30/19 11:27 Range/Units Bedside Glucose (Misc Panel) 164 119 83-110 MG/DL Discharge Medications Scheduled Amiloride HCl (Amiloride HCl) 5 Mg Tablet, 5 MG PO DAILY, (Reported) Ammonium Lactate (Ammonium Lactate) 12% Lotion, 1 DOSE TOP BID, (Reported) APPLY TO FEET Aspirin (Aspirin) 81 Mg Tab.chew, 81 MG PO DAILY, (Reported) Atorvastatin Calcium (Atorvastatin Calcium) 40 Mg Tablet, 40 MG PO QHS, (Reported) Carbidopa/Levodopa (Carbidopa-Levodopa 25-100 Tab) 1 Each Tablet, 2 TAB PO TID, (Reported) Fluticasone Propion/Salmeterol (Advair Hfa 230-21 Mcg Inhaler) 12 Gm Hfa.aer.ad, 2 PUFF INH BID, (Reported) Insulin Glargine (Lantus) 100 Unit/1 Ml Vial, 30 UNITS SC QHS, (Reported) Insulin Human Lispro (Humalog) 1 Units/0.01 Ml Inj, 1 UNITS SC AC, (Reported) SLIDING SCALE Magnesium Chloride (Mag64) 64 Mg Tablet.dr, 64 MG PO TID, (Reported) Metoprolol Tartrate (Metoprolol Tartrate) 50 Mg Tablet, 50 MG PO Q8H, (Reported) Pregabalin (Lyrica) 75 Mg Capsule, 75 MG PO BID, (Reported) Rivaroxaban (Xarelto) 20 Mg Tablet, 20 MG PO QHS, (Reported) [Amantadine 50MG/5ML] , 50 MG PO BID, (Reported) Scheduled PRN Nystatin (Nystatin) 15 Gm Cream..g., 1 APLCT TOP BID PRN for RASH/ITCHING, (Reported) APPLY TO GROIN. UNDER BREASTS Allergies Coded Allergies: rofecoxib (Verified Allergy, Severe, Tongue Swelling , 12/21/18) amoxicillin (Verified Allergy, Mild, Rash, 12/30/18) azithromycin (Verified Allergy, Mild, Rash, 12/30/18) clavulanic acid (Verified Allergy, Mild, Rash, 12/30/18) exenatide (Verified Adverse Reaction, Mild, Abdominal pain , 12/21/18) glyburide (Verified Adverse Reaction, Mild, Too low blood sugar, 12/30/18) metoclopramide (Verified Adverse Reaction, Mild, Tremors , 12/30/18) tramadol (Verified Adverse Reaction, Mild, Rash , 12/21/18) Lacy Baugh MD May 30, 2019 20:19
--- NOTE | 2019-05-30 20:20 | DS.PDOC ---
Discharge Summary General Date of Admission May 28, 2019 at 11:04 Date of Discharge 05/30/19 Primary Care Physician: Alayna Meléndez Attending Physician: Lacy Baugh MD Specialist/Consultants Involve: CHE GARCIA MD Discharge Summary HISTORY OF PRESENT ILLNESS: Patient is an 79-year-old female who was living at home with her two sons, history of Parkinsonism, but does not use her walker or her cane at home, as she has been walking around grabbing on to things until two days ago, when she fell in the bathroom. Patient changed her clothes in the bathroom and dressed in pajamas. She fell over on her right side with some head trauma, no loss of consciousness. She was heard by her sons, Royal and Haroon, who then helped her after she pressed the buzzer in the home. Patient otherwise denied any chest pain, pressure or tightness, palpitations. No fever or chills. No diarrhea, shortness of breath, nausea or vomiting, abdominal, pain, dysuria, urgency, frequency, weight gain, weight changes, changes in appetite, changes in vision, but did complain of lightheadedness and dizziness during this episode. Patient otherwise has had no prior episodes. No fall. She went to [facility] emergency room two days ago and was thought to have had a right humeral fracture as well as a right radial fracture. She was then sent home and came home at 4:00 a.m. Since being home, patient sat on a chair between the kitchen and the bathroom. She has had no recurrent falls. Her sons, Royal and Haroon, did not think that she would be able to manage at home and therefore called 911 to bring her to the emergency room here at [facility]. In the emergency room (ER), a CT of the head was negative. Patient is on chronic anticoagulation for history of a splenic infarction,on chronic Xarelto, but with no hemorrhage. Cervical spine CT has no acute fracture. Radial ulnar x- ray on the right hand shows no acute fracture or dislocation. Patient had a shoulder x-ray, which shows a minimally displaced fracture involving the humeral head and neck on the right. Wrist x-ray showed fracture involving the lateral distal radial metaphysis and radial styloid suspected on single oblique view. Orthopedic surgeon, Dr. Saenz, has been consulted to see the patient. This is nonsurgical. Family is requesting placement. HOSPITAL COURSE: Patient was kept in sling, unsteady on her feet when ambulating with walker. She began to have hallucinations of cats, babies in cribs, dogs barking, people in her room according to nursing staff. Patient also did not sleep well during her hospitalization. She was initially started on Sinemet CR 25/100, 2 tablets by mouth at bedtime and continue Sinemet IR 25/100 mg, 2 tablets by mouth three times a day in daytime. She continued to have hallucinations at times and that dose was later decreased. UA neg, labs were stable. She was evaluated by neurology who stated that there was a concern for Parkinson's disease and Lewy body dementia. Pain was otherwise controlled. Hemodynamically she was stable. She required a lot of redirection by nursing staff at times. Patient was discharged today to ARU to continue current care with the goal of placement in the future. At the time of discharge, the patient had no complaints. REVIEW OF SYSTEMS: Unable to obtain due to confusion, unreliable source PAST MEDICAL HISTORY: 1. Chronic kidney disease stage III. 2. Diabetes. 3. Hypertension.. 4. Hyperlipidemia. 5. Abdominal aortic aneurysm. 6. Coronary artery disease (CAD), bare metal stent, on chronic Xarelto, Beaver's, 08/2018. 7. Splenic infarction 2018, on chronic anticoagulant therapy with Xarelto. 8. Fatty liver. 9. Pancreatic cyst, no change from 2017. 10. Schatzki ring with dilation, Erickson's esophagus is negative. 11. Adenomatous colonic polyps. 12. Drug-induced parkinsonism, followed by neurology, with essential tremors, primary in the right arm and leg. PAST SURGICAL HISTORY: 1. Bilateral cataracts, 2015, 2016. 2. Tonsillectomy 1940. 3. Esophagogastroduodenoscopy (EGD) with dilation for Schatzki ring 2015. 4. Right ulnar nerve transposition 2014. 5. Hysterectomy 1970. 6. Cholecystectomy 2002. 7. Colonoscopy 2013. 8. Right knee arthroscopy 2010. 9. Right trigger finger repair 2007. 10. Right wrist tendon release 2004. 11. Appendectomy 2009. SOCIAL HISTORY: Denies any alcohol, drug use or smoking history. 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 Patient lives at home, which she owns, with two sons, Royal and Haroon. She is DO NOT RESUSCITATE/DO NOT INTUBATE. Medical orders for life-sustaining treatment (MOLST) form has been signed. FAMILY HISTORY: Unable to obtain due to intermittent confusion, unreliable source ALLERGIES: Please see below. DISCHARGE MEDICATIONS: Please see below. PHYSICAL EXAMINATION: CONSTITUTIONAL: Pleasantly confused, at times restless but currently resting comfortably, AAO x 2 EYES: PERRLA, EOM intact HENT, MOUTH: Normocephalic, atraumatic, moist mucous membranes NECK: SUPPLE, no JVD, no lymphadenopathy, no carotid bruit CV: Regular rate and rhythm, S1S2 normal, no murmurs/rubs/gallops RESPIRATORY: Clear to auscultation bilaterally, no rales/rhonchi/wheezes GI: BS positive in 4 quadrants, soft, nontender, nondistended, no rebound or guarding, no organomegaly : Deferred MUSCULOSKELETAL: RUE in splint, decreased ROM. No cyanosis, clubbing, swelling, joint deformity, extremity edema INTEGUMENTARY: Intact, no rashes, no lesions, no erythema NEUROLOGIC: Cranial Nerves II-XII are intact, no focal deficits PSYCHIATRIC: Pleasantly confused, thought she heard "dogs barking" in the room LABORATORY DATA: Please see below IMAGING: See under imaging. ASSESSMENT: 79 y/o f admitted for right humeral and distal radial fracture, dementia discharged today to ARU. PLAN: 1. Right humeral and distal radial fracture. Stable, in splint and nonsurgical. C/w pain control, vitamin D daily for next 3 months, o/p f/u with Ortho. C/w shoulder immobilizer, NWB RUE. C/w PT/OT. 2. Dementia, Hx of Parkinson's; however, cannot r/o Carlos body dementia. Followed by neurology on floor. Cannot also r/o sleep deprivation as cause of worsening confusion over past several days. C/w sinemet at decreased dose. Redirection with activities. Seeking placement 3. CAD. Denies chest pain, shortness of breath. Continue on home medications, atorvastatin, metoprolol. 4. History of splenic infarction. On chronic Xarelto. DISPOSITION: Discharged to ARU. TIME SPENT ON DISCHARGE: Greater than 30 minutes. Vital Signs/I&Os Vital Signs Date Time Temp Pulse Resp B/P (MAP) Pulse Ox O2 Delivery O2 Flow Rate FiO2 05/30/19 14:29 67 154/78 05/30/19 14:00 98.4 16 89 05/30/19 05:36 Room Air I&O- Last 24 Hours up to 6 AM 05/30/19 06:00 Intake Total 510 ml Output Total 1050 ml Balance -540 ml Laboratory Data Labs 24H Laboratory Tests 2 05/29/19 20:54: Bedside Glucose (Misc Panel) 164H 05/29/19 22:35: Urine Color YELLOW, Urine Appearance CLEAR, Urine pH 6.0, Urine Specific [place] 1.016, Urine Protein 1+H, Urine Glucose (UA) 1+H, Urine Ketones TRACEH, Urine Blood NEGATIVE, Urine Nitrite NEGATIVE, Urine Bilirubin NEGATIVE, Urine Urobilinogen 0.2, Urine Leukocyte Esterase NEGATIVE, Urine WBC (Auto) 1, Urine RBC (Auto) 1, Urine Hyaline Casts (Auto) 3, Urine Bacteria (Auto) NEGATIVE, Urine Squamous Epithelial Cells 0, Urine Sperm (Auto) 05/30/19 04:43: Nucleated Red Blood Cells % (auto) 0.0, Anion Gap 6L, Glomerular Filtration Rate 56.1, Calcium Level 9.2 05/30/19 11:27: Bedside Glucose (Misc Panel) 119H CBC/BMP Laboratory Tests 05/30/19 04:43 FSBS Laboratory Tests Test 05/29/19 20:54 05/30/19 11:27 Range/Units Bedside Glucose (Misc Panel) 164 119 83-110 MG/DL Discharge Medications Scheduled Amiloride HCl (Amiloride HCl) 5 Mg Tablet, 5 MG PO DAILY, (Reported) Ammonium Lactate (Ammonium Lactate) 12% Lotion, 1 DOSE TOP BID, (Reported) APPLY TO FEET Aspirin (Aspirin) 81 Mg Tab.chew, 81 MG PO DAILY, (Reported) Atorvastatin Calcium (Atorvastatin Calcium) 40 Mg Tablet, 40 MG PO QHS, (Reported) Carbidopa/Levodopa (Carbidopa-Levodopa 25-100 Tab) 1 Each Tablet, 2 TAB PO TID, (Reported) Fluticasone Propion/Salmeterol (Advair Hfa 230-21 Mcg Inhaler) 12 Gm Hfa.aer.ad, 2 PUFF INH BID, (Reported) Insulin Glargine (Lantus) 100 Unit/1 Ml Vial, 30 UNITS SC QHS, (Reported) Insulin Human Lispro (Humalog) 1 Units/0.01 Ml Inj, 1 UNITS SC AC, (Reported) SLIDING SCALE Magnesium Chloride (Mag64) 64 Mg Tablet.dr, 64 MG PO TID, (Reported) Metoprolol Tartrate (Metoprolol Tartrate) 50 Mg Tablet, 50 MG PO Q8H, (Reported) Pregabalin (Lyrica) 75 Mg Capsule, 75 MG PO BID, (Reported) Rivaroxaban (Xarelto) 20 Mg Tablet, 20 MG PO QHS, (Reported) [Amantadine 50MG/5ML] , 50 MG PO BID, (Reported) Scheduled PRN Nystatin (Nystatin) 15 Gm Cream..g., 1 APLCT TOP BID PRN for RASH/ITCHING, (Reported) APPLY TO GROIN. UNDER BREASTS Allergies Coded Allergies: rofecoxib (Verified Allergy, Severe, Tongue Swelling , 12/21/18) amoxicillin (Verified Allergy, Mild, Rash, 12/30/18) azithromycin (Verified Allergy, Mild, Rash, 12/30/18) clavulanic acid (Verified Allergy, Mild, Rash, 12/30/18) exenatide (Verified Adverse Reaction, Mild, Abdominal pain , 12/21/18) glyburide (Verified Adverse Reaction, Mild, Too low blood sugar, 12/30/18) metoclopramide (Verified Adverse Reaction, Mild, Tremors , 12/30/18) tramadol (Verified Adverse Reaction, Mild, Rash , 12/21/18) Lacy Baugh MD May 30, 2019 20:20
== END 2019-05-30 15:05 | DRG 563 ==
LOC: M ED 09:43 → EDBD 09:43 → M ED INP 11:04 → ENRESERVTM 11:34 → ENRESERVDT 11:34 → M MS5PR 12:15
PROVIDERS: ADMIT General Practice; ATTEND Internal Medicine
DX: S42.291A Other displaced fracture of upper end of right humerus, initial encounter for closed fracture (principal); S52.571A Other intraarticular fracture of lower end of right radius, initial encounter for closed fracture; K86.2 Cyst of pancreas; G31.83 Neurocognitive disorder with Lewy bodies; W18.09XA Striking against other object with subsequent fall, initial encounter; Y92.012 Bathroom of single-family (private) house as the place of occurrence of the external cause; N18.3 Chronic kidney disease, stage 3 (moderate); E11.22 Type 2 diabetes mellitus with diabetic chronic kidney disease; Z66 Do not resuscitate; I12.9 Hypertensive chronic kidney disease with stage 1 through stage 4 chronic kidney disease, or unspecified chronic kidney disease; E78.5 Hyperlipidemia, unspecified; I25.10 Atherosclerotic heart disease of native coronary artery without angina pectoris; Z95.5 Presence of coronary angioplasty implant and graft; K76.0 Fatty (change of) liver, not elsewhere classified; Z86.010 Personal history of colon polyps; Z79.4 Long term (current) use of insulin; Z79.82 Long term (current) use of aspirin; Z79.899 Other long term (current) drug therapy; Z79.01 Long term (current) use of anticoagulants; Z88.0 Allergy status to penicillin; Z88.1 Allergy status to other antibiotic agents; Z88.5 Allergy status to narcotic agent; Z88.6 Allergy status to analgesic agent; Z88.8 Allergy status to other drugs, medicaments and biological substances; Z98.41 Cataract extraction status, right eye; Z98.42 Cataract extraction status, left eye; Z90.49 Acquired absence of other specified parts of digestive tract; M85.80 Other specified disorders of bone density and structure, unspecified site; Y93.E1 Activity, personal bathing and showering; F02.80 Dementia in other diseases classified elsewhere, unspecified severity, without behavioral disturbance, psychotic disturbance, mood disturbance, and anxiety

== ENCOUNTER 2019-05-30 13:28 | Inpatient (IN) | payer MEDICARE, OTHER ==
[~2019-05-30] VITALS: Ht 172.7 cm; Wt 66.8 kg
[~2019-05-30 13:28] MED LIST changes: +AMANTADINE 50MG/5ML PO; +AMIL25TA PO; +AMIL5TAB4 PO; +AMMO12LO TOP; +ASPI81CH33 PO; +ATOR40TA75 PO; +METO50TA7 PO; +NYST10CR TOP
[2019-05-30] MEDS ORDERED: DEXTROSE 50% 50 ML SYRINGE IV PRN (14:45)
[2019-05-30] MEDS ORDERED: BISACODYL 10 MG SUPP PR PRN (14:45)
[2019-05-30] MEDS ORDERED: GLUCAGON FOR INJ 1 MG VIAL (J1610) SC PRN (14:45)
[2019-05-30] MEDS ORDERED: GLUCOSE 4 GM CHEW TABLET PO PRN (14:45)
[2019-05-30] MEDS ORDERED: SINEMET 25-100 MG TAB PO SCH (15:00)
[2019-05-30] MEDS ORDERED: LORazepam 2 MG/ML VIAL (J2060) IM PRN (15:15)
[2019-05-30 15:38] VITALS: BP 117/60
--- NOTE | 2019-05-30 16:06 | HPEPDOC ---
Communicable Disease Specialist Note DATE OF ADMISSION: 05-30-19 DATE OF SERVICE: 05-30-19 TIME OF ADMISSION: Please refer to physician's admission order. SOURCE OF ADMISSION INFORMATION: [facility] record and patient CHIEF COMPLAINT: Parkinsons with fall HISTORY OF PRESENT ILLNESS: 79F pmh drug-induced Parkinsons, CKD3, DM, HTN, HLD, CAD with metal stent on Xarelto who fell at home and presented to [facility] ED on 05-28-19 complaining of right arm pain. Xrays revealed, Fracture involving the lateral distal radial metaphysis and radial styloid and humeral X-ray showed, Minimally displaced fracture involving the humeral head/neck. She was evaluated by orthopedics who did not recommend surgical intervention, but to continue splint and sling with NWB to RUE with follow-up in the office. Neurology also evaluated patient as her fall was thought to be due to worsening Parkinsons and added controlled release Sinemet to her evening dosing and suggested continued therapy. She was found to have deficits in mobility and ADLs below her prior level of function and deemed appropriate for discharge to ARU on 05-30-19. REVIEW OF SYSTEMS: The following is a completed review of systems and has been reviewed. Review of systems otherwise unremarkable. PAIN: Patient self reports no pain EYES: No recent vision changes EARS, NOSE, & THROAT: No throat pain, or dysphagia, or rhinorrhea CARDIOVASCULAR: Denies chest pain or palpitations PULMONARY: Denies shortness of breath GASTROINTESTINAL: Denies constipation/diarrhea GENITOURINARY: denies dysuria MUSCULOSKELETAL: RUE weakness NEUROLOGICAL: +essential tremor and parkinson's HEMATOLOGICAL: denies easy bruising SKIN: intact PSYCHIATRIC: unremarkable All other review of systems found to be negative. PAST MEDICAL HISTORY: as per HPI PAST SURGICAL HISTORY: Tonsillectomy, bilat cataract, hysterectomy, colonoscopy, cholecystectomy, EGD with Schatzi ring, right ulnar nerve transposition, appendectomy, right trigger finger repair ALLERGIES: Please see below. MEDICATIONS: Please see below. SOCIAL HISTORY: no etoh/illicit drugs/smoking DIET: consistent carb PHYSICAL EXAMINATION: VITAL SIGNS: Please see below. GENERAL: Pleasant and cooperative. No acute distress. HEENT: PERRL. Extraocular movements intact. Clear conjunctiva CARDIOVASCULAR: Regular rate and rhythm. No murmurs, rubs, or gallops LUNGS: Clear to auscultation bilaterally. No wheezes. No rhonchi ABDOMEN: Soft, nontender, nondistended. Positive bowel sounds. Normal active bowel sounds NEUROLOGICAL: Alert and oriented times three. Cranial nerves II through XII grossly intact. Sensation grossly intact EXTREMITIES: 5\5 strength left upper extremities. 5\5 strength bilat lower extremity. 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 IMAGING: Imaging documentation personally reviewed by record FUNCTIONAL STATUS: Premorbid: Modified Independent with all activities of daily life as well as mobility with RW On Admission: Max assist for functional transfers and toileting, Min assist for lower body dressing, standby assist for bed mobility GOALS: Mod-I household distances with quad-cane, functional transfers, dressing, toileting, bathing, medical optimization ASSESSMENT:79-year-old F with past medical history of Parkinsons who presents status post fall with right humeral and radial fracture PLAN: 1. Rehab- PT/OT advance agit and ADL training maintaining NWB RUE, dynamic balance training TREE PRUNER for cognition in setting of possible Lewy Body dementia 2. Neuro: hx of drug-induced parkinsons c/u Sinemet dosing causing functional decline with recurrent falls, f/u with neurology -Ativan IM ordered prn for agitation/delirium-patient lucid at present -c/u Lyrica for neuropathy in setting of DM 3. Cardiac: hx of CAD s/p bare metal stent c/u Xarelto and ASA -HTN c/u amlodipine, metoprolol, and Amiloride, daily weights for grade 1 diastolic CHF -HLD c/u statin therapy -medicine consulted to assist in overall management 4. Endo: pmh DM c/u Levemir and ISS, adjust prn 5. Resp: encourage incentive spirometry, monitor for infection, c/u Advair 5. renal: hx CKD3, monitor, will consult renal prn 6. Ortho: s/p right radial fracture and right humeral fracture- NWB, ortho consulted to assist in management 7. : monitor PVRs 8. Pain: Tylenol prn 9. DVT ppx: Xarelto 10. Dispo: TBD POST ADMISSION PHYSICIAN EVALUATION: Medical and functional status: Description of medical status, medical assessment: As above. Rehabilitation diagnosis and current and prior cold morbid medical conditions as above. Risk of complications and plans to mitigate them as above. Description of functional status current status is as above. Prior status as above. Status compared to preadmission: There are no clinically significant differences between the patient's current status and the information described on the preadmission screening document. Treatment plan anticipated: Treatment plan is as described above. Required disciplines including physical therapy, occupational therapy, others as noted above. Intensity of services: 3 hours a day, 6 days a week. Special considerations: There are no specific special or safety considerations that would likely preclude immediate implementation of an intensive rehabilitation program or subsequently influence the plan of care. ATTESTATION: Considering all the information above, it is my best judgment that this patient requires intensive rehabilitation therapy as described above and an inpatient hospital environment due to the complexity of nursing, medical, and rehabilitation needs required by the patient. Furthermore, this patient can reasonably be expected to participate in an benefit from an inpatient rehabilitation stay with an interdisciplinary team approach to the delivery of rehabilitation care under the direction and supervision of rehabilitation physician PROGNOSIS: good ESTIMATED LENGTH OF STAY: 18-21 days. PROJECTED DISCHARGE DESTINATION: Home with family support and any durable medical equipment required to increase functional safety and mobility. TIME SPENT COUNSELING AND COORDINATING INITIAL CARE: Greater than 70 minutes. Vital Signs Vital Sign - Last 24 Hours 05/30/19 15:38 Temp 98.2 Pulse 79 Resp 17 B/P (MAP) 117/60 (79) Pulse Ox 96 O2 Delivery Room Air Home Medications Scheduled Amiloride HCl (Amiloride HCl) 5 Mg Tablet, 5 MG PO DAILY, (Reported) Ammonium Lactate (Ammonium Lactate) 12% Lotion, 1 DOSE TOP BID, (Reported) APPLY TO FEET Aspirin (Aspirin) 81 Mg Tab.chew, 81 MG PO DAILY, (Reported) Atorvastatin Calcium (Atorvastatin Calcium) 40 Mg Tablet, 40 MG PO QHS, (Reported) Carbidopa/Levodopa (Carbidopa-Levodopa 25-100 Tab) 1 Each Tablet, 2 TAB PO TID, (Reported) Fluticasone Propion/Salmeterol (Advair Hfa 230-21 Mcg Inhaler) 12 Gm Hfa.aer.ad, 2 PUFF INH BID, (Reported) Insulin Glargine (Lantus) 100 Unit/1 Ml Vial, 30 UNITS SC QHS, (Reported) Insulin Human Lispro (Humalog) 1 Units/0.01 Ml Inj, 1 UNITS SC AC, (Reported) SLIDING SCALE Magnesium Chloride (Mag64) 64 Mg Tablet.dr, 64 MG PO TID, (Reported) Metoprolol Tartrate (Metoprolol Tartrate) 50 Mg Tablet, 50 MG PO Q8H, (Reported) Pregabalin (Lyrica) 75 Mg Capsule, 75 MG PO BID, (Reported) Rivaroxaban (Xarelto) 20 Mg Tablet, 20 MG PO QHS, (Reported) [Amantadine 50MG/5ML] , 50 MG PO BID, (Reported) Scheduled PRN Nystatin (Nystatin) 15 Gm Cream..g., 1 APLCT TOP BID PRN for RASH/ITCHING, (Reported) APPLY TO GROIN. UNDER BREASTS Allergies Coded Allergies: rofecoxib (Verified Allergy, Severe, Tongue Swelling , 12/21/18) amoxicillin (Verified Allergy, Mild, Rash, 12/30/18) azithromycin (Verified Allergy, Mild, Rash, 12/30/18) clavulanic acid (Verified Allergy, Mild, Rash, 12/30/18) exenatide (Verified Adverse Reaction, Mild, Abdominal pain , 12/21/18) glyburide (Verified Adverse Reaction, Mild, Too low blood sugar, 12/30/18) metoclopramide (Verified Adverse Reaction, Mild, Tremors , 12/30/18) tramadol (Verified Adverse Reaction, Mild, Rash , 12/21/18) A-FIB/CHADSVASC A-FIB History Current/History of A-Fib/PAF?: No KERON PÉREZ MD May 30, 2019 16:06
[2019-05-30] MEDS: ACETAMINOPHEN 500 MG TAB PO SCH ×2 (16:52→21:07)
[2019-05-30] MEDS: SINEMET 25-100 MG TAB PO SCH (16:52)
[2019-05-30] MEDS: MAGNESIUM CHLORIDE 64 MG TABCR (SLO MAG) PO SCH ×2 (16:53→21:06)
[2019-05-30] MEDS: REMEDY PHYTOPLEX Z-GUARD PASTE 113GM TUBE (FROM STOREROOM PRODUCT) TOP SCH ×2 (16:53→21:09)
[2019-05-30] MEDS: HumaLOG INSULIN (NovoLOG) PER UNIT SC SCH ×2 (17:14→21:00)
[2019-05-30 20:00] VITALS: BP 142/68
[2019-05-30] MEDS: ADVAIR HFA 230/21MCG INHALER INH SCH (20:48)
[2019-05-30] MEDS ORDERED: SINEMET**CR** 25/100 TABCR PO SCH (21:00)
[2019-05-30] MEDS: LEVEMIR (INSULIN DETEMIR) 1 UNITS/0.01ML SC SCH (21:05)
[2019-05-30] MEDS: ATORVASTATIN 20 MG TAB PO SCH (21:07)
[2019-05-30] MEDS: RIVAROXABAN 20 MG TAB (XARELTO) PO SCH (21:07)
[2019-05-30] MEDS: SINEMET**CR** 25/100 TABCR PO SCH (21:07)
[2019-05-30] MEDS: PREGABALIN 75 MG CAP(LYRICA) PO SCH (21:07)
[2019-05-30] MEDS: DOCUSATE SODIUM 100 MG CAP PO SCH (21:08)
[2019-05-30] MEDS: METOPROLOL TART 50 MG TAB PO SCH (21:08)
[2019-05-30] MEDS: SENNA 8.6 MG TAB (SENOKOT) PO SCH (21:08)
[2019-05-30] MEDS: amLODIPine 5 MG TAB PO SCH (21:08)
[2019-05-31 05:21] LABS: BASO # 0.1 10^3/uL (0.0-0.2); BASO % 0.7 % (0.0-1.0); EOS # 0.2 10^3/uL (0.0-0.5); EOS % 2.4 % (0.0-3.0); HEMATOCRIT 44.5 % (36.0-47.0); HEMOGLOBIN 14.1 g/dl (12.0-15.5); LYMPH # 0.9 10^3/uL (1.5-5.0); LYMPH % 11.2 % (24.0-44.0); MEAN CORPUSCULAR HEMOGLOBIN 28.8 pg (27.0-33.0); MEAN CORPUSCULAR HGB CONC 31.7 g/dl (32.0-36.5); MEAN CORPUSCULAR VOLUME 90.8 fl (80.0-96.0); MONO # 0.9 10^3/uL (0.0-0.8); MONO % 10.7 % (0.0-5.0); NEUTROPHILS # 6.2 10^3/uL (1.5-8.5); NEUTROPHILS % 74.6 % (36.0-66.0); PLATELET COUNT, AUTOMATED 184 10^3/uL (150-450); WHITE BLOOD COUNT 8.3 10^3/uL (4.0-10.0)
[2019-05-31 05:52] LABS: ALBUMIN 2.9 GM/DL (3.2-5.2); BILIRUBIN,TOTAL 0.9 MG/DL (0.2-1.0); CALCIUM LEVEL 8.7 MG/DL (8.8-10.2); CREATININE FOR GFR 1.12 MG/DL (0.55-1.30); GLOMERULAR FILTRATION RATE 49.8 (>32); MAGNESIUM LEVEL 2.2 MG/DL (1.8-2.4); POTASSIUM SERUM 4.4 MEQ/L (3.5-5.1); TOTAL PROTEIN 6.5 GM/DL (6.4-8.2)
[2019-05-31 06:00] VITALS: BP 125/63
[2019-05-31] MEDS: METOPROLOL TART 50 MG TAB PO SCH ×3 (06:42→22:33)
[2019-05-31] MEDS: HumaLOG INSULIN (NovoLOG) PER UNIT SC SCH ×4 (07:30→22:37)
[2019-05-31] MEDS: ADVAIR HFA 230/21MCG INHALER INH SCH ×2 (07:38→20:00)
[2019-05-31 08:08] LABS: PROLACTIN 30.7 NG/ML
[2019-05-31] MEDS: MAGNESIUM CHLORIDE 64 MG TABCR (SLO MAG) PO SCH ×3 (09:13→22:35)
[2019-05-31] MEDS: ASPIRIN 81 MG ENTERIC TAB PO SCH (09:14)
[2019-05-31] MEDS: PREGABALIN 75 MG CAP(LYRICA) PO SCH ×2 (09:14→22:31)
[2019-05-31] MEDS: DOCUSATE SODIUM 100 MG CAP PO SCH ×2 (09:14→22:34)
[2019-05-31] MEDS: PANTOPRAZOLE 40MG TAB (PROTONIX) PO SCH (09:14)
[2019-05-31] MEDS: SINEMET 25-100 MG TAB PO SCH ×3 (09:14→15:37)
[2019-05-31] MEDS: amLODIPine 5 MG TAB PO SCH ×2 (09:14→22:33)
[2019-05-31] MEDS: ACETAMINOPHEN 500 MG TAB PO SCH ×3 (09:15→22:35)
[2019-05-31] MEDS: aMILoride 5 MG TAB PO SCH (09:15)
[2019-05-31] MEDS: VITAMIN D 1,000 INTERNATIONAL UNITS TABLET PO SCH (09:15)
[2019-05-31] MEDS: REMEDY PHYTOPLEX Z-GUARD PASTE 113GM TUBE (FROM STOREROOM PRODUCT) TOP SCH ×3 (09:16→22:36)
[2019-05-31] MEDS: NYSTATIN 100,000 UNITS/GM TOPICAL PWD 15 GM TOP SCH (09:16)
--- NOTE | 2019-05-31 10:40 | CR.PDOC ---
General Date of Consultation: May 31, 2019 Referring Provider: KERON PÉREZ MD Primary Care Physician: Alayna Meléndez Consultation TIME OF SERVICE: 8:37 AM REASON FOR CONSULT: Medical management HISTORY OF PRESENT ILLNESS: This is an 79-year-old female who presented to the ER on the with complaints of right arm pain and was found to have a lateral distal radial fracture and humeral head fracture , both of which were managed conservatively. She was transferred to ARU for inpatient rehabilitation because she has new functional deficits that make it difficult for her to accomplish her ADLs on her own. Today, the patient denied having any acute complaints or pain. She did admit to to having a cough and a sore throat her son who recently came back from [place] also has URI symptoms. REVIEW OF SYSTEMS: 12 point review of systems negative except as listed in HPI PAST MEDICAL/ SURGICAL HISTORY: Drug-induced Parkinson's CKD 3 IDDM Chronic diastolic CHF/chronic HTN Dyslipidemia CAD status post PCI placement of BMS AAA History of splenic infarct on Xarelto Fatty liver Tonsillectomy Bilateral Surgery Hysterectomy Colonoscopy Cholecystectomy Schatzki's ring was post dilated dictation Right ulnar nerve transposition Appendectomy Right trigger finger repair Right radial and humeral fracture that is being managed conservatively SOCIAL HISTORY: She doesn't smoke. She doesn't drink. She doesn't using recreational drugs FAMILY HISTORY: Lung cancer ALLERGIES: Please see below. HOME MEDICATIONS: Please see below. PHYSICAL EXAMINATION: VITAL SIGNS: Please see below. GEN: well-nourished / well developed/ NAD INTEGUMENT: not flushed/ not jaundice HEENT: NCAT / lips acyanotic CVS: RRR/NMRG LUNGS: able to speak full sentences without stopping to take a breath / no coughing / lungs are clear to auscultation bilaterally on room air ABDOMEN: bowel sounds are present / the abdomen is tympanic on percussion, soft & not tender with palpation MSK/EXTREMITIES: range of motion intact in all 4 extremities NEURO: CN 2-12 are grossly intact / speech is not dysarthric PSYCH: alert and oriented to person place and time/ able to understand and follow all commands LABORATORY DATA: Laboratory Tests 05/30/19 16:53: Bedside Glucose (Misc Panel) 116H 05/30/19 20:06: Bedside Glucose (Misc Panel) 124H 05/31/19 04:33: Bedside Glucose (Misc Panel) 75L 05/31/19 05:04: Immature Granulocyte % (Auto) 0.4, Neutrophils (%) (Auto) 74.6H, Lymphocytes (%) (Auto) 11.2L, Monocytes (%) (Auto) 10.7H, Eosinophils (%) (Auto) 2.4, Basophils (%) (Auto) 0.7, Neutrophils # (Auto) 6.2, Lymphocytes # (Auto) 0.9L, Monocytes # (Auto) 0.9H, Eosinophils # (Auto) 0.2, Basophils # (Auto) 0.1, Nucleated Red Blood Cells % (auto) 0.0, Anion Gap 5L, Glomerular Filtration Rate 49.8, Calcium Level 8.7L, Magnesium Level 2.2, Total Bilirubin 0.9, Aspartate Amino Transf (AST/SGOT) 26, Alanine Aminotransferase (ALT/SGPT) 15, Alkaline Phosphatase 122H, Total Protein 6.5, Albumin 2.9L, Albumin/Globulin Ratio 0.81L, Prolactin 30.7 ASSESSMENT: Ms. Ramirez is an 79-year-old with a history of drug-induced parkinsonism, CKD 3, IDDM, chronic diastolic CHF, chronic HTN, dyslipidemia, CAD status post PCI, AAA, history of splenic infarct, fatty liver, and multiple surgeries as admitted to the inpatient rehabilitation unit for acute rehabilitation in the setting of debility. PLAN: 1. Post Trauma Debility / lateral distal radial fracture and humeral head fracture - plan per primary team 2. Drug-induced Parkinson's - c/w carbidopa levodopa 3. IDDM w neuropathy A1c 7% - diabetic diet / f/u accuchecks / hypoglycemia protocol / c/w current insulin regimen & gabapenting 4. Chronic diastolic CHF/chronic HTN. Target BP with co-existing DM and CKD is <130/80 - c/w amiloride, amlodipine, metoprolol 5. hx of splenic infarct - c.w xarelto 6. Dyslipidemia / CAD w placement of BMS - c/w aspirin, atorvastatin & metoprolol 7. CKD 3 - f/u BMP DVT Px n/a since she is on rivaroxaban Thank you for consulting us. We will continue to follow the patient with you Allergies Coded Allergies: rofecoxib (Verified Allergy, Severe, Tongue Swelling , 12/21/18) amoxicillin (Verified Allergy, Mild, Rash, 12/30/18) azithromycin (Verified Allergy, Mild, Rash, 12/30/18) clavulanic acid (Verified Allergy, Mild, Rash, 12/30/18) exenatide (Verified Adverse Reaction, Mild, Abdominal pain , 12/21/18) glyburide (Verified Adverse Reaction, Mild, Too low blood sugar, 12/30/18) metoclopramide (Verified Adverse Reaction, Mild, Tremors , 12/30/18) tramadol (Verified Adverse Reaction, Mild, Rash , 12/21/18) Home Medications Scheduled Amiloride HCl (Amiloride HCl) 5 Mg Tablet, 5 MG PO DAILY, (Reported) Ammonium Lactate (Ammonium Lactate) 12% Lotion, 1 DOSE TOP BID, (Reported) APPLY TO FEET Aspirin (Aspirin) 81 Mg Tab.chew, 81 MG PO DAILY, (Reported) Atorvastatin Calcium (Atorvastatin Calcium) 40 Mg Tablet, 40 MG PO QHS, (Reported) Carbidopa/Levodopa (Carbidopa-Levodopa 25-100 Tab) 1 Each Tablet, 2 TAB PO TID, (Reported) Fluticasone Propion/Salmeterol (Advair Hfa 230-21 Mcg Inhaler) 12 Gm Hfa.aer.ad, 2 PUFF INH BID, (Reported) Insulin Glargine (Lantus) 100 Unit/1 Ml Vial, 30 UNITS SC QHS, (Reported) Insulin Human Lispro (Humalog) 1 Units/0.01 Ml Inj, 1 UNITS SC AC, (Reported) SLIDING SCALE Magnesium Chloride (Mag64) 64 Mg Tablet.dr, 64 MG PO TID, (Reported) Metoprolol Tartrate (Metoprolol Tartrate) 50 Mg Tablet, 50 MG PO Q8H, (Reported) Pregabalin (Lyrica) 75 Mg Capsule, 75 MG PO BID, (Reported) Rivaroxaban (Xarelto) 20 Mg Tablet, 20 MG PO QHS, (Reported) [Amantadine 50MG/5ML] , 50 MG PO BID, (Reported) Scheduled PRN Nystatin (Nystatin) 15 Gm Cream..g., 1 APLCT TOP BID PRN for RASH/ITCHING, (Reported) APPLY TO GROIN. UNDER BREASTS BINTA LONDONO MD May 31, 2019 10:40
--- NOTE | 2019-05-31 12:05 | IPNPDOC ---
PM&R Progress Note DATE OF SERVICE: May 31, 2019 [employer] Progress Note Subjective: Patient states her right shoulder is aching, but she denies pain in her hand. REVIEW OF SYSTEMS: The following is a completed review of systems and has been reviewed. Review of systems otherwise unremarkable. PAIN: Patient self reports no pain EYES: No recent vision changes EARS, NOSE, & THROAT: No throat pain, or dysphagia, or rhinorrhea CARDIOVASCULAR: Denies chest pain or palpitations PULMONARY: Denies shortness of breath GASTROINTESTINAL: Denies constipation/diarrhea GENITOURINARY: denies dysuria MUSCULOSKELETAL: RUE weakness NEUROLOGICAL: +essential tremor and parkinson's HEMATOLOGICAL: denies easy bruising SKIN: intact PSYCHIATRIC: unremarkable All other review of systems found to be negative. PHYSICAL EXAMINATION: VITAL SIGNS: Please see below. GENERAL: Pleasant and cooperative. No acute distress. HEENT: PERRL. Extraocular movements intact. Clear conjunctiva CARDIOVASCULAR: Regular rate and rhythm. No murmurs, rubs, or gallops LUNGS: Clear to auscultation bilaterally. No wheezes. No rhonchi ABDOMEN: Soft, nontender, nondistended. Positive bowel sounds. Normal active bowel sounds NEUROLOGICAL: Alert and oriented times three. Cranial nerves II through XII grossly intact. Sensation grossly intact EXTREMITIES: 5\5 strength left upper extremities. 5\5 strength bilat lower extremity. RUE edge stitcher 4/5, able to wiggle fingers (limited due to fractures) SKIN: intact no sacral ulcer ASSESSMENT:79-year-old F with past medical history of Parkinsons who presents status post fall with right humeral and radial fracture PLAN: 1. 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 Neuro: hx of drug-induced parkinsons c/u Sinemet dosing causing functional decline with recurrent falls, f/u with neurology -Ativan IM ordered prn for agitation/delirium-patient lucid at present -c/u Lyrica for neuropathy in setting of DM 3. Cardiac: hx of CAD s/p bare metal stent c/u Xarelto and ASA -HTN c/u amlodipine, metoprolol, and Amiloride, daily weights for grade 1 diastolic CHF -HLD c/u statin therapy -medicine consulted to assist in overall management 4. Endo: pmh DM c/u Levemir and ISS, adjust prn 5. Resp: encourage incentive spirometry, monitor for infection, c/u Advair 5. renal: hx CKD3, monitor, will consult renal prn 6. Ortho: s/p right radial fracture and right humeral fracture- NWB, ortho consulted to assist in management 7. : monitor PVRs 8. Pain: Tylenol prn, will order lidoderm patch to right shoulder 9. DVT ppx: Xarelto 10. Dispo: TBD Allergies Coded Allergies: rofecoxib (Verified Allergy, Severe, Tongue Swelling , 12/21/18) amoxicillin (Verified Allergy, Mild, Rash, 12/30/18) azithromycin (Verified Allergy, Mild, Rash, 12/30/18) clavulanic acid (Verified Allergy, Mild, Rash, 12/30/18) exenatide (Verified Adverse Reaction, Mild, Abdominal pain , 12/21/18) glyburide (Verified Adverse Reaction, Mild, Too low blood sugar, 12/30/18) metoclopramide (Verified Adverse Reaction, Mild, Tremors , 12/30/18) tramadol (Verified Adverse Reaction, Mild, Rash , 12/21/18) Vital Signs Vital Signs Date Time Temp Pulse Resp B/P (MAP) Pulse Ox O2 Delivery O2 Flow Rate FiO2 05/31/19 06:42 63 125/63 05/31/19 06:00 98.3 18 94 Nasal Cannula 2.0 Laboratory Data CBC/BMP Laboratory Tests 05/31/19 05:04 Labs 24H Laboratory Tests 2 05/30/19 16:53: Bedside Glucose (Misc Panel) 116H 05/30/19 20:06: Bedside Glucose (Misc Panel) 124H 05/31/19 04:33: Bedside Glucose (Misc Panel) 75L 05/31/19 05:04: Immature Granulocyte % (Auto) 0.4, Neutrophils (%) (Auto) 74.6H, Lymphocytes (%) (Auto) 11.2L, Monocytes (%) (Auto) 10.7H, Eosinophils (%) (Auto) 2.4, Basophils (%) (Auto) 0.7, Neutrophils # (Auto) 6.2, Lymphocytes # (Auto) 0.9L, Monocytes # (Auto) 0.9H, Eosinophils # (Auto) 0.2, Basophils # (Auto) 0.1, Nucleated Red Blood Cells % (auto) 0.0, Anion Gap 5L, Glomerular Filtration Rate 49.8, Calcium Level 8.7L, Magnesium Level 2.2, Total Bilirubin 0.9, Aspartate Amino Transf (AST/SGOT) 26, Alanine Aminotransferase (ALT/SGPT) 15, Alkaline Phosphatase 122H, Total Protein 6.5, Albumin 2.9L, Albumin/Globulin Ratio 0.81L, Prolactin 30.7 05/31/19 11:55: Bedside Glucose (Misc Panel) 177H Current Medications Current Medications Current Medications Medications (Trade) Dose Ordered Sig/Rosalie Route PRN Reason Start Time Stop Time Status Last Admin Dose Admin Acetaminophen (Tylenol Tab) 1,000 mg TID PO 05/30/19 16:00 05/31/19 09:15 Amiloride HCl (Midamor) 5 mg DAILY PO 05/31/19 09:00 05/31/19 09:15 Amlodipine Besylate (Norvasc) 5 mg BID PO 05/30/19 21:00 05/31/19 09:14 Aspirin (Ecotrin) 81 mg DAILY PO 05/31/19 09:00 05/31/19 09:14 Atorvastatin Calcium (Lipitor) 40 mg QHS PO 05/30/19 21:00 05/30/19 21:07 Bisacodyl (Dulcolax Suppository) 10 mg DAILYPRN PRN NV CONSTIPATION 05/30/19 14:45 Carbidopa/Levodopa (Sinemet 25/100) 1 tab TID@0800,1200,1600 PO 05/30/19 16:00 05/31/19 09:14 Carbidopa/Levodopa (Sinemet 25/100) 2 tab ASDIRECTED PO 05/30/19 15:00 05/30/19 15:15 DC Carbidopa/Levodopa (Sinemet Cr 25/ 100) 1 tab QHS PO 05/30/19 21:00 05/30/19 21:07 Carbidopa/Levodopa (Sinemet Cr 25/ 100) 2 tab QHS PO 05/30/19 21:00 05/30/19 15:15 DC Dextrose (Dextrose 50%) 25 ml ASDIRECTED PRN IV SEE LABEL COMMENTS 05/30/19 14:45 Docusate Sodium (Colace) 100 mg BID PO 05/30/19 21:00 05/31/19 09:14 Glucagon (Glucagon) 1 mg ASDIRECTED PRN SC SEE LABEL COMMENTS 05/30/19 14:45 Glucose (Glucose) 16 GM ASDIRECTED PRN PO SEE LABEL COMMENTS 05/30/19 14:45 Insulin Detemir (Levemir Insulin) 30 units QHS SC 05/30/19 21:00 05/30/19 21:05 Insulin Human Lispro (HumaLOG INSULIN) SEE PROTOCOL TABLE ACHS SC 05/30/19 17:30 05/30/19 17:14 Lorazepam (Ativan) 1 mg Q8H PRN IM AGITATION 05/30/19 15:15 05/30/19 18:17 Magnesium Hydroxide (Milk Of Magnesia) 30 ml DAILYPRN PRN PO CONSTIPATION 05/30/19 14:45 Magnesium Chloride (Slow-Mag) 64 mg TID PO 05/30/19 16:00 05/31/19 09:13 Metoprolol Tartrate (Lopressor) 50 mg Q8H PO 05/30/19 22:00 05/31/19 06:42 Nystatin (Mycostatin Powder, Nystop) apply to abdomen DAILY TOP 05/31/19 09:00 05/31/19 09:16 Pantoprazole Sodium (Protonix) 40 mg DAILY PO 05/31/19 09:00 05/31/19 09:14 Pregabalin (Lyrica) 75 mg BID PO 05/30/19 21:00 05/31/19 09:14 Rivaroxaban (Xarelto) 20 mg QHS PO 05/30/19 21:00 05/30/19 21:07 Salmeterol Xinafoate/ Fluticasone (Advair Hfa 230/ 21) 2 puff RBID INH 05/30/19 20:00 05/31/19 07:38 Senna (Senokot) 1 tab QHS PO 05/30/19 21:00 05/30/19 21:08 Vitamin D (Vitamin D) 5,000 units DAILY PO 05/31/19 09:00 05/31/19 09:15 KERON PÉREZ MD May 31, 2019 12:04
[2019-05-31 15:07] VITALS: BP 130/57
[2019-05-31] MEDS: LIDOCAINE 5% (LIDODERM) PATCH TD SCH (15:37)
[2019-05-31 21:00] VITALS: BP 127/65
[2019-05-31] MEDS: RIVAROXABAN 20 MG TAB (XARELTO) PO SCH (22:32)
[2019-05-31] MEDS: SENNA 8.6 MG TAB (SENOKOT) PO SCH (22:32)
[2019-05-31] MEDS: SINEMET**CR** 25/100 TABCR PO SCH (22:34)
[2019-05-31] MEDS: ATORVASTATIN 20 MG TAB PO SCH (22:34)
[2019-05-31] MEDS: **NOTE PATIENT COMMENT** MISC XX SCH (22:36)
[2019-05-31] MEDS: LEVEMIR (INSULIN DETEMIR) 1 UNITS/0.01ML SC SCH (22:36)
[2019-06-01] MEDS: METOPROLOL TART 50 MG TAB PO SCH ×3 (05:43→21:29)
[2019-06-01 05:49] VITALS: BP 139/70
--- NOTE | 2019-06-01 07:13 | IPNPDOC ---
Text Note Date of Service The patient was seen on 06/01/19. NOTE At the time of visit at 8:40 AM Ms. Ramirez was away. I reviewed her vitals and will not make any changes today. I'll come back to visit her tomorrow. VS,Fishbone, I+O VS, Fishbone, I+O Vital Signs Date Time Temp Pulse Resp B/P (MAP) Pulse Ox O2 Delivery O2 Flow Rate FiO2 06/01/19 05:49 98.9 60 18 139/70 (93) 94 Room Air 05/31/19 06:00 2.0 I&O- Last 24 Hours up to 6 AM 06/01/19 06:00 Intake Total 1075 ml Balance 1075 ml BINTA LONDONO MD Jun 01, 2019 07:13
[2019-06-01] MEDS: ADVAIR HFA 230/21MCG INHALER INH SCH ×2 (07:39→19:41)
[2019-06-01] MEDS: REMEDY PHYTOPLEX Z-GUARD PASTE 113GM TUBE (FROM STOREROOM PRODUCT) TOP SCH ×3 (09:00→21:30)
[2019-06-01] MEDS: VITAMIN D 1,000 INTERNATIONAL UNITS TABLET PO SCH (09:40)
[2019-06-01] MEDS: LIDOCAINE 5% (LIDODERM) PATCH TD SCH (09:40)
[2019-06-01] MEDS: DOCUSATE SODIUM 100 MG CAP PO SCH ×2 (09:41→21:28)
[2019-06-01] MEDS: ACETAMINOPHEN 500 MG TAB PO SCH ×3 (09:41→21:28)
[2019-06-01] MEDS: ASPIRIN 81 MG ENTERIC TAB PO SCH (09:41)
[2019-06-01] MEDS: aMILoride 5 MG TAB PO SCH (09:41)
[2019-06-01] MEDS: SINEMET 25-100 MG TAB PO SCH ×3 (09:41→17:36)
[2019-06-01] MEDS: MAGNESIUM CHLORIDE 64 MG TABCR (SLO MAG) PO SCH ×3 (09:41→21:28)
[2019-06-01] MEDS: PANTOPRAZOLE 40MG TAB (PROTONIX) PO SCH (09:41)
[2019-06-01] MEDS: PREGABALIN 75 MG CAP(LYRICA) PO SCH ×2 (09:42→21:29)
[2019-06-01] MEDS: amLODIPine 5 MG TAB PO SCH ×2 (09:42→21:30)
[2019-06-01] MEDS: NYSTATIN 100,000 UNITS/GM TOPICAL PWD 15 GM TOP SCH (09:43)
[2019-06-01] MEDS: HumaLOG INSULIN (NovoLOG) PER UNIT SC SCH ×4 (09:46→21:00)
[2019-06-01 14:00] VITALS: BP 121/69
[2019-06-01 21:00] VITALS: BP 121/69
[2019-06-01] MEDS: ATORVASTATIN 20 MG TAB PO SCH (21:28)
[2019-06-01] MEDS: RIVAROXABAN 20 MG TAB (XARELTO) PO SCH (21:28)
[2019-06-01] MEDS: SENNA 8.6 MG TAB (SENOKOT) PO SCH (21:29)
[2019-06-01] MEDS: SINEMET**CR** 25/100 TABCR PO SCH (21:30)
[2019-06-01] MEDS: LEVEMIR (INSULIN DETEMIR) 1 UNITS/0.01ML SC SCH (21:30)
[2019-06-01] MEDS: **NOTE PATIENT COMMENT** MISC XX SCH (21:31)
[2019-06-02 06:13] VITALS: BP 148/71
[2019-06-02] MEDS: METOPROLOL TART 50 MG TAB PO SCH ×3 (06:31→21:41)
[2019-06-02 07:24] LABS: BASO # 0.1 10^3/uL (0.0-0.2); EOS # 0.3 10^3/uL (0.0-0.5); HEMATOCRIT 43.4 % (36.0-47.0); HEMOGLOBIN 13.7 g/dl (12.0-15.5); LYMPH # 0.9 10^3/uL (1.5-5.0); LYMPH % 14.5 % (24.0-44.0); MEAN CORPUSCULAR HEMOGLOBIN 28.7 pg (27.0-33.0); MEAN CORPUSCULAR HGB CONC 31.6 g/dl (32.0-36.5); MONO # 0.6 10^3/uL (0.0-0.8); MONO % 9.1 % (0.0-5.0); NEUTROPHILS # 4.3 10^3/uL (1.5-8.5); NEUTROPHILS % 70.1 % (36.0-66.0); PLATELET COUNT, AUTOMATED 184 10^3/uL (150-450); RED BLOOD COUNT 4.77 10^6/uL (4.00-5.40); WHITE BLOOD COUNT 6.2 10^3/uL (4.0-10.0)
[2019-06-02 07:48] LABS: CALCIUM LEVEL 9.3 MG/DL (8.8-10.2); CREATININE FOR GFR 1.12 MG/DL (0.55-1.30); GLOMERULAR FILTRATION RATE 49.8 (>32); POTASSIUM SERUM 4.4 MEQ/L (3.5-5.1)
[2019-06-02] MEDS: HumaLOG INSULIN (NovoLOG) PER UNIT SC SCH ×4 (08:45→21:00)
[2019-06-02] MEDS: PREGABALIN 75 MG CAP(LYRICA) PO SCH ×2 (08:46→21:40)
[2019-06-02] MEDS: DOCUSATE SODIUM 100 MG CAP PO SCH ×2 (08:46→21:40)
[2019-06-02] MEDS: ASPIRIN 81 MG ENTERIC TAB PO SCH (08:46)
[2019-06-02] MEDS: MAGNESIUM CHLORIDE 64 MG TABCR (SLO MAG) PO SCH ×3 (08:47→21:39)
[2019-06-02] MEDS: amLODIPine 5 MG TAB PO SCH ×2 (08:47→21:40)
[2019-06-02] MEDS: PANTOPRAZOLE 40MG TAB (PROTONIX) PO SCH (08:47)
[2019-06-02] MEDS: aMILoride 5 MG TAB PO SCH (08:47)
[2019-06-02] MEDS: VITAMIN D 1,000 INTERNATIONAL UNITS TABLET PO SCH (08:48)
[2019-06-02] MEDS: ACETAMINOPHEN 500 MG TAB PO SCH ×3 (08:48→21:39)
[2019-06-02] MEDS: LIDOCAINE 5% (LIDODERM) PATCH TD SCH (08:48)
[2019-06-02] MEDS: REMEDY PHYTOPLEX Z-GUARD PASTE 113GM TUBE (FROM STOREROOM PRODUCT) TOP SCH ×3 (08:49→21:42)
[2019-06-02] MEDS: NYSTATIN 100,000 UNITS/GM TOPICAL PWD 15 GM TOP SCH (08:49)
[2019-06-02] MEDS: SINEMET 25-100 MG TAB PO SCH ×3 (08:49→16:48)
--- NOTE | 2019-06-02 09:44 | IPNPDOC ---
Text Note Date of Service The patient was seen on 06/02/19. NOTE Time of service 8:55 AM S The patient denied having cough, shortness of breath, runny nose, fever, or any any acute complaints. She reports that therapy has been going well. O PHYSICAL EXAMINATION: Vital Signs Date Time Temp Pulse Resp B/P (MAP) Pulse Ox O2 Delivery O2 Flow Rate FiO2 06/02/19 08:47 63 148/71 06/02/19 06:13 98.6 18 97 Room Air 05/31/19 06:00 2.0 GEN: well-nourished / well developed/ NAD INTEGUMENT: not flushed/ not jaundice HEENT: NCAT / lips acyanotic CVS: RRR/NMRG LUNGS: able to speak full sentences without stopping to take a breath / no coughing / lungs are clear to auscultation bilaterally on room air ABDOMEN: bowel sounds are present / the abdomen is tympanic on percussion, soft & not tender with palpation MSK/EXTREMITIES: range of motion intact in all 4 extremities NEURO: CN 2-12 are grossly intact / speech is not dysarthric PSYCH: alert and oriented to person place and time/ able to understand and follow all commands Laboratory Tests 06/02/19 06:28 A/P Ms. Ramirez is an 79-year-old with a history of drug-induced parkinsonism, CKD 3, IDDM, chronic diastolic CHF, chronic HTN, dyslipidemia, CAD status post PCI, AAA, history of splenic infarct, fatty liver, and multiple surgeries as admitted to the inpatient rehabilitation unit for acute rehabilitation in the setting of debility. PLAN: 1. Debility 2/2 lateral distal right radial fracture and humeral head fracture - therapy and pain management plan per primary team 2. Drug-induced Parkinson's - c/w carbidopa levodopa / d/c ativan which can cause paradoxical worsening of delirium and switch to quetiapine 12.5mg PO Q8H PRN for sundowning/ delirium, because it is less likely to cause EPS than other antipsychotics and is first line for delirium in patients with co-existing Parkinsons. 3. IDDM w neuropathy A1c 7% - diabetic diet / f/u accuchecks / hypoglycemia protocol / c/w current insulin regimen & gabapentin 4. Chronic diastolic CHF/chronic HTN. Target BP with co-existing DM and CKD is <130/80 - c/w amiloride, amlodipine, metoprolol 5. hx of splenic infarct - c/w xarelto 6. Dyslipidemia / CAD w placement of BMS - c/w aspirin, atorvastatin & metoprolol 7. CKD 3 - f/u BMP DVT Px n/a since she is on rivaroxaban Thank you for consulting us; we will continue to follow the patient with you. BINTA LONDONO MD Jun 02, 2019 09:44
[2019-06-02] MEDS ORDERED: QUEtiapine FUMARATE 12.5 MG HALF-TAB PO PRN (09:45)
[2019-06-02] MEDS: ADVAIR HFA 230/21MCG INHALER INH SCH ×2 (11:29→19:40)
[2019-06-02 14:00] VITALS: BP 141/66
--- NOTE | 2019-06-02 17:14 | IPNPDOC ---
PM&R Progress Note DATE OF SERVICE: Jun 01, 2019 Supervisor Line Department Progress Note Subjective: Patient reporting the lidoderm patch is helping her right shoulder and she is in good spirits. REVIEW OF SYSTEMS: The following is a completed review of systems and has been reviewed. Review of systems otherwise unremarkable. PAIN: Patient self reports no pain EYES: No recent vision changes EARS, NOSE, & THROAT: No throat pain, or dysphagia, or rhinorrhea CARDIOVASCULAR: Denies chest pain or palpitations PULMONARY: Denies shortness of breath GASTROINTESTINAL: Denies constipation/diarrhea GENITOURINARY: denies dysuria MUSCULOSKELETAL: RUE weakness NEUROLOGICAL: +essential tremor and parkinson's HEMATOLOGICAL: denies easy bruising SKIN: intact PSYCHIATRIC: unremarkable All other review of systems found to be negative. PHYSICAL EXAMINATION: VITAL SIGNS: Please see below. GENERAL: Pleasant and cooperative. No acute distress. HEENT: PERRL. Extraocular movements intact. Clear conjunctiva CARDIOVASCULAR: Regular rate and rhythm. No murmurs, rubs, or gallops LUNGS: Clear to auscultation bilaterally. No wheezes. No rhonchi ABDOMEN: Soft, nontender, nondistended. Positive bowel sounds. Normal active bowel sounds NEUROLOGICAL: Alert and oriented times three. Cranial nerves II through XII grossly intact. Sensation grossly intact EXTREMITIES: 5\5 strength left upper extremities. 5\5 strength bilat lower extremity. 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 Neuro: hx of drug-induced parkinsons c/u Sinemet dosing causing functional decline with recurrent falls, f/u with neurology -Ativan IM ordered prn for agitation/delirium-patient lucid at present -c/u Lyrica for neuropathy in setting of DM 3. Cardiac: hx of CAD s/p bare metal stent c/u Xarelto and ASA -HTN c/u amlodipine, metoprolol, and Amiloride, daily weights for grade 1 diastolic CHF -HLD c/u statin therapy -medicine consulted to assist in overall management 4. Endo: pmh DM c/u Levemir and ISS, adjust prn 5. Resp: encourage incentive spirometry, monitor for infection, c/u Advair 5. renal: hx CKD3, monitor, will consult renal prn 6. Ortho: s/p right radial fracture and right humeral fracture- NWB, ortho consulted to assist in management 7. : monitor PVRs 8. Pain: Tylenol prn, c/u lidoderm patch to right shoulder appears to be helping 9. DVT ppx: Xarelto 10. Dispo: TBD Allergies Coded Allergies: rofecoxib (Verified Allergy, Severe, Tongue Swelling , 12/21/18) amoxicillin (Verified Allergy, Mild, Rash, 12/30/18) azithromycin (Verified Allergy, Mild, Rash, 12/30/18) clavulanic acid (Verified Allergy, Mild, Rash, 12/30/18) exenatide (Verified Adverse Reaction, Mild, Abdominal pain , 12/21/18) glyburide (Verified Adverse Reaction, Mild, Too low blood sugar, 12/30/18) metoclopramide (Verified Adverse Reaction, Mild, Tremors , 12/30/18) tramadol (Verified Adverse Reaction, Mild, Rash , 12/21/18) Vital Signs Vital Signs Date Time Temp Pulse Resp B/P (MAP) Pulse Ox O2 Delivery O2 Flow Rate FiO2 06/02/19 14:16 64 121/61 06/02/19 14:00 97.6 18 96 Room Air 05/31/19 06:00 2.0 Laboratory Data CBC/BMP Laboratory Tests 06/02/19 06:28 Labs 24H Laboratory Tests 2 06/01/19 21:26: Bedside Glucose (Misc Panel) 174H 06/02/19 06:28: Immature Granulocyte % (Auto) 0.3, Neutrophils (%) (Auto) 70.1H, Lymphocytes (%) (Auto) 14.5L, Monocytes (%) (Auto) 9.1H, Eosinophils (%) (Auto) 5.0H, Basophils (%) (Auto) 1.0, Neutrophils # (Auto) 4.3, Lymphocytes # (Auto) 0.9L, Monocytes # (Auto) 0.6, Eosinophils # (Auto) 0.3, Basophils # (Auto) 0.1, Nucleated Red Blood Cells % (auto) 0.0, Anion Gap 7L, Glomerular Filtration Rate 49.8, Calcium Level 9.3 06/02/19 11:52: Bedside Glucose (Misc Panel) 108 06/02/19 16:43: Bedside Glucose (Misc Panel) 243H Microbiology Microbiology 05/31/19 Respiratory Virus Panel (PCR) (YOLANDA) - Final, Complete Current Medications Current Medications Current Medications Medications (Trade) Dose Ordered Sig/Rosalie Route PRN Reason Start Time Stop Time Status Last Admin Dose Admin Acetaminophen (Tylenol Tab) 1,000 mg TID PO 05/30/19 16:00 06/02/19 16:48 Amiloride HCl (Midamor) 5 mg DAILY PO 05/31/19 09:00 06/02/19 08:47 Amlodipine Besylate (Norvasc) 5 mg BID PO 05/30/19 21:00 06/02/19 08:47 Aspirin (Ecotrin) 81 mg DAILY PO 05/31/19 09:00 06/02/19 08:46 Atorvastatin Calcium (Lipitor) 40 mg QHS PO 05/30/19 21:00 06/01/19 21:28 Bisacodyl (Dulcolax Suppository) 10 mg DAILYPRN PRN [place] CONSTIPATION 05/30/19 14:45 Carbidopa/Levodopa (Sinemet 25/100) 1 tab TID@0800,1200,1600 PO 05/30/19 16:00 06/02/19 16:48 Carbidopa/Levodopa (Sinemet 25/100) 2 tab ASDIRECTED PO 05/30/19 15:00 05/30/19 15:15 DC Carbidopa/Levodopa (Sinemet Cr 25/ 100) 1 tab QHS PO 05/30/19 21:00 06/01/19 21:30 Carbidopa/Levodopa (Sinemet Cr 25/ 100) 2 tab QHS PO 05/30/19 21:00 05/30/19 15:15 DC Dextrose (Dextrose 50%) 25 ml ASDIRECTED PRN IV SEE LABEL COMMENTS 05/30/19 14:45 Docusate Sodium (Colace) 100 mg BID PO 05/30/19 21:00 06/02/19 08:46 Glucagon (Glucagon) 1 mg ASDIRECTED PRN SC SEE LABEL COMMENTS 05/30/19 14:45 Glucose (Glucose) 16 GM ASDIRECTED PRN PO SEE LABEL COMMENTS 05/30/19 14:45 Insulin Detemir (Levemir Insulin) 30 units QHS SC 05/30/19 21:00 06/01/19 21:30 Insulin Human Lispro (HumaLOG INSULIN) SEE PROTOCOL TABLE AC SC 06/01/19 07:30 06/02/19 11:59 Insulin Human Lispro (HumaLOG INSULIN) SEE PROTOCOL TABLE ACHS SC 05/30/19 17:30 05/31/19 20:39 DC 05/31/19 12:08 Insulin Human Lispro (HumaLOG INSULIN) SEE PROTOCOL TABLE QHS SC 05/31/19 21:00 Lidocaine (Lidoderm Patch) 1 patch DAILY TD 05/31/19 09:00 06/02/19 08:48 Lorazepam (Ativan) 1 mg Q8H PRN IM AGITATION 05/30/19 15:15 06/02/19 09:42 DC 05/30/19 18:17 Magnesium Hydroxide (Milk Of Magnesia) 30 ml DAILYPRN PRN PO CONSTIPATION 05/30/19 14:45 Magnesium Chloride (Slow-Mag) 64 mg TID PO 05/30/19 16:00 06/02/19 16:47 Metoprolol Tartrate (Lopressor) 50 mg Q8H PO 05/30/19 22:00 06/02/19 14:16 Non-Formulary Medication ( See Comment Field Below ) REMOVE LIDODERM PATCH DAILY@21 XX 05/31/19 21:00 06/01/19 21:31 Nystatin (Mycostatin Powder, Nystop) apply to abdomen DAILY TOP 05/31/19 09:00 06/02/19 08:49 Pantoprazole Sodium (Protonix) 40 mg DAILY PO 05/31/19 09:00 06/02/19 08:47 Pregabalin (Lyrica) 75 mg BID PO 05/30/19 21:00 06/02/19 08:46 Quetiapine Fumarate (SEROquel) 12.5 mg Q8HP PRN PO agitation/sundowning 06/02/19 09:45 Rivaroxaban (Xarelto) 20 mg QHS PO 05/30/19 21:00 06/01/19 21:28 Salmeterol Xinafoate/ Fluticasone (Advair Hfa 230/ 21) 2 puff RBID INH 05/30/19 20:00 06/02/19 11:29 Senna (Senokot) 1 tab QHS PO 05/30/19 21:00 06/01/19 21:29 Vitamin D (Vitamin D) 5,000 units DAILY PO 05/31/19 09:00 06/02/19 08:48 KERON PÉREZ MD Jun 02, 2019 17:14
--- NOTE | 2019-06-02 17:14 | IPNPDOC ---
PM&R Progress Note DATE OF SERVICE: Jun 02, 2019 Chief Green Officer Progress Note Subjective: Patient seen in her room sleeping, she woke up and stated she had a full day of therapy and was tired, but overall feels well. REVIEW OF SYSTEMS: The following is a completed review of systems and has been reviewed. Review of systems otherwise unremarkable. PAIN: Patient self reports no pain EYES: No recent vision changes EARS, NOSE, & THROAT: No throat pain, or dysphagia, or rhinorrhea CARDIOVASCULAR: Denies chest pain or palpitations PULMONARY: Denies shortness of breath GASTROINTESTINAL: Denies constipation/diarrhea GENITOURINARY: denies dysuria MUSCULOSKELETAL: RUE weakness NEUROLOGICAL: +essential tremor and parkinson's HEMATOLOGICAL: denies easy bruising SKIN: intact PSYCHIATRIC: unremarkable All other review of systems found to be negative. PHYSICAL EXAMINATION: VITAL SIGNS: Please see below. GENERAL: Pleasant and cooperative. No acute distress. HEENT: PERRL. Extraocular movements intact. Clear conjunctiva CARDIOVASCULAR: Regular rate and rhythm. No murmurs, rubs, or gallops LUNGS: Clear to auscultation bilaterally. No wheezes. No rhonchi ABDOMEN: Soft, nontender, nondistended. Positive bowel sounds. Normal active bowel sounds NEUROLOGICAL: Alert and oriented times three. Cranial nerves II through XII grossly intact. Sensation grossly intact EXTREMITIES: 5\5 strength left upper extremities. 5\5 strength bilat lower ex tremity. 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 Neuro: hx of drug-induced parkinsons c/u Sinemet dosing causing functional decline with recurrent falls, f/u with neurology -Ativan IM ordered prn for agitation/delirium-patient lucid at present -c/u Lyrica for neuropathy in setting of DM 3. Cardiac: hx of CAD s/p bare metal stent c/u Xarelto and ASA -HTN c/u amlodipine, metoprolol, and Amiloride, daily weights for grade 1 diastolic CHF -HLD c/u statin therapy -medicine consulted to assist in overall management 4. Endo: pmh DM c/u Levemir and ISS, adjust prn 5. Resp: encourage incentive spirometry, monitor for infection, c/u Advair 5. renal: hx CKD3, monitor, will consult renal prn 6. Ortho: s/p right radial fracture and right humeral fracture- NWB, ortho consulted to assist in management 7. : monitor PVRs 8. Pain: Tylenol prn, c/u lidoderm patch to right shoulder appears to be helping 9. DVT ppx: Xarelto 10. Dispo: TBD Allergies Coded Allergies: rofecoxib (Verified Allergy, Severe, Tongue Swelling , 12/21/18) amoxicillin (Verified Allergy, Mild, Rash, 12/30/18) azithromycin (Verified Allergy, Mild, Rash, 12/30/18) clavulanic acid (Verified Allergy, Mild, Rash, 12/30/18) exenatide (Verified Adverse Reaction, Mild, Abdominal pain , 12/21/18) glyburide (Verified Adverse Reaction, Mild, Too low blood sugar, 12/30/18) metoclopramide (Verified Adverse Reaction, Mild, Tremors , 12/30/18) tramadol (Verified Adverse Reaction, Mild, Rash , 12/21/18) Vital Signs Vital Signs Date Time Temp Pulse Resp B/P (MAP) Pulse Ox O2 Delivery O2 Flow Rate FiO2 06/02/19 14:16 64 121/61 06/02/19 14:00 97.6 18 96 Room Air 05/31/19 06:00 2.0 Laboratory Data CBC/BMP Laboratory Tests 06/02/19 06:28 Labs 24H Laboratory Tests 2 06/01/19 21:26: Bedside Glucose (Misc Panel) 174H 06/02/19 06:28: Immature Granulocyte % (Auto) 0.3, Neutrophils (%) (Auto) 70.1H, Lymphocytes (%) (Auto) 14.5L, Monocytes (%) (Auto) 9.1H, Eosinophils (%) (Auto) 5.0H, Basophils (%) (Auto) 1.0, Neutrophils # (Auto) 4.3, Lymphocytes # (Auto) 0.9L, Monocytes # (Auto) 0.6, Eosinophils # (Auto) 0.3, Basophils # (Auto) 0.1, Nucleated Red Blood Cells % (auto) 0.0, Anion Gap 7L, Glomerular Filtration Rate 49.8, Calcium Level 9.3 06/02/19 11:52: Bedside Glucose (Misc Panel) 108 06/02/19 16:43: Bedside Glucose (Misc Panel) 243H Microbiology Microbiology 05/31/19 Respiratory Virus Panel (PCR) (YOLANDA) - Final, Complete Current Medications Current Medications Current Medications Medications (Trade) Dose Ordered Sig/Rosalie Route PRN Reason Start Time Stop Time Status Last Admin Dose Admin Acetaminophen (Tylenol Tab) 1,000 mg TID PO 05/30/19 16:00 06/02/19 16:48 Amiloride HCl (Midamor) 5 mg DAILY PO 05/31/19 09:00 06/02/19 08:47 Amlodipine Besylate (Norvasc) 5 mg BID PO 05/30/19 21:00 06/02/19 08:47 Aspirin (Ecotrin) 81 mg DAILY PO 05/31/19 09:00 06/02/19 08:46 Atorvastatin Calcium (Lipitor) 40 mg QHS PO 05/30/19 21:00 06/01/19 21:28 Bisacodyl (Dulcolax Suppository) 10 mg DAILYPRN PRN [place] CONSTIPATION 05/30/19 14:45 Carbidopa/Levodopa (Sinemet 25/100) 1 tab TID@0800,1200,1600 PO 05/30/19 16:00 06/02/19 16:48 Carbidopa/Levodopa (Sinemet 25/100) 2 tab ASDIRECTED PO 05/30/19 15:00 05/30/19 15:15 DC Carbidopa/Levodopa (Sinemet Cr 25/ 100) 1 tab QHS PO 05/30/19 21:00 06/01/19 21:30 Carbidopa/Levodopa (Sinemet Cr 25/ 100) 2 tab QHS PO 05/30/19 21:00 05/30/19 15:15 DC Dextrose (Dextrose 50%) 25 ml ASDIRECTED PRN IV SEE LABEL COMMENTS 05/30/19 14:45 Docusate Sodium (Colace) 100 mg BID PO 05/30/19 21:00 06/02/19 08:46 Glucagon (Glucagon) 1 mg ASDIRECTED PRN SC SEE LABEL COMMENTS 05/30/19 14:45 Glucose (Glucose) 16 GM ASDIRECTED PRN PO SEE LABEL COMMENTS 05/30/19 14:45 Insulin Detemir (Levemir Insulin) 30 units QHS SC 05/30/19 21:00 06/01/19 21:30 Insulin Human Lispro (HumaLOG INSULIN) SEE PROTOCOL TABLE AC SC 06/01/19 07:30 06/02/19 11:59 Insulin Human Lispro (HumaLOG INSULIN) SEE PROTOCOL TABLE ACHS SC 05/30/19 17:30 05/31/19 20:39 DC 05/31/19 12:08 Insulin Human Lispro (HumaLOG INSULIN) SEE PROTOCOL TABLE QHS SC 05/31/19 21:00 Lidocaine (Lidoderm Patch) 1 patch DAILY TD 05/31/19 09:00 06/02/19 08:48 Lorazepam (Ativan) 1 mg Q8H PRN IM AGITATION 05/30/19 15:15 06/02/19 09:42 DC 05/30/19 18:17 Magnesium Hydroxide (Milk Of Magnesia) 30 ml DAILYPRN PRN PO CONSTIPATION 05/30/19 14:45 Magnesium Chloride (Slow-Mag) 64 mg TID PO 05/30/19 16:00 06/02/19 16:47 Metoprolol Tartrate (Lopressor) 50 mg Q8H PO 05/30/19 22:00 06/02/19 14:16 Non-Formulary Medication ( See Comment Field Below ) REMOVE LIDODERM PATCH DAILY@21 XX 05/31/19 21:00 06/01/19 21:31 Nystatin (Mycostatin Powder, Nystop) apply to abdomen DAILY TOP 05/31/19 09:00 06/02/19 08:49 Pantoprazole Sodium (Protonix) 40 mg DAILY PO 05/31/19 09:00 06/02/19 08:47 Pregabalin (Lyrica) 75 mg BID PO 05/30/19 21:00 06/02/19 08:46 Quetiapine Fumarate (SEROquel) 12.5 mg Q8HP PRN PO agitation/sundowning 06/02/19 09:45 Rivaroxaban (Xarelto) 20 mg QHS PO 05/30/19 21:00 06/01/19 21:28 Salmeterol Xinafoate/ Fluticasone (Advair Hfa 230/ 21) 2 puff RBID INH 05/30/19 20:00 06/02/19 11:29 Senna (Senokot) 1 tab QHS PO 05/30/19 21:00 06/01/19 21:29 Vitamin D (Vitamin D) 5,000 units DAILY PO 05/31/19 09:00 06/02/19 08:48 KERON PÉREZ MD Jun 02, 2019 17:14
[2019-06-02 20:00] VITALS: BP 148/68
[2019-06-02] MEDS: LEVEMIR (INSULIN DETEMIR) 1 UNITS/0.01ML SC SCH (21:39)
[2019-06-02] MEDS: SENNA 8.6 MG TAB (SENOKOT) PO SCH (21:40)
[2019-06-02] MEDS: ATORVASTATIN 20 MG TAB PO SCH (21:40)
[2019-06-02] MEDS: SINEMET**CR** 25/100 TABCR PO SCH (21:41)
[2019-06-02] MEDS: RIVAROXABAN 20 MG TAB (XARELTO) PO SCH (21:41)
[2019-06-02] MEDS: **NOTE PATIENT COMMENT** MISC XX SCH (21:42)
[2019-06-03] MEDS: METOPROLOL TART 50 MG TAB PO SCH ×3 (05:57→21:54)
[2019-06-03 06:00] VITALS: BP 136/67
[2019-06-03] MEDS: ADVAIR HFA 230/21MCG INHALER INH SCH ×2 (07:18→19:35)
[2019-06-03] MEDS: REMEDY PHYTOPLEX Z-GUARD PASTE 113GM TUBE (FROM STOREROOM PRODUCT) TOP SCH ×3 (09:00→21:00)
[2019-06-03] MEDS: MAGNESIUM CHLORIDE 64 MG TABCR (SLO MAG) PO SCH ×3 (09:10→21:53)
[2019-06-03] MEDS: VITAMIN D 1,000 INTERNATIONAL UNITS TABLET PO SCH (09:10)
[2019-06-03] MEDS: LIDOCAINE 5% (LIDODERM) PATCH TD SCH (09:10)
[2019-06-03] MEDS: SINEMET 25-100 MG TAB PO SCH ×3 (09:11→15:23)
[2019-06-03] MEDS: ASPIRIN 81 MG ENTERIC TAB PO SCH (09:11)
[2019-06-03] MEDS: amLODIPine 5 MG TAB PO SCH ×2 (09:11→21:54)
[2019-06-03] MEDS: aMILoride 5 MG TAB PO SCH (09:11)
[2019-06-03] MEDS: PREGABALIN 75 MG CAP(LYRICA) PO SCH ×2 (09:11→21:54)
[2019-06-03] MEDS: PANTOPRAZOLE 40MG TAB (PROTONIX) PO SCH (09:11)
[2019-06-03] MEDS: DOCUSATE SODIUM 100 MG CAP PO SCH ×2 (09:11→21:55)
[2019-06-03] MEDS: ACETAMINOPHEN 500 MG TAB PO SCH ×3 (09:12→21:54)
[2019-06-03] MEDS: HumaLOG INSULIN (NovoLOG) PER UNIT SC SCH ×4 (09:12→21:00)
[2019-06-03] MEDS: NYSTATIN 100,000 UNITS/GM TOPICAL PWD 15 GM TOP SCH (09:14)
[2019-06-03 14:00] VITALS: BP 125/69
[2019-06-03 20:00] VITALS: BP 158/70
[2019-06-03] MEDS: ATORVASTATIN 20 MG TAB PO SCH (21:54)
[2019-06-03] MEDS: SINEMET**CR** 25/100 TABCR PO SCH (21:54)
[2019-06-03] MEDS: SENNA 8.6 MG TAB (SENOKOT) PO SCH (21:54)
[2019-06-03] MEDS: RIVAROXABAN 20 MG TAB (XARELTO) PO SCH (21:54)
[2019-06-03] MEDS: LEVEMIR (INSULIN DETEMIR) 1 UNITS/0.01ML SC SCH (21:55)
[2019-06-03] MEDS: **NOTE PATIENT COMMENT** MISC XX SCH (21:55)
[2019-06-04 06:00] VITALS: BP 160/74
[2019-06-04] MEDS: METOPROLOL TART 50 MG TAB PO SCH ×3 (06:22→21:06)
[2019-06-04] MEDS: ADVAIR HFA 230/21MCG INHALER INH SCH ×2 (07:15→19:46)
[2019-06-04] MEDS: HumaLOG INSULIN (NovoLOG) PER UNIT SC SCH ×4 (08:44→21:00)
[2019-06-04] MEDS: ASPIRIN 81 MG ENTERIC TAB PO SCH (08:45)
[2019-06-04] MEDS: amLODIPine 5 MG TAB PO SCH ×2 (08:46→21:05)
[2019-06-04] MEDS: ACETAMINOPHEN 500 MG TAB PO SCH ×3 (08:46→21:06)
[2019-06-04] MEDS: PANTOPRAZOLE 40MG TAB (PROTONIX) PO SCH (08:46)
[2019-06-04] MEDS: MAGNESIUM CHLORIDE 64 MG TABCR (SLO MAG) PO SCH ×3 (08:46→21:05)
[2019-06-04] MEDS: DOCUSATE SODIUM 100 MG CAP PO SCH ×2 (08:46→21:05)
[2019-06-04] MEDS: PREGABALIN 75 MG CAP(LYRICA) PO SCH ×2 (08:46→21:06)
[2019-06-04] MEDS: aMILoride 5 MG TAB PO SCH (08:46)
[2019-06-04] MEDS: VITAMIN D 1,000 INTERNATIONAL UNITS TABLET PO SCH (08:47)
[2019-06-04] MEDS: LIDOCAINE 5% (LIDODERM) PATCH TD SCH (08:47)
[2019-06-04] MEDS: SINEMET 25-100 MG TAB PO SCH ×3 (08:47→17:39)
[2019-06-04] MEDS: NYSTATIN 100,000 UNITS/GM TOPICAL PWD 15 GM TOP SCH (08:48)
[2019-06-04] MEDS: REMEDY PHYTOPLEX Z-GUARD PASTE 113GM TUBE (FROM STOREROOM PRODUCT) TOP SCH ×3 (08:48→21:00)
[2019-06-04 14:00] VITALS: BP 122/70
[2019-06-04 20:00] VITALS: BP 128/61
[2019-06-04] MEDS: LEVEMIR (INSULIN DETEMIR) 1 UNITS/0.01ML SC SCH (21:05)
[2019-06-04] MEDS: ATORVASTATIN 20 MG TAB PO SCH (21:05)
[2019-06-04] MEDS: SINEMET**CR** 25/100 TABCR PO SCH (21:06)
[2019-06-04] MEDS: RIVAROXABAN 20 MG TAB (XARELTO) PO SCH (21:06)
[2019-06-04] MEDS: SENNA 8.6 MG TAB (SENOKOT) PO SCH (21:06)
[2019-06-04] MEDS: **NOTE PATIENT COMMENT** MISC XX SCH (21:07)
[2019-06-05 06:00] VITALS: BP 141/69
[2019-06-05] MEDS: METOPROLOL TART 50 MG TAB PO SCH ×3 (06:07→21:05)
[2019-06-05] MEDS: ADVAIR HFA 230/21MCG INHALER INH SCH ×2 (07:34→19:53)
[2019-06-05 07:48] LABS: BASO # 0.1 10^3/uL (0.0-0.2); BASO % 0.8 % (0.0-1.0); EOS # 0.2 10^3/uL (0.0-0.5); EOS % 3.2 % (0.0-3.0); HEMATOCRIT 44.9 % (36.0-47.0); HEMOGLOBIN 14.2 g/dl (12.0-15.5); LYMPH # 1.1 10^3/uL (1.5-5.0); LYMPH % 14.9 % (24.0-44.0); MEAN CORPUSCULAR HEMOGLOBIN 28.9 pg (27.0-33.0); MEAN CORPUSCULAR HGB CONC 31.6 g/dl (32.0-36.5); MEAN CORPUSCULAR VOLUME 91.3 fl (80.0-96.0); MONO # 0.7 10^3/uL (0.0-0.8); MONO % 9.9 % (0.0-5.0); NEUTROPHILS # 5.1 10^3/uL (1.5-8.5); NEUTROPHILS % 70.6 % (36.0-66.0); PLATELET COUNT, AUTOMATED 225 10^3/uL (150-450); RED BLOOD COUNT 4.92 10^6/uL (4.00-5.40); WHITE BLOOD COUNT 7.2 10^3/uL (4.0-10.0)
[2019-06-05 08:04] LABS: CALCIUM LEVEL 9.6 MG/DL (8.8-10.2); CREATININE FOR GFR 1.18 MG/DL (0.55-1.30); GLOMERULAR FILTRATION RATE 46.9 (>32); POTASSIUM SERUM 4.8 MEQ/L (3.5-5.1)
[2019-06-05] MEDS: LIDOCAINE 5% (LIDODERM) PATCH TD SCH (10:01)
[2019-06-05] MEDS: ASPIRIN 81 MG ENTERIC TAB PO SCH (10:02)
[2019-06-05] MEDS: VITAMIN D 1,000 INTERNATIONAL UNITS TABLET PO SCH (10:02)
[2019-06-05] MEDS: ACETAMINOPHEN 500 MG TAB PO SCH ×3 (10:02→21:06)
[2019-06-05] MEDS: amLODIPine 5 MG TAB PO SCH ×2 (10:02→21:06)
[2019-06-05] MEDS: DOCUSATE SODIUM 100 MG CAP PO SCH ×2 (10:02→21:04)
[2019-06-05] MEDS: PANTOPRAZOLE 40MG TAB (PROTONIX) PO SCH (10:02)
[2019-06-05] MEDS: PREGABALIN 75 MG CAP(LYRICA) PO SCH ×2 (10:02→21:04)
[2019-06-05] MEDS: SINEMET 25-100 MG TAB PO SCH ×3 (10:02→16:02)
[2019-06-05] MEDS: HumaLOG INSULIN (NovoLOG) PER UNIT SC SCH ×4 (10:03→21:00)
[2019-06-05] MEDS: MAGNESIUM CHLORIDE 64 MG TABCR (SLO MAG) PO SCH ×3 (10:03→21:04)
[2019-06-05] MEDS: NYSTATIN 100,000 UNITS/GM TOPICAL PWD 15 GM TOP SCH (10:05)
[2019-06-05] MEDS: aMILoride 5 MG TAB PO SCH (10:05)
[2019-06-05] MEDS: REMEDY PHYTOPLEX Z-GUARD PASTE 113GM TUBE (FROM STOREROOM PRODUCT) TOP SCH ×3 (10:05→21:07)
[2019-06-05] MEDS ORDERED: LACTULOSE 20 GM/30 ML SYRUP UD PO ONE (12:00)
--- NOTE | 2019-06-05 13:48 | IPNPDOC ---
PM&R Progress Note DATE OF SERVICE: Jun 05, 2019 Joy Operator Progress Note Subjective: Patient seen in the gym working on fall recovery and dynamic balance training stating she feels well overall. REVIEW OF SYSTEMS: The following is a completed review of systems and has been reviewed. Review of systems otherwise unremarkable. PAIN: Patient self reports no pain EYES: No recent vision changes EARS, NOSE, & THROAT: No throat pain, or dysphagia, or rhinorrhea CARDIOVASCULAR: Denies chest pain or palpitations PULMONARY: Denies shortness of breath GASTROINTESTINAL: Denies constipation/diarrhea GENITOURINARY: denies dysuria MUSCULOSKELETAL: RUE weakness NEUROLOGICAL: +essential tremor and parkinson's HEMATOLOGICAL: denies easy bruising SKIN: intact PSYCHIATRIC: unremarkable All other review of systems found to be negative. PHYSICAL EXAMINATION: VITAL SIGNS: Please see below. GENERAL: Pleasant and cooperative. No acute distress. HEENT: PERRL. Extraocular movements intact. Clear conjunctiva CARDIOVASCULAR: Regular rate and rhythm. No murmurs, rubs, or gallops LUNGS: Clear to auscultation bilaterally. No wheezes. No rhonchi ABDOMEN: Soft, nontender, nondistended. Positive bowel sounds. Normal active bowel sounds NEUROLOGICAL: Alert and oriented times three. Cranial nerves II through XII grossly intact. Sensation grossly intact EXTREMITIES: 5\5 strength left upper extremities. 5\5 strength bilat lower extremity. 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 Neuro: hx of drug-induced parkinsons c/u Sinemet dosing causing functional decline with recurrent falls, f/u with neurology -Ativan IM ordered prn for agitation/delirium-patient lucid at present -c/u Lyrica for neuropathy in setting of DM 3. Cardiac: hx of CAD s/p bare metal stent c/u Xarelto and ASA -HTN c/u amlodipine, metoprolol, and Amiloride, daily weights for grade 1 diastolic CHF -HLD c/u statin therapy -medicine consulted to assist in overall management 4. Endo: pmh DM c/u Levemir and ISS, adjust prn 5. Resp: encourage incentive spirometry, monitor for infection, c/u Advair 5. renal: hx CKD3, monitor, will consult renal prn 6. Ortho: s/p right radial fracture and right humeral fracture- NWB, ortho consulted to assist in management 7. : monitor PVRs 8. Pain: Tylenol prn, c/u lidoderm patch to right shoulder appears to be helping 9. DVT ppx: Xarelto 10. Dispo: this week to home, pending assessing son's availability to help Allergies Coded Allergies: rofecoxib (Verified Allergy, Severe, Tongue Swelling , 12/21/18) amoxicillin (Verified Allergy, Mild, Rash, 12/30/18) azithromycin (Verified Allergy, Mild, Rash, 12/30/18) clavulanic acid (Verified Allergy, Mild, Rash, 12/30/18) exenatide (Verified Adverse Reaction, Mild, Abdominal pain , 12/21/18) glyburide (Verified Adverse Reaction, Mild, Too low blood sugar, 12/30/18) metoclopramide (Verified Adverse Reaction, Mild, Tremors , 12/30/18) tramadol (Verified Adverse Reaction, Mild, Rash , 12/21/18) Vital Signs Vital Signs Date Time Temp Pulse Resp B/P (MAP) Pulse Ox O2 Delivery O2 Flow Rate FiO2 06/05/19 10:02 72 128/66 06/05/19 06:00 97.5 18 96 Room Air 05/31/19 06:00 2.0 Laboratory Data CBC/BMP Laboratory Tests 06/05/19 06:19 Labs 24H Laboratory Tests 2 06/04/19 16:35: Bedside Glucose (Misc Panel) 187H 06/04/19 19:37: Bedside Glucose (Misc Panel) 161H 06/05/19 06:10: Bedside Glucose (Misc Panel) 166H 06/05/19 06:19: Immature Granulocyte % (Auto) 0.6, Neutrophils (%) (Auto) 70.6H, Lymphocytes (%) (Auto) 14.9L, Monocytes (%) (Auto) 9.9H, Eosinophils (%) (Auto) 3.2H, Basophils (%) (Auto) 0.8, Neutrophils # (Auto) 5.1, Lymphocytes # (Auto) 1.1L, Monocytes # (Auto) 0.7, Eosinophils # (Auto) 0.2, Basophils # (Auto) 0.1, Nucleated Red Blood Cells % (auto) 0.0, Anion Gap 4L, Glomerular Filtration Rate 46.9, Calcium Level 9.6 06/05/19 11:27: Bedside Glucose (Misc Panel) 148H Microbiology Microbiology 05/31/19 Respiratory Virus Panel (PCR) (YOLANDA) - Final, Complete Current Medications Current Medications Current Medications Medications (Trade) Dose Ordered Sig/Rosalie Route PRN Reason Start Time Stop Time Status Last Admin Dose Admin Acetaminophen (Tylenol Tab) 1,000 mg TID PO 05/30/19 16:00 06/05/19 10:02 Amiloride HCl (Midamor) 5 mg DAILY PO 05/31/19 09:00 06/05/19 10:05 Amlodipine Besylate (Norvasc) 5 mg BID PO 05/30/19 21:00 06/05/19 10:02 Aspirin (Ecotrin) 81 mg DAILY PO 05/31/19 09:00 06/05/19 10:02 Atorvastatin Calcium (Lipitor) 40 mg QHS PO 05/30/19 21:00 06/04/19 21:05 Bisacodyl (Dulcolax Suppository) 10 mg DAILYPRN PRN [place] CONSTIPATION 05/30/19 14:45 Bisacodyl (Dulcolax Suppository) 10 mg ONCE PRN [place] NO BM 2 HRS AFTER LACTULOSE 06/05/19 14:00 06/05/19 23:59 Carbidopa/Levodopa (Sinemet 25/100) 1 tab TID@0800,1200,1600 PO 05/30/19 16:00 06/05/19 12:04 Carbidopa/Levodopa (Sinemet 25/100) 2 tab ASDIRECTED PO 05/30/19 15:00 05/30/19 15:15 DC Carbidopa/Levodopa (Sinemet Cr 25/ 100) 1 tab QHS PO 05/30/19 21:00 06/04/19 21:06 Carbidopa/Levodopa (Sinemet Cr 25/ 100) 2 tab QHS PO 05/30/19 21:00 05/30/19 15:15 DC Dextrose (Dextrose 50%) 25 ml ASDIRECTED PRN IV SEE LABEL COMMENTS 05/30/19 14:45 Docusate Sodium (Colace) 100 mg BID PO 05/30/19 21:00 06/05/19 10:02 Glucagon (Glucagon) 1 mg ASDIRECTED PRN SC SEE LABEL COMMENTS 05/30/19 14:45 Glucose (Glucose) 16 GM ASDIRECTED PRN PO SEE LABEL COMMENTS 05/30/19 14:45 Insulin Detemir (Levemir Insulin) 30 units QHS SC 05/30/19 21:00 06/04/19 21:05 Insulin Human Lispro (HumaLOG INSULIN) SEE PROTOCOL TABLE AC SC 06/01/19 07:30 06/05/19 12:04 Insulin Human Lispro (HumaLOG INSULIN) SEE PROTOCOL TABLE ACHS SC 05/30/19 17:30 05/31/19 20:39 DC 05/31/19 12:08 Insulin Human Lispro (HumaLOG INSULIN) SEE PROTOCOL TABLE QHS SC 05/31/19 21:00 Lidocaine (Lidoderm Patch) 1 patch DAILY TD 05/31/19 09:00 06/05/19 10:01 Lorazepam (Ativan) 1 mg Q8H PRN IM AGITATION 05/30/19 15:15 06/02/19 09:42 DC 05/30/19 18:17 Magnesium Hydroxide (Milk Of Magnesia) 30 ml DAILYPRN PRN PO CONSTIPATION 05/30/19 14:45 Magnesium Chloride (Slow-Mag) 64 mg TID PO 05/30/19 16:00 06/05/19 10:03 Metoprolol Tartrate (Lopressor) 50 mg Q8H PO 05/30/19 22:00 06/05/19 06:07 Non-Formulary Medication ( See Comment Field Below ) REMOVE LIDODERM PATCH DAILY@21 XX 05/31/19 21:00 06/04/19 21:07 Nystatin (Mycostatin Powder, Nystop) apply to abdomen DAILY TOP 05/31/19 09:00 06/05/19 10:05 Pantoprazole Sodium (Protonix) 40 mg DAILY PO 05/31/19 09:00 06/05/19 10:02 Pregabalin (Lyrica) 75 mg BID PO 05/30/19 21:00 06/05/19 10:02 Quetiapine Fumarate (SEROquel) 12.5 mg Q8HP PRN PO agitation/sundowning 06/02/19 09:45 Rivaroxaban (Xarelto) 20 mg QHS PO 05/30/19 21:00 06/04/19 21:06 Salmeterol Xinafoate/ Fluticasone (Advair Hfa / ) 2 puff RBID INH 05/30/19 20:00 06/05/19 07:34 Senna (Senokot) 1 tab QHS PO 05/30/19 21:00 06/04/19 21:06 Vitamin D (Vitamin D) 5,000 units DAILY PO 05/31/19 09:00 06/05/19 10:02 KERON PÉREZ MD Jun 05, 2019 13:48
[2019-06-05 14:00] VITALS: BP 125/59
[2019-06-05] MEDS ORDERED: BISACODYL 10 MG SUPP PR PRN (14:00)
[2019-06-05 21:00] VITALS: BP 122/65
[2019-06-05] MEDS: SENNA 8.6 MG TAB (SENOKOT) PO SCH (21:04)
[2019-06-05] MEDS: SINEMET**CR** 25/100 TABCR PO SCH (21:04)
[2019-06-05] MEDS: RIVAROXABAN 20 MG TAB (XARELTO) PO SCH (21:04)
[2019-06-05] MEDS: MOM 30ML SUSPENSION UDC PO PRN (21:04)
[2019-06-05] MEDS: ATORVASTATIN 20 MG TAB PO SCH (21:04)
[2019-06-05] MEDS: **NOTE PATIENT COMMENT** MISC XX SCH (21:07)
[2019-06-05] MEDS: LEVEMIR (INSULIN DETEMIR) 1 UNITS/0.01ML SC SCH (21:07)
[2019-06-06] MEDS: METOPROLOL TART 50 MG TAB PO SCH ×3 (05:34→21:45)
[2019-06-06 05:43] VITALS: BP 127/66
[2019-06-06] MEDS: ADVAIR HFA 230/21MCG INHALER INH SCH ×2 (07:17→19:47)
[2019-06-06] MEDS: VITAMIN D 1,000 INTERNATIONAL UNITS TABLET PO SCH (09:33)
[2019-06-06] MEDS: LIDOCAINE 5% (LIDODERM) PATCH TD SCH (09:33)
[2019-06-06] MEDS: MAGNESIUM CHLORIDE 64 MG TABCR (SLO MAG) PO SCH ×3 (09:34→21:44)
[2019-06-06] MEDS: ASPIRIN 81 MG ENTERIC TAB PO SCH (09:34)
[2019-06-06] MEDS: amLODIPine 5 MG TAB PO SCH ×2 (09:34→21:00)
[2019-06-06] MEDS: ACETAMINOPHEN 500 MG TAB PO SCH ×3 (09:34→21:42)
[2019-06-06] MEDS: PANTOPRAZOLE 40MG TAB (PROTONIX) PO SCH (09:34)
[2019-06-06] MEDS: PREGABALIN 75 MG CAP(LYRICA) PO SCH ×2 (09:34→21:42)
[2019-06-06] MEDS: DOCUSATE SODIUM 100 MG CAP PO SCH ×2 (09:34→21:42)
[2019-06-06] MEDS: aMILoride 5 MG TAB PO SCH (09:34)
[2019-06-06] MEDS: HumaLOG INSULIN (NovoLOG) PER UNIT SC SCH ×4 (09:35→21:00)
[2019-06-06] MEDS: SINEMET 25-100 MG TAB PO SCH ×3 (09:35→17:12)
[2019-06-06] MEDS: NYSTATIN 100,000 UNITS/GM TOPICAL PWD 15 GM TOP SCH (09:36)
[2019-06-06] MEDS: REMEDY PHYTOPLEX Z-GUARD PASTE 113GM TUBE (FROM STOREROOM PRODUCT) TOP SCH ×3 (09:36→21:47)
--- NOTE | 2019-06-06 15:22 | IPNPDOC ---
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 She states she feels well. REVIEW OF SYSTEMS: The following is a completed review of systems and has been reviewed. Review of systems otherwise unremarkable. PAIN: Patient self reports no pain EYES: No recent vision changes EARS, NOSE, & THROAT: No throat pain, or dysphagia, or rhinorrhea CARDIOVASCULAR: Denies chest pain or palpitations PULMONARY: Denies shortness of breath GASTROINTESTINAL: Denies constipation/diarrhea GENITOURINARY: denies dysuria MUSCULOSKELETAL: RUE weakness NEUROLOGICAL: +essential tremor and parkinson's HEMATOLOGICAL: denies easy bruising SKIN: intact PSYCHIATRIC: unremarkable All other review of systems found to be negative. PHYSICAL EXAMINATION: VITAL SIGNS: Please see below. GENERAL: Pleasant and cooperative. No acute distress. HEENT: PERRL. Extraocular movements intact. Clear conjunctiva CARDIOVASCULAR: Regular rate and rhythm. No murmurs, rubs, or gallops LUNGS: Clear to auscultation bilaterally. No wheezes. No rhonchi ABDOMEN: Soft, nontender, nondistended. Positive bowel sounds. Normal active bowel sounds NEUROLOGICAL: Alert and oriented times three. Cranial nerves II through XII grossly intact. Sensation grossly intact EXTREMITIES: 5\5 strength left upper extremities. 5\5 strength bilat lower extremity. 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 Neuro: hx of drug-induced parkinsons c/u Sinemet dosing causing functional decline with recurrent falls, f/u with neurology -Ativan IM ordered prn for agitation/delirium-patient lucid at present -c/u Lyrica for neuropathy in setting of DM 3. Cardiac: hx of CAD s/p bare metal stent c/u Xarelto and ASA -HTN c/u amlodipine, metoprolol, and Amiloride, daily weights for grade 1 diastolic CHF -HLD c/u statin therapy -medicine consulted to assist in overall management 4. Endo: pmh DM c/u Levemir and ISS, adjust prn 5. Resp: encourage incentive spirometry, monitor for infection, c/u Advair 5. renal: hx CKD3, monitor, will consult renal prn 6. Ortho: s/p right radial fracture and right humeral fracture- NWB, ortho consulted to assist in management 7. : monitor PVRs 8. Pain: Tylenol prn, c/u lidoderm patch to right shoulder appears to be helping 9. DVT ppx: Xarelto 10. Dispo: 06-09-19 to home, progressing towards goals Allergies Coded Allergies: rofecoxib (Verified Allergy, Severe, Tongue Swelling , 12/21/18) amoxicillin (Verified Allergy, Mild, Rash, 12/30/18) azithromycin (Verified Allergy, Mild, Rash, 12/30/18) clavulanic acid (Verified Allergy, Mild, Rash, 12/30/18) exenatide (Verified Adverse Reaction, Mild, Abdominal pain , 12/21/18) glyburide (Verified Adverse Reaction, Mild, Too low blood sugar, 12/30/18) metoclopramide (Verified Adverse Reaction, Mild, Tremors , 12/30/18) tramadol (Verified Adverse Reaction, Mild, Rash , 12/21/18) Vital Signs Vital Signs Date Time Temp Pulse Resp B/P (MAP) Pulse Ox O2 Delivery O2 Flow Rate FiO2 06/06/19 09:34 61 127/66 06/06/19 05:43 98.3 18 96 Room Air 05/31/19 06:00 2.0 Laboratory Data Labs 24H Laboratory Tests 2 06/05/19 16:38: Bedside Glucose (Misc Panel) 170H 06/05/19 20:01: Bedside Glucose (Misc Panel) 200H 06/06/19 05:38: Bedside Glucose (Misc Panel) 171H 06/06/19 12:06: Bedside Glucose (Misc Panel) 111H Microbiology Microbiology 05/31/19 Respiratory Virus Panel (PCR) (YOLANDA) - Final, Complete Current Medications Current Medications Current Medications Medications (Trade) Dose Ordered Sig/Rosalie Route PRN Reason Start Time Stop Time Status Last Admin Dose Admin Acetaminophen (Tylenol Tab) 1,000 mg TID PO 05/30/19 16:00 06/06/19 09:34 Amiloride HCl (Midamor) 5 mg DAILY PO 05/31/19 09:00 06/06/19 09:34 Amlodipine Besylate (Norvasc) 5 mg BID PO 05/30/19 21:00 06/06/19 09:34 Aspirin (Ecotrin) 81 mg DAILY PO 05/31/19 09:00 06/06/19 09:34 Atorvastatin Calcium (Lipitor) 40 mg QHS PO 05/30/19 21:00 06/05/19 21:04 Bisacodyl (Dulcolax Suppository) 10 mg DAILYPRN PRN [place] CONSTIPATION 05/30/19 14:45 Bisacodyl (Dulcolax Suppository) 10 mg ONCE PRN CO NO BM 2 HRS AFTER LACTULOSE 06/05/19 14:00 06/05/19 23:59 DC Carbidopa/Levodopa (Sinemet 25/100) 1 tab TID@0800,1200,1600 PO 05/30/19 16:00 06/06/19 12:42 Carbidopa/Levodopa (Sinemet 25/100) 2 tab ASDIRECTED PO 05/30/19 15:00 05/30/19 15:15 DC Carbidopa/Levodopa (Sinemet Cr 25/ 100) 1 tab QHS PO 05/30/19 21:00 06/05/19 21:04 Carbidopa/Levodopa (Sinemet Cr 25/ 100) 2 tab QHS PO 05/30/19 21:00 05/30/19 15:15 DC Dextrose (Dextrose 50%) 25 ml ASDIRECTED PRN IV SEE LABEL COMMENTS 05/30/19 14:45 Docusate Sodium (Colace) 100 mg BID PO 05/30/19 21:00 06/06/19 09:34 Glucagon (Glucagon) 1 mg ASDIRECTED PRN SC SEE LABEL COMMENTS 05/30/19 14:45 Glucose (Glucose) 16 GM ASDIRECTED PRN PO SEE LABEL COMMENTS 05/30/19 14:45 Insulin Detemir (Levemir Insulin) 30 units QHS SC 05/30/19 21:00 06/05/19 21:07 Insulin Human Lispro (HumaLOG INSULIN) SEE PROTOCOL TABLE AC SC 06/01/19 07:30 06/06/19 12:43 Insulin Human Lispro (HumaLOG INSULIN) SEE PROTOCOL TABLE ACHS SC 05/30/19 17:30 05/31/19 20:39 DC 05/31/19 12:08 Insulin Human Lispro (HumaLOG INSULIN) SEE PROTOCOL TABLE QHS SC 05/31/19 21:00 Lidocaine (Lidoderm Patch) 1 patch DAILY TD 05/31/19 09:00 06/06/19 09:33 Lorazepam (Ativan) 1 mg Q8H PRN IM AGITATION 05/30/19 15:15 06/02/19 09:42 DC 05/30/19 18:17 Magnesium Hydroxide (Milk Of Magnesia) 30 ml DAILYPRN PRN PO CONSTIPATION 05/30/19 14:45 06/05/19 21:04 Magnesium Chloride (Slow-Mag) 64 mg TID PO 05/30/19 16:00 06/06/19 09:34 Metoprolol Tartrate (Lopressor) 50 mg Q8H PO 05/30/19 22:00 06/06/19 05:34 Non-Formulary Medication ( See Comment Field Below ) REMOVE LIDODERM PATCH DAILY@21 XX 05/31/19 21:00 06/05/19 21:07 Nystatin (Mycostatin Powder, Nystop) apply to abdomen DAILY TOP 05/31/19 09:00 06/06/19 09:36 Pantoprazole Sodium (Protonix) 40 mg DAILY PO 05/31/19 09:00 06/06/19 09:34 Pregabalin (Lyrica) 75 mg BID PO 05/30/19 21:00 06/06/19 09:34 Quetiapine Fumarate (SEROquel) 12.5 mg Q8HP PRN PO agitation/sundowning 06/02/19 09:45 Rivaroxaban (Xarelto) 20 mg QHS PO 05/30/19 21:00 06/05/19 21:04 Salmeterol Xinafoate/ Fluticasone (Advair Hfa 230/ 21) 2 puff RBID INH 05/30/19 20:00 06/06/19 07:17 Senna (Senokot) 1 tab QHS PO 05/30/19 21:00 06/05/19 21:04 Vitamin D (Vitamin D) 5,000 units DAILY PO 05/31/19 09:00 06/06/19 09:33 KERON PÉREZ MD Jun 06, 2019 15:21
[2019-06-06 15:23] VITALS: BP 135/63
[2019-06-06] MEDS: MOM 30ML SUSPENSION UDC PO PRN (17:12)
[2019-06-06] MEDS: ATORVASTATIN 20 MG TAB PO SCH (21:42)
[2019-06-06] MEDS: RIVAROXABAN 20 MG TAB (XARELTO) PO SCH (21:42)
[2019-06-06] MEDS: SENNA 8.6 MG TAB (SENOKOT) PO SCH (21:44)
[2019-06-06] MEDS: SINEMET**CR** 25/100 TABCR PO SCH (21:44)
[2019-06-06] MEDS: LEVEMIR (INSULIN DETEMIR) 1 UNITS/0.01ML SC SCH (21:46)
[2019-06-06] MEDS: **NOTE PATIENT COMMENT** MISC XX SCH (21:47)
[2019-06-06 22:00] VITALS: BP 108/60
[2019-06-07] MEDS: METOPROLOL TART 50 MG TAB PO SCH ×3 (05:47→21:47)
[2019-06-07 05:48] VITALS: BP 143/65
[2019-06-07 05:49] VITALS: BP 112/82
[2019-06-07 06:43] LABS: BASO # 0.1 10^3/uL (0.0-0.2); BASO % 0.8 % (0.0-1.0); EOS # 0.3 10^3/uL (0.0-0.5); EOS % 3.9 % (0.0-3.0); HEMATOCRIT 44.5 % (36.0-47.0); HEMOGLOBIN 13.9 g/dl (12.0-15.5); LYMPH % 12.2 % (24.0-44.0); MEAN CORPUSCULAR HEMOGLOBIN 28.4 pg (27.0-33.0); MEAN CORPUSCULAR HGB CONC 31.2 g/dl (32.0-36.5); MEAN CORPUSCULAR VOLUME 90.8 fl (80.0-96.0); MONO # 0.7 10^3/uL (0.0-0.8); NEUTROPHILS # 5.8 10^3/uL (1.5-8.5); NEUTROPHILS % 73.3 % (36.0-66.0); PLATELET COUNT, AUTOMATED 195 10^3/uL (150-450); WHITE BLOOD COUNT 7.9 10^3/uL (4.0-10.0)
[2019-06-07 07:05] LABS: CALCIUM LEVEL 9.4 MG/DL (8.8-10.2); CREATININE FOR GFR 1.08 MG/DL (0.55-1.30); POTASSIUM SERUM 4.6 MEQ/L (3.5-5.1)
[2019-06-07] MEDS: ADVAIR HFA 230/21MCG INHALER INH SCH ×2 (07:34→20:09)
[2019-06-07] MEDS: HumaLOG INSULIN (NovoLOG) PER UNIT SC SCH ×4 (08:43→21:00)
[2019-06-07] MEDS: ASPIRIN 81 MG ENTERIC TAB PO SCH (08:44)
[2019-06-07] MEDS: MAGNESIUM CHLORIDE 64 MG TABCR (SLO MAG) PO SCH ×3 (08:44→21:46)
[2019-06-07] MEDS: ACETAMINOPHEN 500 MG TAB PO SCH ×3 (08:45→21:45)
[2019-06-07] MEDS: aMILoride 5 MG TAB PO SCH (08:45)
[2019-06-07] MEDS: DOCUSATE SODIUM 100 MG CAP PO SCH ×2 (08:45→21:45)
[2019-06-07] MEDS: amLODIPine 5 MG TAB PO SCH ×2 (08:45→21:46)
[2019-06-07] MEDS: SINEMET 25-100 MG TAB PO SCH ×3 (08:45→14:30)
[2019-06-07] MEDS: VITAMIN D 1,000 INTERNATIONAL UNITS TABLET PO SCH (08:45)
[2019-06-07] MEDS: PANTOPRAZOLE 40MG TAB (PROTONIX) PO SCH (08:45)
[2019-06-07] MEDS: PREGABALIN 75 MG CAP(LYRICA) PO SCH ×2 (08:46→21:46)
[2019-06-07] MEDS: LIDOCAINE 5% (LIDODERM) PATCH TD SCH (08:47)
[2019-06-07] MEDS: NYSTATIN 100,000 UNITS/GM TOPICAL PWD 15 GM TOP SCH (08:48)
[2019-06-07] MEDS: REMEDY PHYTOPLEX Z-GUARD PASTE 113GM TUBE (FROM STOREROOM PRODUCT) TOP SCH ×3 (08:48→21:48)
--- NOTE | 2019-06-07 11:35 | IPNPDOC ---
Subjective Date Seen The patient was seen on 06/07/19. Subjective Chief Complaint/HPI Patient is comfortable offers no new complaints at the present time General: Denies: ROS Unobtainable, Chills, Night Sweats, Fatigue, Malaise, Normal Appetite, Other Symptoms Constitutional: Denies: Chills, Fever, Malaise, Night Sweats, Weakness, Fatigue, Weight Loss, Lethargy, Other Skin: Denies: Rash, Lesions, Jaundice, Bruising, Itching, Dry, Breakdown, Nail Changes, Other Pulmonary: Denies: Dyspnea, Cough, Pleuritic Chest Pain, Other Symptoms Cardiovascular: Denies: Chest Pain, Palpitations, Orthopnea, Paroxysmal Noc. Dyspnea, Edema, Lt Headedness, Other Symptoms Gastrointestinal: Denies: Nausea, Vomiting, Abdominal Pain, Diarrhea, Constipation, Melena, Hematochezia, Other Symptoms Endocrine: Denies: Polydipsia, Polyphagia, Polyuria, Heat Intolerance, Cold Intolerance, Other Endocrine Sx Musculoskeletal: Denies: Neck Pain, Back Pain, Shoulder Pain, Arm Pain, Hand Pain, Leg Pain, Foot Pain, Joint Pain, Muscle Pain, Spasms, Other Symptoms Neurological: Denies: Weakness, Numbness, Incoordination, Change in speech, Confusion, Seizures, Other Symptoms Objective Physical Examination General Exam: Positive: Alert, Cooperative Eye Exam: Positive: PERRLA, Conjunctiva & lids normal Neck Exam: Positive: Supple Chest Exam: Positive: Clear to auscultation, Normal air movement Heart Exam: Positive: Rate Normal, Normal S1, Normal S2 Abdomen Exam: Positive: Normal bowel sounds, Soft Extremity Exam: Positive: Normal pulses Skin Exam: Positive: Nl turgor and temperature Neuro Exam: Positive: Strength at 5/5 X4 ext, Sensation Intact, Cranial Nerves 3-12 NL Assessment /Plan Problems (1) Parkinson disease Status: Chronic (2) HTN (hypertension) Status: Chronic (3) Fracture, humerus closed Status: Acute (4) Wrist fracture, right Status: Acute (5) Fall Status: Acute (6) Gait disturbance Status: Chronic Plan/VTE VTE Prophylaxis Ordered?: Yes Plan Ms. Ramirez is an 79-year-old with a history of drug-induced parkinsonism, CKD 3, IDDM, chronic diastolic CHF, chronic HTN, dyslipidemia, CAD status post PCI, AAA, history of splenic infarct, fatty liver, and multiple surgeries as admitted to the inpatient rehabilitation unit for acute rehabilitation in the setting of debility. #1: Debility 2/2 lateral distal right radial fracture and humeral head fracture - therapy and pain management plan per primary team #2: Drug-induced Parkinson's - c/w carbidopa levodopa / d/c ativan which can cause paradoxical worsening of delirium and switch to quetiapine 12.5mg PO Q8H PRN for sundowning/ delirium, because it is less likely to cause EPS than other antipsychotics and is first line for delirium in patients with co-existing Par kinsons. #3: IDDM w neuropathy A1c 7% - diabetic diet / f/u accuchecks / hypoglycemia protocol / c/w current insulin regimen & gabapentin #4: Chronic diastolic CHF/chronic HTN. Target BP with co-existing DM and CKD is <130/80 - c/w amiloride, amlodipine, metoprolol #5: Hx of splenic infarct - c/w xarelto #6: Dyslipidemia / CAD w placement of BMS - c/w aspirin, atorvastatin & metoprolol #7: CKD 3 -stable renal functions,checked today BUN 51,Cr 1.08 Patient is currently on rivaroxaban DVT prophylaxis VS, I&O, 24H, Fishbone Vital Signs/I&O Vital Signs Date Time Temp Pulse Resp B/P (MAP) Pulse Ox O2 Delivery O2 Flow Rate FiO2 06/07/19 08:45 78 128/65 06/07/19 05:48 97.1 18 92 Room Air I&O- Last 24 Hours up to 6 AM 06/07/19 05:59 Intake Total 870 ml Balance 870 ml Laboratory Data 24H LABS Laboratory Tests 2 06/06/19 12:06: Bedside Glucose (Misc Panel) 111H 06/06/19 16:42: Bedside Glucose (Misc Panel) 143H 06/06/19 20:13: Bedside Glucose (Misc Panel) 215H 06/07/19 05:14: Bedside Glucose (Misc Panel) 139H 06/07/19 06:12: Immature Granulocyte % (Auto) 0.8, Neutrophils (%) (Auto) 73.3H, Lymphocytes (%) (Auto) 12.2L, Monocytes (%) (Auto) 9.0H, Eosinophils (%) (Auto) 3.9H, Basophils (%) (Auto) 0.8, Neutrophils # (Auto) 5.8, Lymphocytes # (Auto) 1.0L, Monocytes # (Auto) 0.7, Eosinophils # (Auto) 0.3, Basophils # (Auto) 0.1, Nucleated Red Blood Cells % (auto) 0.0, Anion Gap 4L, Glomerular Filtration Rate 52.0, Calcium Level 9.4 CBC/BMP Laboratory Tests 06/07/19 06:12 Microbiology Microbiology 05/31/19 Respiratory Virus Panel (PCR) (YOLANDA) - Final, Complete EFRAIN JOSE MD Jun 07, 2019 11:35
--- NOTE | 2019-06-07 12:14 | IPNPDOC ---
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 She denies fevers or chills. REVIEW OF SYSTEMS: The following is a completed review of systems and has been reviewed. Review of systems otherwise unremarkable. PAIN: Patient self reports no pain EYES: No recent vision changes EARS, NOSE, & THROAT: No throat pain, or dysphagia, or rhinorrhea CARDIOVASCULAR: Denies chest pain or palpitations PULMONARY: Denies shortness of breath GASTROINTESTINAL: Denies constipation/diarrhea GENITOURINARY: denies dysuria MUSCULOSKELETAL: RUE weakness NEUROLOGICAL: +essential tremor and parkinson's HEMATOLOGICAL: denies easy bruising SKIN: intact PSYCHIATRIC: unremarkable All other review of systems found to be negative. PHYSICAL EXAMINATION: VITAL SIGNS: Please see below. GENERAL: Pleasant and cooperative. No acute distress. HEENT: PERRL. Extraocular movements intact. Clear conjunctiva CARDIOVASCULAR: Regular rate and rhythm. No murmurs, rubs, or gallops LUNGS: Clear to auscultation bilaterally. No wheezes. No rhonchi ABDOMEN: Soft, nontender, nondistended. Positive bowel sounds. Normal active bowel sounds NEUROLOGICAL: Alert and oriented times three. Cranial nerves II through XII grossly intact. Sensation grossly intact EXTREMITIES: 5\5 strength left upper extremities. 5\5 strength bilat lower extremity. 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 Neuro: hx of drug-induced parkinsons c/u Sinemet dosing causing functional decline with recurrent falls, f/u with neurology -Ativan IM ordered prn for agitation/delirium-patient lucid at present -c/u Lyrica for neuropathy in setting of DM 3. Cardiac: hx of CAD s/p bare metal stent c/u Xarelto and ASA -HTN c/u amlodipine, metoprolol, and Amiloride, daily weights for grade 1 diastolic CHF -HLD c/u statin therapy -medicine consulted to assist in overall management 4. Endo: pmh DM c/u Levemir and ISS, adjust prn 5. Resp: encourage incentive spirometry, monitor for infection, c/u Advair, will start NS spray and flonase for dry cough 5. renal: hx CKD3, monitor, will consult renal prn 6. Ortho: s/p right radial fracture and right humeral fracture- NWB, ortho consulted to assist in management 7. : monitor PVRs 8. Pain: Tylenol prn, c/u lidoderm patch to right shoulder appears to be helping 9. DVT ppx: Xarelto 10. Dispo: 06-09-19 to home, progressing towards goals Allergies Coded Allergies: rofecoxib (Verified Allergy, Severe, Tongue Swelling , 12/21/18) amoxicillin (Verified Allergy, Mild, Rash, 12/30/18) azithromycin (Verified Allergy, Mild, Rash, 12/30/18) clavulanic acid (Verified Allergy, Mild, Rash, 12/30/18) exenatide (Verified Adverse Reaction, Mild, Abdominal pain , 12/21/18) glyburide (Verified Adverse Reaction, Mild, Too low blood sugar, 12/30/18) metoclopramide (Verified Adverse Reaction, Mild, Tremors , 12/30/18) tramadol (Verified Adverse Reaction, Mild, Rash , 12/21/18) Vital Signs Vital Signs Date Time Temp Pulse Resp B/P (MAP) Pulse Ox O2 Delivery O2 Flow Rate FiO2 06/07/19 08:45 78 128/65 06/07/19 05:48 97.1 18 92 Room Air Laboratory Data CBC/BMP Laboratory Tests 06/07/19 06:12 Labs 24H Laboratory Tests 2 06/06/19 16:42: Bedside Glucose (Misc Panel) 143H 06/06/19 20:13: Bedside Glucose (Misc Panel) 215H 06/07/19 05:14: Bedside Glucose (Misc Panel) 139H 06/07/19 06:12: Immature Granulocyte % (Auto) 0.8, Neutrophils (%) (Auto) 73.3H, Lymphocytes (%) (Auto) 12.2L, Monocytes (%) (Auto) 9.0H, Eosinophils (%) (Auto) 3.9H, Basophils (%) (Auto) 0.8, Neutrophils # (Auto) 5.8, Lymphocytes # (Auto) 1.0L, Monocytes # (Auto) 0.7, Eosinophils # (Auto) 0.3, Basophils # (Auto) 0.1, Nucleated Red Blood Cells % (auto) 0.0, Anion Gap 4L, Glomerular Filtration Rate 52.0, Calcium Level 9.4 06/07/19 11:44: Bedside Glucose (Misc Panel) 244H Microbiology Microbiology 05/31/19 Respiratory Virus Panel (PCR) (YOLANDA) - Final, Complete Current Medications Current Medications Current Medications Medications (Trade) Dose Ordered Sig/Rosalie Route PRN Reason Start Time Stop Time Status Last Admin Dose Admin Acetaminophen (Tylenol Tab) 1,000 mg TID PO 05/30/19 16:00 06/07/19 08:45 Amiloride HCl (Midamor) 5 mg DAILY PO 05/31/19 09:00 06/07/19 08:45 Amlodipine Besylate (Norvasc) 5 mg BID PO 05/30/19 21:00 06/07/19 08:45 Aspirin (Ecotrin) 81 mg DAILY PO 05/31/19 09:00 06/07/19 08:44 Atorvastatin Calcium (Lipitor) 40 mg QHS PO 05/30/19 21:00 06/06/19 21:42 Bisacodyl (Dulcolax Suppository) 10 mg DAILYPRN PRN [place] CONSTIPATION 05/30/19 14:45 Bisacodyl (Dulcolax Suppository) 10 mg ONCE PRN UT NO BM 2 HRS AFTER LACTULOSE 06/05/19 14:00 06/05/19 23:59 DC Carbidopa/Levodopa (Sinemet 25/100) 1 tab TID@0800,1200,1600 PO 05/30/19 16:00 06/07/19 08:45 Carbidopa/Levodopa (Sinemet 25/100) 2 tab ASDIRECTED PO 05/30/19 15:00 05/30/19 15:15 DC Carbidopa/Levodopa (Sinemet Cr 25/ 100) 1 tab QHS PO 05/30/19 21:00 06/06/19 21:44 Carbidopa/Levodopa (Sinemet Cr 25/ 100) 2 tab QHS PO 05/30/19 21:00 05/30/19 15:15 DC Dextrose (Dextrose 50%) 25 ml ASDIRECTED PRN IV SEE LABEL COMMENTS 05/30/19 14:45 Docusate Sodium (Colace) 100 mg BID PO 05/30/19 21:00 06/07/19 08:45 Glucagon (Glucagon) 1 mg ASDIRECTED PRN SC SEE LABEL COMMENTS 05/30/19 14:45 Glucose (Glucose) 16 GM ASDIRECTED PRN PO SEE LABEL COMMENTS 05/30/19 14:45 Insulin Detemir (Levemir Insulin) 30 units QHS SC 05/30/19 21:00 06/06/19 21:46 Insulin Human Lispro (HumaLOG INSULIN) SEE PROTOCOL TABLE AC SC 06/01/19 07:30 06/07/19 08:43 Insulin Human Lispro (HumaLOG INSULIN) SEE PROTOCOL TABLE ACHS SC 05/30/19 17:30 05/31/19 20:39 DC 05/31/19 12:08 Insulin Human Lispro (HumaLOG INSULIN) SEE PROTOCOL TABLE QHS SC 05/31/19 21:00 Lidocaine (Lidoderm Patch) 1 patch DAILY TD 05/31/19 09:00 06/07/19 08:47 Lorazepam (Ativan) 1 mg Q8H PRN IM AGITATION 05/30/19 15:15 06/02/19 09:42 DC 05/30/19 18:17 Magnesium Hydroxide (Milk Of Magnesia) 30 ml DAILYPRN PRN PO CONSTIPATION 05/30/19 14:45 06/06/19 17:12 Magnesium Chloride (Slow-Mag) 64 mg TID PO 05/30/19 16:00 06/07/19 08:44 Metoprolol Tartrate (Lopressor) 50 mg Q8H PO 05/30/19 22:00 06/06/19 15:38 Non-Formulary Medication ( See Comment Field Below ) REMOVE LIDODERM PATCH DAILY@21 XX 05/31/19 21:00 06/06/19 21:47 Nystatin (Mycostatin Powder, Nystop) apply to abdomen DAILY TOP 05/31/19 09:00 06/07/19 08:48 Pantoprazole Sodium (Protonix) 40 mg DAILY PO 05/31/19 09:00 06/07/19 08:45 Pregabalin (Lyrica) 75 mg BID PO 05/30/19 21:00 06/07/19 08:46 Quetiapine Fumarate (SEROquel) 12.5 mg Q8HP PRN PO agitation/sundowning 06/02/19 09:45 Rivaroxaban (Xarelto) 20 mg QHS PO 05/30/19 21:00 06/06/19 21:42 Salmeterol Xinafoate/ Fluticasone (Advair Hfa 230/ 21) 2 puff RBID INH 05/30/19 20:00 06/07/19 07:34 Senna (Senokot) 1 tab QHS PO 05/30/19 21:00 06/06/19 21:44 Vitamin D (Vitamin D) 5,000 units DAILY PO 05/31/19 09:00 06/07/19 08:45 KERON PÉREZ MD Jun 07, 2019 12:13
[2019-06-07] MEDS: SODIUM CHLORIDE NASAL 0.65% SPRAY BTL (OCEAN) SCH ×3 (12:15→21:47)
[2019-06-07 14:00] VITALS: BP 135/71
[2019-06-07] MEDS: FLUTICASONE PROP 0.05% NASAL SPRAY 16 GM (FLONASE) NARES SCH ×2 (14:30→21:47)
[2019-06-07] MEDS: LEVEMIR (INSULIN DETEMIR) 1 UNITS/0.01ML SC SCH (21:00)
[2019-06-07] MEDS: SINEMET**CR** 25/100 TABCR PO SCH (21:45)
[2019-06-07] MEDS: SENNA 8.6 MG TAB (SENOKOT) PO SCH (21:45)
[2019-06-07] MEDS: RIVAROXABAN 20 MG TAB (XARELTO) PO SCH (21:46)
[2019-06-07] MEDS: ATORVASTATIN 20 MG TAB PO SCH (21:46)
[2019-06-07] MEDS: **NOTE PATIENT COMMENT** MISC XX SCH (21:47)
[2019-06-07 22:00] VITALS: BP 125/67
[2019-06-08 05:43] VITALS: BP 127/66
[2019-06-08] MEDS: METOPROLOL TART 50 MG TAB PO SCH ×3 (05:52→21:00)
[2019-06-08] MEDS: ADVAIR HFA 230/21MCG INHALER INH SCH ×2 (07:10→19:50)
[2019-06-08] MEDS: amLODIPine 5 MG TAB PO SCH ×2 (08:15→20:57)
[2019-06-08] MEDS: MAGNESIUM CHLORIDE 64 MG TABCR (SLO MAG) PO SCH ×3 (08:15→20:54)
[2019-06-08] MEDS: HumaLOG INSULIN (NovoLOG) PER UNIT SC SCH ×4 (08:15→20:57)
[2019-06-08] MEDS: PANTOPRAZOLE 40MG TAB (PROTONIX) PO SCH (08:16)
[2019-06-08] MEDS: LIDOCAINE 5% (LIDODERM) PATCH TD SCH (08:16)
[2019-06-08] MEDS: PREGABALIN 75 MG CAP(LYRICA) PO SCH ×2 (08:16→20:54)
[2019-06-08] MEDS: SINEMET 25-100 MG TAB PO SCH ×3 (08:16→15:12)
[2019-06-08] MEDS: ASPIRIN 81 MG ENTERIC TAB PO SCH (08:16)
[2019-06-08] MEDS: ACETAMINOPHEN 500 MG TAB PO SCH ×3 (08:16→20:56)
[2019-06-08] MEDS: DOCUSATE SODIUM 100 MG CAP PO SCH ×2 (08:16→20:55)
[2019-06-08] MEDS: VITAMIN D 1,000 INTERNATIONAL UNITS TABLET PO SCH (08:16)
[2019-06-08] MEDS: aMILoride 5 MG TAB PO SCH (08:16)
[2019-06-08] MEDS: REMEDY PHYTOPLEX Z-GUARD PASTE 113GM TUBE (FROM STOREROOM PRODUCT) TOP SCH ×3 (08:22→20:58)
[2019-06-08] MEDS: FLUTICASONE PROP 0.05% NASAL SPRAY 16 GM (FLONASE) NARES SCH ×2 (08:22→20:58)
[2019-06-08] MEDS: SODIUM CHLORIDE NASAL 0.65% SPRAY BTL (OCEAN) SCH ×3 (08:22→20:58)
[2019-06-08] MEDS: NYSTATIN 100,000 UNITS/GM TOPICAL PWD 15 GM TOP SCH (08:22)
--- NOTE | 2019-06-08 11:12 | IPNPDOC ---
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 REVIEW OF SYSTEMS: The following is a completed review of systems and has been reviewed. Review of systems otherwise unremarkable. PAIN: Patient self reports no pain EYES: No recent vision changes EARS, NOSE, & THROAT: No throat pain, or dysphagia, or rhinorrhea CARDIOVASCULAR: Denies chest pain or palpitations PULMONARY: Denies shortness of breath GASTROINTESTINAL: Denies constipation/diarrhea GENITOURINARY: denies dysuria MUSCULOSKELETAL: RUE weakness NEUROLOGICAL: +essential tremor and parkinson's HEMATOLOGICAL: denies easy bruising SKIN: intact PSYCHIATRIC: unremarkable All other review of systems found to be negative. PHYSICAL EXAMINATION: VITAL SIGNS: Please see below. GENERAL: Pleasant and cooperative. No acute distress. HEENT: PERRL. Extraocular movements intact. Clear conjunctiva CARDIOVASCULAR: Regular rate and rhythm. No murmurs, rubs, or gallops LUNGS: Clear to auscultation bilaterally. No wheezes. No rhonchi ABDOMEN: Soft, nontender, nondistended. Positive bowel sounds. Normal active bowel sounds NEUROLOGICAL: Alert and oriented times three. Cranial nerves II through XII grossly intact. Sensation grossly intact EXTREMITIES: 5\5 strength left upper extremities. 5\5 strength bilat lower extremity. 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 Neuro: hx of drug-induced parkinsons c/u Sinemet dosing causing functional decline with recurrent falls, f/u with neurology -Ativan IM ordered prn for agitation/delirium-patient c/u to be lucid -c/u Lyrica for neuropathy in setting of DM 3. Cardiac: hx of CAD s/p bare metal stent c/u Xarelto and ASA -HTN c/u amlodipine, metoprolol, and Amiloride, daily weights for grade 1 diastolic CHF -HLD c/u statin therapy -medicine consulted to assist in overall management 4. Endo: pmh DM c/u Levemir and ISS, adjust prn 5. Resp: encourage incentive spirometry, monitor for infection, c/u Advair, c/u NS spray and flonase for dry cough-patient reporting her symptoms have improved 5. renal: hx CKD3, monitor, will consult renal prn 6. Ortho: s/p right radial fracture and right humeral fracture- NWB, ortho consulted to assist in management 7. : monitor PVRs 8. Pain: Tylenol prn, c/u lidoderm patch to right shoulder appears to be helping 9. DVT ppx: Xarelto 10. Dispo: 06-09-19 to home, progressing towards goals Allergies Coded Allergies: rofecoxib (Verified Allergy, Severe, Tongue Swelling , 12/21/18) amoxicillin (Verified Allergy, Mild, Rash, 12/30/18) azithromycin (Verified Allergy, Mild, Rash, 12/30/18) clavulanic acid (Verified Allergy, Mild, Rash, 12/30/18) exenatide (Verified Adverse Reaction, Mild, Abdominal pain , 12/21/18) glyburide (Verified Adverse Reaction, Mild, Too low blood sugar, 12/30/18) metoclopramide (Verified Adverse Reaction, Mild, Tremors , 12/30/18) tramadol (Verified Adverse Reaction, Mild, Rash , 12/21/18) Vital Signs Vital Signs Date Time Temp Pulse Resp B/P (MAP) Pulse Ox O2 Delivery O2 Flow Rate FiO2 06/08/19 08:15 70 120/68 06/08/19 05:43 97.6 18 95 Room Air Laboratory Data Labs 24H Laboratory Tests 2 06/07/19 11:44: Bedside Glucose (Misc Panel) 244H 06/07/19 16:56: Bedside Glucose (Misc Panel) 151H 06/07/19 21:30: Bedside Glucose (Misc Panel) 88 06/08/19 06:59: Bedside Glucose (Misc Panel) 179H Microbiology Microbiology 05/31/19 Respiratory Virus Panel (PCR) (YOLANDA) - Final, Complete Current Medications Current Medications Current Medications Medications (Trade) Dose Ordered Sig/Rosalie Route PRN Reason Start Time Stop Time Status Last Admin Dose Admin Acetaminophen (Tylenol Tab) 1,000 mg TID PO 05/30/19 16:00 06/08/19 08:16 Amiloride HCl (Midamor) 5 mg DAILY PO 05/31/19 09:00 06/08/19 08:16 Amlodipine Besylate (Norvasc) 5 mg BID PO 05/30/19 21:00 06/08/19 08:15 Aspirin (Ecotrin) 81 mg DAILY PO 05/31/19 09:00 06/08/19 08:16 Atorvastatin Calcium (Lipitor) 40 mg QHS PO 05/30/19 21:00 06/07/19 21:46 Bisacodyl (Dulcolax Suppository) 10 mg DAILYPRN PRN [place] CONSTIPATION 05/30/19 14:45 Bisacodyl (Dulcolax Suppository) 10 mg ONCE PRN KS NO BM 2 HRS AFTER LACTULOSE 06/05/19 14:00 06/05/19 23:59 DC Carbidopa/Levodopa (Sinemet 25/100) 1 tab TID@0800,1200,1600 PO 05/30/19 16:00 06/08/19 08:16 Carbidopa/Levodopa (Sinemet 25/100) 2 tab ASDIRECTED PO 05/30/19 15:00 05/30/19 15:15 DC Carbidopa/Levodopa (Sinemet Cr 25/ 100) 1 tab QHS PO 05/30/19 21:00 06/07/19 21:45 Carbidopa/Levodopa (Sinemet Cr 25/ 100) 2 tab QHS PO 05/30/19 21:00 05/30/19 15:15 DC Dextrose (Dextrose 50%) 25 ml ASDIRECTED PRN IV SEE LABEL COMMENTS 05/30/19 14:45 Docusate Sodium (Colace) 100 mg BID PO 05/30/19 21:00 06/08/19 08:16 Fluticasone Propionate (Flonase 0.05% Nasal [place]) 1 spray BID NARES 06/07/19 12:15 06/08/19 08:22 Glucagon (Glucagon) 1 mg ASDIRECTED PRN SC SEE LABEL COMMENTS 05/30/19 14:45 Glucose (Glucose) 16 GM ASDIRECTED PRN PO SEE LABEL COMMENTS 05/30/19 14:45 Insulin Detemir (Levemir Insulin) 30 units QHS SC 05/30/19 21:00 06/06/19 21:46 Insulin Human Lispro (HumaLOG INSULIN) SEE PROTOCOL TABLE AC SC 06/01/19 07:30 06/08/19 08:15 Insulin Human Lispro (HumaLOG INSULIN) SEE PROTOCOL TABLE ACHS SC 05/30/19 17:30 05/31/19 20:39 DC 05/31/19 12:08 Insulin Human Lispro (HumaLOG INSULIN) SEE PROTOCOL TABLE QHS SC 05/31/19 21:00 Lidocaine (Lidoderm Patch) 1 patch DAILY TD 05/31/19 09:00 06/08/19 08:16 Lorazepam (Ativan) 1 mg Q8H PRN IM AGITATION 05/30/19 15:15 06/02/19 09:42 DC 05/30/19 18:17 Magnesium Hydroxide (Milk Of Magnesia) 30 ml DAILYPRN PRN PO CONSTIPATION 05/30/19 14:45 06/06/19 17:12 Magnesium Chloride (Slow-Mag) 64 mg TID PO 05/30/19 16:00 06/08/19 08:15 Metoprolol Tartrate (Lopressor) 50 mg Q8H PO 05/30/19 22:00 06/08/19 05:52 Non-Formulary Medication ( See Comment Field Below ) REMOVE LIDODERM PATCH DAILY@21 XX 05/31/19 21:00 06/07/19 21:47 Nystatin (Mycostatin Powder, Nystop) apply to abdomen DAILY TOP 05/31/19 09:00 06/08/19 08:22 Pantoprazole Sodium (Protonix) 40 mg DAILY PO 05/31/19 09:00 06/08/19 08:16 Pregabalin (Lyrica) 75 mg BID PO 05/30/19 21:00 06/08/19 08:16 Quetiapine Fumarate (SEROquel) 12.5 mg Q8HP PRN PO agitation/sundowning 06/02/19 09:45 Rivaroxaban (Xarelto) 20 mg QHS PO 05/30/19 21:00 06/07/19 21:46 Salmeterol Xinafoate/ Fluticasone (Advair Hfa 230/ 21) 2 puff RBID INH 05/30/19 20:00 06/08/19 07:10 Senna (Senokot) 1 tab QHS PO 05/30/19 21:00 06/07/19 21:45 Sodium Chloride ([place] Nasal [place]) 2 spray TID NA 06/07/19 12:15 06/08/19 08:22 Vitamin D (Vitamin D) 5,000 units DAILY PO 05/31/19 09:00 06/08/19 08:16 KERON PÉREZ MD Jun 08, 2019 11:12
[2019-06-08] MEDS ORDERED: AMIL5TAB4 PO (12:21)
[2019-06-08] MEDS ORDERED: FLUTISP NARES (12:21)
[2019-06-08] MEDS ORDERED: CARB25TA9 PO (12:21)
[2019-06-08] MEDS ORDERED: INSULANT SC (12:21)
[2019-06-08] MEDS ORDERED: METO50TA7 PO (12:21)
[2019-06-08] MEDS ORDERED: ASPI81CH33 PO (12:21)
[2019-06-08] MEDS ORDERED: CARB25TA31 PO (12:21)
[2019-06-08] MEDS ORDERED: ADVA230A INH (12:21)
[2019-06-08] MEDS ORDERED: XARE20TA PO (12:21)
[2019-06-08] MEDS ORDERED: AMLO5TAB6 PO (12:21)
[2019-06-08] MEDS ORDERED: ATOR40TA75 PO (12:21)
[2019-06-08] MEDS ORDERED: MAGN64TASA PO (12:21)
[2019-06-08 14:00] VITALS: BP 131/64
[2019-06-08] MEDS: SENNA 8.6 MG TAB (SENOKOT) PO SCH (20:56)
[2019-06-08] MEDS: RIVAROXABAN 20 MG TAB (XARELTO) PO SCH (20:56)
[2019-06-08] MEDS: ATORVASTATIN 20 MG TAB PO SCH (20:56)
[2019-06-08] MEDS: SINEMET**CR** 25/100 TABCR PO SCH (20:57)
[2019-06-08] MEDS: LEVEMIR (INSULIN DETEMIR) 1 UNITS/0.01ML SC SCH (20:57)
[2019-06-08] MEDS: **NOTE PATIENT COMMENT** MISC XX SCH (20:58)
[2019-06-08 22:00] VITALS: BP 137/64
[2019-06-09 06:00] VITALS: BP 146/67
[2019-06-09] MEDS: METOPROLOL TART 50 MG TAB PO SCH (06:00)
[2019-06-09] MEDS: HumaLOG INSULIN (NovoLOG) PER UNIT SC SCH (06:44)
[2019-06-09] MEDS: ADVAIR HFA 230/21MCG INHALER INH SCH (07:28)
[2019-06-09] MEDS: aMILoride 5 MG TAB PO SCH (09:38)
[2019-06-09] MEDS: DOCUSATE SODIUM 100 MG CAP PO SCH (09:38)
[2019-06-09] MEDS: MAGNESIUM CHLORIDE 64 MG TABCR (SLO MAG) PO SCH (09:38)
[2019-06-09] MEDS: ASPIRIN 81 MG ENTERIC TAB PO SCH (09:38)
[2019-06-09] MEDS: PREGABALIN 75 MG CAP(LYRICA) PO SCH (09:38)
[2019-06-09 09:39] VITALS: BP 146/67
[2019-06-09] MEDS: ACETAMINOPHEN 500 MG TAB PO SCH (09:39)
[2019-06-09] MEDS: LIDOCAINE 5% (LIDODERM) PATCH TD SCH (09:39)
[2019-06-09] MEDS: SINEMET 25-100 MG TAB PO SCH (09:39)
[2019-06-09] MEDS: PANTOPRAZOLE 40MG TAB (PROTONIX) PO SCH (09:39)
[2019-06-09] MEDS: VITAMIN D 1,000 INTERNATIONAL UNITS TABLET PO SCH (09:39)
[2019-06-09] MEDS: amLODIPine 5 MG TAB PO SCH (09:39)
[2019-06-09] MEDS: FLUTICASONE PROP 0.05% NASAL SPRAY 16 GM (FLONASE) NARES SCH (09:40)
[2019-06-09] MEDS: SODIUM CHLORIDE NASAL 0.65% SPRAY BTL (OCEAN) SCH (09:40)
[2019-06-09] MEDS: NYSTATIN 100,000 UNITS/GM TOPICAL PWD 15 GM TOP SCH (09:40)
[2019-06-09] MEDS: REMEDY PHYTOPLEX Z-GUARD PASTE 113GM TUBE (FROM STOREROOM PRODUCT) TOP SCH (09:40)
[2019-06-10] MEDS ORDERED: FLUTISP NARES (09:23)
[2019-06-10] MEDS ORDERED: ASPI81CH33 PO (09:23)
[2019-06-10] MEDS ORDERED: AMIL5TAB4 PO (09:23)
[2019-06-10] MEDS ORDERED: MAGN1TAB39 PO (09:23)
[2019-06-10] MEDS ORDERED: CARB1TAB PO (09:23)
[2019-06-10] MEDS ORDERED: INSULANT SC (09:23)
[2019-06-10] MEDS ORDERED: METO50TA7 PO (09:23)
[2019-06-10] MEDS ORDERED: ATOR40TA75 PO (09:23)
[2019-06-10] MEDS ORDERED: LYRI75CA PO (09:23)
[2019-06-10] MEDS ORDERED: CARB25TA9 PO (09:23)
[2019-06-10] MEDS ORDERED: ADVA230A INH (09:23)
[2019-06-10] MEDS ORDERED: XARE20TA PO (09:23)
== END 2019-06-09 12:15 | disposition home health service (06) | DRG 560 ==
LOC: M PM&R 15:07
PROVIDERS: ADMIT Physical Medicine & Rehabilitation; ATTEND Physical Medicine & Rehabilitation
DX: S52.571D Other intraarticular fracture of lower end of right radius, subsequent encounter for closed fracture with routine healing (principal); I13.0 Hypertensive heart and chronic kidney disease with heart failure and stage 1 through stage 4 chronic kidney disease, or unspecified chronic kidney disease; I50.32 Chronic diastolic (congestive) heart failure; G21.19 Other drug induced secondary parkinsonism; N18.3 Chronic kidney disease, stage 3 (moderate); S42.291D Other displaced fracture of upper end of right humerus, subsequent encounter for fracture with routine healing; E11.22 Type 2 diabetes mellitus with diabetic chronic kidney disease; E78.5 Hyperlipidemia, unspecified; I25.10 Atherosclerotic heart disease of native coronary artery without angina pectoris; E11.40 Type 2 diabetes mellitus with diabetic neuropathy, unspecified; G31.83 Neurocognitive disorder with Lewy bodies; F02.80 Dementia in other diseases classified elsewhere, unspecified severity, without behavioral disturbance, psychotic disturbance, mood disturbance, and anxiety; R26.89 Other abnormalities of gait and mobility; M62.81 Muscle weakness (generalized); R53.81 Other malaise; Z98.41 Cataract extraction status, right eye; Z98.42 Cataract extraction status, left eye; Z90.49 Acquired absence of other specified parts of digestive tract; Z79.4 Long term (current) use of insulin; Z79.82 Long term (current) use of aspirin; Z79.899 Other long term (current) drug therapy; Z95.5 Presence of coronary angioplasty implant and graft; Z88.0 Allergy status to penicillin; Z79.01 Long term (current) use of anticoagulants; Z88.1 Allergy status to other antibiotic agents; Z88.5 Allergy status to narcotic agent; Z88.8 Allergy status to other drugs, medicaments and biological substances; W18.09XD Striking against other object with subsequent fall, subsequent encounter; Y92.019 Unspecified place in single-family (private) house as the place of occurrence of the external cause; Y93.E1 Activity, personal bathing and showering

== ENCOUNTER 2019-06-10 07:53 | Inpatient (IN) | payer MEDICARE, OTHER ==
[~2019-06-10 07:53] MED LIST changes: +AMLO5TAB6 PO; +CARB25TA31 PO; +FLUTISP NARES
[2019-06-10] MEDS: ASPIRIN 81 MG CHEW TABLET PO SCH (09:00)
[2019-06-10] MEDS: aMILoride 5 MG TAB PO SCH (09:00)
[2019-06-10 09:02] LABS: HEMATOCRIT 44.7 % (36.0-47.0); HEMOGLOBIN 14.3 g/dl (12.0-15.5); MEAN CORPUSCULAR HEMOGLOBIN 28.8 pg (27.0-33.0); MEAN CORPUSCULAR VOLUME 90.1 fl (80.0-96.0); PLATELET COUNT, AUTOMATED 201 10^3/uL (150-450); RED BLOOD COUNT 4.96 10^6/uL (4.00-5.40); WHITE BLOOD COUNT 10.4 10^3/uL (4.0-10.0)
[2019-06-10] MEDS ORDERED: ASPI81CH33 PO (09:23)
[2019-06-10] MEDS ORDERED: CARB25TA9 PO (09:23)
[2019-06-10] MEDS ORDERED: AMIL5TAB4 PO (09:23)
[2019-06-10] MEDS ORDERED: LYRI75CA PO (09:23)
[2019-06-10] MEDS ORDERED: ATOR40TA75 PO (09:23)
[2019-06-10] MEDS ORDERED: XARE20TA PO (09:23)
[2019-06-10] MEDS ORDERED: FLUTISP NARES (09:23)
[2019-06-10] MEDS ORDERED: ADVA230A INH (09:23)
[2019-06-10] MEDS ORDERED: INSULANT SC (09:23)
[2019-06-10] MEDS ORDERED: MAGN1TAB39 PO (09:23)
[2019-06-10] MEDS ORDERED: METO50TA7 PO (09:23)
[2019-06-10] MEDS ORDERED: CARB1TAB PO (09:23)
[2019-06-10 09:47] LABS: ALBUMIN 3.4 GM/DL (3.2-5.2); ALT/SGPT 61 U/L (12-78); BILIRUBIN,TOTAL 0.8 MG/DL (0.2-1.0); BLOOD UREA NITROGEN 29 MG/DL (7-18); CALCIUM LEVEL 9.1 MG/DL (8.8-10.2); CARBON DIOXIDE LEVEL 25 MEQ/L (21-32); CHLORIDE LEVEL 106 MEQ/L (98-107); CREATININE FOR GFR 0.86 MG/DL (0.55-1.30); GLOMERULAR FILTRATION RATE > 60.0 (>32); GLUCOSE, FASTING 176 MG/DL (70-100); MAGNESIUM LEVEL 2.1 MG/DL (1.8-2.4); POTASSIUM SERUM 5.1 MEQ/L (3.5-5.1); SODIUM LEVEL 139 MEQ/L (136-145); THYROID STIMULATING HORMONE 0.462 uIU/ML (0.358-3.740)
--- NOTE | 2019-06-10 10:12 | REP ---
CHEST, SINGLE VIEW: There is no evidence of acute infiltrate. No pleural effusion is seen. The heart is normal in size. The mediastinal silhouette is unremarkable. The visualized osseous structures are intact. There is mild calcification and tortuosity of the thoracic aorta. IMPRESSION: No acute pulmonary disease. Electronically Signed by Rodrigo Mcintosh MD 06/10/2019 12:35 P
[2019-06-10] MEDS ORDERED: MOM 30ML SUSPENSION UDC PO PRN (10:30)
[2019-06-10] MEDS ORDERED: cefTRIAXone SOD 1 GM in D5W MINI-BAG PLUS 50 ML IV ONE (10:30)
[2019-06-10] MEDS ORDERED: GLUCAGON FOR INJ 1 MG VIAL (J1610) SC PRN (10:45)
[2019-06-10] MEDS ORDERED: DEXTROSE 50% 50 ML SYRINGE IV PRN (10:45)
[2019-06-10] MEDS ORDERED: GLUCOSE 4 GM CHEW TABLET PO PRN (10:45)
[2019-06-10] MEDS: ACETAMINOPHEN TAB 650MG DOSE (2X325MG) PO PRN ×2 (11:22→22:46)
[2019-06-10] MEDS: HumaLOG INSULIN (NovoLOG) PER UNIT SC SCH ×3 (12:45→21:00)
[2019-06-10 14:00] VITALS: BP 104/59
--- NOTE | 2019-06-10 14:03 | HPEPDOC ---
General Date of Admission Jun 10, 2019 at 07:54 Date of Service: Jun 10, 2019 Attending Physician: SHRAVAN SELLERS MD Chief Complaint The patient is a 79-year-old female admitted with a reason for visit of Debility,Uti. Source: Patient, Old records Exam Limitations: No limitations History of Present Illness Patient is a 79-year-old female with history of drug induced Parkinson's disease, CKD3, DM, HTN, HLD, CAD with metal stent on Xarelto, who presents, after recent admission, from home old age debility and UTI. Patient was recently discharged from ARU on 06/09/19 after initially presenting on 05/28/19 after fall at home. Xrays showed Fracture involving the lateral distal radial metaphysis and radial styloid and Minimally displaced fracture involving the humeral head/neck.Ortho was consulted but recommended no surgical intervention. Due to debility and patient needing help with ADLs, patient was deemed a good candidate for ARU. Pt was admitted ARU on 05/30/19 and progressed well and was discharged home on 06/09/19. Pt states that when she left day prior to admission she felt "tremors" in her right leg and she felt more tired in usual. Patient got home but was unable to get around at home. Particularly, she couldn't get up to use the bathroom or to get herself food. Therefore, she reported to emergency room for further evaluation and treatment. Patient complains of some minor urgency which started last night otherwise denies any fever, chills, chest pain, difficulty breathing, nausea, vomiting, abdominal pain, dysuria, diarrhea, leg pain or swelling. Patient denies any lightheadedness or dizziness as well. Home Medications Scheduled Amiloride HCl (Amiloride HCl) 5 Mg Tablet, 5 MG PO DAILY, (Reported) Aspirin (Aspirin) 81 Mg Tab.chew, 81 MG PO DAILY, (Reported) Atorvastatin Calcium (Atorvastatin Calcium) 40 Mg Tablet, 40 MG PO QHS, (Reported) Carbidopa/Levodopa (Carbidopa-Levodopa 25-100 Tab) 1 Each Tablet, 1 TAB PO TID, (Reported) 0800, 1200, 1600 Carbidopa/Levodopa (Carbidopa-Levo ER 25-100 Tab) 1 Each Tablet.er, 1 TAB PO QHS, (Reported) Fluticasone Propion/Salmeterol (Advair Hfa 230-21 Mcg Inhaler) 12 Gm Hfa.aer.ad, 2 PUFF INH BID, (Reported) Fluticasone Propionate (Fluticasone Propionate) 16 Gm [place].susp, 1 SPRAY NARES BID, (Reported) Insulin Glargine (Lantus) 100 Unit/1 Ml Vial, 30 UNITS SC QHS, (Reported) Insulin Human Lispro (Humalog) 1 Units/0.01 Ml Inj, 1 UNITS SC AC, (Reported) SLIDING SCALE Magnesium Chloride (Magnesium Chloride) 64 Mg Tablet.dr, 64 MG PO TID, (Reported) Metoprolol Tartrate (Metoprolol Tartrate) 50 Mg Tablet, 50 MG PO TID, (Reported) Pregabalin (Lyrica) 75 Mg Capsule, 75 MG PO BID, (Reported) Rivaroxaban (Xarelto) 20 Mg Tablet, 20 MG PO QHS, (Reported) Allergies Coded Allergies: rofecoxib (Verified Allergy, Severe, Tongue Swelling , 12/21/18) amoxicillin (Verified Allergy, Mild, Rash, 12/30/18) azithromycin (Verified Allergy, Mild, Rash, 12/30/18) clavulanic acid (Verified Allergy, Mild, Rash, 12/30/18) exenatide (Verified Adverse Reaction, Mild, Abdominal pain , 12/21/18) glyburide (Verified Adverse Reaction, Mild, Too low blood sugar, 12/30/18) metoclopramide (Verified Adverse Reaction, Mild, Tremors , 12/30/18) tramadol (Verified Adverse Reaction, Mild, Rash , 12/21/18) Past Medical History Medical History PMHx: drug induced Parkinson's disease, CKD3, DM, HTN, HLD, CAD with metal stent on Xarelto Surgical History PSHx: History of chronic, cholecystectomy, bilateral forearm surgery, tonsillectomy, appendectomy Family History Significant Family History: Cancer Social History * Smoker: Denies Alcohol: rarely Drugs: denies Recent Travel/Sick Contacts: Denies: Recent travel, Recent sick contacts Psychosocial History: Dementia Lives at home with 2 sons A-FIB/CHADSVASC A-FIB History Current/History of A-Fib/PAF?: No Current PO Anticoag Therapy: Yes Review of Systems Other systems 14 point ROS reviewed and pertinent positives and negatives documented as per HPI. All other reviewed ROS negative. Physical Examination Other physical findings Elderly woman sitting up in chair, no acute distress, pleasant on interview. PERRLA, EOMI, OP clear, tongue straight. No lymphadenopathy. RRR, normal S1/2, no MRG appreciated, exam limited CTA B/L, no W/R/R Soft, nontender, nondistended. No edema, intact distal pulses Right arm in sling. Rash present under abdominal fold. No focal deficits, strength appears to be grossly intact, sensation intact. AAO 3, appropriate Vital Signs Vital Signs Date Time Temp Pulse Resp B/P (MAP) Pulse Ox O2 Delivery O2 Flow Rate FiO2 06/10/19 11:44 97.0 71 16 151/75 (100) 97 Room Air Laboratory Data Labs 24H Laboratory Tests 2 06/10/19 08:13: Bedside Glucose (Misc Panel) 184H 06/10/19 08:37: Nucleated Red Blood Cells % (auto) 0.0, Urine Color YELLOW, Urine Appearance HAZY, Urine pH 5.0, Urine Specific [place] 1.017, Urine Protein 1+H, Urine Glucose (UA) 1+H, Urine Ketones NEGATIVE, Urine Blood 1+H, Urine Nitrite NEGATIVE, Urine Bilirubin NEGATIVE, Urine Urobilinogen 0.2, Urine Leukocyte Esterase 2+H, Urine WBC (Auto) 71H, Urine RBC (Auto) 5H, Urine Hyaline Casts (Auto) 0, Urine Bacteria (Auto) 2+H, Urine Squamous Epithelial Cells 4, Urine Mucus (Auto) SMALL, Urine Sperm (Auto) , Anion Gap 8, Glomerular Filtration Rate > 60.0, Calcium Level 9.1, Magnesium Level 2.1, Total Bilirubin 0.8, Aspartate Amino Transf (AST/SGOT) 59H, Alanine Aminotransferase (ALT/SGPT) 61, Alkaline Phosphatase 300H, Total Protein 7.0, Albumin 3.4, Albumin/Globulin Ratio 0.94L, Thyroid Stimulating Hormone (TSH) 0.462 06/10/19 12:12: Bedside Glucose (Misc Panel) 187H CBC/BMP Laboratory Tests 06/10/19 08:37 Microbiology Microbiology 06/10/19 Blood Culture, Received Pending 06/10/19 Urine Culture, Received Pending 06/10/19 Blood Culture, Received Pending RAD Interpretation STUDY: CXR Rad Actions: Report Reviewed, Films Reviewed (my read: Clear CP angles,?Enlarged cardiac silhouette, no acute cardiopulmonary disease identified) Assessment/Plan Patient is a 79-year-old female with history of drug induced Parkinson's disease, CKD3, DM, HTN, HLD, CAD with metal stent on Xarelto, who presents, after recent admission, from home old age debility and UTI. It is possible patient's UTI led to increased weakness at home. Patient appears to be teetering on the edge of needing placement and being able to safely remain at home. Will treat patient's UTI with ceftriaxone and get physical therapy and occupational therapy involved to assess for ability to go home. Per report, patient was ambulatory with physical therapy this afternoon. #Old Age debility Admit for observation. PT/OT. Fall precautions. #UTI. UA appears dirty with urgency CTX We'll continue to monitor #Diabetes. Insulin sliding scale. Fingerstick to glucose. #HTN Continue home meds Trend BP #HLD Continue home meds #Parkinson's disease. Continue home meds Frequent reorientation if confused. Monitor for mental status changes. #CAD status post bare metal stent on Xarelto Continue Xarelto Continue other home meds Monitor for evidence of chest pain. #CKD stage III Creatinine currently within normal limits. Avoid nephrotoxic agents. DVT PPX: On Xarelto Disposition: Pending PT eval Plan / VTE VTE Prophylaxis Ordered?: Yes SHRAVAN SELLERS MD Jun 10, 2019 14:03
[2019-06-10] MEDS: SINEMET 25-100 MG TAB PO SCH (17:59)
[2019-06-10] MEDS: NYSTATIN 100,000 UNITS/GM TOPICAL PWD 15 GM TOP SCH ×2 (17:59→22:49)
[2019-06-10] MEDS: ADVAIR HFA 230/21MCG INHALER INH SCH (19:33)
[2019-06-10 19:59] VITALS: BP 131/67
[2019-06-10] MEDS: FLUTICASONE PROP 0.05% NASAL SPRAY 16 GM (FLONASE) NARES SCH (22:44)
[2019-06-10] MEDS: MAGNESIUM CHLORIDE 64 MG TABCR (SLO MAG) PO SCH (22:44)
[2019-06-10] MEDS: SINEMET**CR** 25/100 TABCR PO SCH (22:45)
[2019-06-10] MEDS: PREGABALIN 75 MG CAP(LYRICA) PO SCH (22:45)
[2019-06-10] MEDS: METOPROLOL TART 50 MG TAB PO SCH (22:45)
[2019-06-10] MEDS: ATORVASTATIN 20 MG TAB PO SCH (22:45)
[2019-06-10] MEDS: RIVAROXABAN 20 MG TAB (XARELTO) PO SCH (22:46)
[2019-06-11] MEDS: ACETAMINOPHEN TAB 650MG DOSE (2X325MG) PO PRN (04:44)
[2019-06-11] MEDS: ADVAIR HFA 230/21MCG INHALER INH SCH ×2 (07:39→19:45)
[2019-06-11] MEDS: ASPIRIN 81 MG CHEW TABLET PO SCH (09:01)
[2019-06-11] MEDS: MAGNESIUM CHLORIDE 64 MG TABCR (SLO MAG) PO SCH ×3 (09:01→20:26)
[2019-06-11] MEDS: aMILoride 5 MG TAB PO SCH (09:01)
[2019-06-11] MEDS: SINEMET 25-100 MG TAB PO SCH ×3 (09:01→16:49)
[2019-06-11] MEDS: PREGABALIN 75 MG CAP(LYRICA) PO SCH ×2 (09:02→20:26)
[2019-06-11] MEDS: NYSTATIN 100,000 UNITS/GM TOPICAL PWD 15 GM TOP SCH ×2 (09:04→20:28)
[2019-06-11] MEDS: METOPROLOL TART 50 MG TAB PO SCH ×3 (09:04→20:26)
[2019-06-11] MEDS: FLUTICASONE PROP 0.05% NASAL SPRAY 16 GM (FLONASE) NARES SCH ×2 (09:04→20:27)
[2019-06-11] MEDS: HumaLOG INSULIN (NovoLOG) PER UNIT SC SCH ×4 (09:05→20:29)
--- NOTE | 2019-06-11 09:20 | IPNPDOC ---
Date Seen The patient was seen on 06/11/19. Progress Note SUBJECTIVE: Patient seen and examined at bedside. Patient feeling much better today. Denies any fever, chills, chest pain, difficulty breathing, nausea, vomiting, abdominal pain, leg pain. Per nursing, patient ambulating tube bathroom unassisted OBJECTIVE PHYSICAL EXAMINATION: VITAL SIGNS: Please see below. Elderly woman sitting in chair, no acute distress RRR, normal S1/2, no MRG appreciated CTA B/L, no W/R/R Soft, nontender, nondistended. No edema, intact distal pulses Right arm in sling. Rash present under abdominal fold. No focal deficits, strength appears to be grossly intact, sensation intact. AAO 3, appropriate LABORATORY DATA, IMAGING STUDIES, MICROBIOLOGY: Please see below. ASSESSMENT AND PLAN: Patient is a 79-year-old female with history of drug induced Parkinson's disease, CKD3, DM, HTN, HLD, CAD with metal stent on Xarelto, who presents, after recent admission, from home old age debility and UTI. It is possible patient's UTI led to increased weakness at home. Patient appears to be teetering on the edge of needing placement and being able to safely remain at home. Will treat patient's UTI with ceftriaxone and get physical therapy and occupational therapy involved to assess for ability to go home. Pt remains ambulatory without assistance overnight and this morning. Pt likely will not qualify for placement but rather home with home PT. Pt otherwise feeling better. #Old Age debility Admit for observation. PT/OT. Fall precautions. #UTI. UA appears dirty with urgency CTX -f/u urine culture: specimen contaminated -f/u blood cultures: no growth to date We'll continue to monitor #Diabetes. Insulin sliding scale. Fingerstick to glucose. #HTN Continue home meds Trend BP #HLD Continue home meds #Parkinson's disease. Continue home meds Frequent reorientation if confused. Monitor for mental status changes. #CAD status post bare metal stent on Xarelto Continue Xarelto Continue other home meds Monitor for evidence of chest pain. #CKD stage III Creatinine currently within normal limits. Avoid nephrotoxic agents. DVT PPX: On Xarelto Disposition: Pending PT eval VS, I&O, 24H, Fishbone Vital Signs/I&O Vital Signs Date Time Temp Pulse Resp B/P (MAP) Pulse Ox O2 Delivery O2 Flow Rate FiO2 06/11/19 09:04 83 117/68 06/11/19 06:00 98.2 18 96 Room Air I&O- Last 24 Hours up to 6 AM0 06/11/19 06:00 Intake Total 1330 ml Balance 1330 ml Laboratory Data 24H LABS Laboratory Tests 2 06/10/19 12:12: Bedside Glucose (Misc Panel) 187H 06/10/19 16:24: Bedside Glucose (Misc Panel) 186H 06/10/19 20:02: Bedside Glucose (Misc Panel) 235H 06/11/19 06:20: Bedside Glucose (Misc Panel) 186H Microbiology Microbiology 06/10/19 Blood Culture - Preliminary, Resulted No growth after 24 hours . All specim... 06/10/19 Urine Culture - Final, Complete 06/10/19 Blood Culture - Preliminary, Resulted No growth after 24 hours . All specim... SHRAVAN SELLERS MD Jun 11, 2019 09:20
[2019-06-11] MEDS: cefTRIAXone SOD 1 GM in D5W MINI-BAG PLUS 50 ML IV SCH (11:45)
[2019-06-11 14:40] VITALS: BP 111/62
[2019-06-11 20:03] VITALS: BP 127/77
[2019-06-11] MEDS: SINEMET**CR** 25/100 TABCR PO SCH (20:26)
[2019-06-11] MEDS: RIVAROXABAN 20 MG TAB (XARELTO) PO SCH (20:26)
[2019-06-11] MEDS: ATORVASTATIN 20 MG TAB PO SCH (20:26)
[2019-06-12 06:00] VITALS: BP 127/77
[2019-06-12] MEDS: ADVAIR HFA 230/21MCG INHALER INH SCH ×2 (07:29→18:02)
[2019-06-12] MEDS: MAGNESIUM CHLORIDE 64 MG TABCR (SLO MAG) PO SCH ×3 (08:22→20:20)
[2019-06-12] MEDS: SINEMET 25-100 MG TAB PO SCH ×3 (08:23→16:15)
[2019-06-12] MEDS: NYSTATIN 100,000 UNITS/GM TOPICAL PWD 15 GM TOP SCH ×2 (08:23→20:20)
[2019-06-12] MEDS: METOPROLOL TART 50 MG TAB PO SCH ×3 (08:23→20:19)
[2019-06-12] MEDS: HumaLOG INSULIN (NovoLOG) PER UNIT SC SCH ×4 (08:23→20:13)
[2019-06-12] MEDS: FLUTICASONE PROP 0.05% NASAL SPRAY 16 GM (FLONASE) NARES SCH ×2 (08:23→20:20)
[2019-06-12] MEDS: ASPIRIN 81 MG CHEW TABLET PO SCH (08:23)
[2019-06-12] MEDS: aMILoride 5 MG TAB PO SCH (08:23)
[2019-06-12] MEDS: PREGABALIN 75 MG CAP(LYRICA) PO SCH ×2 (08:23→20:19)
[2019-06-12] MEDS: cefTRIAXone SOD 1 GM in D5W MINI-BAG PLUS 50 ML IV SCH (11:48)
[2019-06-12 14:00] VITALS: BP 121/70
--- NOTE | 2019-06-12 14:50 | IPNPDOC ---
Date Seen The patient was seen on 06/12/19. Progress Note SUBJECTIVE: Patient seen and examined at bedside. Patient doing quite well today with no complaints. Patient anxious to go home tomorrow. Denies any fevers, chills, chest pain, difficulty breathing, nausea, vomiting, abdominal pain, leg pain or swelling. Patient denies any pain. Patient denies any frequency, urgency or dysuria currently. OBJECTIVE PHYSICAL EXAMINATION: VITAL SIGNS: Please see below. Elderly woman sitting up in chair, no acute distress, pleasant on interview RRR, normal S1/2, no MRG appreciated CTA B/L, no W/R/R Soft, nontender, nondistended. No edema, intact distal pulses Right arm in sling. Rash present under abdominal fold. No focal deficits, strength appears to be grossly intact, sensation intact. AAO 3, appropriate LABORATORY DATA, IMAGING STUDIES, MICROBIOLOGY: Please see below. ASSESSMENT AND PLAN: This is a -year-old [RACE] [GENDER] with . Patient is a 79-year-old female with history of drug induced Parkinson's disease, CKD3, DM, HTN, HLD, CAD with metal stent on Xarelto, who presents, after recent admission, from home old age debility and UTI. It is possible patient's UTI led to increased weakness at home. Patient appears to be teetering on the edge of needing placement and being able to safely remain at home. Treating patient's UTI with ceftriaxone. Per PT and OT pt likely to be discharged home with home PT. Pt remains ambulatory without assistance. Patient feeling better today and ready to go home. #Old Age debility Admit for observation. PT/OT. Fall precautions. #UTI. UA appears dirty with urgency CTX -f/u urine culture: specimen contaminated -f/u blood cultures: no growth to datex 48 hours We'll continue to monitor #Diabetes. Insulin sliding scale. Fingerstick to glucose. #HTN Continue home meds Trend BP #HLD Continue home meds #Parkinson's disease. Continue home meds Frequent reorientation if confused. Monitor for mental status changes. #CAD status post bare metal stent on Xarelto Continue Xarelto Continue other home meds Monitor for evidence of chest pain. #CKD stage III Creatinine currently within normal limits. Avoid nephrotoxic agents. DVT PPX: On Xarelto Disposition: Likely discharge home tomorrow with home PT VS, I&O, 24H, Fishbone Vital Signs/I&O Vital Signs Date Time Temp Pulse Resp B/P (MAP) Pulse Ox O2 Delivery O2 Flow Rate FiO2 06/12/19 14:00 97.1 80 18 121/70 (87) 97 Room Air I&O- Last 24 Hours up to 6 AM 06/12/19 06:00 Intake Total 1240 ml Balance 1240 ml Laboratory Data 24H LABS Laboratory Tests 2 06/11/19 16:29: Bedside Glucose (Misc Panel) 116H 06/11/19 20:01: Bedside Glucose (Misc Panel) 159H 06/12/19 06:21: Bedside Glucose (Misc Panel) 172H 06/12/19 11:45: Bedside Glucose (Misc Panel) 165H Microbiology Microbiology 06/10/19 Blood Culture - Preliminary, Resulted No Growth after 48 hours. All Specime... 06/10/19 Urine Culture - Final, Complete 06/10/19 Blood Culture - Preliminary, Resulted No Growth after 48 hours. All Specime... SHRAVAN SELLERS MD Jun 12, 2019 14:50
[2019-06-12] MEDS: CEPHALEXIN 500 MG CAP PO SCH ×2 (16:14→20:19)
[2019-06-12 20:05] VITALS: BP 122/70
[2019-06-12] MEDS: ACETAMINOPHEN TAB 650MG DOSE (2X325MG) PO PRN (20:19)
[2019-06-12] MEDS: SINEMET**CR** 25/100 TABCR PO SCH (20:19)
[2019-06-12] MEDS: RIVAROXABAN 20 MG TAB (XARELTO) PO SCH (20:19)
[2019-06-12] MEDS: ATORVASTATIN 20 MG TAB PO SCH (20:20)
[2019-06-13 04:52] VITALS: BP 128/75
[2019-06-13 06:16] VITALS: BP 128/75
[2019-06-13] MEDS: MAGNESIUM CHLORIDE 64 MG TABCR (SLO MAG) PO SCH (07:45)
[2019-06-13] MEDS: HumaLOG INSULIN (NovoLOG) PER UNIT SC SCH ×2 (07:46→11:37)
[2019-06-13] MEDS: CEPHALEXIN 500 MG CAP PO SCH (07:46)
[2019-06-13] MEDS: PREGABALIN 75 MG CAP(LYRICA) PO SCH (07:46)
[2019-06-13] MEDS: SINEMET 25-100 MG TAB PO SCH ×2 (07:47→11:36)
[2019-06-13] MEDS: ASPIRIN 81 MG CHEW TABLET PO SCH (07:47)
[2019-06-13] MEDS: aMILoride 5 MG TAB PO SCH (07:47)
[2019-06-13] MEDS: ACETAMINOPHEN TAB 650MG DOSE (2X325MG) PO PRN (07:47)
[2019-06-13 07:48] VITALS: BP 128/75
[2019-06-13] MEDS: METOPROLOL TART 50 MG TAB PO SCH (07:48)
[2019-06-13] MEDS: FLUTICASONE PROP 0.05% NASAL SPRAY 16 GM (FLONASE) NARES SCH (07:48)
[2019-06-13] MEDS: NYSTATIN 100,000 UNITS/GM TOPICAL PWD 15 GM TOP SCH (07:49)
[2019-06-13] MEDS: ADVAIR HFA 230/21MCG INHALER INH SCH (08:01)
[2019-06-13] MEDS: cefTRIAXone SOD 1 GM in D5W MINI-BAG PLUS 50 ML IV SCH (11:00)
--- NOTE | 2019-06-13 12:42 | DS.PDOC ---
Discharge Summary General Date of Admission Jun 10, 2019 at 14:34 Date of Discharge 06/13/19 Discharge Summary PROCEDURES PERFORMED DURING STAY: [None]. DISCHARGE DIAGNOSES: Generalized weakness from old age, ebility and recent hospitalisation after fall with fracture of the right radius and right humerus in May 2019. Dirty UA contaminated Parkinsons disease Acute delirium due to hospitalization with underlying parkinsons disease and possible age related cognitive imprairment. SECONDARY DIAGNOSIS: Recent mechanical fall and fracture of Right distal radius and right humerus on 05/28/19 treated conservatively. Drug induced Parkinson's disease, CKD3, DM, HTN, HLD, CAD with metal stent in 2018 on Xarelto COPD Abdominal aortic aneurysm. Splenic infarction 2017, on chronic anticoagulant therapy with Xarelto. Fatty liver. Pancreatic cyst, no change from 2017. Schatzki ring with dilation, Erickson's esophagus is negative. Essential tremors primary in the right arm and leg. COMPLICATIONS/CHIEF COMPLAINT: Debility,UtI HISTORY OF PRESENT ILLNESS: See history and physical HOSPITAL COURSE: Patient is a 79-year-old female with history of drug induced Parkinson's disease, CKD3, DM, HTN, HLD, CAD with metal stent on Xarelto, who presents, after recent discharge from [facility] from May 29 to june 08 , from home due to inability t get out of bed and inability to get out of chair or walk to the bathroom. She was admitted for old age debility and possible UTI. Patient appears to be teetering on the edge of needing placement and being able to safely remain at home. Patient's Urine culture was negative so the UA was contaminated. She did receive 4 days of ceftriaxone in the hospital. patient was evaluated by PT/OT and she was felt to be safe to return home with previous level of care. Family felt that she was hallucinating when at home and also when she was talking to them over the phone. As per them she does have that off and on but now more severe. In the hospital she has been alert and oriented . No hallucinations have been noted by the nurses or other staff. However with her h/o parkinsonism, recent hospitalization , old age this may be worse. Being in her familiar surrounding it will probably improve however will set up an follow up appointment with neurology in 2 weeks to reevaluate her. Old Age debility, recent fall with fracture of right radius and humerus evaluated by PT and has been cleared from dc home. Dirty UA with negative urine culture probably contaminated Diabetes. home meds HTN continue home meds HLD Continue home meds Parkinson's disease with hallucinations Continue home meds Frequent reorientation if confused. Follow up Neurology CAD status post bare metal stent on Xarelto Continue Xarelto Continue other home meds CKD stage III at baseline DISCHARGE MEDICATIONS: Please see below. ALLERGIES: Please see below. PHYSICAL EXAMINATION ON DISCHARGE: VITAL SIGNS: Please see below. GENERAL: Elderly woman sitting up in chair, no acute distress, pleasant on interview RRR, normal S1/2, no MRG appreciated CTA B/L, no W/R/R Soft, nontender, nondistended. No edema, intact distal pulses Right arm in sling. Rash present under abdominal fold. No focal deficits, strength appears to be grossly intact, sensation intact. AAO 3, appropriate LABORATORY DATA: Please see below. ACTIVITY: [As tolerated]. DIET: As tolerated DISCHARGE PLAN: Home with previous level of care DISCHARGE INSTRUCTIONS: Follow up Neurology ain 1 to 2 weeks PMD in 2 weeks DISCHARGE CONDITION: [Stable]. TIME SPENT ON DISCHARGE: 35 minutes. Vital Signs/I&Os Vital Signs Date Time Temp Pulse Resp B/P (MAP) Pulse Ox O2 Delivery O2 Flow Rate FiO2 06/13/19 07:48 74 128/75 06/13/19 06:16 97.8 16 97 Room Air I&O- Last 24 Hours up to 6 AM 06/13/19 06:00 Intake Total 1310 ml Balance 1310 ml Laboratory Data Labs 24H Laboratory Tests 2 06/12/19 16:35: Bedside Glucose (Misc Panel) 152H 06/12/19 20:03: Bedside Glucose (Misc Panel) 216H 06/13/19 05:48: Bedside Glucose (Misc Panel) 146H 06/13/19 11:27: Bedside Glucose (Misc Panel) 177H FSBS Laboratory Tests Test 06/12/19 16:35 06/12/19 20:03 06/13/19 05:48 06/13/19 11:27 Range/Units Bedside Glucose (Misc Panel) 152 216 146 177 83-110 MG/DL Microbiology Microbiology 06/10/19 Blood Culture - Preliminary, Resulted No Growth after 72 hours. All specime... 06/10/19 Urine Culture - Final, Complete 4/4/20 Blood Culture - Preliminary, Resulted No Growth after 72 hours. All specime... Discharge Medications Scheduled Amiloride HCl (Amiloride HCl) 5 Mg Tablet, 5 MG PO DAILY, (Reported) Aspirin (Aspirin) 81 Mg Tab.chew, 81 MG PO DAILY, (Reported) Atorvastatin Calcium (Atorvastatin Calcium) 40 Mg Tablet, 40 MG PO QHS, (Reported) Carbidopa/Levodopa (Carbidopa-Levodopa 25-100 Tab) 1 Each Tablet, 1 TAB PO TID, (Reported) 0800, 1200, 1600 Carbidopa/Levodopa (Carbidopa-Levo ER 25-100 Tab) 1 Each Tablet.er, 1 TAB PO QHS, (Reported) Fluticasone Propion/Salmeterol (Advair Hfa 230-21 Mcg Inhaler) 12 Gm Hfa.aer.ad, 2 PUFF INH BID, (Reported) Fluticasone Propionate (Fluticasone Propionate) 16 Gm [place].susp, 1 SPRAY NARES BID, (Reported) Insulin Glargine (Lantus) 100 Unit/1 Ml Vial, 30 UNITS SC QHS, (Reported) Insulin Human Lispro (Humalog) 1 Units/0.01 Ml Inj, 1 UNITS SC AC, (Reported) SLIDING SCALE Magnesium Chloride (Magnesium Chloride) 64 Mg Tablet.dr, 64 MG PO TID, (Reported) Metoprolol Tartrate (Metoprolol Tartrate) 50 Mg Tablet, 50 MG PO TID, (Reported) Pregabalin (Lyrica) 75 Mg Capsule, 75 MG PO BID, (Reported) Rivaroxaban (Xarelto) 20 Mg Tablet, 20 MG PO QHS, (Reported) Allergies Coded Allergies: rofecoxib (Verified Allergy, Severe, Tongue Swelling , 12/21/18) amoxicillin (Verified Allergy, Mild, Rash, 12/30/18) azithromycin (Verified Allergy, Mild, Rash, 12/30/18) clavulanic acid (Verified Allergy, Mild, Rash, 12/30/18) exenatide (Verified Adverse Reaction, Mild, Abdominal pain , 12/21/18) glyburide (Verified Adverse Reaction, Mild, Too low blood sugar, 12/30/18) metoclopramide (Verified Adverse Reaction, Mild, Tremors , 12/30/18) tramadol (Verified Adverse Reaction, Mild, Rash , 12/21/18) JADEN ZAIDI MD Jun 13, 2019 12:42
== END 2019-06-13 13:05 | disposition home health service (06) | DRG 884 ==
LOC: EDBD 07:53 → M ED 07:53 → M ED INP 07:54 → ENRESERV 11:30 → M MS5PR 11:55 → OBSVTOIN 06-12 14:34
PROVIDERS: ADMIT Internal Medicine; ATTEND Internal Medicine Nephrology
DX: R54 Age-related physical debility (principal); K86.2 Cyst of pancreas; G21.19 Other drug induced secondary parkinsonism; N18.3 Chronic kidney disease, stage 3 (moderate); E11.22 Type 2 diabetes mellitus with diabetic chronic kidney disease; I12.9 Hypertensive chronic kidney disease with stage 1 through stage 4 chronic kidney disease, or unspecified chronic kidney disease; E78.5 Hyperlipidemia, unspecified; I25.10 Atherosclerotic heart disease of native coronary artery without angina pectoris; Z95.5 Presence of coronary angioplasty implant and graft; Z79.01 Long term (current) use of anticoagulants; Z79.82 Long term (current) use of aspirin; Z79.4 Long term (current) use of insulin; Z79.899 Other long term (current) drug therapy; Z88.0 Allergy status to penicillin; Z88.1 Allergy status to other antibiotic agents; Z88.5 Allergy status to narcotic agent; Z88.8 Allergy status to other drugs, medicaments and biological substances; R41.0 Disorientation, unspecified; K76.0 Fatty (change of) liver, not elsewhere classified; S52.511D Displaced fracture of right radial styloid process, subsequent encounter for closed fracture with routine healing; W19.XXXD Unspecified fall, subsequent encounter; Y92.009 Unspecified place in unspecified non-institutional (private) residence as the place of occurrence of the external cause

== ENCOUNTER → 2019-11-27 | Outpatient (CLI) | payer MEDICARE, OTHER ==
[~2019-11-27] MED LIST changes: +AMLO1TAB24 PO; -AMLO5TAB6 PO; -ASPI81TA85 PO; +ASPI81TA86 PO; +CARB1TAB PO; +MAGN1TAB39 PO
[2019-11-27 17:58] LABS: HEMATOCRIT 47.7 % (36.0-47.0); HEMOGLOBIN 15.1 g/dl (12.0-15.5); MEAN CORPUSCULAR HEMOGLOBIN 30.6 pg (27.0-33.0); MEAN CORPUSCULAR HGB CONC 31.7 g/dl (32.0-36.5); MEAN CORPUSCULAR VOLUME 96.6 fl (80.0-96.0); PLATELET COUNT, AUTOMATED 164 10^3/uL (150-450); RED BLOOD COUNT 4.94 10^6/uL (4.00-5.40); WHITE BLOOD COUNT 6.5 10^3/uL (4.0-10.0)
[2019-11-27 18:18] LABS: HEMOGLOBIN A1c 7.8 %
[2019-11-27 18:25] LABS: ALBUMIN 3.8 GM/DL (3.2-5.2); BILIRUBIN,TOTAL 0.7 MG/DL (0.2-1.0); CALCIUM LEVEL 9.3 MG/DL (8.8-10.2); CHOLESTEROL RISK RATIO 2.395 (<5); CREATININE FOR GFR 1.13 MG/DL (0.55-1.30); GLOMERULAR FILTRATION RATE 49.3 (>32); MAGNESIUM LEVEL 1.6 MG/DL (1.8-2.4); POTASSIUM SERUM 5.3 MEQ/L (3.5-5.1); THYROID STIMULATING HORMONE 0.542 uIU/ML (0.358-3.740); TOTAL PROTEIN 6.6 GM/DL (6.4-8.2)
== END ==
LOC: M PLALAB 14:19
PROVIDERS: ATTEND Nurse Practitioner Adult Health
DX: E11.9 Type 2 diabetes mellitus without complications (principal); I12.9 Hypertensive chronic kidney disease with stage 1 through stage 4 chronic kidney disease, or unspecified chronic kidney disease; E78.2 Mixed hyperlipidemia; D73.5 Infarction of spleen; E55.9 Vitamin D deficiency, unspecified

== ENCOUNTER → 2019-12-11 | Outpatient (CLI) | payer MEDICARE, OTHER ==
--- NOTE | 2019-12-18 12:40 | REPPI ---
TWO-VIEW CHEST HISTORY: Cough. TECHNIQUE: Two views of the chest are performed and compared to multiple prior exams, most recent of which is 06/10/2019. FINDINGS: There is no acute infiltrate. Lungs are clear. Heart is normal in size. There is calcification and tortuosity of the thoracic aorta. The mediastinal silhouette is unchanged. There are degenerative changes of the spine without compression deformity. IMPRESSION: No acute pulmonary disease. MTDD
== END ==
LOC: M PLAIMG 16:07
PROVIDERS: ATTEND Nurse Practitioner Adult Health
DX: R05 Cough (principal); Z23 Encounter for immunization
CPT/HCPCS: 71046; 90682; G0008; G0463

== ENCOUNTER → 2020-02-27 | Outpatient (REF) | payer MEDICARE, OTHER | LOC: M SFHCPLAZ 16:52 | PROVIDERS: ATTEND Nurse Practitioner Adult Health | DX: R35.0 Frequency of micturition (principal) ==

== ENCOUNTER → 2020-04-16 | Outpatient (CLI) | payer MEDICARE, OTHER ==
--- NOTE | 2020-04-16 16:06 | REPMRS ---
Patient History The patient states she has not had a clinical breast exam in over a year. Patient has history of other cancer at age 71. No known family history of cancer. Took hormonal contraceptives for 4 years. Taking estrogen for 2 years. Digital Woman Screen Mammo: April 16, 2020 - Exam #: [id number] Bilateral CC and MLO view(s) were taken. Technologist: Renetta Bingham, Technologist Prior study comparison: April 10, 2019, bilateral digital woman screen mammo performed at [facility]. March 28, 2018, bilateral digital mammo screening bilat, performed at [facility]. March 26, 2017, bilateral digital mammo screening bilat, performed at [facility]. FINDINGS: There are scattered fibroglandular densities. The Volpara volumetric breast density category is:B. There has been no change in the appearance of the mammogram from the prior studies. There is a mild amount of scattered fibroglandular density which is fairly symmetric. There is no interval development of dominant mass, architectural distortion, or grouped microcalcification suggestive of malignancy. 3-D tomosynthesis shows no additional findings. Assessment: BI-RADS/ACR category 1 mammogram. Negative Mammogram. Recommendation Routine screening mammogram of both breasts in 1 year (for women over age 40). This patient's [facility] Lifetime Breast Cancer Risk is estimated at 1.3 %. This mammogram was interpreted with the aid of an FDA-approved computer-aided dectection system. Electronically Signed By: Ab Chapman MD 04/16/20 [id number]
== END ==
LOC: M WHC 14:31
PROVIDERS: ATTEND Nurse Practitioner Adult Health
DX: Z12.31 Encounter for screening mammogram for malignant neoplasm of breast (principal); Z92.0 Personal history of contraception

== ENCOUNTER → 2020-05-15 | Outpatient (REF) | payer MEDICARE, OTHER ==
[2020-05-15 19:01] LABS: CALCIUM LEVEL 8.8 MG/DL (8.8-10.2); GLOMERULAR FILTRATION RATE 56.6 (>32); POTASSIUM SERUM 4.4 MEQ/L (3.5-5.1)
== END ==
LOC: M PLALAB 16:41
PROVIDERS: ATTEND Nurse Practitioner Adult Health
DX: K22.2 Esophageal obstruction (principal)

== ENCOUNTER → 2020-06-28 | Outpatient (CLI) | payer MEDICARE, OTHER ==
--- NOTE | 2020-06-28 16:09 | REP ---
INDICATION: K22.2 ESOPHAGEAL OBSTRUCTION. COMPARISON: None. TECHNIQUE: The procedure was performed by Marlene Hatch [facility], under the direct supervision of Dr. Chapman. The procedure was performed with Veronica Matos and Mary Madison from speech pathology present. 5 ml aliquots of thin, pudding, mixed fruit, soft food, hard food and pill consistency barium was administered. FINDINGS: Flash penetration was visualized with thin consistency barium. The detailed report of this examination will be provided by speech pathology. IMPRESSION: Flash penetration with thin consistency, a detailed report will be provided by speech pathology. 2.1 minutes of fluoroscopy time was utilized for this procedure. Some fluoroscopic images are performed with last image hold technology. These images require no additional radiation <Electronically signed by Marlene Hatch > 06/28/20 [id number] <Electronically signed by Ab Chapman > 06/28/20 [id number]
== END ==
LOC: M ST 14:20
PROVIDERS: ATTEND Nurse Practitioner Adult Health
DX: K22.2 Esophageal obstruction (principal)

== ENCOUNTER → 2020-07-18 | Outpatient (CLI) | payer MEDICARE, OTHER ==
--- NOTE | 2020-07-18 10:57 | REPPI ---
INDICATION: PAIN LEFT HIP. COMPARISON: 02/04/2011. TECHNIQUE: Two views left hip. FINDINGS: No acute fracture or dislocation. There is mild joint space narrowing and subchondral sclerosis. There is moderate acetabular spurring. There is mild calcification along the greater trochanter. There are vascular calcifications medially. IMPRESSION: Stable degenerative changes. <Electronically signed by Rodrigo Mcintosh > 07/18/20 [id number]
== END ==
LOC: M PLALAB 09:48 → M PLAIMG 09:48
PROVIDERS: ATTEND Nurse Practitioner Adult Health
DX: M16.12 Unilateral primary osteoarthritis, left hip (principal); M25.552 Pain in left hip
CPT/HCPCS: 73502; G0463

== ENCOUNTER → 2020-10-23 | Outpatient (CLI) | payer MEDICARE, OTHER ==
[~2020-10-23] MED LIST changes: +ALBU83IN NEB; +ASPI1CHW2; +D31000TA2; +FURO20TA2 PO; +PANT40TA29; +POTA20EL; +REST0.05 OS; +SUCR1SS; +TRAZ-252; +[UNRECOGNIZED DRUG - CODE] PO
== END ==
LOC: M LABSMTC 11:16
PROVIDERS: ATTEND Anesthesiology
DX: Z01.812 Encounter for preprocedural laboratory examination (principal); Z20.822 Contact with and (suspected) exposure to COVID-19

== ENCOUNTER → 2020-10-24 | Outpatient (REF) | payer MEDICARE, OTHER | LOC: M LAB REF 17:05 | PROVIDERS: ATTEND Nurse Practitioner Family | DX: E83.42 Hypomagnesemia (principal) ==

== ENCOUNTER 2020-10-28 06:43 | Day surgery (SDC) | payer MEDICARE, OTHER ==
[~2020-10-28] VITALS: Ht 144.8 cm; Wt 67.6 kg
[~2020-10-28 06:43] MED LIST changes: +NS 1,000 ML IV ONE
[2020-10-28] MEDS ORDERED: fentaNYL 100 MCG/2 ML INJECTION (J3010) As Ordered ONE (06:44)
[2020-10-28] MEDS ORDERED: propofoL 200 MG/20 ML VIAL As Ordered ONE (06:44)
[2020-10-28] MEDS ORDERED: LIDOCAINE 2% 100MG/5ML SDV (FOR ANES.) As Ordered ONE (06:44)
--- NOTE | 2020-10-28 07:43 | ROOR ---
Patient Name: Silvia Ramirez Procedure Date: 10/28/2020 7:26 AM Date of : 1940 Age: 80 Room: [facility] Gender: Female Note Status: Finalized Procedure: Upper GI endoscopy Indications: Dysphagia, Heartburn, Foreign body in the esophagus Providers: Atul Yu MD Referring MD: Alayna Meléndez NP Requesting Provider: Medicines: Monitored Anesthesia Care Complications: No immediate complications. Procedure: Pre-Anesthesia Assessment: - The heart rate, respiratory rate, oxygen saturations, blood pressure, adequacy of pulmonary ventilation, and response to care were monitored throughout the procedure. The Endoscope was introduced through the mouth, and advanced to the second part of duodenum. The upper GI endoscopy was accomplished without difficulty. The patient tolerated the procedure well. Findings: A low-grade of narrowing Schatzki ring was found at the gastroesophageal junction. A TTS dilator was passed through the scope. Dilation with an 18-19-20 mm balloon dilator was performed to 20 mm. The dilation site was examined and showed moderate improvement in luminal narrowing. Biopsies were taken with a cold forceps for histology. Small Hiatal Hernia. The exam was otherwise without abnormality. Impression: - Low-grade of narrowing Schatzki ring. Dilated. Biopsied. - Small Hiatal Hernia. - The examination was otherwise normal. Recommendation: - Use Protonix (pantoprazole) 40 mg PO daily indefinitely. - Resume Xarelto (rivaroxaban) at prior dose tomorrow. Procedure Code(s): --- Professional --- 88563, Esophagogastroduodenoscopy, flexible, transoral; with transendoscopic balloon dilation of esophagus (less than 30 mm diameter) 03685, 59, Esophagogastroduodenoscopy, flexible, transoral; with biopsy, single or multiple Diagnosis Code(s): --- Professional --- T18.108A, Unspecified foreign body in esophagus causing other injury, initial encounter R12, Heartburn R13.10, Dysphagia, unspecified K22.2, Esophageal obstruction CPT copyright 2019 [employer]. All rights reserved. The codes documented in this report are preliminary and upon makeup artist review may be revised to meet current compliance requirements. Atul Yu MD Atul Yu MD 10/28/2020 7:43:33 AM Electronically signed by Atul Yu MD Number of Addenda: 0 Note Initiated On: 10/28/2020 7:26 AM Estimated Blood Loss: Estimated blood loss: none.
[2020-10-28 08:17] VITALS: BP 166/76
== END 2020-10-28 08:20 | disposition home or self-care (01) ==
LOC: M OPP 06:43
PROVIDERS: ATTEND Internal Medicine Gastroenterology
DX: K22.2 Esophageal obstruction (principal); T18.108A Unspecified foreign body in esophagus causing other injury, initial encounter; R13.10 Dysphagia, unspecified; R12 Heartburn; Z79.4 Long term (current) use of insulin; Z79.82 Long term (current) use of aspirin; Z79.899 Other long term (current) drug therapy; Z88.1 Allergy status to other antibiotic agents; Z88.5 Allergy status to narcotic agent; Z88.8 Allergy status to other drugs, medicaments and biological substances
CPT/HCPCS: 43239; 43249; 88305; J3010

== ENCOUNTER 2020-11-07 17:25 | Emergency (ER) | payer MEDICARE, OTHER ==
[~2020-11-07] VITALS: Ht 149.9 cm; Wt 67.7 kg
[~2020-11-07 17:25] MED LIST changes: -NS 1,000 ML IV ONE
[2020-11-07 17:26] VITALS: BP 131/72
[2020-11-07] MEDS ORDERED: ACETAMINOPHEN 325 MG TAB PO ONE (20:20)
[2020-11-07] MEDS ORDERED: NS 500 ML IV ONE (20:20)
[2020-11-07 21:32] LABS: BASO # 0.1 10^3/uL (0.0-0.2); BASO % 0.9 % (0.0-1.0); EOS # 0.4 10^3/uL (0.0-0.5); EOS % 5.3 % (0.0-3.0); HEMATOCRIT 44.8 % (36.0-47.0); HEMOGLOBIN 14.3 g/dl (12.0-15.5); LYMPH # 1.3 10^3/uL (1.5-5.0); LYMPH % 17.9 % (24.0-44.0); MEAN CORPUSCULAR HEMOGLOBIN 29.7 pg (27.0-33.0); MEAN CORPUSCULAR HGB CONC 31.9 g/dl (32.0-36.5); MEAN CORPUSCULAR VOLUME 93.1 fl (80.0-96.0); MONO # 0.6 10^3/uL (0.0-0.8); MONO % 8.7 % (2.0-8.0); NEUTROPHILS # 4.7 10^3/uL (1.5-8.5); NEUTROPHILS % 66.8 % (36.0-66.0); PLATELET COUNT, AUTOMATED 166 10^3/uL (150-450); RED BLOOD COUNT 4.81 10^6/uL (4.00-5.40)
[2020-11-07 22:09] LABS: ALBUMIN 3.2 GM/DL (3.2-5.2); BILIRUBIN,DIRECT 0.1 MG/DL (0.0-0.2); BILIRUBIN,TOTAL 0.3 MG/DL (0.2-1.0); TOTAL PROTEIN 6.2 GM/DL (6.4-8.2)
[2020-11-07] MEDS ORDERED: ISOVUE-370 76% 100ML VIAL As Ordered ONE (22:17)
--- NOTE | 2020-11-07 22:56 | REPVR ---
PROCEDURE INFORMATION: Exam: CT Abdomen And Pelvis With Contrast Exam date and time: 11/07/2020 10:23 PM Age: 80 years old Clinical indication: Abdominal pain; Localized; Left lower quadrant (llq); Additional info: Llq abd pain TECHNIQUE: Imaging protocol: Computed tomography of the abdomen and pelvis with contrast. Radiation optimization: All CT scans at this facility use at least one of these dose optimization techniques: automated exposure control; mA and/or kV adjustment per patient size (includes targeted exams where dose is matched to clinical indication); or iterative reconstruction. Contrast material: ISOVUE 370; Contrast volume: 100 ml; Contrast route: INTRAVENOUS (IV); COMPARISON: MRI ABD W/O FOL WITH 09/28/2017 2:13 PM FINDINGS: Lungs: Minimal bibasilar bronchiectasis. Mediastinal space: Minimal hiatal hernia. Liver: Nodular surface of the liver. Gallbladder and bile ducts: Status post cholecystectomy. Pancreas: Pancreatic cyst in the head/uncinate measuring 10 x 14 x 12 mm. 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 Adrenal glands: Normal. No mass. Kidneys and ureters: There are bilateral renal cysts measuring up to 2.9 cm on the left with a Hounsfield measurement of 9. These appear to reflect simple cysts which are redemonstrated since 09/28/2017 with little change. Stomach and bowel: Lipomatosis polyp extending from the ileocecal valve measuring 13 x 15 mm. Mild stool throughout much of the colon. Appendix: There are no changes of appendicitis. A normal appendix is not seen. Intraperitoneal space: Unremarkable. No free air. No significant fluid collection. Vasculature: There is mild calcification of the abdominal aorta with extension into the iliac arteries. Lymph nodes: Unremarkable. No enlarged lymph nodes. Urinary bladder: Unremarkable as visualized. Reproductive: Status post hysterectomy. Bones/joints: Lower lumbar facet arthropathy with increased lordosis and grade 1 anterolisthesis of L4 relative to L5. Soft tissues: Unremarkable. IMPRESSION: 1. There has been prior cholecystectomy and hysterectomy. 2. Lipomatosis polyp extending from the ileocecal valve measuring 13 x 15 mm. 3. Suggestion of hepatic cirrhosis. 4. Pancreatic cyst in the head/uncinate measuring 10 x 12 x [address] abdomen/pelvis. COMMENTS: Consistent with the [employer]'s Incidental Findings Committee white paper (J Am Colt Radiol 2018): Any incidental renal lesion less than 1 cm or classified as too small to characterize, or any incidental cystic renal lesion characterized as simple-appearing, is likely benign. No follow-up imaging is recommended for these lesions per consensus recommendations based on imaging criteria. Electronically signed by: Jason Valle On 11/07/2020 22:56:29 PM
--- NOTE | 2020-11-09 06:47 | ED PDOC ---
Post-Departure Follow-Up Debby Meléndez faxed formal report of ct abd/p for fu Jf Talley MD Nov 09, 2020 06:47
== END 2020-11-07 23:27 | disposition home or self-care (01) ==
LOC: M ED 17:25
DX: K86.2 Cyst of pancreas (principal); D12.0 Benign neoplasm of cecum; J44.9 Chronic obstructive pulmonary disease, unspecified; E11.9 Type 2 diabetes mellitus without complications; I10 Essential (primary) hypertension; Z79.4 Long term (current) use of insulin; Z79.899 Other long term (current) drug therapy; Z88.8 Allergy status to other drugs, medicaments and biological substances; Z88.0 Allergy status to penicillin; Z88.1 Allergy status to other antibiotic agents; Z88.4 Allergy status to anesthetic agent; Z90.49 Acquired absence of other specified parts of digestive tract; Z98.890 Other specified postprocedural states
CPT/HCPCS: 36415; 74177; 80047; 80076; 81001; 83690; 85025; 87086; 96360; 96361; 99284; Q9967

== ENCOUNTER → 2021-01-09 | Outpatient (REF) | payer MEDICARE, OTHER ==
[~2021-01-09] MED LIST changes: -KLOR10TA76 PO; +POTA-136 PO
== END ==
LOC: M LAB REF 17:27
PROVIDERS: ATTEND Nurse Practitioner Family
DX: E83.42 Hypomagnesemia (principal)

== ENCOUNTER → 2021-03-28 | Outpatient (REF) | payer MEDICARE, OTHER ==
[~2021-03-28] MED LIST changes: +LOSA100T45 PO; -LOSA100T50 PO; +LOSA50TA28 PO; -LOSA50TA88 PO; +POTA-149 PO; -POTA10TA16 PO
== END ==
LOC: M SFHCPLAZ 16:43
PROVIDERS: ATTEND Physician Assistant
DX: R30.0 Dysuria (principal)

== ENCOUNTER → 2021-04-02 | Outpatient (CLI) | payer MEDICARE, OTHER ==
[2021-04-02 16:12] LABS: BASO # 0.1 10^3/uL (0.0-0.2); BASO % 1.1 % (0.0-1.0); EOS # 0.4 10^3/uL (0.0-0.5); HEMOGLOBIN 14.6 g/dl (12.0-15.5); LYMPH # 1.2 10^3/uL (1.5-5.0); LYMPH % 16.6 % (24.0-44.0); MEAN CORPUSCULAR HGB CONC 31.7 g/dl (32.0-36.5); MEAN CORPUSCULAR VOLUME 94.7 fl (80.0-96.0); MONO # 0.7 10^3/uL (0.0-0.8); MONO % 9.4 % (2.0-8.0); NEUTROPHILS # 4.8 10^3/uL (1.5-8.5); NEUTROPHILS % 67.3 % (36.0-66.0); PLATELET COUNT, AUTOMATED 194 10^3/uL (150-450); RED BLOOD COUNT 4.86 10^6/uL (4.00-5.40); WHITE BLOOD COUNT 7.2 10^3/uL (4.0-10.0)
[2021-04-02 16:31] LABS: ALBUMIN 3.6 GM/DL (3.2-5.2); BILIRUBIN,TOTAL 0.4 MG/DL (0.2-1.0); C REACTIVE PROTEIN QUANTITATIV 0.3 MG/DL (0.00-0.30); CALCIUM LEVEL 9.4 MG/DL (8.8-10.2); CREATININE FOR GFR 1.14 MG/DL (0.55-1.30); GLOMERULAR FILTRATION RATE 48.6 (>32); POTASSIUM SERUM 5.1 MEQ/L (3.5-5.1); TOTAL PROTEIN 7.2 GM/DL (6.4-8.2)
[2021-04-02 16:47] LABS: ERYTHROCYTE SEDIMENTATION RATE 7 mm/hr (0-30)
== END ==
LOC: M LAB 15:32
PROVIDERS: ATTEND Physician Assistant
DX: R10.84 Generalized abdominal pain (principal); R53.81 Other malaise

== ENCOUNTER → 2021-04-02 | Outpatient (CLI) | payer MEDICARE, OTHER ==
[~2021-04-02] MED LIST changes: +GASTROGRAFIN SOLUTION 30ML (Q9963) As Ordered ONE; +ISOVUE-370 76% 100ML VIAL As Ordered ONE
== END ==
LOC: M RAD 14:46
PROVIDERS: ATTEND Physician Assistant
DX: R10.84 Generalized abdominal pain (principal); R53.81 Other malaise; R53.83 Other fatigue; Z90.49 Acquired absence of other specified parts of digestive tract
CPT/HCPCS: 74177; Q9963; Q9967

== ENCOUNTER → 2021-04-17 | Outpatient (REF) | payer MEDICARE, OTHER ==
[~2021-04-17] MED LIST changes: -GASTROGRAFIN SOLUTION 30ML (Q9963) As Ordered ONE; -ISOVUE-370 76% 100ML VIAL As Ordered ONE
== END ==
LOC: M LAB REF 16:39
PROVIDERS: ATTEND Nurse Practitioner Family
DX: E83.42 Hypomagnesemia (principal)

== ENCOUNTER → 2021-10-08 | Outpatient (CLI) | payer MEDICARE, OTHER ==
[~2021-10-08] MED LIST changes: +ALBU2.5V10 NEB; -ALBU83IN NEB; -D31000TA2; +NYST-13 TOP; -NYST10CR TOP; +VITA100093
== END ==
LOC: M RAD 09:19
PROVIDERS: ATTEND Nurse Practitioner Family
DX: N18.31 Chronic kidney disease, stage 3a (principal); R39.12 Poor urinary stream; R35.1 Nocturia

== ENCOUNTER → 2022-05-13 | Outpatient (REF) | payer MEDICARE, OTHER | LOC: M LAB REF 16:39 | PROVIDERS: ATTEND Surgery | DX: C44.622 Squamous cell carcinoma of skin of right upper limb, including shoulder (principal) ==

== ENCOUNTER → 2023-02-02 | Outpatient (CLI) | payer MEDICARE, OTHER ==
[~2023-02-02] MED LIST changes: +FLUT50SP17 NARES; -FLUTISP NARES; -LOSA100T45 PO; +LOSA100T46 PO
[2023-02-02 14:37] LABS: HEMOGLOBIN A1c 6.7 % (4.0-6.0)
== END ==
LOC: M PLALAB 10:14
PROVIDERS: ATTEND Nurse Practitioner Family
DX: E11.21 Type 2 diabetes mellitus with diabetic nephropathy (principal)

== ENCOUNTER → 2023-02-02 | Outpatient (CLI) | payer MEDICARE, OTHER ==
[2023-02-02 14:21] LABS: HEMATOCRIT 47.4 % (36.0-47.0); HEMOGLOBIN 14.8 g/dl (12.0-15.5); MEAN CORPUSCULAR HEMOGLOBIN 29.7 pg (27.0-33.0); MEAN CORPUSCULAR HGB CONC 31.2 g/dl (32.0-36.5); MEAN CORPUSCULAR VOLUME 95.2 fl (80.0-96.0); PLATELET COUNT, AUTOMATED 239 10^3/uL (150-450); RED BLOOD COUNT 4.98 10^6/uL (4.00-5.40)
[2023-02-02 14:37] LABS: HEMOGLOBIN A1c 6.7 % (4.0-6.0)
[2023-02-02 14:59] LABS: BILIRUBIN,TOTAL 0.7 MG/DL (0.3-1.2); CALCIUM LEVEL 9.7 MG/DL (8.3-10.6); CHOLESTEROL RISK RATIO 2.39 (<5); CREATININE FOR GFR 1.22 MG/DL (0.55-1.30); GLOMERULAR FILTRATION RATE 44.7 (>32); HDL CHOLESTEROL 52.1 MG/DL (>40); LDL CHOLESTEROL 33.5 MG/DL (<100); NON-HDL-C 72.9 MG/DL; POTASSIUM SERUM 4.4 MMOL/L (3.5-5.1); TOTAL 25(OH) VITAMIN D 52.6 NG/ML (20.0-100.0); TOTAL PROTEIN 6.8 G/DL (5.7-8.2)
== END ==
LOC: M PLALAB 10:17
PROVIDERS: ATTEND Nurse Practitioner Adult Health
DX: D73.5 Infarction of spleen (principal); E55.9 Vitamin D deficiency, unspecified; E78.2 Mixed hyperlipidemia; R53.81 Other malaise; R53.83 Other fatigue; E11.21 Type 2 diabetes mellitus with diabetic nephropathy

== ENCOUNTER 2024-05-17 13:04 | Inpatient (IN) | payer MEDICARE, OTHER ==
[~2024-05-17] VITALS: Ht 154.9 cm; Wt 59.0 kg
[~2024-05-17 13:04] MED LIST changes: -ASPI1CHW2; +ASPI1CHW2 PO; -FLUT50SP17 NARES; +FLUTISP NARES; -PANT40TA29; +PANT40TA29 PO; -POTA20EL; +POTA20LI16 PO; -SUCR1SS; +SUCR1SS PO; -VITA100093; +VITA100093 PO
[2024-05-17 13:49] LABS: BASO % 0.6 % (0.0-1.0); EOS # 0.1 10^3/uL (0.0-0.5); EOS % 1.5 % (0.0-3.0); HEMATOCRIT 48.9 % (36.0-47.0); LYMPH # 0.7 10^3/uL (1.5-5.0); MEAN CORPUSCULAR HEMOGLOBIN 27.8 pg (27.0-33.0); MEAN CORPUSCULAR HGB CONC 30.7 g/dl (32.0-36.5); MEAN CORPUSCULAR VOLUME 90.6 fl (80.0-96.0); MONO # 0.5 10^3/uL (0.0-0.8); MONO % 7.1 % (2.0-8.0); NEUTROPHILS # 5.2 10^3/uL (1.5-8.5); NEUTROPHILS % 80.2 % (36.0-66.0); PLATELET COUNT, AUTOMATED 235 10^3/uL (150-450); WHITE BLOOD COUNT 6.5 10^3/uL (4.0-10.0)
[2024-05-17 14:00] LABS: INR 1.95; PROTHROMBIN TIME 22.4 SECONDS (12.5-14.5)
[2024-05-17] MEDS: NS (Normal Saline) 0.9% 1,000 ML IV SCH (14:10)
[2024-05-17] MEDS: MORPHINE 2 MG/ML 1ML VIAL IV PRN (14:10)
[2024-05-17] MEDS: ONDANSETRON 4MG 2ML VIAL IV ONE (14:10)
[2024-05-17 14:16] LABS: BLOOD UREA NITROGEN 22 MG/DL (9-23); CALCIUM LEVEL 9.1 MG/DL (8.3-10.6); CARBON DIOXIDE LEVEL 26 MMOL/L (20-31); CHLORIDE LEVEL 105 MMOL/L (98-107); CREATININE FOR GFR 0.87 MG/DL (0.55-1.30); GLOMERULAR FILTRATION RATE > 60.0 (>32); GLUCOSE, FASTING 165 MG/DL (74-106); POTASSIUM SERUM 4.2 MMOL/L (3.5-5.1); SODIUM LEVEL 141 MMOL/L (136-145)
[2024-05-17 14:39] LABS: MAGNESIUM LEVEL 1.7 MG/DL (1.8-2.4)
[2024-05-17] MEDS ORDERED: MOM 30ML SUSPENSION UDC PO PRN (15:20)
[2024-05-17] MEDS ORDERED: MAALOX 30 ML SUSP *UDC PO PRN (15:20)
[2024-05-17] MEDS ORDERED: AMANTADINE PO (15:21)
[2024-05-17] MEDS ORDERED: EZET10TA21 PO (15:21)
[2024-05-17] MEDS ORDERED: ONDA-282 PO (15:21)
[2024-05-17] MEDS ORDERED: TRAZ-257 PO (15:21)
[2024-05-17] MEDS ORDERED: CARB1TAB97 PO (15:21)
[2024-05-17] MEDS ORDERED: LEVE250T5 PO (15:21)
[2024-05-17] MEDS ORDERED: HOME MED LIST COMPLETE! XX SCH (15:25)
[2024-05-17] MEDS ORDERED: GLUCOSE 4 GM CHEW PO PRN (15:45)
[2024-05-17] MEDS ORDERED: GLUCAGON INJ 1MG VIAL SC PRN (15:45)
[2024-05-17] MEDS ORDERED: DEXTROSE 50% 50ML SYRINGE IV PRN (15:45)
[2024-05-17] MEDS ORDERED: PILL CUTTER 1 EACH XX PRN (16:25)
[2024-05-17 17:23] VITALS: BP 139/80; TEMP 98.1; O2SAT 98
[2024-05-17] MEDS ORDERED: INSULIN LISPRO (NovoLOG) PER UNIT SC SCH (17:30)
[2024-05-17] MEDS: SUCRALFATE SUSP 1GM/10ML UD PO SCH (18:24)
[2024-05-17] MEDS: INSULIN LISPRO (NovoLOG) PER UNIT SC SCH ×2 (18:25→20:34)
[2024-05-17] MEDS: MAG SULF 1GM/100ML (MAG RUN) 1 GM in IV 1 EA IV SCH (18:25)
[2024-05-17] MEDS: SINEMET 25-100 MG TAB PO SCH (18:32)
[2024-05-17 18:57] LABS: KETONE, URINE AUTO RFX TRACE mg/dL (NEGATIVE); NITRITE, URINE AUTO RFX NEGATIVE (NEGATIVE); RBC, URINE AUTO RFX 23 /HPF (0-3); SQUAM EPITHELIAL CELL UR AURFX 3 /HPF (0-6)
[2024-05-17 18:58] LABS: LEUKOCYTE ESTERASE UR AUTO RFX 2+ (NEGATIVE); WBC, URINE AUTO RFX 19 /HPF (0-3)
[2024-05-17 20:00] VITALS: BP 121/49; TEMP 97.7; O2SAT 91
[2024-05-17] MEDS: SINEMET**CR** 25/100 TABCR PO SCH (22:05)
[2024-05-17] MEDS: traZODone 50 MG TAB PO SCH (22:05)
[2024-05-17] MEDS: MAGNESIUM GLUCONATE 500 MG TAB PO SCH (22:05)
[2024-05-17] MEDS: FAMOTIDINE 20 MG TAB PO SCH (22:06)
[2024-05-17] MEDS: ATORVASTATIN 20 MG TAB PO SCH (22:06)
[2024-05-17] MEDS: levETIRAcetam 250MG TABLET (KEPPRA) PO SCH (22:06)
[2024-05-17] MEDS: LanTUS (INSULIN GLARGINE INJ) 1 UNITS/0.01 ML SC SCH (22:07)
[2024-05-17] MEDS: NYSTATIN 100,000 UNITS/GM TOPICAL PWD 15GM TOP SCH (22:07)
[2024-05-18 03:39] VITALS: BP 144/81; TEMP 97.9; O2SAT 90
[2024-05-18 08:56] LABS: BASO # 0.1 10^3/uL (0.0-0.2); BASO % 0.7 % (0.0-1.0); EOS # 0.1 10^3/uL (0.0-0.5); EOS % 1.3 % (0.0-3.0); HEMATOCRIT 41.3 % (36.0-47.0); HEMOGLOBIN 13.1 g/dl (12.0-15.5); LYMPH # 0.4 10^3/uL (1.5-5.0); LYMPH % 6.2 % (24.0-44.0); MEAN CORPUSCULAR HEMOGLOBIN 28.5 pg (27.0-33.0); MEAN CORPUSCULAR HGB CONC 31.7 g/dl (32.0-36.5); MONO # 0.4 10^3/uL (0.0-0.8); MONO % 5.8 % (2.0-8.0); NEUTROPHILS # 6.1 10^3/uL (1.5-8.5); NEUTROPHILS % 85.7 % (36.0-66.0); PLATELET COUNT, AUTOMATED 197 10^3/uL (150-450); RED BLOOD COUNT 4.59 10^6/uL (4.00-5.40); WHITE BLOOD COUNT 7.1 10^3/uL (4.0-10.0)
[2024-05-18] MEDS: POTASSIUM CHLORIDE 10% LIQ 20MEQ/15ML UDC PO SCH (09:00)
[2024-05-18] MEDS: PANTOPRAZOLE 40MG TAB (PROTONIX) PO SCH (09:43)
[2024-05-18] MEDS: EZETIMIBE 10MG TABLET (ZETIA) PO SCH (09:44)
[2024-05-18] MEDS: FUROSEMIDE 40 MG TAB PO SCH (09:44)
[2024-05-18] MEDS: NITROFURANTOIN (MACROBID) 100 MG CAP PO SCH (09:44)
[2024-05-18] MEDS: ENOXAPARIN 40MG/0.4ML SYRINGE (J1650 PER 10MG) SC SCH (09:45)
[2024-05-18] MEDS: aMILoride 5 MG TAB PO SCH (09:45)
[2024-05-18 12:00] VITALS: BP 124/82; TEMP 98.1; O2SAT 96
[2024-05-18 20:00] VITALS: BP 149/88; TEMP 97.9; O2SAT 93
[2024-05-19] VITALS (9 sets, daily range): BP systolic 116–172; BP diastolic 67–98; TEMP 97–98.1; O2SAT 91–97
[2024-05-19] MEDS: INSULIN LISPRO (NovoLOG) PER UNIT SC SCH (08:53)
[2024-05-19] MEDS: MORPHINE 2 MG/ML 1ML VIAL IV PRN (09:48)
[2024-05-19] MEDS: NS (Normal Saline) 0.9% 1,000 ML IV SCH (09:56)
[2024-05-19] MEDS ORDERED: MAGNESIUM SULFATE IN WATER 2 GM in IV 1 EA IV STA (10:03)
[2024-05-19] MEDS ORDERED: propofoL 200 MG/20 ML VIAL As Ordered ONE (10:28)
[2024-05-19] MEDS: MAG SULF 1GM/100ML (MAG RUN) X2 IV SCH (10:30)
[2024-05-19] MEDS: POTASSIUM CHLORIDE 10% LIQ 20MEQ/15ML UDC PO SCH (11:00)
[2024-05-19] MEDS ORDERED: MIDAZOLAM INJ 2MG/2ML VIAL As Ordered ONE (12:17)
[2024-05-19] MEDS ORDERED: fentaNYL 100 MCG/2 ML INJECTION As Ordered ONE (12:17)
[2024-05-19] MEDS ORDERED: ROCURONIUM BROMIDE 50MG/5ML VIAL As Ordered ONE (13:43)
[2024-05-19] MEDS ORDERED: GLYCOPYRROLATE INJ 0.2 MG/ML 2 ML VIAL As Ordered ONE (13:43)
[2024-05-19] MEDS ORDERED: ONDANSETRON 4MG 2ML VIAL As Ordered ONE (13:44)
[2024-05-19] MEDS ORDERED: SUGAMMADEX SODIUM 500 MG/5 ML VIAL (BRIDION) As Ordered ONE (13:45)
[2024-05-19] MEDS ORDERED: PHENYLephrine 500MCG 5ML (100MCG/ML) SYRINGE As Ordered ONE (14:59)
[2024-05-19] MEDS: ceFAZolin SODIUM 2 GM VIAL As Ordered ONE (15:00)
[2024-05-19] MEDS: TRANEXAMIC ACID 100 MG/ML 10ML VIAL As Ordered ONE (15:00)
[2024-05-19] MEDS ORDERED: HYDROmorphone HCL 2MG/ML 1ML VIAL As Ordered ONE (15:21)
[2024-05-19] MEDS ORDERED: ACETAMINOPHEN 1000MG/100ML IV BAG As Ordered ONE (15:29)
[2024-05-19] MEDS: VANCOMYCIN 1000MG/20ML VIAL As Ordered ONE (16:15)
[2024-05-19] MEDS ORDERED: fentaNYL 100 MCG/2 ML INJECTION IV PRN (16:25)
[2024-05-19] MEDS ORDERED: ONDANSETRON 4MG 2ML VIAL IV PRN (16:25)
[2024-05-19] MEDS: ceFAZolin SODIUM 2 GM in DEXTROSE 5% (D5W) ADV/MINI-BAG 50 ML IV SCH (21:33)
[2024-05-20] VITALS (7 sets, daily range): BP systolic 119–141; BP diastolic 65–85; TEMP 97.3–98.2; O2SAT 82–100
[2024-05-20 06:35] LABS: BASO % 0.1 % (0.0-1.0); EOS % 0.3 % (0.0-3.0); HEMOGLOBIN 13.2 g/dl (12.0-15.5); LYMPH # 0.3 10^3/uL (1.5-5.0); LYMPH % 3.4 % (24.0-44.0); MEAN CORPUSCULAR HEMOGLOBIN 28.4 pg (27.0-33.0); MEAN CORPUSCULAR HGB CONC 31.4 g/dl (32.0-36.5); MEAN CORPUSCULAR VOLUME 90.3 fl (80.0-96.0); MONO # 0.5 10^3/uL (0.0-0.8); MONO % 6.8 % (2.0-8.0); NEUTROPHILS # 6.9 10^3/uL (1.5-8.5); PLATELET COUNT, AUTOMATED 201 10^3/uL (150-450); RED BLOOD COUNT 4.65 10^6/uL (4.00-5.40); WHITE BLOOD COUNT 7.8 10^3/uL (4.0-10.0)
[2024-05-20 07:10] LABS: BLOOD UREA NITROGEN 16 MG/DL (9-23); CALCIUM LEVEL 8.2 MG/DL (8.3-10.6); CARBON DIOXIDE LEVEL 30 MMOL/L (20-31); CHLORIDE LEVEL 105 MMOL/L (98-107); CREATININE FOR GFR 0.75 MG/DL (0.55-1.30); GLOMERULAR FILTRATION RATE > 60.0 (>32); GLUCOSE, FASTING 156 MG/DL (74-106); MAGNESIUM LEVEL 1.8 MG/DL (1.8-2.4); POTASSIUM SERUM 3.7 MMOL/L (3.5-5.1); SODIUM LEVEL 146 MMOL/L (136-145)
[2024-05-20] MEDS: MORPHINE 4 MG/ML 1ML VIAL IV PRN (08:49)
[2024-05-20] MEDS: cefTRIAXone SOD 2 GM in DEXTROSE 5% (D5W) ADV/MINI-BAG 50 ML IV SCH (08:50)
[2024-05-20] MEDS: VITAMIN D 1,000 INTERNATIONAL UNITS TABLET PO SCH (10:12)
[2024-05-20] MEDS: POTASSIUM CHLORIDE 10% LIQ 20MEQ/15ML UDC PO SCH (10:15)
[2024-05-20] MEDS: RIVAROXABAN 20MG TAB (XARELTO) PO SCH (21:23)
[2024-05-21 03:46] VITALS: BP 119/64; TEMP 97.5; O2SAT 96
[2024-05-21 06:34] LABS: BLOOD UREA NITROGEN 26 MG/DL (9-23); CALCIUM LEVEL 8.6 MG/DL (8.3-10.6); CARBON DIOXIDE LEVEL 29 MMOL/L (20-31); CHLORIDE LEVEL 108 MMOL/L (98-107); CREATININE FOR GFR 0.94 MG/DL (0.55-1.30); GLOMERULAR FILTRATION RATE > 60.0 (>32); GLUCOSE, FASTING 81 MG/DL (74-106); POTASSIUM SERUM 4.1 MMOL/L (3.5-5.1); SODIUM LEVEL 147 MMOL/L (136-145)
[2024-05-21] MEDS: D5W 1,000 ML IV SCH (07:45)
[2024-05-21] MEDS: POTASSIUM CHLORIDE 10% LIQ 20MEQ/15ML UDC PO SCH (09:26)
[2024-05-21] MEDS: ONDANSETRON 4MG ORAL DISINTEGRATING TAB PO PRN (10:02)
[2024-05-21 12:00] VITALS: BP 137/79; TEMP 97.7; O2SAT 95
[2024-05-21 15:18] LABS: BLOOD UREA NITROGEN 27 MG/DL (9-23); CALCIUM LEVEL 8.4 MG/DL (8.3-10.6); CARBON DIOXIDE LEVEL 29 MMOL/L (20-31); CHLORIDE LEVEL 103 MMOL/L (98-107); CREATININE FOR GFR 0.86 MG/DL (0.55-1.30); GLOMERULAR FILTRATION RATE > 60.0 (>32); GLUCOSE, FASTING 273 MG/DL (74-106); POTASSIUM SERUM 4.4 MMOL/L (3.5-5.1); SODIUM LEVEL 141 MMOL/L (136-145)
[2024-05-21 16:13] VITALS: O2SAT 96
[2024-05-21 18:02] VITALS: O2SAT 87
[2024-05-21 18:05] VITALS: O2SAT 97
[2024-05-21 22:00] VITALS: BP 108/72; TEMP 97.7; O2SAT 99
[2024-05-22 04:00] VITALS: BP 129/82; TEMP 97.5; O2SAT 98
[2024-05-22] MEDS: D5W/0.45% SODIUM CHLORIDE 1,000 ML IV SCH (10:32)
[2024-05-22 10:59] LABS: ABG BASE EXCESS 5.4 (-2.0-2.0); ABG HCO3 29.2 MMOL/L (22.0-26.0); ABG O2 SATURATION 97.7 % (95.0-99.0); ABG PARTIAL PRESSURE CO2 39.7 mmHg (35.0-45.0); ABG PARTIAL PRESSURE O2 98.7 mmHg (75.0-100.0); ABG STANDARD HCO3 29.3 MMOL/L. (22.0-26.0); ABG TOTAL CO2 30.4 MMOL/L (23.0-31.0); ABG pH (ARTERIAL) 7.484 UNITS (7.350-7.450)
[2024-05-22 12:00] VITALS: BP 144/87; TEMP 97.5; O2SAT 93
[2024-05-22] MEDS: INSULIN LISPRO (NovoLOG) PER UNIT SC SCH (12:00)
[2024-05-22 20:00] VITALS: BP 124/57; TEMP 98.8; O2SAT 96
[2024-05-23 04:00] VITALS: BP 108/64; TEMP 97.7; O2SAT 96
[2024-05-23 06:26] LABS: BLOOD UREA NITROGEN 21 MG/DL (9-23); CARBON DIOXIDE LEVEL 32 MMOL/L (20-31); CHLORIDE LEVEL 101 MMOL/L (98-107); CREATININE FOR GFR 0.75 MG/DL (0.55-1.30); GLOMERULAR FILTRATION RATE > 60.0 (>32); GLUCOSE, FASTING 175 MG/DL (74-106); MAGNESIUM LEVEL 1.4 MG/DL (1.8-2.4); POTASSIUM SERUM 4.2 MMOL/L (3.5-5.1); SODIUM LEVEL 139 MMOL/L (136-145)
[2024-05-23 12:00] VITALS: BP 119/70; TEMP 97.9; O2SAT 96
[2024-05-23 20:43] VITALS: BP 129/63; TEMP 98.1; O2SAT 96
[2024-05-24 04:05] VITALS: BP 129/81; TEMP 97.8; O2SAT 94
[2024-05-24 09:00] VITALS: BP 122/61; TEMP 97.9; O2SAT 98
[2024-05-24] MEDS: CEFDINIR 300 MG CAP (OMNICEF) PO SCH (09:14)
[2024-05-24] MEDS: MAG SULF 1GM/100ML (MAG RUN) 1 GM in IV 1 EA IV SCH (09:30)
[2024-05-24] MEDS: ACETAMINOPHEN 325 MG TAB PO PRN (11:19)
[2024-05-24 13:16] LABS: BASO % 0.4 % (0.0-1.0); EOS # 0.1 10^3/uL (0.0-0.5); EOS % 1.3 % (0.0-3.0); HEMATOCRIT 42.7 % (36.0-47.0); HEMOGLOBIN 13.4 g/dl (12.0-15.5); LYMPH # 0.6 10^3/uL (1.5-5.0); LYMPH % 6.3 % (24.0-44.0); MEAN CORPUSCULAR HEMOGLOBIN 28.4 pg (27.0-33.0); MEAN CORPUSCULAR HGB CONC 31.4 g/dl (32.0-36.5); MEAN CORPUSCULAR VOLUME 90.5 fl (80.0-96.0); MONO # 0.7 10^3/uL (0.0-0.8); MONO % 6.5 % (2.0-8.0); NEUTROPHILS # 8.6 10^3/uL (1.5-8.5); NEUTROPHILS % 84.8 % (36.0-66.0); PLATELET COUNT, AUTOMATED 289 10^3/uL (150-450); RED BLOOD COUNT 4.72 10^6/uL (4.00-5.40); WHITE BLOOD COUNT 10.1 10^3/uL (4.0-10.0)
[2024-05-24 13:32] LABS: MAGNESIUM LEVEL 1.4 MG/DL (1.8-2.4)
[2024-05-24 13:45] LABS: PROCALCITONIN 0.13 ng/ml
[2024-05-24] MEDS: MAG SULF 1GM/100ML (MAG RUN) 1 GM in IV 1 EA IV ONE (16:14)
[2024-05-24 20:01] VITALS: BP 114/60; TEMP 97.9; O2SAT 98
[2024-05-25 04:00] VITALS: BP 120/61; TEMP 97.7; O2SAT 96
[2024-05-25 09:17] LABS: BASO # 0.1 10^3/uL (0.0-0.2); BASO % 0.6 % (0.0-1.0); EOS # 0.2 10^3/uL (0.0-0.5); EOS % 2.8 % (0.0-3.0); HEMOGLOBIN 11.8 g/dl (12.0-15.5); LYMPH # 0.7 10^3/uL (1.5-5.0); LYMPH % 8.5 % (24.0-44.0); MEAN CORPUSCULAR HEMOGLOBIN 28.5 pg (27.0-33.0); MEAN CORPUSCULAR HGB CONC 31.9 g/dl (32.0-36.5); MEAN CORPUSCULAR VOLUME 89.4 fl (80.0-96.0); MONO # 0.7 10^3/uL (0.0-0.8); MONO % 8.4 % (2.0-8.0); NEUTROPHILS # 6.9 10^3/uL (1.5-8.5); PLATELET COUNT, AUTOMATED 229 10^3/uL (150-450); RED BLOOD COUNT 4.14 10^6/uL (4.00-5.40); WHITE BLOOD COUNT 8.7 10^3/uL (4.0-10.0)
[2024-05-25 09:24] LABS: ERYTHROCYTE SEDIMENTATION RATE 45 mm/hr (0-30)
[2024-05-25 10:10] LABS: BLOOD UREA NITROGEN 19 MG/DL (9-23); CALCIUM LEVEL 8.2 MG/DL (8.3-10.6); CARBON DIOXIDE LEVEL 32 MMOL/L (20-31); CHLORIDE LEVEL 101 MMOL/L (98-107); CREATININE FOR GFR 0.84 MG/DL (0.55-1.30); GLOMERULAR FILTRATION RATE > 60.0 (>32); GLUCOSE, FASTING 183 MG/DL (74-106); MAGNESIUM LEVEL 1.6 MG/DL (1.8-2.4); POTASSIUM SERUM 3.5 MMOL/L (3.5-5.1); SODIUM LEVEL 140 MMOL/L (136-145)
[2024-05-25 11:58] LABS: HEMOGLOBIN 12.8 g/dl (12.0-15.5); MEAN CORPUSCULAR HEMOGLOBIN 28.8 pg (27.0-33.0); MEAN CORPUSCULAR VOLUME 89.9 fl (80.0-96.0); PLATELET COUNT, AUTOMATED 251 10^3/uL (150-450); RED BLOOD COUNT 4.45 10^6/uL (4.00-5.40); WHITE BLOOD COUNT 8.9 10^3/uL (4.0-10.0)
[2024-05-25 12:32] LABS: BLOOD UREA NITROGEN 18 MG/DL (9-23); CALCIUM LEVEL 8.5 MG/DL (8.3-10.6); CARBON DIOXIDE LEVEL 31 MMOL/L (20-31); CHLORIDE LEVEL 100 MMOL/L (98-107); CREATININE FOR GFR 0.79 MG/DL (0.55-1.30); GLOMERULAR FILTRATION RATE > 60.0 (>32); GLUCOSE, FASTING 243 MG/DL (74-106); POTASSIUM SERUM 4.2 MMOL/L (3.5-5.1); SODIUM LEVEL 138 MMOL/L (136-145)
[2024-05-25 14:04] LABS: PROCALCITONIN 0.11 ng/ml
[2024-05-25 20:52] VITALS: BP 129/83; TEMP 97.9; O2SAT 98
[2024-05-26 03:50] VITALS: BP 131/69; TEMP 97; O2SAT 96
[2024-05-26 08:00] VITALS: BP 127/68; TEMP 97.7; O2SAT 97
[2024-05-26] MEDS: TAMSULOSIN 0.4 MG CAP PO SCH (21:00)
[2024-05-27 04:00] VITALS: BP 135/98; TEMP 97.5; O2SAT 94
[2024-05-28 04:00] VITALS: BP 117/65; TEMP 97.7; O2SAT 96
[2024-05-29 03:39] VITALS: BP 136/83; TEMP 97.5; O2SAT 93
[2024-05-29] MEDS ORDERED: FLOM0.4C39 PO (12:44)
[2024-05-29] MEDS ORDERED: CEFD300CAP PO (12:46)
[2024-05-29] MEDS ORDERED: LANTINJ4 SC (12:47)
== END 2024-05-29 15:05 | DRG 521 ==
LOC: EDBD 13:04 → M ED 13:04 → M ED INP 15:18 → M MSPAV 17:24
PROVIDERS: ADMIT Student in an Organized Health Care Education/Training Program; ATTEND General Practice
PROC: 0SRR0J9 Replacement of Right Hip Joint, Femoral Surface with Synthetic Substitute, Cemented, Open Approach (ICD-10-PCS; principal; 2024-05-19 13:15)
DX: S72.002A Fracture of unspecified part of neck of left femur, initial encounter for closed fracture (principal); G93.41 Metabolic encephalopathy; E87.0 Hyperosmolality and hypernatremia; N39.0 Urinary tract infection, site not specified; W18.30XA Fall on same level, unspecified, initial encounter; Y92.018 Other place in single-family (private) house as the place of occurrence of the external cause; Y93.89 Activity, other specified; Y99.8 Other external cause status; E11.9 Type 2 diabetes mellitus without complications; G20.A1 Parkinson's disease without dyskinesia, without mention of fluctuations; I10 Essential (primary) hypertension; F03.90 Unspecified dementia, unspecified severity, without behavioral disturbance, psychotic disturbance, mood disturbance, and anxiety; J44.9 Chronic obstructive pulmonary disease, unspecified; J45.909 Unspecified asthma, uncomplicated; K21.9 Gastro-esophageal reflux disease without esophagitis; L89.321 Pressure ulcer of left buttock, stage 1; M19.90 Unspecified osteoarthritis, unspecified site; L89.156 Pressure-induced deep tissue damage of sacral region; M54.50 Low back pain, unspecified; E78.5 Hyperlipidemia, unspecified; B96.4 Proteus (mirabilis) (morganii) as the cause of diseases classified elsewhere; E83.42 Hypomagnesemia; G89.29 Other chronic pain; I48.91 Unspecified atrial fibrillation; Z90.49 Acquired absence of other specified parts of digestive tract; Z96.651 Presence of right artificial knee joint; Z79.4 Long term (current) use of insulin; Z79.82 Long term (current) use of aspirin; Z79.899 Other long term (current) drug therapy; Z79.01 Long term (current) use of anticoagulants; Z88.0 Allergy status to penicillin; Z88.1 Allergy status to other antibiotic agents; Z88.5 Allergy status to narcotic agent; Z88.8 Allergy status to other drugs, medicaments and biological substances; I25.10 Atherosclerotic heart disease of native coronary artery without angina pectoris; Z95.5 Presence of coronary angioplasty implant and graft

== ENCOUNTER 2024-06-03 16:42 | Emergency (ER) | payer MEDICARE, OTHER ==
[~2024-06-03] VITALS: Ht 147.3 cm; Wt 58.3 kg
[~2024-06-03 16:42] MED LIST changes: +AMANTADINE PO; +CARB1TAB97 PO; +CEFD300CAP PO; +EZET10TA21 PO; +FLOM0.4C39 PO; +LANTINJ4 SC; +LEVE250T5 PO; +ONDA-282 PO; +TRAZ-257 PO
[2024-06-03 17:34] LABS: BASO # 0.1 10^3/uL (0.0-0.2); BASO % 0.4 % (0.0-1.0); EOS # 0.3 10^3/uL (0.0-0.5); EOS % 2.2 % (0.0-3.0); HEMATOCRIT 40.6 % (36.0-47.0); LYMPH # 0.6 10^3/uL (1.5-5.0); LYMPH % 5.6 % (24.0-44.0); MEAN CORPUSCULAR HEMOGLOBIN 28.4 pg (27.0-33.0); MEAN CORPUSCULAR VOLUME 88.8 fl (80.0-96.0); MONO # 0.6 10^3/uL (0.0-0.8); MONO % 5.5 % (2.0-8.0); NEUTROPHILS # 9.7 10^3/uL (1.5-8.5); NEUTROPHILS % 85.6 % (36.0-66.0); PLATELET COUNT, AUTOMATED 362 10^3/uL (150-450); RED BLOOD COUNT 4.57 10^6/uL (4.00-5.40); WHITE BLOOD COUNT 11.3 10^3/uL (4.0-10.0)
[2024-06-03 17:58] LABS: CALCIUM LEVEL 8.9 MG/DL (8.3-10.6); CREATININE FOR GFR 1.01 MG/DL (0.55-1.30); GLOMERULAR FILTRATION RATE 55.5 (>32); POTASSIUM SERUM 4.4 MMOL/L (3.5-5.1)
[2024-06-04 01:12] VITALS: BP 136/77; TEMP 96; O2SAT 97
== END 2024-06-04 01:20 | disposition home or self-care (01) ==
LOC: EDBD 16:42 → M ED 16:42
DX: S70.02XA Contusion of left hip, initial encounter (principal); S51.812A Laceration without foreign body of left forearm, initial encounter; W01.0XXA Fall on same level from slipping, tripping and stumbling without subsequent striking against object, initial encounter; Y92.009 Unspecified place in unspecified non-institutional (private) residence as the place of occurrence of the external cause; Y93.9 Activity, unspecified; Y99.9 Unspecified external cause status; M85.852 Other specified disorders of bone density and structure, left thigh; M16.12 Unilateral primary osteoarthritis, left hip; I10 Essential (primary) hypertension; E78.5 Hyperlipidemia, unspecified; J44.9 Chronic obstructive pulmonary disease, unspecified; N18.30 Chronic kidney disease, stage 3 unspecified; Z96.642 Presence of left artificial hip joint; Z79.4 Long term (current) use of insulin; Z79.82 Long term (current) use of aspirin; Z79.899 Other long term (current) drug therapy; Z88.0 Allergy status to penicillin; Z88.1 Allergy status to other antibiotic agents; Z88.8 Allergy status to other drugs, medicaments and biological substances; Z88.5 Allergy status to narcotic agent

== ENCOUNTER → 2024-06-05 | Outpatient (REF) ==
[2024-06-05 10:09] LABS: HEMATOCRIT 40.7 % (36.0-47.0); HEMOGLOBIN 12.5 g/dl (12.0-15.5); MEAN CORPUSCULAR HEMOGLOBIN 27.4 pg (27.0-33.0); MEAN CORPUSCULAR HGB CONC 30.7 g/dl (32.0-36.5); MEAN CORPUSCULAR VOLUME 89.3 fl (80.0-96.0); PLATELET COUNT, AUTOMATED 385 10^3/uL (150-450); RED BLOOD COUNT 4.56 10^6/uL (4.00-5.40); WHITE BLOOD COUNT 9.9 10^3/uL (4.0-10.0)
[2024-06-05 10:35] LABS: CALCIUM LEVEL 9.4 MG/DL (8.3-10.6); CREATININE FOR GFR 0.97 MG/DL (0.55-1.30); GLOMERULAR FILTRATION RATE 58.1 (>32)
== END ==
PROVIDERS: ATTEND Physician Assistant
DX: I10 Essential (primary) hypertension (principal)

== ENCOUNTER → 2024-06-07 | Outpatient (REF) | PROVIDERS: ATTEND Internal Medicine | DX: R05.9 Cough, unspecified (principal); Z53.8 Procedure and treatment not carried out for other reasons ==

== ENCOUNTER → 2024-06-07 | Outpatient (REF) | PROVIDERS: ATTEND Physician Assistant | DX: R05.9 Cough, unspecified (principal) ==

== ENCOUNTER → 2024-06-08 | Outpatient (REF) | payer MEDICARE, OTHER | PROVIDERS: ATTEND Physician Assistant | DX: R05.9 Cough, unspecified (principal) ==

== ENCOUNTER → 2024-06-09 | Outpatient (REF) | payer MEDICARE, OTHER | LOC: M SOG 07:48 → EDSTATUS 13:39 | PROVIDERS: ATTEND Orthopaedic Surgery | DX: Z96.642 Presence of left artificial hip joint (principal) ==

== ENCOUNTER → 2024-06-12 | Outpatient (REF) ==
[2024-06-12 10:31] LABS: HEMATOCRIT 40.7 % (36.0-47.0); HEMOGLOBIN 12.7 g/dl (12.0-15.5); MEAN CORPUSCULAR HGB CONC 31.2 g/dl (32.0-36.5); MEAN CORPUSCULAR VOLUME 89.8 fl (80.0-96.0); PLATELET COUNT, AUTOMATED 247 10^3/uL (150-450); RED BLOOD COUNT 4.53 10^6/uL (4.00-5.40); WHITE BLOOD COUNT 7.4 10^3/uL (4.0-10.0)
[2024-06-12 10:57] LABS: BLOOD UREA NITROGEN 21 MG/DL (9-23); CALCIUM LEVEL 9.2 MG/DL (8.3-10.6); CARBON DIOXIDE LEVEL 29 MMOL/L (20-31); CHLORIDE LEVEL 103 MMOL/L (98-107); CREATININE FOR GFR 0.78 MG/DL (0.55-1.30); GLOMERULAR FILTRATION RATE > 60.0 (>32); GLUCOSE, FASTING 135 MG/DL (74-106); POTASSIUM SERUM 4.1 MMOL/L (3.5-5.1); SODIUM LEVEL 140 MMOL/L (136-145)
== END ==
PROVIDERS: ATTEND Physician Assistant
DX: I10 Essential (primary) hypertension (principal)

== ENCOUNTER → 2024-06-19 | Outpatient (REF) ==
[2024-06-19 17:20] LABS: HEMATOCRIT 44.1 % (36.0-47.0); HEMOGLOBIN 13.5 g/dl (12.0-15.5); MEAN CORPUSCULAR HEMOGLOBIN 27.8 pg (27.0-33.0); MEAN CORPUSCULAR HGB CONC 30.6 g/dl (32.0-36.5); MEAN CORPUSCULAR VOLUME 90.7 fl (80.0-96.0); PLATELET COUNT, AUTOMATED 341 10^3/uL (150-450); RED BLOOD COUNT 4.86 10^6/uL (4.00-5.40); WHITE BLOOD COUNT 13.8 10^3/uL (4.0-10.0)
[2024-06-19 17:53] LABS: ALBUMIN 2.7 G/DL (3.2-5.2); BILIRUBIN,TOTAL 0.4 MG/DL (0.3-1.2); CALCIUM LEVEL 9.1 MG/DL (8.3-10.6); CREATININE FOR GFR 1.6 MG/DL (0.55-1.30); GLOMERULAR FILTRATION RATE 31.4 (>32); POTASSIUM SERUM 4.7 MMOL/L (3.5-5.1); TOTAL PROTEIN 5.9 G/DL (5.7-8.2)
[2024-06-19 17:54] LABS: THYROID STIMULATING HORMONE 0.885 uIU/ML (0.55-4.78); THYROXINE (T4) 9.2 UG/DL (4.5-10.9)
[2024-06-19 17:57] LABS: TOTAL T3 70.4 NG/DL (60.0-181.0)
== END ==
PROVIDERS: ATTEND Physician Assistant
DX: R63.8 Other symptoms and signs concerning food and fluid intake (principal)

== ENCOUNTER → 2024-06-19 | Outpatient (REF) ==
[2024-06-19 17:49] LABS: APPEARANCE, URINE TURBID (CLEAR); BACTERIA, URINE AUTO 3+ (NEGATIVE); BILIRUBIN, URINE AUTO NEGATIVE (NEGATIVE); BLOOD, URINE BLOOD 2+ (NEGATIVE); COLOR, URINE YELLOW (YELLOW); GLUCOSE, URINE (UA) AUTO 3+ mg/dL (NEGATIVE); KETONE, URINE AUTO NEGATIVE (NEGATIVE); LEUKOCYTE ESTERASE, URINE AUTO 3+ (NEGATIVE); NITRITE, URINE AUTO NEGATIVE (NEGATIVE); PROTEIN, URINE AUTO 1+ mg/dL (NEGATIVE); RBC, URINE AUTO 87 /HPF (0-3); SPECIFIC GRAVITY URINE AUTO 1.016 (1.002-1.035); SQUAMOUS EPITHELIAL CELL UR AU 4 /HPF (0-6); WBC, URINE AUTO TNTC /HPF (0-3)
== END ==
PROVIDERS: ATTEND Physician Assistant
DX: N39.0 Urinary tract infection, site not specified (principal)